=== PATIENT | female | born 1965 | race Caucasian/White ===

== ENCOUNTER 2016-09-28 18:33 | Emergency (ER) | payer BC, OTHER ==
[~2016-09-28] VITALS: Ht 162.6 cm; Wt 99.8 kg
[~2016-09-28 18:33] MED LIST: AMLO5TAB2 PO; ASPI325T11 PO; ASPI81TA2 PO; BUDE10.2 IH; CARV12.52 PO; CEPH500T PO; CIPR10DR AD; CLIN300C86 PO; CLON0.1T PO; EZET10TA3 PO; FAMO20TA5 PO; FERR325T31 PO; FERR325T72 PO; FLUT16SP2 NS; FURO-68 PO; HYDR-2666 PO; HYDR-2869 PO; HYDR100T24 PO; INSU100C4 SQ; INSU100I13 SQ; INSU100I17 SQ; LIPITOR80 MG PO; LORA10TA3 PO; LOSA100T6 PO; LOSA25TA PO; METO25TA9 PO; NITR0.4T6 SL; PRED-220 PO; TRAM50TA PO; VENTOLIN HFA18 GM INH
[2016-09-28] MEDS ORDERED: HYDROCODONE/APAP 7.5/325MG TABLET. PO ONE (20:00)
[2016-09-28] MEDS ORDERED: ONDANSETRON ODT 4 MG TAB.RAPDIS PO ONE (20:00)
[2016-09-28 20:04] LABS: BASO % 1 % (0-3); EOS % 2 % (0-3); HEMATOCRIT 35.2 % (36.0-47.0); HEMOGLOBIN 11.5 g/dL (12.0-15.5); LYMPH # 1.2 x10^3/uL (1.0-4.8); LYMPH % 13 % (24-48); MEAN CORPUSCULAR HEMOGLOBIN 31 pg (25-35); MEAN CORPUSCULAR HGB CONC 33 g/dL (31-37); MEAN CORPUSCULAR VOLUME 95 fL (79-100); MONO % 11 % (0-9); NEUT % 74 % (31-73); PLATELET COUNT 222 x10^3/uL (140-400); RED CELL DISTRIBUTION WIDTH 13.4 % (11.5-14.5); WHITE BLOOD COUNT 9.5 x10^3/uL (4.0-11.0)
[2016-09-28 20:14] LABS: CALCIUM 9.9 mg/dL (8.5-10.1); GFR 11.8; POTASSIUM 3.7 mmol/L (3.5-5.1)
[2016-09-28 20:16] VITALS: BP 168/71
[2016-09-28 20:20] LABS: ALBUMIN 3.8 g/dL (3.4-5.0); TOTAL BILIRUBIN 0.6 mg/dL (0.2-1.0); TOTAL PROTEIN 7.8 g/dL (6.4-8.2)
--- NOTE | 2016-09-28 21:01 | PHYS DOC ---
Past Medical History Past Medical History: CAD, CHF, COPD, Diabetes-Type II, High Cholesterol, Hypertension, Renal Failure, Stroke Past Surgical History: Coronary Bypass Surgery, , Other Additional Past Surgical Histo: SHUNT SX Alcohol Use: None Drug Use: None Adult General Chief Complaint Chief Complaint: ABDOMINAL PAIN HPI HPI Patient is a 51 year old female who presents with complaint of right-sided abdominal pain. Patient states that she has had symptoms for the past 2 days. Patient states that the pain has been mostly in her right lower quadrant states that it radiates towards her right flank. Patient denies any associated nausea, fever, or diarrhea but states that she did get sick to her stomach after dialysis earlier today. Patient states that she was given Tylenol to help with her pain that she feels that this made her stomach upset. Patient denies any nausea or vomiting currently. Patient has history of end-stage renal disease, diabetes mellitus, COPD, and CHF. Patient follows a Dr. Rubin for primary care. Patient rates her pain as 10 out of 10. Patient states the pain worsens when she moves at her waist. Review of Systems Review of Systems Constitutional: Denies fever or chills [] Eyes: Denies change in visual acuity, redness, or eye pain [] HENT: Denies nasal congestion or sore throat [] Respiratory: Denies cough or shortness of breath [] Cardiovascular: No additional information not addressed in HPI [] GI: Abdominal pain, denies nausea, vomiting, bloody stools or diarrhea [] : Denies dysuria or hematuria [] Musculoskeletal: Back pain [] Integument: Denies rash or skin lesions [] Neurologic: Denies headache, focal weakness or sensory changes [] Current Medications Current Medications Current Medications Medications (Trade) Dose Ordered Sig/Jesus Start Time Stop Time Status Last Admin Dose Admin Acetaminophen/ Hydrocodone Bitart (Lortab 7.5/325) 1 tab 1X ONCE 09/28/16 20:00 09/28/16 20:01 DC 09/28/16 19:59 1 TAB Ondansetron HCl (Zofran Odt) 4 mg 1X ONCE 09/28/16 20:00 09/28/16 20:01 DC 09/28/16 20:00 4 MG Allergies Allergies Allergies Coded Allergies Type Severity Reaction Last Updated Verified No Known Drug Allergies 04/12/16 No Physical Exam Physical Exam Constitutional: Alert, afebrile, appears in mild discomfort. [] HENT: Normocephalic, atraumatic, bilateral external ears normal, oropharynx moist, no oral exudates, nose normal. [] Eyes: PERRLA, EOMI, conjunctiva normal, no discharge. [] Neck: Normal range of motion, no tenderness, supple, no stridor. [] Cardiovascular:Heart rate regular rhythm, no murmur [] Lungs & Thorax: Bilateral breath sounds clear to auscultation [] Abdomen: Bowel sounds normal, soft, no tenderness, no masses, no pulsatile masses. [] Skin: Warm, dry, no erythema, no rash. [] Back: Mild right middle lumbar paraspinous muscle tenderness to palpation, no midline tenderness, no CVA tenderness. [] Extremities: No tenderness, no cyanosis, no clubbing, ROM intact, no edema. [] Neurologic: Alert and oriented X 3, normal motor function, normal sensory function, no focal deficits noted. [] Current Patient Data Vital Signs Vital Signs Date Time Temp Pulse Resp B/P Pulse Ox O2 Delivery O2 Flow Rate FiO2 09/28/16 20:16 64 18 168/71 96 Room Air 09/28/16 18:49 98.2 98.2 Lab Values Laboratory Tests Test 09/28/16 19:10 White Blood Count 9.5x10^3/uL (4.0-11.0) Red Blood Count 3.70x10^6/uL (3.50-5.40) Hemoglobin 11.5g/dL (12.0-15.5) L Hematocrit 35.2% (36.0-47.0) L Mean Corpuscular Volume 95fL (79-100) Mean Corpuscular Hemoglobin 31pg (25-35) Mean Corpuscular Hemoglobin Concent 33g/dL (31-37) Red Cell Distribution Width 13.4% (11.5-14.5) Platelet Count 222x10^3/uL (140-400) Neutrophils (%) (Auto) 74% (31-73) H Lymphocytes (%) (Auto) 13% (24-48) L Monocytes (%) (Auto) 11% (0-9) H Eosinophils (%) (Auto) 2% (0-3) Basophils (%) (Auto) 1% (0-3) Neutrophils # (Auto) 7.0x10^3uL (1.8-7.7) Lymphocytes # (Auto) 1.2x10^3/uL (1.0-4.8) Monocytes # (Auto) 1.0x10^3/uL (0.0-1.1) Eosinophils # (Auto) 0.2x10^3/uL (0.0-0.7) Basophils # (Auto) 0.0x10^3/uL (0.0-0.2) Sodium Level 139mmol/L (136-145) Potassium Level 3.7mmol/L (3.5-5.1) Chloride Level 100mmol/L (98-107) Carbon Dioxide Level 27mmol/L (21-32) Anion Gap 12 (6-14) Blood Urea Nitrogen 36mg/dL (7-20) H Creatinine 4.0mg/dL (0.6-1.0) H Estimated GFR (Cockcroft-Gault) 11.8 BUN/Creatinine Ratio 9 (6-20) Glucose Level 224mg/dL (70-99) H Calcium Level 9.9mg/dL (8.5-10.1) Total Bilirubin 0.6mg/dL (0.2-1.0) Aspartate Amino Transferase (AST) 15U/L (15-37) Alanine Aminotransferase (ALT) 18U/L (14-59) Alkaline Phosphatase 89U/L (46-116) Total Protein 7.8g/dL (6.4-8.2) Albumin 3.8g/dL (3.4-5.0) Albumin/Globulin Ratio 1.0 (1.0-1.7) Lipase 316U/L (73-393) Laboratory Tests 09/28/16 19:10 Laboratory Tests 09/28/16 19:10 EKG EKG Not performed [] Radiology/Procedures Radiology/Procedures 3 view acute abdominal series interpreted by me: No pulmonary infiltrates or effusions, normal cardiac silhouette, nonobstructive bowel gas pattern, no free air under the diaphragm [] Course & Med Decision Making Course & Med Decision Making Pertinent Labs and Imaging studies reviewed. (See chart for details) Patient was given [place] in the emergency department for pain. Patient does not appear to have an acute severe intra-abdominal process at this time. The patient will be provided with a prescription for [place] to help with pain and advised follow-up in 2-3 days with patient's primary physician. Advised return to the emergency department for any worsening symptoms. Patient voiced understanding and in agreement with treatment plan. Dragon Disclaimer Dragon Disclaimer This electronic medical record was generated, in whole or in part, using a voice recognition dictation system. Departure Departure Impression: Primary Impression: Abdominal pain Disposition: HOME, SELF-CARE Condition: IMPROVED Referrals: ELMO RUBIN MD (PCP) Patient Instructions: Abdominal Pain (Nonspecific) Additional Instructions: Follow-up in 2-[address] Rubin. Return to the emergency department for any worsening symptoms. Scripts Hydrocodone/Apap 5-325 ([place] 5-325 Tablet)1 Each Tablet1 Tab PO Q4-6HRS PRN PAIN #15 TAB Prov:MICHAEL GARNER MD 09/28/16 Ondansetron (Zofran Odt)4 Mg Tab.rapdis4 Mg PO Q6HRS PRN NAUSEA/VOMITING #15 TAB Prov:MICHAEL GARNER MD 09/28/16 Problem Qualifiers Primary Impression: Abdominal pain Abdominal location: lower abdomen, unspecified Qualified Code: R10.30 - Lower abdominal pain, unspecified MICHAEL GARNER MD Sep 28, 2016 21:01
[2016-09-28] MEDS ORDERED: ONDA4TAB10 PO (21:09)
[2016-09-28] MEDS ORDERED: HYDR-971 PO (21:09)
--- NOTE | 2016-09-29 08:03 | RAD ---
EXAM: Two view abdomen with one view chest HISTORY: Abdominal pain, chronic obstructive pulmonary disease, hypertension, diabetes. COMPARISON: None. FINDINGS: A frontal view of the chest and supine/upright views of the abdomen are obtained. There are no confluent infiltrates. There is no pneumothorax or pleural effusion. The heart is mildly enlarged. There are changes of coronary artery bypass grafting. There are atherosclerotic calcifications of the aorta. There is no pneumoperitoneum. There are no distended small bowel loops or significant air-fluid levels. There is gas distally. Stool throughout the colon is consistent with constipation. IMPRESSION: 1. Mild cardiomegaly. 2. Findings consistent with constipation. No evidence of obstruction.
== END 2016-09-28 21:25 | disposition home or self-care (01) ==
LOC: ER 18:33
DX: R10.31 Right lower quadrant pain (principal); M54.5 Low back pain; E11.22 Type 2 diabetes mellitus with diabetic chronic kidney disease; I13.2 Hypertensive heart and chronic kidney disease with heart failure and with stage 5 chronic kidney disease, or end stage renal disease; I50.9 Heart failure, unspecified; N18.6 End stage renal disease; J44.9 Chronic obstructive pulmonary disease, unspecified; I25.10 Atherosclerotic heart disease of native coronary artery without angina pectoris; E78.00 Pure hypercholesterolemia, unspecified; Z86.73 Personal history of transient ischemic attack (TIA), and cerebral infarction without residual deficits; Z95.1 Presence of aortocoronary bypass graft; Z99.2 Dependence on renal dialysis
CPT/HCPCS: 36415; 74022; 80053; 83690; 85027; 99285; Q0162

== ENCOUNTER 2016-11-15 13:39 | Emergency (ER) | payer OTHER ==
[~2016-11-15] VITALS: Ht 162.6 cm; Wt 96.8 kg
[~2016-11-15 13:39] MED LIST changes: +HYDR-971 PO; +ONDA4TAB10 PO
[2016-11-15] MEDS ORDERED: FLUCONAZOLE 100 MG TABLET. PO STA (15:28)
--- NOTE | 2016-11-15 15:28 | PHYS DOC ---
Past Medical History Past Medical History: CAD, CHF, COPD, Diabetes-Type II, High Cholesterol, Hypertension, Renal Failure, Stroke Past Surgical History: Coronary Bypass Surgery, , Other Additional Past Surgical Histo: SHUNT SX Alcohol Use: None Drug Use: None Adult General Chief Complaint Chief Complaint: BREAST PROBLEM HPI HPI Patient is a 51 year old female who presents with complaint of left breast tenderness and rash for the past week. Patient states she first noticed a lesion on week ago and states that since then it has grown significantly. Patient states that the rash is located along the lateral side of the left breast. Patient states that the area has not drained anything. Patient states that the lesion is very tender to touch. Patient has been applying Vaseline ointment with no improvement in symptoms. Patient denies any associated fever, shortness of breath, or nausea. Patient denies any history of similar symptoms. Review of Systems Review of Systems Constitutional: Denies fever or chills [] Eyes: Denies change in visual acuity, redness, or eye pain [] HENT: Denies nasal congestion or sore throat [] Respiratory: Denies cough or shortness of breath [] Cardiovascular: Denies chest pain or edema [] GI: Denies abdominal pain, nausea, vomiting, bloody stools or diarrhea [] : Left breast tenderness [] Musculoskeletal: Denies back pain or joint pain [] Integument: Rash on left breast [] Neurologic: Denies headache, focal weakness or sensory changes [] Current Medications Current Medications Current Medications Medications (Trade) Dose Ordered Sig/Jesus Start Time Stop Time Status Last Admin Dose Admin Acetaminophen/ Hydrocodone Bitart (Lortab 5/325) 1 tab 1X ONCE 11/15/16 15:30 11/15/16 15:38 DC 11/15/16 15:59 1 TAB Cephalexin HCl (Keflex) 500 mg 1X STAT 11/15/16 15:31 11/15/16 15:38 DC 11/15/16 15:59 500 MG Fluconazole (Diflucan) 150 mg 1X STAT 11/15/16 15:28 11/15/16 15:38 DC 11/15/16 15:58 150 MG Sodium Polystyrene Sulfonate (Kayexalate) 15 gm 1X ONCE 11/15/16 17:45 11/15/16 17:46 Allergies Allergies Allergies Coded Allergies Type Severity Reaction Last Updated Verified No Known Drug Allergies 04/12/16 No Physical Exam Physical Exam Constitutional: Alert, afebrile, appears in mild discomfort. [] HENT: Normocephalic, atraumatic, bilateral external ears normal, oropharynx moist, no oral exudates, nose normal. [] Eyes: PERRLA, EOMI, conjunctiva normal, no discharge. [] Neck: Normal range of motion, no tenderness, supple, no stridor. [] Cardiovascular:Heart rate regular rhythm, no murmur [] Lungs & Thorax: Nonlabored respirations, no wheezes, no rales Breast: 4 cm [place] plaque lesions with surrounding erythema, no fluctuance or drainage present, tender to palpation, half centimeter lesion immediately inferior with same characteristics [] Abdomen: Bowel sounds normal, soft, no tenderness, no masses, no pulsatile masses. [] Skin: Warm, dry, no erythema, no rash. [] Back: No tenderness, no CVA tenderness. [] Extremities: No tenderness, no cyanosis, no clubbing, ROM intact, no edema. [] Neurologic: Alert and oriented X 3, normal motor function, normal sensory function, no focal deficits noted. [] Current Patient Data Vital Signs Vital Signs Date Time Temp Pulse Resp B/P Pulse Ox O2 Delivery O2 Flow Rate FiO2 11/15/16 15:59 20 97 Room Air 11/15/16 13:45 97.7 77 152/107 97.7 Lab Values Laboratory Tests Test 11/15/16 16:15 White Blood Count 9.1x10^3/uL (4.0-11.0) Red Blood Count 3.54x10^6/uL (3.50-5.40) Hemoglobin 11.1g/dL (12.0-15.5) L Hematocrit 34.0% (36.0-47.0) L Mean Corpuscular Volume 96fL (79-100) Mean Corpuscular Hemoglobin 31pg (25-35) Mean Corpuscular Hemoglobin Concent 33g/dL (31-37) Red Cell Distribution Width 13.5% (11.5-14.5) Platelet Count 276x10^3/uL (140-400) Neutrophils (%) (Auto) 66% (31-73) Lymphocytes (%) (Auto) 16% (24-48) L Monocytes (%) (Auto) 12% (0-9) H Eosinophils (%) (Auto) 6% (0-3) H Basophils (%) (Auto) 0% (0-3) Neutrophils # (Auto) 6.0x10^3uL (1.8-7.7) Lymphocytes # (Auto) 1.4x10^3/uL (1.0-4.8) Monocytes # (Auto) 1.1x10^3/uL (0.0-1.1) Eosinophils # (Auto) 0.5x10^3/uL (0.0-0.7) Basophils # (Auto) 0.0x10^3/uL (0.0-0.2) Sodium Level 138mmol/L (136-145) Potassium Level 5.8mmol/L (3.5-5.1) H Chloride Level 99mmol/L (98-107) Carbon Dioxide Level 28mmol/L (21-32) Anion Gap 11 (6-14) Blood Urea Nitrogen 74mg/dL (7-20) H Creatinine 7.6mg/dL (0.6-1.0) H Estimated GFR (Cockcroft-Gault) 5.6 Glucose Level 262mg/dL (70-99) H Calcium Level 9.8mg/dL (8.5-10.1) Laboratory Tests 11/15/16 16:15 Laboratory Tests 11/15/16 16:15 EKG EKG Not performed [] Radiology/Procedures Radiology/Procedures [facility] [address] [place], [place] [id number] IMAGING REPORT Signed PATIENT: SAROJ DAWIKNS ACCOUNT: [id number] : 1965 LOCATION: ER AGE: 51 SEX: F EXAM STATUS: REG ER ORD. PHYSICIAN: MICHAEL GARNER MD REASON: left breast lesion PROCEDURE: BREAST LEFT Left breast ultrasound History: Left breast lesion, possible psoriasis. Comparison: None. Findings: Ultrasound imaging was performed of the left breast by senior nuclear medicine technologist. Radiologist was not present for acquisition of images. Imaging was performed at 1:00, 8 cm from nipple in area of clinical interest. The area of clinical interest demonstrates what appears to be superficial echogenic structure at the skin surface. This measures about 3.2 cm maximum dimension, but it does appear to demonstrate shadowing which limits evaluation of the superficial breast parenchyma. Impression: Lesion of the interest appears to be confined to the dermal surface. Lesion appears echogenic and demonstrates shadowing, which limits evaluation of the breast parenchyma. Generally, dermal lesions are considered BI-RADS 2, although it is noted that the patient is due for annual mammography. BI-RADS CATEGORY: 2 BENIGN FINDING(S) RECOMMENDED FOLLOW-UP: CLIN FOLLOW UP IMAGING CLINICALLY INDICATED DICTATED and SIGNED BY: CAESAR ANGELES MD DATE: 11/15/16 6545 CC: MICHAEL GARNER MD; ELMO ENGLISH MD ~ [] Course & Med Decision Making Course & Med Decision Making Pertinent Labs and Imaging studies reviewed. (See chart for details) The patient's lesion is likely consistent with a skin infection, possibly fungal. Patient's ultrasound showed that the lesion appears confined to the dermal layer without any evidence of deep layer lesions of the breast. I consult to Dr. Benton of general surgery and showed him a DT identified photographic representation of the lesion. After discussion, he agreed with initiation of Diflucan and Keflex which was done in the emergency department. The patient will be referred to Dr. Benton's clinic for reevaluation with recommended follow-up tomorrow in his office. Patient was found to have hyperkalemia with a potassium of 5.8. Patient is scheduled for dialysis tomorrow morning. The patient was given Kayexalate in the emergency department and recommended to follow-up for dialysis as scheduled tomorrow. Advised return to the emergency department for any worsening symptoms. Patient voiced understanding and in agreement with treatment plan. Dragon Disclaimer Dragon Disclaimer This electronic medical record was generated, in whole or in part, using a voice recognition dictation system. Departure Departure Impression: Primary Impression: Skin lesion of breast Additional Impressions: End stage renal disease Hyperkalemia Disposition: 01 HOME, SELF-CARE Condition: IMPROVED Referrals: ELMO ENGLISH MD (PCP) LILLIANA BENTON MD Patient Instructions: Skin Infections Additional Instructions: Follow-up with Dr. Benton in his clinic tomorrow. Call his office in the morning to ask when you are scheduled to see him. Take your antibiotics as prescribed. You will start on your next dose of Diflucan on November 22. Return to the emergency department for any worsening symptoms. Scripts Hydrocodone/Apap 5-325 ([place] 5-325 Tablet)1 Each Tablet1-2 Tab PO Q4-6HRS #20 TAB Prov:MICHAEL GARNER MD 11/15/16 Cephalexin (Keflex)500 Mg Capsule1 Cap PO TID #21 CAP Prov:MICHAEL GARNER MD 11/15/16 Fluconazole (Diflucan)150 Mg Tablet1 Tab PO WEEKLY #3 TAB Start taking this medication on Tuesday, November 22, 2016. Prov:MICHAEL GARNER MD 11/15/16 Problem Qualifiers MICHAEL GARNER MD Nov 15, 2016 15:28
[2016-11-15] MEDS ORDERED: HYDROCODONE/APAP 5/325MG TABLET. PO ONE (15:30)
[2016-11-15] MEDS ORDERED: CEPHALEXIN 250 MG CAPSULE. PO STA (15:31)
--- NOTE | 2016-11-15 16:33 | RAD ---
Left breast ultrasound History: Left breast lesion, possible psoriasis. Comparison: None. Findings: Ultrasound imaging was performed of the left breast by chemical engineering technologist. Radiologist was not present for acquisition of images. Imaging was performed at 1:00, 8 cm from nipple in area of clinical interest. The area of clinical interest demonstrates what appears to be superficial echogenic structure at the skin surface. This measures about 3.2 cm maximum dimension, but it does appear to demonstrate shadowing which limits evaluation of the superficial breast parenchyma. Impression: Lesion of the interest appears to be confined to the dermal surface. Lesion appears echogenic and demonstrates shadowing, which limits evaluation of the breast parenchyma. Generally, dermal lesions are considered BI-RADS 2, although it is noted that the patient is due for annual mammography. BI-RADS CATEGORY: 2 BENIGN FINDING(S) RECOMMENDED FOLLOW-UP: CLIN FOLLOW UP IMAGING CLINICALLY INDICATED
[2016-11-15 16:38] LABS: BASO % 0 % (0-3); EOS % 6 % (0-3); HEMOGLOBIN 11.1 g/dL (12.0-15.5); LYMPH # 1.4 x10^3/uL (1.0-4.8); LYMPH % 16 % (24-48); MEAN CORPUSCULAR HEMOGLOBIN 31 pg (25-35); MEAN CORPUSCULAR HGB CONC 33 g/dL (31-37); MEAN CORPUSCULAR VOLUME 96 fL (79-100); MONO % 12 % (0-9); NEUT % 66 % (31-73); PLATELET COUNT 276 x10^3/uL (140-400); RED BLOOD COUNT 3.54 x10^6/uL (3.50-5.40); RED CELL DISTRIBUTION WIDTH 13.5 % (11.5-14.5); WHITE BLOOD COUNT 9.1 x10^3/uL (4.0-11.0)
[2016-11-15 16:56] LABS: CALCIUM 9.8 mg/dL (8.5-10.1); CREATININE 7.6 mg/dL (0.6-1.0); GFR 5.6; POTASSIUM 5.8 mmol/L (3.5-5.1)
[2016-11-15 17:28] VITALS: BP 154/69
[2016-11-15] MEDS ORDERED: SODIUM POLYSTYRENE SULFONATE 15 GM/60 ML ORAL.SUSP. PO ONE (17:45)
[2016-11-15] MEDS ORDERED: FLUC150T PO (17:46)
[2016-11-15] MEDS ORDERED: HYDR-971 PO (17:46)
[2016-11-15] MEDS ORDERED: CEPH-264 PO (17:46)
== END 2016-11-15 18:00 | disposition home or self-care (01) ==
LOC: ER 13:39
DX: N64.89 Other specified disorders of breast (principal); E87.5 Hyperkalemia; E11.9 Type 2 diabetes mellitus without complications; E78.00 Pure hypercholesterolemia, unspecified; J44.9 Chronic obstructive pulmonary disease, unspecified; I25.10 Atherosclerotic heart disease of native coronary artery without angina pectoris; I12.0 Hypertensive chronic kidney disease with stage 5 chronic kidney disease or end stage renal disease; N18.6 End stage renal disease; I50.9 Heart failure, unspecified; Z86.73 Personal history of transient ischemic attack (TIA), and cerebral infarction without residual deficits; Z95.1 Presence of aortocoronary bypass graft
CPT/HCPCS: 36415; 76641; 80048; 85027; 99285-25

== ENCOUNTER → 2016-12-24 | Outpatient (CLI) | payer OTHER ==
[~2016-12-24] MED LIST changes: +CEPH-264 PO; +FLUC150T PO
--- NOTE | 2016-12-24 12:21 | RAD ---
DATE: 12/24/2016 EXAM: DIGITAL SCREEN BILAT W/CAD HISTORY: Screening COMPARISON: 10/31/2015 This study was interpreted with the benefit of Computerized Aided Detection (CAD). FINDINGS: Breast Density: HETERO The breast parenchyma Is heterogeneiously dense, which could reduce sensitivity of mammography. Breast parenchyma level C. There has not been a significant change in the appearance of the breasts compared to the previous exam IMPRESSION: Benign finding BI-RADS CATEGORY: 2 BENIGN FINDING(S) RECOMMENDED FOLLOW-UP: 12M 12 MONTH FOLLOW-UP PQRS compliance statement: Patient information was entered into a reminder system with a target due date 12/25/2019 for the next mammogram. Mammography is a sensitive method for finding small breast cancers, but it does not detect them all and is not a substitute for careful clinical examination. A negative mammogram does not negate a clinically suspicious finding and should not result in delay in biopsying a clinically suspicious abnormality. "Our facility is accredited by the [employer] Mammography Program."
== END | disposition home or self-care (01) ==
LOC: MAMMO 11:18
PROVIDERS: ATTEND Internal Medicine
DX: Z12.31 Encounter for screening mammogram for malignant neoplasm of breast (principal)
CPT/HCPCS: G0202; 77067

== ENCOUNTER 2017-05-01 18:15 | Emergency (ER) | payer OTHER ==
[~2017-05-01] VITALS: Ht 162.6 cm; Wt 96.6 kg
[~2017-05-01 18:15] MED LIST changes: +ASPI-630 PO; -ASPI81TA2 PO; +CLIN300C8 PO; -CLIN300C86 PO; +EZET10TA18 PO; -EZET10TA3 PO; +FERR-36 PO; -FERR325T31 PO; -HYDR-2666 PO; +HYDR-2758 PO; +METO-239 PO; -METO25TA9 PO; +NITR0.4T22 SL; -NITR0.4T6 SL
[2017-05-01 18:20] VITALS: BP 213/95
--- NOTE | 2017-05-01 18:37 | PHYS DOC ---
Past Medical History Past Medical History: CAD, CHF, COPD, Diabetes-Type II, High Cholesterol, Hypertension, Renal Failure, Stroke Additional Past Medical Histor: ESRD-dialysis T, Th, Sat Past Surgical History: Coronary Bypass Surgery, , Other Additional Past Surgical Histo: SHUNT SX-Left arm Additional Information: non smoker Alcohol Use: None Drug Use: None Adult General Chief Complaint Chief Complaint: DIZZY/LIGHT HEADED HPI HPI Patient is a 52 year old female who presents with fall. Yesterday at 1800 p.m. she was sitting in a chair and fell back. She struck the left posterior part of her head. Since that time she has been intermittently dizzy. She states she's more dizzy when she gets up and walks around. No visual changes. No vomiting today. She does vomit post dialysis consistently and that was yesterday. Denies chest pain, no change in her baseline shortness of breath (she has COPD and CHF) . No abdominal pain. She does not make urine. No back pain or injury. Denies any neck pain. No numbness/tingling of arms or legs. Review of Systems Review of Systems Constitutional: Denies fever or chills Eyes: Denies change in visual acuity, redness, or eye pain HENT: Denies nasal congestion or sore throat Respiratory: Denies cough or shortness of breath Cardiovascular: No chest pain GI: Denies abdominal pain, nausea, vomiting, bloody stools or diarrhea : Denies dysuria or hematuria Musculoskeletal: Denies back pain or joint pain; no neck pain. Integument: Denies rash or skin lesions Neurologic: POS injury to left back of head. No focal weakness or sensory changes; POS dizziness Allergies Allergies Allergies Coded Allergies Type Severity Reaction Last Updated Verified No Known Drug Allergies 04/12/16 No Physical Exam Physical Exam Constitutional: Well developed, well nourished, no acute distress, non-toxic appearance. HENT: Normocephalic, swelling to left lateral parietal area, bilateral external ears normal, TM clear without hemotympanum, oropharynx moist, no oral exudates, nose normal. Eyes: PERRLA, EOMI, conjunctiva normal, no discharge. Neck: Normal range of motion, no tenderness, supple, no stridor. NON tender to palpation of cervical spine; no step off or crepitance. Cardiovascular:Heart rate regular rhythm, no murmur Lungs & Thorax: Bilateral breath sounds clear to auscultation Abdomen: Bowel sounds normal, soft, no tenderness, no masses, no pulsatile masses. Skin: Warm, dry, no erythema, no rash. Back: No tenderness, no CVA tenderness. Extremities: No tenderness, no cyanosis, no clubbing, ROM intact, no edema. Neurologic: Alert and oriented X 3, normal motor function, normal sensory function, no focal deficits noted. Psychologic: Affect normal, judgement normal, mood normal. Current Patient Data Vital Signs Vital Signs Date Time Temp Pulse Resp B/P (MAP) Pulse Ox O2 Delivery O2 Flow Rate FiO2 05/01/17 18:50 74 20 98 05/01/17 18:20 98.3 213/95 (134) Room Air 98.3 EKG EKG EKG interpreted by myself at 1826 PM shows normal sinus rhythm at [address] changes no ST elevation Radiology/Procedures Radiology/Procedures [facility] [address] [place] [address] IMAGING REPORT Signed PATIENT: SAROJ DAWKINS ACCOUNT: [id number] : 1965 LOCATION: ER AGE: 52 SEX: F EXAM STATUS: REG ER ORD. PHYSICIAN: MARISSA NICHOLSON MD REASON: fell; left parietal contusion'; now dizzy PROCEDURE: CT HEAD AND CERVICAL SPINE WO RS Compliance Statement: One or more of the following individualized dose reduction techniques were utilized for this examination: 1. Automated exposure control 2. Adjustment of the mA and/or kV according to patient size 3. Use of iterative reconstruction technique CT head and cervical spine without contrast 05/01/2017 6:31 PM INDICATION: Right parietal injury. COMPARISON: None available TECHNIQUE: Multiple axial CT images of the head were obtained from skull base through the vertex without intravenous contrast. Multiple axial CT images of the cervical spine were obtained without intravenous contrast. Coronal and sagittal reformats are provided. FINDINGS: Head: Ventricles, sulci and basal cisterns are within normal limits. There is no hydrocephalus. Howard-white matter differentiation is normal. There is no acute intracranial hemorrhage. There is no mass, mass effect or midline shift. Posterior fossa is normal in appearance. Visualized portions of the orbits are normal, with exception of bilateral lens replacement. Paranasal sinuses are well aerated. Mastoid air cells are well aerated. Tiny left parietal scalp hematoma. No underlying calvarial defect. Cervical spine: Alignment of the cervical spine is normal. Mild sclerosis of the C2 vertebral body may be seen in setting of renal osteodystrophy. Skull base is intact. Craniocervical junction is normal in appearance. Atlantoaxial articulation is normal. There are likely remote fractures involving the anterior superior corners of the C5 and C6 vertebral bodies. There is no prevertebral edema. No involvement of the posterior elements. Facet joints are within normal limits. No significant osseous neural foraminal stenosis. No significant osseous spinal canal stenosis. Transverse foramen are intact. There is no prevertebral soft tissue swelling. Thyroid gland is normal in appearance. Visualized portions of the lung apices are normal without evidence for suspicious pulmonary nodule or infiltrate. Median sternotomy changes are present. IMPRESSION: 1. No acute intracranial hemorrhage. 2. There are likely remote fractures involving the anterior superior corners of the C5 and C6 vertebral bodies. There is no prevertebral edema. No involvement of the posterior elements. Findings were discussed with Dr. Nicholson at 7:00 PM on 05/01/2017. Electronically signed by: Fausto Scott MD (05/01/2017 7:02 PM) [facility] [id number] DICTATED and SIGNED BY: FAUSTO SCOTT MD DATE: 05/01/17 1853 CC: MARISSA NICHOLSON MD; ELMO ENGLISH MD ~ Course & Med Decision Making Course & Med Decision Making Evaluated patient upon arrival. CT ordered. EKG with no acute changes. Received call from radiologist at 1900 PM: NO acute bleed; chronic cervical changes noted. NO nausea here. Tylenol po. Home (patient has her BP meds to take this evening). Patient feels comfortable going home. She uses a cane normally to ambulate. No difficulty with her gait. I have spoken with the patient and/or caregivers. I have explained the patient' s condition, diagnosis and treatment plan based on the information available to me at this time. I have answered the patient's and/or caregiver's questions and addressed any concerns. The patient and/or caregivers have as good an understanding of the patient's diagnosis, condition and treatment plan as can be expected at this point. The patient's condition is stable and appropriate for discharge from the emergency department. The patient will pursue further outpatient evaluation with the primary care physician or other designated or consulting physician as outlined in the discharge instructions. The patient and/or caregivers are agreeable to this plan of care and follow-up instructions have been explained in detail. The patient and/or caregivers have received these instructions in written format and have expressed an understanding of the discharge instructions. The patient and/or caregivers are aware that any significant change in condition or worsening of symptoms should prompt an immediate return to this or the closest emergency department or a call to 911. Dragon Disclaimer Dragon Disclaimer This electronic medical record was generated, in whole or in part, using a voice recognition dictation system. Departure Departure Impression: Primary Impression: Fall Additional Impression: Scalp contusion Disposition: 01 HOME, SELF-CARE Condition: STABLE Referrals: ELMO ENGLISH MD (PCP) Patient Instructions: Concussion-SportsMed, Fall Prevention and Home Safety Additional Instructions: The CT scan of your head and neck were normal. You were given Tylenol here tonight. Take your blood pressure medicine when you get home as scheduled. If you have any worsening changes tomorrow or you worsen, Call your doctor or seek medical care immediately. Problem Qualifiers MARISSA NIHCOLSON MD May 01, 2017 18:37
--- NOTE | 2017-05-01 19:05 | RAD ---
PQRS Compliance Statement: One or more of the following individualized dose reduction techniques were utilized for this examination: 1. Automated exposure control 2. Adjustment of the mA and/or kV according to patient size 3. Use of iterative reconstruction technique CT head and cervical spine without contrast 05/01/2017 6:31 PM INDICATION: Right parietal injury. COMPARISON: None available TECHNIQUE: Multiple axial CT images of the head were obtained from skull base through the vertex without intravenous contrast. Multiple axial CT images of the cervical spine were obtained without intravenous contrast. Coronal and sagittal reformats are provided. FINDINGS: Head: Ventricles, sulci and basal cisterns are within normal limits. There is no hydrocephalus. Howard-white matter differentiation is normal. There is no acute intracranial hemorrhage. There is no mass, mass effect or midline shift. Posterior fossa is normal in appearance. Visualized portions of the orbits are normal, with exception of bilateral lens replacement. Paranasal sinuses are well aerated. Mastoid air cells are well aerated. Tiny left parietal scalp hematoma. No underlying calvarial defect. Cervical spine: Alignment of the cervical spine is normal. Mild sclerosis of the C2 vertebral body may be seen in setting of renal osteodystrophy. Skull base is intact. Craniocervical junction is normal in appearance. Atlantoaxial articulation is normal. There are likely remote fractures involving the anterior superior corners of the C5 and C6 vertebral bodies. There is no prevertebral edema. No involvement of the posterior elements. Facet joints are within normal limits. No significant osseous neural foraminal stenosis. No significant osseous spinal canal stenosis. Transverse foramen are intact. There is no prevertebral soft tissue swelling. Thyroid gland is normal in appearance. Visualized portions of the lung apices are normal without evidence for suspicious pulmonary nodule or infiltrate. Median sternotomy changes are present. IMPRESSION: 1. No acute intracranial hemorrhage. 2. There are likely remote fractures involving the anterior superior corners of the C5 and C6 vertebral bodies. There is no prevertebral edema. No involvement of the posterior elements. Findings were discussed with Dr. Mane at 7:00 PM on 05/01/2017. Electronically signed by: Zulema Wetzel MD (05/01/2017 7:02 PM) [place] [id number]
[2017-05-01] MEDS ORDERED: ACETAMINOPHEN 500 MG TABLET PO ONE (19:30)
--- NOTE | 2017-05-02 06:28 | EKG ---
[facility] [address] [place] [address] Test Date: 2017-05-01 Test Time: 18:26:26 Pat Name: SAROJ DAWKINS Department: Room: Gender: F [employer]: : 1965 Requested By: MARISSA NICHOLSON Order Number: [id number] Reading MD: Jessie Florentino Measurements Intervals [place] Rate: 78 P: 0 OR: 168 QRS: -24 QRSD: 90 T: 67 QT: 352 QTc: 405 Interpretive Statements SINUS RHYTHM LEFTWARD AXIS QRS(T) CONTOUR ABNORMALITY CONSIDER ANTEROLATERAL MYOCARDIAL DAMAGE Electronically Signed On 05-02-2017 18:54:03 CDT by Jessie Florentino
== END 2017-05-01 19:19 | disposition home or self-care (01) ==
LOC: ER 18:15
DX: S00.03XA Contusion of scalp, initial encounter (principal); I13.2 Hypertensive heart and chronic kidney disease with heart failure and with stage 5 chronic kidney disease, or end stage renal disease; E11.22 Type 2 diabetes mellitus with diabetic chronic kidney disease; N18.6 End stage renal disease; I50.9 Heart failure, unspecified; I25.10 Atherosclerotic heart disease of native coronary artery without angina pectoris; J44.9 Chronic obstructive pulmonary disease, unspecified; E78.00 Pure hypercholesterolemia, unspecified; Z86.73 Personal history of transient ischemic attack (TIA), and cerebral infarction without residual deficits; Z99.2 Dependence on renal dialysis; W07.XXXA Fall from chair, initial encounter; Y93.89 Activity, other specified; Y92.89 Other specified places as the place of occurrence of the external cause; Y99.8 Other external cause status
CPT/HCPCS: 70450; 72125; 93005; 99284-25

== ENCOUNTER → 2017-06-14 | Outpatient (CLI) | payer OTHER ==
[2017-05-01 18:50] VITALS: BP 192/89
--- NOTE | 2017-06-14 16:29 | CARD ---
APPROVED REPORT EXAM: Two-dimensional and M-mode echocardiogram with Doppler and color Doppler. Other Information Quality : Good INDICATION CABG 2D DIMENSIONS RVDd2.5 (2.9-3.5cm)Left Atrium(2D)3.4 (1.6-4.0cm) IVSd1.2 (0.7-1.1cm)Aortic Root(2D)2.6 (2.0-3.7cm) LVDd4.9 (3.9-5.9cm)LVOT Diameter2.0 (1.8-2.4cm) PWd1.3 (0.7-1.1cm)LVDs3.2 (2.5-4.0cm) FS (%) 30.0 %SV72.3 ml Aortic Valve AoV Peak Denilson.218.8cm/sAoV VTI45.9cm AO Peak GR.19.1mmHgLVOT Peak Denilson.124.7cm/s LVOT VTI 31.83cmAO Mean GR.9mmHg ANDREINA (VMAX)1.63yu9IJE (VTI)2.16cm2 Mitral Valve MV E Zvfpkepo763.5cm/sMV DECEL HFTR009qj MV A Eevbvidm22.2cm/sMV SNJ62qk E/A Ratio1.5MVA (PHT)4.48cm2 TDI E/Lateral E'8.5E/Medial E'19.2 Tricuspid Valve TR P. Nhnxdnez000cv/sRAP ADNHWEGI0kxOt TR Peak Gr.68txHgALYZ81jwMs Pulmonary Vein S1 Pmdyzfba28.1cm/sD2 Ppyztylg74.7cm/s LEFT VENTRICLE The left ventricle is normal size. There is mild concentric left ventricular hypertrophy. Left ventri cameron systolic function is low normal. The Ejection Fraction is 50-55%. RIGHT VENTRICLE The right ventricle is normal size. The right ventricular systolic function is normal. ATRIA The left atrium size is normal. The right atrium size is normal. The interatrial septum is intact wit h no evidence for an atrial septal defect or patent foramen ovale as noted on 2-D or Doppler imaging. AORTIC VALVE The aortic valve is normal in structure and function. Doppler and Color Flow revealed no significant aortic regurgitation. There is no significant aortic valvular stenosis. MITRAL VALVE The mitral valve is normal in structure and function. There is no evidence of mitral valve prolapse. There is no mitral valve stenosis. Doppler and Color Flow revealed trace mitral valve regurgitation. TRICUSPID VALVE The tricuspid valve is normal in structure and function. Doppler and Color Flow revealed mild tricusp id regurgitation. The PA pressure was estimated at 29 mmHg. There is no tricuspid valve stenosis. PULMONIC VALVE The pulmonary valve is normal in structure and function. Doppler and Color Flow revealed mild pulmoni c valvular regurgitation. There is no pulmonic valvular stenosis. GREAT VESSELS The aortic root is normal in size. The ascending aorta is normal in size. The IVC is normal in size a nd collapses >50% with inspiration. PERICARDIAL EFFUSION There is no evidence of significant pericardial effusion. Critical Notification Critical Value: No <Conclusion> The left ventricle is normal size. Left ventricle systolic function is low normal. The Ejection Fraction is 50-55%. There is mild concentric left ventricular hypertrophy. There is no significant aortic valvular stenosis. Doppler and Color Flow revealed no significant aortic regurgitation. Doppler and Color Flow revealed trace mitral valve regurgitation. Doppler and Color Flow revealed mild tricuspid regurgitation. The PA pressure was estimated at 29 mmHg. Doppler and Color Flow revealed mild pulmonic valvular regurgitation.
== END | disposition home or self-care (01) ==
LOC: ECHO 13:16
PROVIDERS: ATTEND Internal Medicine Cardiovascular Disease
DX: I07.1 Rheumatic tricuspid insufficiency (principal); I37.1 Nonrheumatic pulmonary valve insufficiency; Z95.1 Presence of aortocoronary bypass graft
CPT/HCPCS: 93306

== ENCOUNTER 2017-09-04 13:51 | Emergency (ER) | payer OTHER ==
[2017-09-04 15:33] LABS: ADD MAN DIFF? NO
[2017-09-04 15:35] LABS: BASO # 0.1 x10^3/uL (0.0-0.2); BASO % 1 % (0-3); EOS # 0.2 x10^3/uL (0.0-0.7); EOS % 2 % (0-3); HEMATOCRIT 38.9 % (36.0-47.0); HEMOGLOBIN 12.6 g/dL (12.0-15.5); LYMPH # 1.5 x10^3/uL (1.0-4.8); LYMPH % 16 % (24-48); MEAN CORPUSCULAR HEMOGLOBIN 31 pg (25-35); MEAN CORPUSCULAR HGB CONC 32 g/dL (31-37); MEAN CORPUSCULAR VOLUME 96 fL (79-100); MONO # 1.1 x10^3/uL (0.0-1.1); MONO % 12 % (0-9); NEUT # 6.4 x10^3uL (1.8-7.7); NEUT % 69 % (31-73); PLATELET COUNT 248 x10^3/uL (140-400); RED BLOOD COUNT 4.07 x10^6/uL (3.50-5.40); RED CELL DISTRIBUTION WIDTH 14.3 % (11.5-14.5); WHITE BLOOD COUNT 9.2 x10^3/uL (4.0-11.0)
[2017-09-04] MEDS: fentaNYL PF VIAL 100 MCG/2 ML VIAL IV ×2 (15:40)
[2017-09-04 15:51] LABS: ANION GAP 13 (6-14); BLOOD UREA NITROGEN 48 mg/dL (7-20); BUN/CREATININE RATIO 8 (6-20); CARBON DIOXIDE 25 mmol/L (21-32); CHLORIDE 98 mmol/L (98-107); GFR 7.3; GLUCOSE 185 mg/dL (70-99); POTASSIUM 4.2 mmol/L (3.5-5.1); SODIUM 136 mmol/L (136-145)
[2017-09-04 15:57] LABS: ALBUMIN/GLOBULIN RATIO 0.9 (1.0-1.7); ALK PHOS 114 U/L (46-116); ALT (SGPT) 16 U/L (14-59); AST (SGOT) 14 U/L (15-37); LIPASE 371 U/L (73-393); TOTAL BILIRUBIN 0.3 mg/dL (0.2-1.0); TOTAL PROTEIN 8.6 g/dL (6.4-8.2)
== END 2017-09-04 16:59 | disposition home or self-care (01) ==
LOC: ER 13:51
DX: M54.6 Pain in thoracic spine (principal); R10.9 Unspecified abdominal pain; I13.2 Hypertensive heart and chronic kidney disease with heart failure and with stage 5 chronic kidney disease, or end stage renal disease; E11.22 Type 2 diabetes mellitus with diabetic chronic kidney disease; N18.6 End stage renal disease; I50.9 Heart failure, unspecified; J44.9 Chronic obstructive pulmonary disease, unspecified; E78.00 Pure hypercholesterolemia, unspecified; Z95.1 Presence of aortocoronary bypass graft; Z99.2 Dependence on renal dialysis; I25.10 Atherosclerotic heart disease of native coronary artery without angina pectoris; Z86.73 Personal history of transient ischemic attack (TIA), and cerebral infarction without residual deficits
CPT/HCPCS: 36415; 74176; 80053; 83690; 85025; 96374; 99285-25; J3010

== ENCOUNTER → 2017-09-26 | Day surgery (SDC) | payer OTHER ==
[~2017-09-26] MED LIST changes: -AMLO5TAB2 PO; -ASPI-630 PO; -ASPI325T11 PO; -BUDE10.2 IH; -CARV12.52 PO; -CEPH-264 PO; -CEPH500T PO; -CIPR10DR AD; -CLIN300C8 PO; -CLON0.1T PO; -EZET10TA18 PO; -FAMO20TA5 PO; -FERR-36 PO; -FERR325T72 PO; -FLUC150T PO; -FLUT16SP2 NS; -FURO-68 PO; -HYDR-2758 PO; -HYDR-2869 PO; -HYDR-971 PO; -HYDR100T24 PO; -INSU100C4 SQ; -INSU100I13 SQ; -INSU100I17 SQ; +IV RINGERS,LACTATED 1000ML 1,000 ML IV; +LIDOCAINE 1% PF 2 ML VIAL. ID; -LIPITOR80 MG PO; -LORA10TA3 PO; -LOSA100T6 PO; -LOSA25TA PO; -METO-239 PO; +MORPHINE SULFATE 2 MG/ML DISP.SYRIN. IV; +MORPHINE SULFATE 4 MG/ML DISP.SYRIN. IV; -NITR0.4T22 SL; -ONDA4TAB10 PO; -PRED-220 PO; +PROCHLORPERAZINE 10 MG/2 ML VIAL. IV; +PROPOFOL 0 ML IV; +PROPOFOL 40 ML IV; -TRAM50TA PO; -VENTOLIN HFA18 GM INH
[2017-09-26] MEDS: IV NORMAL SALINE 1000ML BAG 1,000 ML IV (09:44)
[2017-09-26 13:20] LABS: POC GLUCOSE 106 mg/dL (70-99)
== END ==
LOC: ENDOS 09:57
DX: Z09 Encounter for follow-up examination after completed treatment for conditions other than malignant neoplasm (principal); Z86.010 Personal history of colon polyps; I13.2 Hypertensive heart and chronic kidney disease with heart failure and with stage 5 chronic kidney disease, or end stage renal disease; E11.22 Type 2 diabetes mellitus with diabetic chronic kidney disease; N18.6 End stage renal disease; I50.33 Acute on chronic diastolic (congestive) heart failure; M19.90 Unspecified osteoarthritis, unspecified site; I25.10 Atherosclerotic heart disease of native coronary artery without angina pectoris; E78.00 Pure hypercholesterolemia, unspecified; J45.909 Unspecified asthma, uncomplicated; E66.9 Obesity, unspecified; Z86.73 Personal history of transient ischemic attack (TIA), and cerebral infarction without residual deficits; Z95.5 Presence of coronary angioplasty implant and graft; Z99.2 Dependence on renal dialysis; Z94.0 Kidney transplant status; Z79.4 Long term (current) use of insulin; Z87.440 Personal history of urinary (tract) infections; Z98.51 Tubal ligation status
CPT/HCPCS: 45378; 82962; J2704

== ENCOUNTER → 2017-11-02 | Outpatient (CLI) | payer OTHER ==
[2017-11-03] MEDS: REGADENOSON 0.4 MG/5 ML DISP.SYRIN. IV (11:05)
== END | disposition home or self-care (01) ==
LOC: NM 08:46
DX: Z01.818 Encounter for other preprocedural examination (principal); I13.2 Hypertensive heart and chronic kidney disease with heart failure and with stage 5 chronic kidney disease, or end stage renal disease; E11.22 Type 2 diabetes mellitus with diabetic chronic kidney disease; I50.9 Heart failure, unspecified; N18.6 End stage renal disease; J44.9 Chronic obstructive pulmonary disease, unspecified; I25.10 Atherosclerotic heart disease of native coronary artery without angina pectoris; Z95.1 Presence of aortocoronary bypass graft
CPT/HCPCS: 78452; 93017; 96374; 96375; A9500; J2785

== ENCOUNTER 2017-12-18 15:46 | Emergency (ER) | payer OTHER | END 2017-12-18 17:28 | disposition home or self-care (01) | LOC: ER 17:28 | DX: R22.42 Localized swelling, mass and lump, left lower limb (principal); M79.662 Pain in left lower leg; I13.2 Hypertensive heart and chronic kidney disease with heart failure and with stage 5 chronic kidney disease, or end stage renal disease; I50.9 Heart failure, unspecified; E11.22 Type 2 diabetes mellitus with diabetic chronic kidney disease; N18.6 End stage renal disease; E78.00 Pure hypercholesterolemia, unspecified; I25.10 Atherosclerotic heart disease of native coronary artery without angina pectoris; Z99.2 Dependence on renal dialysis; J44.9 Chronic obstructive pulmonary disease, unspecified; Z86.73 Personal history of transient ischemic attack (TIA), and cerebral infarction without residual deficits; Z95.5 Presence of coronary angioplasty implant and graft | CPT/HCPCS: 93971; 99284-25 ==

== ENCOUNTER 2018-02-23 07:08 | Emergency (ER) | payer OTHER ==
[2018-02-23] MEDS: MORPHINE SULFATE 4 MG/ML DISP.SYRIN. IV ×2 (07:37→08:29)
[2018-02-23] MEDS: IPRATRPIUM/ALBUTEROL 0.5/2.5MG 3 ML NEBU. NEB (08:05)
[2018-02-23] MEDS: cloNIDine HCL 0.1 MG TABLET PO (08:49)
== END 2018-02-23 09:10 | disposition home or self-care (01) ==
LOC: ER 07:08
DX: S52.531A Colles' fracture of right radius, initial encounter for closed fracture (principal); E11.22 Type 2 diabetes mellitus with diabetic chronic kidney disease; I13.2 Hypertensive heart and chronic kidney disease with heart failure and with stage 5 chronic kidney disease, or end stage renal disease; I50.84 End stage heart failure; N18.6 End stage renal disease; Z99.2 Dependence on renal dialysis; Z95.5 Presence of coronary angioplasty implant and graft; W01.0XXA Fall on same level from slipping, tripping and stumbling without subsequent striking against object, initial encounter; Y93.89 Activity, other specified; Y99.8 Other external cause status; Y92.89 Other specified places as the place of occurrence of the external cause
CPT/HCPCS: 29125; 73110; 94640; 96374; 96376; 99284-25; J2270; J7620

== ENCOUNTER 2018-03-06 09:41 | Day surgery (SDC) | payer OTHER ==
[~2018-03-06 09:41] MED LIST changes: +AMLO5TAB2 PO; +ASPI-630 PO; +ASPI325T11 PO; +BUDE10.2 IH; +CARV12.52 PO; +CEPH-264 PO; +CEPH500T PO; +CIPR10DR AD; +CLIN300C8 PO; +CLON0.1T PO; +EZET10TA18 PO; +FAMO20TA5 PO; +FERR-36 PO; +FERR325T72 PO; +FLUC150T PO; +FLUT16SP2 NS; +FURO-68 PO; +HYDR-2758 PO; +HYDR-2869 PO; +HYDR-971 PO; +HYDR100T24 PO; +INSU100C4 SQ; +INSU100I13 SQ; +INSU100I17 SQ; -IV RINGERS,LACTATED 1000ML 1,000 ML IV; +IV RINGERS,LACTATED 1000ML 1,000 ML IV SCH; -LIDOCAINE 1% PF 2 ML VIAL. ID; +LIDOCAINE 1% PF 2 ML VIAL. ID PRN; +LIPITOR80 MG PO; +LORA10TA3 PO; +LOSA100T6 PO; +LOSA25TA PO; +METO-239 PO; -MORPHINE SULFATE 2 MG/ML DISP.SYRIN. IV; +MORPHINE SULFATE 2 MG/ML VIAL. IV PRN; -MORPHINE SULFATE 4 MG/ML DISP.SYRIN. IV; +NITR0.4T22 SL; +ONDA4TAB10 PO; +ONDANSETRON PF 4 MG/2 ML VIAL. IV PRN; +PRED-220 PO; -PROCHLORPERAZINE 10 MG/2 ML VIAL. IV; +PROCHLORPERAZINE 10 MG/2 ML VIAL. IV PRN; -PROPOFOL 0 ML IV; -PROPOFOL 40 ML IV; +TRAM50TA PO; +VENTOLIN HFA18 GM INH; +ceFAZolin 2GM PREMIX 2 GM/50 ML BAG IV ONE; +fentaNYL PF VIAL 100 MCG/2 ML VIAL IV PRN
[2018-03-06] MEDS ORDERED: PROPOFOL 20 ML IV ONE ×2 (10:46→10:58)
[2018-03-06] MEDS ORDERED: fentaNYL PF VIAL 100 MCG/2 ML VIAL ONE ×2 (10:46→10:59)
[2018-03-06] MEDS ORDERED: LIDOCAINE 2% PF Vial for OR 5 ML VIAL. ONE ×2 (10:46→10:58)
[2018-03-06] MEDS ORDERED: MIDAZOLAM HCL/PF 2 MG/2 ML VIAL. ONE (10:47)
[2018-03-06] MEDS ORDERED: IV NORMAL SALINE 1000ML BAG 1,000 ML IV SCH (11:30)
--- NOTE | 2018-03-06 11:58 | DISCH ---
DISCHARGE INSTRUCTIONS Condition on Discharge Condition on Discharge: Stable Activity After Discharge Activity Instructions for Disc: Activity as tolerated, Other, see below Other activity instructions: NWB RUE Bathing Instructions: Shower-keep dressing dry Weight Bearing Status after Di: Full weight bearing, Non weight bearing Diet after Discharge Diet after Discharge: Renal Dialysis, Regular, Diabetic No Calorie Level Diet Texture: Regular Liquid Texture: Thin Liquid Swallowing Supervision: None needed Wound Incision Care Wound/Incision Care: Ice to area for comfort, Keep wound/cast CDI, Keep wound elevated, Do not change dressing Checks after Discharge Checks after discharge: Check blood press - daily, Check blood sugar, ac/hs Contacting the DR. after DC Call your doctor for: Concerns you may have Follow-Up Follow up with: Rolando in 2 wks Treatment/Equipment after DC Adaptive Equipment Issued: CHRISTI Alvarenga II, MD Mar 06, 2018 11:58
[2018-03-06 12:31] LABS: POTASSIUM 5.2 mmol/L (3.5-5.1)
[2018-03-06] MEDS ORDERED: BUPIVACAINE 0.25% 50 ML VIAL. ONE (12:42)
[2018-03-06] MEDS ORDERED: LIDOCAINE 1% PF 30 ML VIAL. ONE (12:43)
[2018-03-06] MEDS ORDERED: ePHEDrine PF IN SALINE 50 MG/5 ML DISP.SYRIN IV ONE (13:17)
--- NOTE | 2018-03-06 14:28 | PDOC4 ---
Operative Note Operative Note Date of procedure: 03/06/2018 Surgeon: Brien Branch Sales Training Manager: Mary Ann Leary, certified technician specialist Preoperative diagnosis: Closed, comminuted, intra-articular, right distal radius fracture Postoperative diagnosis: Same Procedure performed: Open reduction, internal fixation right distal radius fracture, intra-articular Findings, comminuted intra-articular fracture with void from impaction Tourniquet time: 40 minutes Anesthesia: Gen. Blood loss: 50 mL Components inserted: Meehan and nephew 4-hole right standard distal radius locking plate Complications: None Reason for procedure: Patient is a very pleasant 52-year-old female who had a ground-level fall. She suffered immediate pain and deformity at her wrist and was referred to the orthopedic clinic from the emergency department. She was splinted the emergency department. I'd seen and evaluated her my outpatient clinic and after reviewing the clinical and radiographic evidence, I recommended operative fixation and she wished to proceed. Description of procedure: Patient was greeted in the preoperative area by myself for the correct extremity was verified and marked. Once in the operating room, she was transferred gently supine to the operating room table. Her and her buttocks were started as she was brought back. Once on the OR table, she has successful induction of a general anesthetic. We then applied the hand board attachment to the OR table. She was secured to bed with all pressure points padded. Nonsterile tourniquet was secured in place to her right upper arm. We took down her splint and performed a chlorhexidine pre-scrub. The right upper trimming was then prepped and draped in our usual sterile fashion. We then conducted our standard preoperative timeout. I then palpated and marked surface anatomy and kwan a line from my plan skin incision for my volar Jefferson approach. The extremity was exsanguinated with an Esmarch and tourniquet insufflated to 250 mmHg. After this, I incised skin with a scalpel and dissected subcutaneous tissue with bipolar cautery as well as tenotomies. Identified the FCR tendon and incised fashion line with the skin incision on the radial side of the FCR tendon. I then bluntly dissected down to the pronator quadratus and took this down with electrocautery. I then used a periosteal elevator to expose the volar distal radial shaft as well as a fracture site. I then hinged open fracture site and used metal tipped suction as well as dental pick and a small rongeur to debride the fracture site. I then performed my closed reduction maneuver consisting of re-creating the fracture deformity, pulling traction through the radial column of her hand and using direct pressure and manipulation from the dental pick. I was able to reduce it better. This left a large void impacted bone. I then provisionally sized and pinned my plate position and secured to the shaft with a nonlocking screw. I then tried please see her 2 screws, but neither of these afforded any purchase and therefore I placed 2 nonlocking screws at the far radial and far ulnar holes of the distal row. I then placed locking screws in the middle 2 holes. I used one hole just proximal to this rather than the distal most hole sent felt this gave better fixation at the ulnar column. I then secured her plate and bone together with 2 more screws through the radial shaft and plate. I took my final images and confirmed extra articular screw placement as well as improve fracture alignment and good hardware position. Tourniquet was let down after I irrigated out the operative field thoroughly with sterile saline. Bleeders were cauterized with bipolar cautery. After this, pronator quadratus was reapproximated with 2-0 Vicryl in a wfaojo-hw-qyszv fashion. Subcutaneous tissue was closed with inverted interrupted 20 followed by number nylon, 30 simple fashion for skin. I injected approximate 10 mL of local anesthetic mixture, ensuring extravascular placement into the price-incisional area. The arm and hand were cleansed and dried and a sterile dressing was applied followed by a well-padded sugar tong splint. Postoperative plan is nonweightbearing. She will be discharged home. Active range of motion was encouraged at her fingers. Written instructions were given to her. She'll follow up in 2 weeks, sooner should a problem arise. BRIEN BRANCH II, MD Mar 06, 2018 14:28
[2018-03-06] MEDS ORDERED: HYDROcodone/APAP 5/325MG 1 TAB TABLET PO ONE (14:45)
[2018-03-06 15:24] VITALS: BP 184/76
--- NOTE | 2018-03-08 08:17 | RAD ---
EXAM: 4 intraoperative fluoroscopic images of the right wrist DATE: 03/06/2018 1:23 PM INDICATION: Right wrist fracture COMPARISON: No Prior FINDINGS/ IMPRESSION: 4 very limited intraoperative fluoroscopic views of the right wrist submitted from the OR. Exam shows steps toward reduction and fixation of the distal radial fracture. Note, this does not constitute a diagnostic quality exam. Please see operative report for full details. Electronically signed by: Jonathan Chowdary MD (03/08/2018 8:13 AM) [facility]
== END 2018-03-06 15:40 | disposition home or self-care (01) ==
LOC: SURG 09:41
PROVIDERS: ATTEND Orthopaedic Surgery Sports Medicine
DX: S52.571A Other intraarticular fracture of lower end of right radius, initial encounter for closed fracture (principal); I13.2 Hypertensive heart and chronic kidney disease with heart failure and with stage 5 chronic kidney disease, or end stage renal disease; E11.22 Type 2 diabetes mellitus with diabetic chronic kidney disease; N18.6 End stage renal disease; I50.9 Heart failure, unspecified; Z99.2 Dependence on renal dialysis; E78.00 Pure hypercholesterolemia, unspecified; I25.10 Atherosclerotic heart disease of native coronary artery without angina pectoris; J44.9 Chronic obstructive pulmonary disease, unspecified; F32.9 Major depressive disorder, single episode, unspecified; Z98.51 Tubal ligation status; Z95.1 Presence of aortocoronary bypass graft; Z98.890 Other specified postprocedural states; Z86.73 Personal history of transient ischemic attack (TIA), and cerebral infarction without residual deficits; D64.9 Anemia, unspecified; M19.90 Unspecified osteoarthritis, unspecified site; Z86.14 Personal history of Methicillin resistant Staphylococcus aureus infection; Z83.3 Family history of diabetes mellitus; Z82.49 Family history of ischemic heart disease and other diseases of the circulatory system; Z79.899 Other long term (current) drug therapy; Z79.4 Long term (current) use of insulin; Z79.84 Long term (current) use of oral hypoglycemic drugs; Z98.49 Cataract extraction status, unspecified eye; Z96.1 Presence of intraocular lens; Z86.010 Personal history of colon polyps; E66.9 Obesity, unspecified; D63.1 Anemia in chronic kidney disease; Z79.82 Long term (current) use of aspirin; W18.39XA Other fall on same level, initial encounter; Y93.89 Activity, other specified; Y92.89 Other specified places as the place of occurrence of the external cause; Y99.8 Other external cause status
CPT/HCPCS: 25609; 36415; 76000; 80051; 82962; C1713; J0690; J2001; J2704; J3010; J3490; A7015; J2250

== ENCOUNTER → 2018-04-06 | Outpatient (CLI) | payer OTHER ==
[~2018-04-06] MED LIST changes: -AMLO5TAB2 PO; +AMLO5TAB7 PO; -IV RINGERS,LACTATED 1000ML 1,000 ML IV SCH; -LIDOCAINE 1% PF 2 ML VIAL. ID PRN; -LOSA100T6 PO; +LOSA100T7 PO; -MORPHINE SULFATE 2 MG/ML VIAL. IV PRN; -ONDANSETRON PF 4 MG/2 ML VIAL. IV PRN; -PROCHLORPERAZINE 10 MG/2 ML VIAL. IV PRN; -ceFAZolin 2GM PREMIX 2 GM/50 ML BAG IV ONE; -fentaNYL PF VIAL 100 MCG/2 ML VIAL IV PRN
--- NOTE | 2018-04-06 12:25 | RAD ---
DATE: 04/06/2018 EXAM: DIGITAL SCREEN BILAT W/CAD HISTORY: Routine screening COMPARISON: 12/24/2016 This study was interpreted with the benefit of Computerized Aided Detection (CAD). Breast Density: HETERO The breast parenchyma is heterogenously dense, which could reduce sensitivity of mammography. Breast parenchyma level C. FINDINGS: No new or enlarging breast densities are seen. Stable benign type calcifications are present. No suspicious microcalcifications have developed. IMPRESSION: Stable mammograms without evidence of malignancy. BI-RADS CATEGORY: 2 BENIGN FINDING(S) RECOMMENDED FOLLOW-UP: 12M 12 MONTH FOLLOW-UP PQRS compliance statement: Patient information was entered into a reminder system with a target due date for the next mammogram. Mammography is a sensitive method for finding small breast cancers, but it does not detect them all and is not a substitute for careful clinical examination. A negative mammogram does not negate a clinically suspicious finding and should not result in delay in biopsying a clinically suspicious abnormality. "Our facility is accredited by the [employer] Mammography Program."
== END | disposition home or self-care (01) ==
LOC: MAMMO 11:02
PROVIDERS: ATTEND Internal Medicine
DX: Z12.31 Encounter for screening mammogram for malignant neoplasm of breast (principal); I13.2 Hypertensive heart and chronic kidney disease with heart failure and with stage 5 chronic kidney disease, or end stage renal disease; E11.22 Type 2 diabetes mellitus with diabetic chronic kidney disease; I50.23 Acute on chronic systolic (congestive) heart failure; N18.5 Chronic kidney disease, stage 5; D63.1 Anemia in chronic kidney disease; E78.00 Pure hypercholesterolemia, unspecified; I25.10 Atherosclerotic heart disease of native coronary artery without angina pectoris; Z79.4 Long term (current) use of insulin; Z95.1 Presence of aortocoronary bypass graft; Z87.440 Personal history of urinary (tract) infections; Z86.010 Personal history of colon polyps; Z86.73 Personal history of transient ischemic attack (TIA), and cerebral infarction without residual deficits; Z80.1 Family history of malignant neoplasm of trachea, bronchus and lung; Z83.3 Family history of diabetes mellitus
CPT/HCPCS: 77067

== ENCOUNTER 2018-05-29 08:05 | Day surgery (SDC) | payer OTHER ==
[~2018-05-29] VITALS: Ht 162.6 cm; Wt 93.4 kg
[~2018-05-29 08:05] MED LIST changes: +FOLI1TAB16 PO; +HEPARIN SODIUM 5,000 UNIT in IV NORMAL SALINE 500ML BAG 500 ML IRR ONE; +HYDROmorphone 2 MG/ML VIAL IV PRN; +IV RINGERS,LACTATED 1000ML 1,000 ML IV SCH; +LIDOCAINE 1% PF 2 ML VIAL. ID PRN; +LORA10TA55 PO; +MIDO5TAB PO; +MORPHINE SULFATE 2 MG/ML VIAL. IV PRN; +ONDANSETRON PF 4 MG/2 ML VIAL. IV PRN; +PROCHLORPERAZINE 10 MG/2 ML VIAL. IV PRN; +SEVE800T9 PO; +fentaNYL PF VIAL 100 MCG/2 ML VIAL IV PRN
[2018-05-29] MEDS ORDERED: ROCURONIUM 50 MG/5 ML VIAL. ONE (08:48)
[2018-05-29] MEDS ORDERED: DEXAMETHASONE SOD PHOS 20 MG/5 ML VIAL. ONE (08:48)
[2018-05-29] MEDS ORDERED: ONDANSETRON PF 4 MG/2 ML VIAL. ONE (08:48)
[2018-05-29] MEDS ORDERED: PROPOFOL 20 ML IV ONE ×2 (08:48→10:56)
[2018-05-29] MEDS ORDERED: fentaNYL PF VIAL 100 MCG/2 ML VIAL ONE (08:49)
[2018-05-29 09:23] LABS: BASO # 0.1 x10^3/uL (0.0-0.2); BASO % 1 % (0-3); EOS # 0.3 x10^3/uL (0.0-0.7); EOS % 4 % (0-3); HEMATOCRIT 34.6 % (36.0-47.0); HEMOGLOBIN 11.1 g/dL (12.0-15.5); LYMPH # 1.6 x10^3/uL (1.0-4.8); LYMPH % 20 % (24-48); MEAN CORPUSCULAR HEMOGLOBIN 31 pg (25-35); MEAN CORPUSCULAR HGB CONC 32 g/dL (31-37); MEAN CORPUSCULAR VOLUME 95 fL (79-100); MONO # 1.1 x10^3/uL (0.0-1.1); MONO % 13 % (0-9); NEUT # 5.3 x10^3uL (1.8-7.7); NEUT % 63 % (31-73); PLATELET COUNT 205 x10^3/uL (140-400); RED BLOOD COUNT 3.63 x10^6/uL (3.50-5.40); RED CELL DISTRIBUTION WIDTH 14.4 % (11.5-14.5); WHITE BLOOD COUNT 8.4 x10^3/uL (4.0-11.0)
[2018-05-29] MEDS ORDERED: IV NORMAL SALINE 1000ML BAG 1,000 ML IV ONE (09:30)
[2018-05-29 09:37] LABS: ALBUMIN 3.4 g/dL (3.4-5.0); CALCIUM 9.5 mg/dL (8.5-10.1); CREATININE 5.7 mg/dL (0.6-1.0); GFR 7.8
[2018-05-29 10:01] LABS: PROTHROMBIN TIME PATIENT 14.2 SEC (11.7-14.0)
[2018-05-29] MEDS ORDERED: BUPIVAC MPF-EPI 0.5%-1:200000 30 ML VIAL. ONE (10:09)
[2018-05-29] MEDS ORDERED: ePHEDrine PF IN SALINE 50 MG/5 ML DISP.SYRIN IV ONE (10:40)
[2018-05-29] MEDS ORDERED: GLYCOPYRROLATE 1 MG/5 ML VIAL. ONE (11:07)
[2018-05-29] MEDS ORDERED: NEOSTIGMINE METHYLSULFATE 5 MG/5 ML SYRINGE. ONE (11:07)
--- NOTE | 2018-05-29 11:42 | PDOC ---
BRIEF OPERATIVE NOTE Date: May 29, 2018 Pre-Op Diagnosis ESRD Post-Op Diagnosis same Procedure Performed l/s placement of PD catheter Surgeon Martir Anesthesia Type: General Blood Loss 5cc IV Fluid 400cc Specimens Obtained none Findings no adhesions Complications none BLANCA IRENE MD May 29, 2018 11:42
--- NOTE | 2018-05-29 11:43 | DISCH ---
DISCHARGE INSTRUCTIONS Condition on Discharge Condition on Discharge: Stable Activity After Discharge Activity Instructions for Disc: Activity as tolerated, Avoid exertion, Other, see below Lifting Instructions after Dis: No heavy lifting Driving Instructions after Dis: Do not drive today Diet after Discharge Diet after Discharge: Renal Dialysis, Regular, Diabetic No Calorie Level Diet Texture: Regular Wound Incision Care Wound/Incision Care: Ice to area for comfort Contacting the DRBruce after DC Call your doctor for: Concerns you may have Treatment/Equipment after DC Adaptive Equipment Issued: BLANCA Hayward MD May 29, 2018 11:43
[2018-05-29 13:00] VITALS: BP 163/79
[2018-05-29] MEDS ORDERED: HYDROcodone/APAP 5/325MG 1 TAB TABLET PO ONE (13:30)
--- NOTE | 2018-06-01 13:01 | OP ---
DATE OF SURGERY: 05/29/2018 PREOPERATIVE DIAGNOSIS: End-stage renal disease. POSTOPERATIVE DIAGNOSIS: End-stage renal disease. PROCEDURE: Laparoscopic placement of peritoneal dialysis catheter. SURGEON: Blanca Irene MD ANESTHESIA: General endotracheal. BLOOD LOSS: 5 INTRAVENOUS 400 INDICATIONS: The patient is a 53-year-old on hemodialysis, requesting PD catheter. DESCRIPTION OF PROCEDURE: The patient brought to the operating suite, given a general endotracheal anesthetic and the abdomen prepped and draped in usual sterile fashion. An epigastric incision was infiltrated with local anesthetic, incised and a 5 mm Visiport used to safely gain access into the abdominal cavity. Pneumoperitoneum was established. Inspection of the abdomen showed no evidence of adhesions. An insertion site was chosen, infiltrated with local anesthetic, incised. Under direct vision, the needle was passed into the abdomen and removed. The sheath was dilated and then the catheter was threaded through the sheath and the sheath was then removed. The Dacron cuff was seated just above the peritoneum. The remaining catheter was then tunneled subcutaneously to the access site. Abdomen decompressed, ports removed. Catheter flushed with 500 mL of normal saline, which readily accepted and a similar amount drained. Incisions closed with subcutaneous 3-0 Vicryl and a subcuticular 4-0 Monocryl with Steri-Strips. The catheter was "packed" with heparinized saline at the completion. Sterile dressing applied. The patient awakened from anesthetic and taken to the recovery room in satisfactory condition. BLANCA IRENE MD DR: VIET/rayray JOB#: [id number] / [id number]
== END 2018-05-29 14:55 | disposition home or self-care (01) ==
LOC: SURG 08:05
PROVIDERS: ATTEND Surgery
DX: I13.2 Hypertensive heart and chronic kidney disease with heart failure and with stage 5 chronic kidney disease, or end stage renal disease (principal); E11.22 Type 2 diabetes mellitus with diabetic chronic kidney disease; N18.6 End stage renal disease; I50.9 Heart failure, unspecified; Z99.2 Dependence on renal dialysis; E11.65 Type 2 diabetes mellitus with hyperglycemia; E78.5 Hyperlipidemia, unspecified; I25.10 Atherosclerotic heart disease of native coronary artery without angina pectoris; J44.9 Chronic obstructive pulmonary disease, unspecified; F32.9 Major depressive disorder, single episode, unspecified; Z86.73 Personal history of transient ischemic attack (TIA), and cerebral infarction without residual deficits; D64.9 Anemia, unspecified; M19.90 Unspecified osteoarthritis, unspecified site; Z86.14 Personal history of Methicillin resistant Staphylococcus aureus infection; Z95.1 Presence of aortocoronary bypass graft; Z98.51 Tubal ligation status; Z98.890 Other specified postprocedural states; Z83.3 Family history of diabetes mellitus; Z82.49 Family history of ischemic heart disease and other diseases of the circulatory system; Z79.899 Other long term (current) drug therapy; Z79.82 Long term (current) use of aspirin; Z79.84 Long term (current) use of oral hypoglycemic drugs
CPT/HCPCS: 36415; 49324; 80048; 82040; 82962; 85025; 85610; 85730; A7015; J0690; J1100; J1644; J2405; J2704; J2710; J3010; J3490; J7030; J7040

== ENCOUNTER 2018-06-14 12:28 | Outpatient (CLI) | payer OTHER ==
[~2018-06-14] VITALS: Ht 162.6 cm; Wt 90.7 kg
[~2018-06-14 12:28] MED LIST changes: +AMMO226L TP; +CLOT15CR3 TP; +CLOT15CR5 TP; +FURO40TA4 PO; -HEPARIN SODIUM 5,000 UNIT in IV NORMAL SALINE 500ML BAG 500 ML IRR ONE; +HYDR-3164 PO; -HYDR-971 PO; -HYDROmorphone 2 MG/ML VIAL IV PRN; +IPRA3AMP29 NEB; -IV RINGERS,LACTATED 1000ML 1,000 ML IV SCH; -LIDOCAINE 1% PF 2 ML VIAL. ID PRN; +LOPE2CAP88 PO; +MECL12.52 PO; +MONT10TA6 PO; -MORPHINE SULFATE 2 MG/ML VIAL. IV PRN; +ONDA8TAB12 PO; -ONDANSETRON PF 4 MG/2 ML VIAL. IV PRN; +POLY17PO29 PO; -PROCHLORPERAZINE 10 MG/2 ML VIAL. IV PRN; +SOD250TA2 PO; -fentaNYL PF VIAL 100 MCG/2 ML VIAL IV PRN
[2018-06-14] MEDS ORDERED: IOHEXOL 300 MG/ML 100ML VIAL. ONE (12:56)
[2018-06-14 12:59] VITALS: BP 174/75
[2018-06-14] MEDS ORDERED: INSU100C4 SQ (13:08)
[2018-06-14] MEDS ORDERED: INSU100V8 SQ (13:08)
[2018-06-14] MEDS ORDERED: FURO80TA3 PO (13:14)
[2018-06-14] MEDS ORDERED: IOHEXOL 300 MG/ML 100ML VIAL. INT CAT ONE (13:30)
[2018-06-14 14:00] VITALS: BP 174/105
--- NOTE | 2018-06-19 08:44 | RAD ---
Fluoroscopic evaluation of peritoneal dialysis catheter 06/19/2018 Indication: Nonfunctioning catheter Discussion: Fluoroscopic evaluation of the patient's left abdominal perineal dialysis catheter was performed. Under fluoroscopic evaluation the catheter is coiled in the left pelvis. The catheter flushes normally. The catheter however will not aspirate. Small amount of contrast was given through the catheter which is not freely flow from the distal aspect of the catheter, and travels along the catheter before spilling into the peritoneum. The appearance is suggestive of a a fibrin sheath around the distal aspect of the catheter. A guidewire was advanced through the catheter with minimal improvement in patency however aspiration still remained unsuccessful. Notably the catheter would not uncoil with placement of a guidewire suggesting possible adhesions. Fluoroscopy time: 2.3 minutes Dose area product 51 Gycm2 Impression: Contrast does not freely flow from the end of the catheter. The catheter would not aspirate. This appears to be the result of other fibrin sheath or adhesions surrounding the distal catheter. Surgical consultation recommended.
== END 2018-06-14 14:00 | disposition home or self-care (01) ==
LOC: INTRAD 12:28
PROVIDERS: ATTEND Internal Medicine Nephrology
DX: T85.691A Other mechanical complication of intraperitoneal dialysis catheter, initial encounter (principal); Y83.8 Other surgical procedures as the cause of abnormal reaction of the patient, or of later complication, without mention of misadventure at the time of the procedure; Y92.89 Other specified places as the place of occurrence of the external cause
CPT/HCPCS: 49400; 74190; C1769; Q9967

== ENCOUNTER 2018-12-10 15:03 | Emergency (ER) | payer OTHER ==
[~2018-12-10] VITALS: Ht 162.6 cm; Wt 93.9 kg
[~2018-12-10 15:03] MED LIST changes: +AMLO5TAB10 PO; -AMLO5TAB7 PO; +CARV12.511 PO; -CARV12.52 PO; +FURO80TA3 PO; -HYDR-2758 PO; +HYDR-2761 PO; +INSU100V8 SQ; +LOSA100T14 PO; -LOSA100T7 PO
[2018-12-10] MEDS ORDERED: CEPHALEXIN 250 MG CAPSULE. PO SCH (15:28)
[2018-12-10] MEDS ORDERED: HYDROcodone/APAP 5/325MG 1 TAB TABLET PO ONE (15:30)
[2018-12-10] MEDS ORDERED: CEPH-264 PO (15:32)
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
[2018-12-10 15:36] VITALS: BP 112/59
[2019-01-02] MEDS ORDERED: BUDE10.2 INH (04:07)
[2019-01-02] MEDS ORDERED: IRBE150T3 PO (04:07)
[2019-01-02] MEDS ORDERED: LISI-334 PO (04:07)
[2019-01-02] MEDS ORDERED: CALC0.5C8 PO (04:07)
[2019-01-02] MEDS ORDERED: CINA30TA2 PO (04:07)
[2019-01-02] MEDS ORDERED: CALC667T4 PO (10:53)
[2019-01-02] MEDS ORDERED: FURO40TA4 PO (11:11)
[2019-01-02] MEDS ORDERED: TRIA15CR TP (11:32)
[2019-01-02] MEDS ORDERED: ALBU2.5V8 INH (11:32)
[2019-01-02] MEDS ORDERED: LOPE2CAP88 PO (11:32)
[2019-01-02] MEDS ORDERED: METO2.5T PO (11:32)
[2019-01-02] MEDS ORDERED: MUPI22OI2 TP (11:32)
[2019-01-02] MEDS ORDERED: MONT10TA9 PO (11:32)
[2019-01-02] MEDS ORDERED: AMMO226L TP (11:32)
[2019-01-02] MEDS ORDERED: DICL100G18 TP (11:32)
[2019-01-02] MEDS ORDERED: AMMO225L5 TP (11:32)
[2019-01-02] MEDS ORDERED: [UNRECOGNIZED DRUG - CODE] OP (11:32)
[2019-01-02] MEDS ORDERED: TRAM50TA PO (11:32)
[2019-01-02] MEDS ORDERED: MELA3TAB2 PO (11:32)
[2019-01-02] MEDS ORDERED: CLOT15CR4 TP (11:32)
== END 2018-12-10 16:14 | disposition home or self-care (01) ==
LOC: ER 15:03
DX: L03.116 Cellulitis of left lower limb (principal); E78.00 Pure hypercholesterolemia, unspecified; I25.10 Atherosclerotic heart disease of native coronary artery without angina pectoris; I13.2 Hypertensive heart and chronic kidney disease with heart failure and with stage 5 chronic kidney disease, or end stage renal disease; E11.22 Type 2 diabetes mellitus with diabetic chronic kidney disease; N18.6 End stage renal disease; I50.9 Heart failure, unspecified; Z99.2 Dependence on renal dialysis; Z95.1 Presence of aortocoronary bypass graft; Z86.73 Personal history of transient ischemic attack (TIA), and cerebral infarction without residual deficits
CPT/HCPCS: 99284

== ENCOUNTER 2019-04-07 16:41 | Emergency (ER) | payer OTHER ==
[~2019-04-07] VITALS: Ht 162.6 cm; Wt 102.5 kg
[~2019-04-07 16:41] MED LIST changes: +ALBU2.5V8 INH; +AMMO225L5 TP; +BUDE10.2 INH; +CALC0.5C8 PO; +CALC667T4 PO; +CINA30TA2 PO; +CLOT15CR4 TP; +DICL100G18 TP; -EZET10TA18 PO; +EZET10TA20 PO; +IRBE150T3 PO; +LISI-130 PO; +LISI-334 PO; +LOPE-101 PO; -LOPE2CAP88 PO; +MELA3TAB56 PO; +METO2.5T PO; +MONT10TA49 PO; -MONT10TA6 PO; +MUPI22OI2 TP; +TICA90TA PO; +TRIA15CR TP; +[UNRECOGNIZED DRUG - CODE] OP
[2019-04-07 16:50] VITALS: BP 125/84
[2019-04-07] MEDS ORDERED: CEPH500T PO (17:17)
[2019-04-07] MEDS ORDERED: SULF1TAB24 PO (17:17)
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
[2019-04-07] MEDS ORDERED: LIDOCAINE 1% PF 2 ML VIAL. INJ ONE (17:30)
[2019-04-07] MEDS ORDERED: cefTRIAXone IM 1 GM VIAL IM ONE (17:30)
[2019-04-07] MEDS ORDERED: HYDROcodone/APAP 5/325MG 1 TAB TABLET PO ONE (17:30)
[2019-04-07] MEDS ORDERED: SMZ/TMP 800/160MG TABLET. PO ONE (17:30)
[2019-04-07] MEDS ORDERED: DIPHTH,PERTUSS(ACELL),TET TOX 0.5 ML DISP.SYRIN. VAX IM ONE (17:30)
== END 2019-04-07 17:40 | disposition home or self-care (01) ==
LOC: ER 16:41
DX: L02.811 Cutaneous abscess of head [any part, except face] (principal); L03.811 Cellulitis of head [any part, except face]; I12.0 Hypertensive chronic kidney disease with stage 5 chronic kidney disease or end stage renal disease; E11.22 Type 2 diabetes mellitus with diabetic chronic kidney disease; N18.6 End stage renal disease; Z95.5 Presence of coronary angioplasty implant and graft; Z98.890 Other specified postprocedural states
CPT/HCPCS: 10060; 90471; 90715; 96372; 99284; J0696

== ENCOUNTER 2019-06-08 17:09 | Emergency (ER) | payer OTHER ==
[~2019-06-08] VITALS: Ht 162.6 cm; Wt 102.5 kg
[~2019-06-08 17:09] MED LIST changes: -MIDO5TAB PO; +MIDO5TAB4 PO; +SULF1TAB24 PO
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
[2019-06-08 18:33] VITALS: BP 125/84
[2019-06-08] MEDS ORDERED: HYDR-3164 PO (19:50)
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
== END 2019-06-08 19:59 | disposition home or self-care (01) ==
LOC: ER 17:09
DX: S62.617A Displaced fracture of proximal phalanx of left little finger, initial encounter for closed fracture (principal); I10 Essential (primary) hypertension; E11.9 Type 2 diabetes mellitus without complications; Z95.1 Presence of aortocoronary bypass graft; W23.0XXA Caught, crushed, jammed, or pinched between moving objects, initial encounter; Y93.89 Activity, other specified; Y92.89 Other specified places as the place of occurrence of the external cause; Y99.8 Other external cause status
CPT/HCPCS: 29125; 73130; 99284-25

== ENCOUNTER 2019-06-29 15:11 | Emergency (ER) | payer OTHER ==
[~2019-06-29] VITALS: Ht 162.6 cm; Wt 95.3 kg
[2019-06-29 16:49] LABS: BASO # 0.1 x10^3/uL (0.0-0.2); BASO % 1 % (0-3); EOS # 0.2 x10^3/uL (0.0-0.7); EOS % 2 % (0-3); HEMATOCRIT 32.1 % (36.0-47.0); HEMOGLOBIN 10.7 g/dL (12.0-15.5); LYMPH % 19 % (24-48); MEAN CORPUSCULAR HEMOGLOBIN 33 pg (25-35); MEAN CORPUSCULAR HGB CONC 33 g/dL (31-37); MEAN CORPUSCULAR VOLUME 99 fL (79-100); MONO # 1.1 x10^3/uL (0.0-1.1); MONO % 10 % (0-9); NEUT # 7.3 x10^3/uL (1.8-7.7); NEUT % 68 % (31-73); PLATELET COUNT 260 x10^3/uL (140-400); RED BLOOD COUNT 3.24 x10^6/uL (3.50-5.40); RED CELL DISTRIBUTION WIDTH 19.9 % (11.5-14.5); WHITE BLOOD COUNT 10.8 x10^3/uL (4.0-11.0)
[2019-06-29 16:51] LABS: CALCIUM 9.5 mg/dL (8.5-10.1); CREATININE 9.7 mg/dL (0.6-1.0); GFR 4.2; POTASSIUM 5.5 mmol/L (3.5-5.1)
[2019-06-29 16:52] LABS: PROTHROMBIN TIME PATIENT 13.7 SEC (11.7-14.0)
[2019-06-29 16:57] LABS: ALBUMIN 3.3 g/dL (3.4-5.0); ALBUMIN/GLOBULIN RATIO 0.7 (1.0-1.7); TOTAL BILIRUBIN 0.4 mg/dL (0.2-1.0); TOTAL PROTEIN 7.8 g/dL (6.4-8.2)
--- NOTE | 2019-06-29 17:55 | PHYS DOC ---
Past Medical History Past Medical History: Diabetes-Type II, Hypertension Additional Past Medical Histor: peritoneal dialysis daily Past Surgical History: Coronary Bypass Surgery, , Other Additional Past Surgical Histo: TRIPLE BYPASS SURGERY Alcohol Use: None Drug Use: None Adult General Chief Complaint Chief Complaint: HAD DARK STOOL TODAY [facility] HPI Patient is a 54 year old female who presented to ER today for evaluation of episode of dark stool today. Patient said she had a bowel movement earlier today, noticed her stool been dark than normal. Patient denies any rectal pain, no bright red blood, no abdominal pain, no nausea vomiting. Patient denies any fever. Patient denies any chest pain, no trouble breathing. She had end-stage renal failure, she is scheduled for hemodialysis every Tuesday, Tuesday, Tuesday. Patient is scheduled for dialysis this evening at 9 p.m. She is not on any blood thinner. All other ROS is negative unless otherwise noted in HPI Review of Systems Review of Systems See above Allergies Allergies Allergies Coded Allergies Type Severity Reaction Last Updated Verified No Known Drug Allergies 06/20/18 No Physical Exam Physical Exam See above Constitutional: Well developed, well nourished, no acute distress, non-toxic appearance. [] HENT: Normocephalic, atraumatic, bilateral external ears normal, oropharynx moist, no oral exudates, nose normal. [] Eyes: PERRLA, EOMI, conjunctiva normal, no discharge. [] Neck: Normal range of motion, no tenderness, supple, no stridor. [] Cardiovascular:Heart rate regular rhythm, no murmur [] Lungs & Thorax: Bilateral breath sounds clear to auscultation [] Abdomen: Bowel sounds normal, soft, no tenderness, no masses, no pulsatile masses. RECTAL EXAM: DARK BROWN STOOL COLOR, NO GROSS BLOOD PRESENT, NO HEMORRHOID. Skin: Warm, dry, no erythema, no rash. [] Back: No tenderness, no CVA tenderness. [] Extremities: No tenderness, no cyanosis, no clubbing, ROM intact, no edema. [] Neurologic: Alert and oriented X 3, normal motor function, normal sensory function, no focal deficits noted. [] Psychologic: Affect normal, judgement normal, mood normal. [] Current Patient Data Vital Signs Vital Signs Date Time Temp Pulse Resp B/P (MAP) Pulse Ox O2 Delivery O2 Flow Rate FiO2 06/29/19 16:31 76 22 130/54 (79) 97 Room Air 06/29/19 15:28 97.6 97.6 Lab Values Laboratory Tests Test 06/29/19 16:25 White Blood Count 10.8 x10^3/uL (4.0-11.0) Red Blood Count 3.24 x10^6/uL (3.50-5.40) L Hemoglobin 10.7 g/dL (12.0-15.5) L Hematocrit 32.1 % (36.0-47.0) L Mean Corpuscular Volume 99 fL (79-100) Mean Corpuscular Hemoglobin 33 pg (25-35) Mean Corpuscular Hemoglobin Concent 33 g/dL (31-37) Red Cell Distribution Width 19.9 % (11.5-14.5) H Platelet Count 260 x10^3/uL (140-400) Neutrophils (%) (Auto) 68 % (31-73) Lymphocytes (%) (Auto) 19 % (24-48) L Monocytes (%) (Auto) 10 % (0-9) H Eosinophils (%) (Auto) 2 % (0-3) Basophils (%) (Auto) 1 % (0-3) Neutrophils # (Auto) 7.3 x10^3/uL (1.8-7.7) Lymphocytes # (Auto) 2.0 x10^3/uL (1.0-4.8) Monocytes # (Auto) 1.1 x10^3/uL (0.0-1.1) Eosinophils # (Auto) 0.2 x10^3/uL (0.0-0.7) Basophils # (Auto) 0.1 x10^3/uL (0.0-0.2) Prothrombin Time 13.7 SEC (11.7-14.0) Prothrombin Time INR 1.1 (0.8-1.1) Activated Partial Thromboplast Time 41 SEC (24-38) H Sodium Level 128 mmol/L (136-145) L Potassium Level 5.5 mmol/L (3.5-5.1) H Chloride Level 91 mmol/L (98-107) L Carbon Dioxide Level 26 mmol/L (21-32) Anion Gap 11 (6-14) Blood Urea Nitrogen 64 mg/dL (7-20) H Creatinine 9.7 mg/dL (0.6-1.0) H Estimated GFR (Cockcroft-Gault) 4.2 BUN/Creatinine Ratio 7 (6-20) Glucose Level 132 mg/dL (70-99) H Calcium Level 9.5 mg/dL (8.5-10.1) Total Bilirubin 0.4 mg/dL (0.2-1.0) Aspartate Amino Transferase (AST) 28 U/L (15-37) Alanine Aminotransferase (ALT) 33 U/L (14-59) Alkaline Phosphatase 128 U/L (46-116) H Total Protein 7.8 g/dL (6.4-8.2) Albumin 3.3 g/dL (3.4-5.0) L Albumin/Globulin Ratio 0.7 (1.0-1.7) L Laboratory Tests 06/29/19 16:25 Laboratory Tests 06/29/19 16:25 EKG EKG [] Radiology/Procedures Radiology/Procedures [] Course & Med Decision Making Course & Med Decision Making Pertinent Labs and Imaging studies reviewed. (See chart for details) Patient's hemoglobin and hematocrit are at baseline, no hypotension, no acute symptoms due to blood loss. will discharge her home. She will have her dialysis tonight as scheduled. Dragon Disclaimer Dragon Disclaimer This electronic medical record was generated, in whole or in part, using a voice recognition dictation system. Departure Departure Impression: Primary Impression: End stage renal disease Additional Impression: Dark stools Disposition: HOME, SELF-CARE Condition: STABLE Referrals: ELMO ENGLISH MD (PCP) PLEASE FOLLOW UP WITH YOUR PCP NEXT WEEK Patient Instructions: End Stage Kidney Disease, Stool Examination Problem Qualifiers PORTER CARTER DO Jun 29, 2019 17:55
[2019-06-29 18:15] VITALS: BP 132/74
== END 2019-06-29 18:35 | disposition home or self-care (01) ==
LOC: ER 15:11
DX: I12.0 Hypertensive chronic kidney disease with stage 5 chronic kidney disease or end stage renal disease (principal); E11.22 Type 2 diabetes mellitus with diabetic chronic kidney disease; N18.6 End stage renal disease; K92.1 Melena; Z99.2 Dependence on renal dialysis; Z95.1 Presence of aortocoronary bypass graft
CPT/HCPCS: 36415; 80053; 85025; 85610; 85730; 99284

== ENCOUNTER 2019-07-08 13:09 | Emergency (ER) | payer OTHER ==
[~2019-07-08] VITALS: Ht 162.6 cm; Wt 95.3 kg
[2019-07-08 13:36] VITALS: BP 125/60
[2019-07-08] MEDS ORDERED: HYDROcodone/APAP 5/325MG 1 TAB TABLET PO ONE (14:00)
--- NOTE | 2019-07-08 14:03 | PHYS DOC ---
Past Medical History Past Medical History: Diabetes-Type II, Hypertension Additional Past Medical Histor: peritoneal dialysis daily Past Surgical History: Coronary Bypass Surgery, , Other Additional Past Surgical Histo: TRIPLE BYPASS SURGERY Alcohol Use: None Drug Use: None Adult General Chief Complaint Chief Complaint: HAND PROBLEM HPI HPI Patient is a 54 year old female who presents with a June 08, 2019 patient cut her left hand caught in a door causing a proximal Phalanx fracture of the fifth finger. Patient states that on July 03 she followed up with or though and they took the splint off and replace it with a aluminum foam splint on that fifth finger. She states since then she's been having throbbing burning pain to the dorsal hand distal to the fifth finger. She states that they stated that it was not healing well. Patient states she took a tramadol this morning at 0900 but is not helping the pain. Review of Systems Review of Systems Musculoskeletal: Denies back pain. Left dorsal hand joint pain [] All other systems were reviewed and found to be within normal limits, except as documented in this note. Current Medications Current Medications Current Medications Medications (Trade) Dose Ordered Sig/Jesus Start Time Stop Time Status Last Admin Dose Admin Acetaminophen/ Hydrocodone Bitart (Lortab 5/325) 1 tab 1X ONCE 07/08/19 14:00 07/08/19 14:06 DC 07/08/19 14:04 1 TAB Allergies Allergies Allergies Coded Allergies Type Severity Reaction Last Updated Verified No Known Drug Allergies 06/20/18 No Physical Exam Physical Exam Constitutional: Well developed, well nourished, no acute distress, non-toxic appearance. [] HENT: Normocephalic, atraumatic, bilateral external ears normal, oropharynx moist, no oral exudates, nose normal. [] Eyes: PERRLA, EOMI, conjunctiva normal, no discharge. [] Neck: Normal range of motion, no tenderness, supple, no stridor. [] Cardiovascular:Heart rate regular rhythm, no murmur [] Lungs & Thorax: Bilateral breath sounds clear to auscultation [] Abdomen: Bowel sounds normal, soft, no tenderness, no masses, no pulsatile masses. [] Skin: Warm, dry, no erythema, no rash. [] Back: No tenderness, no CVA tenderness. [] Extremities: No tenderness, no cyanosis, no clubbing, ROM intact, no edema. Left dorsal hand indentation from splint. [] Neurologic: Alert and oriented X 3, normal motor function, normal sensory function, no focal deficits noted. [] Psychologic: Affect normal, judgement normal, mood normal. [] Current Patient Data Vital Signs Vital Signs Date Time Temp Pulse Resp B/P (MAP) Pulse Ox O2 Delivery O2 Flow Rate FiO2 07/08/19 13:36 98.5 87 20 125/60 (81) 97 Room Air 98.5 EKG EKG [] Radiology/Procedures Radiology/Procedures [] Course & Med Decision Making Course & Med Decision Making Patient does have some ROM in the 5th finger. There is no deformity, swelling, bruising, redness, or signs of infection to the left hand or arm. Patient states it has hurt ever since the new splint was placed. Cap refill < 3 seconds. Radial pulse present. Skin pink warm and dry. I have looked up her Orthopedic encounter but there is no documentation for the visit from the doctor. When I took the alumna foam splint off, it was very snug on the dosal hand causing redness and indentation in the skin. I loosened this part of the splint so it was not digging into the hand. This location is where the patient is feeling the pain. Patient is given 1 [place] in the ED. Patient states that her pain is better after the splint was loosened up. Patient to keep her future appointment with Orthopedics. Dragon Disclaimer Dragon Disclaimer This electronic medical record was generated, in whole or in part, using a voice recognition dictation system. Departure Departure Impression: Primary Impression: Hand pain, left Disposition: 01 HOME, SELF-CARE Condition: STABLE Referrals: ELMO ENGLISH MD (PCP) Patient Instructions: Medical Screening Exam Additional Instructions: Follow-up with your orthopedic doctor as scheduled. Take medication as prescribed. Scripts Hydrocodone/Apap 5-325 (NORCO 5-325 TABLET) 1 Each Tablet 1 TAB PO PRN Q6HRS PRN for PAIN, #10 TAB 0 Refills Prov: KELLE LEVY APRN 07/08/19 KELLE LEVY APRN Jul 08, 2019 14:03
[2019-07-08] MEDS ORDERED: HYDR-3164 PO (14:41)
== END 2019-07-08 14:47 | disposition home or self-care (01) ==
LOC: ER 13:09
DX: M25.542 Pain in joints of left hand (principal); I10 Essential (primary) hypertension; E11.9 Type 2 diabetes mellitus without complications; Z95.1 Presence of aortocoronary bypass graft; Z99.2 Dependence on renal dialysis
CPT/HCPCS: 99283

== ENCOUNTER 2019-08-29 16:28 | Emergency (ER) | payer OTHER ==
[~2019-08-29] VITALS: Ht 162.6 cm; Wt 93.0 kg
[~2019-08-29 16:28] MED LIST changes: +IRBE150T21 PO; -IRBE150T3 PO; -MECL12.52 PO; +MECL12.573 PO
--- NOTE | 2019-08-29 18:18 | PHYS DOC ---
Past Medical History Past Medical History: Diabetes-Type II, Hypertension, Renal Failure Additional Past Medical Histor: peritoneal dialysis daily Past Surgical History: Coronary Bypass Surgery, , Other Additional Past Surgical Histo: TRIPLE BYPASS SURGERY Smoking Status: Never Smoker Alcohol Use: None Drug Use: None Adult General Chief Complaint Chief Complaint: ABSCESS HPI HPI 54-year-old female presents to the emergency department with complaints of wound to her left buttock. Patient's underlying history of hypertension, diabetes, she states she has some drainage to the area approximately 7 days ago just has progressively gotten worse. Patient denies any fevers, chills, nausea, vomiting, chest pain, shortness of breath. Nothing makes her symptoms worse, nothing makes her symptoms better. Patient is concerned she has an abscess. Review of Systems Review of Systems Constitutional: Denies fever or chills [] Respiratory: Denies cough or shortness of breath [] Cardiovascular: No additional information not addressed in HPI [] GI: Denies abdominal pain, nausea, vomiting, bloody stools or diarrhea [] Musculoskeletal: Denies back pain or joint pain [] Integument: ?abscess to left buttock Neurologic: Denies headache, focal weakness or sensory changes [] All other systems were reviewed and found to be within normal limits, except as documented in this note. Current Medications Current Medications Current Medications Medications (Trade) Dose Ordered Sig/Jesus Start Time Stop Time Status Last Admin Dose Admin Info (CONTRAST GIVEN -- Rx MONITORING) 1 each PRN DAILY PRN 08/29/19 19:00 08/31/19 18:59 Iohexol (Omnipaque 300 Mg/ml) 75 ml 1X ONCE 08/29/19 19:00 08/29/19 19:01 DC 08/29/19 19:29 75 ML Allergies Allergies Allergies Coded Allergies Type Severity Reaction Last Updated Verified No Known Drug Allergies 06/20/18 No Physical Exam Physical Exam Constitutional: Well developed, well nourished, no acute distress, non-toxic appearance. [] HENT: Normocephalic, atraumatic, bilateral external ears normal, oropharynx moist, no oral exudates, nose normal. [] Eyes: PERRLA, EOMI, conjunctiva normal, no discharge. [] Cardiovascular:Heart rate regular rhythm, no murmur [] Lungs & Thorax: Bilateral breath sounds clear to auscultation [] Abdomen: Bowel sounds normal, soft, no tenderness, no masses, no pulsatile masses. [] Skin: Warm, dry, no erythema, area of ulceration appreciated to left buttock 3.5 x 3.5 cm, minimal drainage Back: No tenderness, no CVA tenderness. [] Extremities: No tenderness, no edema. [] Neurologic: Alert and oriented X 3, no focal deficits noted. [] Psychologic: Affect normal, judgement normal, mood normal. [] Current Patient Data Vital Signs Vital Signs Date Time Temp Pulse Resp B/P (MAP) Pulse Ox O2 Delivery O2 Flow Rate FiO2 08/29/19 19:35 90 24 91/50 (64) 98 Room Air 08/29/19 17:06 97.9 97.9 Lab Values Laboratory Tests Test 08/29/19 18:30 White Blood Count 11.9 x10^3/uL (4.0-11.0) H Red Blood Count 2.95 x10^6/uL (3.50-5.40) L Hemoglobin 10.2 g/dL (12.0-15.5) L Hematocrit 31.1 % (36.0-47.0) L Mean Corpuscular Volume 106 fL (79-100) H Mean Corpuscular Hemoglobin 35 pg (25-35) Mean Corpuscular Hemoglobin Concent 33 g/dL (31-37) Red Cell Distribution Width 22.5 % (11.5-14.5) H Platelet Count 263 x10^3/uL (140-400) Neutrophils (%) (Auto) 73 % (31-73) Lymphocytes (%) (Auto) 14 % (24-48) L Monocytes (%) (Auto) 10 % (0-9) H Eosinophils (%) (Auto) 2 % (0-3) Basophils (%) (Auto) 0 % (0-3) Neutrophils # (Auto) 8.7 x10^3/uL (1.8-7.7) H Lymphocytes # (Auto) 1.7 x10^3/uL (1.0-4.8) Monocytes # (Auto) 1.2 x10^3/uL (0.0-1.1) H Eosinophils # (Auto) 0.3 x10^3/uL (0.0-0.7) Basophils # (Auto) 0.0 x10^3/uL (0.0-0.2) Segmented Neutrophils % 67 % (35-66) H Lymphocytes % 13 % (24-48) L Atypical Lymphocytes % (Manual) 2 % (0-0) H Monocytes % 12 % (0-10) H Eosinophils % 6 % (0-5) H Platelet Estimate Adequate (ADEQUATE) Polychromasia Slight Anisocytosis Slight Sodium Level 131 mmol/L (136-145) L Potassium Level 4.4 mmol/L (3.5-5.1) Chloride Level 91 mmol/L (98-107) L Carbon Dioxide Level 29 mmol/L (21-32) Anion Gap 11 (6-14) Blood Urea Nitrogen 49 mg/dL (7-20) H Creatinine 8.6 mg/dL (0.6-1.0) H Estimated GFR (Cockcroft-Gault) 4.8 BUN/Creatinine Ratio 6 (6-20) Glucose Level 147 mg/dL (70-99) H Lactic Acid Level 1.5 mmol/L (0.4-2.0) Calcium Level 8.6 mg/dL (8.5-10.1) Total Bilirubin 0.3 mg/dL (0.2-1.0) Aspartate Amino Transferase (AST) 22 U/L (15-37) Alanine Aminotransferase (ALT) 28 U/L (14-59) Alkaline Phosphatase 177 U/L (46-116) H Total Protein 7.3 g/dL (6.4-8.2) Albumin 2.5 g/dL (3.4-5.0) L Albumin/Globulin Ratio 0.5 (1.0-1.7) L Laboratory Tests 08/29/19 18:30 Laboratory Tests 08/29/19 18:30 EKG EKG [] Radiology/Procedures Radiology/Procedures [facility] [address] [place] [address] IMAGING REPORT Signed PATIENT: SAROJ DAWKINS ACCOUNT: [id number] : 1965 LOCATION: ER AGE: 54 SEX: F EXAM STATUS: REG ER ORD. PHYSICIAN: VLADIMIR MOLINA MD REASON: ulceration to left buttock, rule out tunneling/fistula PROCEDURE: CT PELVIS W/CONTRAST Exam: CT pelvis with contrast INDICATION: Ulceration the left buttock TECHNIQUE: Sequential axial images through the pelvis obtained following the administration of 75 mL of Omni 300 IV contrast. Sagittal and coronal reformatted images were reconstructed from the axial data and reviewed. Comparisons: None FINDINGS: Bladder is partially distended and not well evaluated. Uterus is not enlarged. No abnormal adnexal mass. Visual is portions of the large and small bowel are unremarkable. There is a peritoneal dialysis catheter seen in the pelvis. Moderate amount of free fluid is noted in the pelvis. Pelvic vasculature is patent. No pelvic adenopathy identified. Within the soft tissues of the medial left gluteal cleft marker is noted. No underlying fluid collection or fistulous tract identified. There is ulceration along the upper medial left thigh with some mild underlying fat stranding. No focal fluid collection or fistulous tract identified. Soft tissues are otherwise unremarkable. No suspicious osseous lesions or acute fractures. IMPRESSION: 1. No evidence for fistulous tract, fluid collection or abscess. 2. Peroneal dialysis catheter with at least moderate amount of intra-abdominal free fluid. Exposure: One or more of the following in the visualized dose reduction techniques were utilized for this examination: 1. Automated exposure control 2. Adjustment of the MA and/or KV according to patient size 3. Use of iterative of reconstructive technique Electronically signed by: Bree Ham MD (08/29/2019 7:44 PM) [facility] DICTATED and SIGNED BY: BREE HAM MD DATE: 08/29/191943 [] Course & Med Decision Making Course & Med Decision Making Pertinent Labs and Imaging studies reviewed. (See chart for details) []54-year-old female presents to the emergency department with complaints of wound to her left buttock. Patient's underlying history of hypertension, diabetes, she states she has some drainage to the area approximately 7 days ago just has progressively gotten worse. Patient denies any fevers, chills, nausea, vomiting, chest pain, shortness of breath. Nothing makes her symptoms worse, nothing makes her symptoms better. Patient is concerned she has an abscess. Labs/Imaging reviewed Stage 2 ulceration appreciated Discussed with PCP - appointment on Tuesday Recommend abx therapy and wound care center information Discussed findings with patient and family at bedside [place] Disclaimer Dragon Disclaimer This electronic medical record was generated, in whole or in part, using a voice recognition dictation system. Departure Departure Impression: Primary Impression: Decubitus ulcer Disposition: HOME, SELF-CARE Admitting Physician: Sybil English Condition: STABLE Referrals: SYBIL ENGLISH MD (PCP) Patient Instructions: Pressure Ulcer Additional Instructions: Recommend follow up with PCP 3 - 5 days Return to the ER with worsening symptoms, intractable pain, fever, altered mental status Tylenol/Motrin as needed for pain Take antibiotics as directed - Doxycycline Discussed with Dr. English - recommend keeping appointment for Tuesday Scripts Doxycycline Hyclate (DOXYCYCLINE HYCLATE) 100 Mg Capsule 1 CAP PO BID, #14 CAP Prov: VLADIMIR MOLINA MD 08/29/19 Problem Qualifiers Primary Impression: Decubitus ulcer Pressure injury location: other site Pressure injury stage: stage 2 Qualified Codes: L89.892 - Pressure ulcer of other site, stage 2 VLADIMIR MOLINA MD Aug 29, 2019 18:18
[2019-08-29 18:54] LABS: BASO % 0 % (0-3); EOS # 0.3 x10^3/uL (0.0-0.7); EOS % 2 % (0-3); HEMATOCRIT 31.1 % (36.0-47.0); HEMOGLOBIN 10.2 g/dL (12.0-15.5); LYMPH # 1.7 x10^3/uL (1.0-4.8); LYMPH % 14 % (24-48); MEAN CORPUSCULAR HEMOGLOBIN 35 pg (25-35); MEAN CORPUSCULAR HGB CONC 33 g/dL (31-37); MEAN CORPUSCULAR VOLUME 106 fL (79-100); MONO # 1.2 x10^3/uL (0.0-1.1); MONO % 10 % (0-9); NEUT # 8.7 x10^3/uL (1.8-7.7); NEUT % 73 % (31-73); PLATELET COUNT 263 x10^3/uL (140-400); RED BLOOD COUNT 2.95 x10^6/uL (3.50-5.40); RED CELL DISTRIBUTION WIDTH 22.5 % (11.5-14.5); WHITE BLOOD COUNT 11.9 x10^3/uL (4.0-11.0)
[2019-08-29 19:00] LABS: CALCIUM 8.6 mg/dL (8.5-10.1); CREATININE 8.6 mg/dL (0.6-1.0); GFR 4.8; POTASSIUM 4.4 mmol/L (3.5-5.1)
[2019-08-29] MEDS ORDERED: IOHEXOL 300 MG/ML 100ML VIAL. IV ONE (19:00)
[2019-08-29] MEDS ORDERED: CONTRAST GIVEN. MC PRN (19:00)
[2019-08-29 19:14] LABS: ALBUMIN 2.5 g/dL (3.4-5.0); ALBUMIN/GLOBULIN RATIO 0.5 (1.0-1.7); TOTAL BILIRUBIN 0.3 mg/dL (0.2-1.0); TOTAL PROTEIN 7.3 g/dL (6.4-8.2)
[2019-08-29 19:35] LABS: % ATYL 2 % (0-0); % EOS 6 % (0-5); % LYMPHS 13 % (24-48); % MONOS 12 % (0-10); % SEGS 67 % (35-66)
[2019-08-29 19:36] LABS: ANISOCYTOSIS SLIGHT; PLT ESTIMATE ADEQUATE (ADEQUATE); POLYCHROMASIA SLIGHT
--- NOTE | 2019-08-29 19:47 | RAD ---
Exam: CT pelvis with contrast INDICATION: Ulceration the left buttock TECHNIQUE: Sequential axial images through the pelvis obtained following the administration of 75 mL of Omni 300 IV contrast. Sagittal and coronal reformatted images were reconstructed from the axial data and reviewed. Comparisons: None FINDINGS: Bladder is partially distended and not well evaluated. Uterus is not enlarged. No abnormal adnexal mass. Visual is portions of the large and small bowel are unremarkable. There is a peritoneal dialysis catheter seen in the pelvis. Moderate amount of free fluid is noted in the pelvis. Pelvic vasculature is patent. No pelvic adenopathy identified. Within the soft tissues of the medial left gluteal cleft marker is noted. No underlying fluid collection or fistulous tract identified. There is ulceration along the upper medial left thigh with some mild underlying fat stranding. No focal fluid collection or fistulous tract identified. Soft tissues are otherwise unremarkable. No suspicious osseous lesions or acute fractures. IMPRESSION: 1. No evidence for fistulous tract, fluid collection or abscess. 2. Peroneal dialysis catheter with at least moderate amount of intra-abdominal free fluid. Exposure: One or more of the following in the visualized dose reduction techniques were utilized for this examination: 1. Automated exposure control 2. Adjustment of the MA and/or KV according to patient size 3. Use of iterative of reconstructive technique Electronically signed by: Bree Cobos MD (08/29/2019 7:44 PM) [facility]
[2019-08-29 20:35] VITALS: BP 97/48
[2019-08-29] MEDS ORDERED: DOXY100C2 PO (20:44)
== END 2019-08-29 20:57 | disposition home or self-care (01) ==
LOC: ER 16:28
DX: L89.322 Pressure ulcer of left buttock, stage 2 (principal); I12.9 Hypertensive chronic kidney disease with stage 1 through stage 4 chronic kidney disease, or unspecified chronic kidney disease; E11.22 Type 2 diabetes mellitus with diabetic chronic kidney disease; N18.9 Chronic kidney disease, unspecified; Z95.1 Presence of aortocoronary bypass graft; Z99.2 Dependence on renal dialysis
CPT/HCPCS: 36415; 72193; 80053; 83605; 85007; 85025; 99285; Q9967

== ENCOUNTER 2019-09-07 14:33 | Inpatient (IN) | payer OTHER ==
[~2019-09-07] VITALS: Ht 162.6 cm; Wt 98.0 kg
[~2019-09-07 14:33] MED LIST changes: +DOXY100C2 PO
--- NOTE | 2019-09-07 15:19 | PDOC ---
Progress Note-Wound Care SUBJECTIVE Sophie Lim is a 54 yo insulin-requiring diabetic with ESRD on peritoneal dialysis who was referred by Dr. Rubin to Wound Care to evaluate dark left ischial ulcer. Ms Lim saw Dr. Rubin due to painful ulcer which hurt anytime she layed on it and woke her at night. She is mostly sedentary. She reports calf pain when walking from her sofa to the bathroom. She has had diabetes for many years, uncertain of year of dx. She is on insulin. She is uncertain of her last A1c. She has significant vascular hx including ESRD on peritoneal dialysis and CAD s/p CABG. OBJECTIVE Vital Signs BP 95/48, HR 79, random glucose 108 Physical Exam: 54 yo female appears greater than her stated age lying in right decubitus position on our gurney. Awake and alert. Somewhat hard of hearing. She has an 8x8 cm left ischial ulcer with black eschar. After debridement of the soft, detached portion of the eschar I found deep soft necrotic muscle about 1 cm deep. No drainage. Periwound skin is pink without erythema, induration. There is a 1x1 cm area of eschar on her right labia. There is a 3x3 VLU on the left calf covered with dark loose eschar with thick fibrin deep to the eschar. Her feet are cold, her toes are mottled, DP pulses are absent. ASSESSMENT 1. Necrotic Left ischial pressure ulcer likely due to her sedentary status. This will need operative debridement, likely followed by NPWT (wound vac). 2. Ischemic bilateral feet in diabetic pt with known vascular disease and bilateral claudication c/w severe PAD. Although she has no pain, this represents critical ischemia and needs to be addressed as well. 3. VLU of left calf in pt with edema and lymphedema of BLE. 4. Type II Dm 5. ESRD on home peritoneal dialysis. Problems: (1) ESRD needing dialysis (2) PRESSURE ULCER OF RIGHT BUTTOCK, UNSTAGEABLE (3) PERIPHERAL VASCULAR DISEASE, UNSPECIFIED ROS ROS: No fever. No CP. + Claudication PLAN I discussed with Dr Mcmahan who is agreement that operative debridement will be required. With her ESRD and severe vascular disease she will need pre-op workup and metabolic stabilization prior to surgery. Her ischemic toes are of concern. Any destabilizing event could cause acute hypoxia with tissue loss. Arterial US. Consult Nephrology for ESRD and dialysis. FOLLOW-UP [facility] after discharge TREVIN KAUR MD Sep 07, 2019 15:19
--- NOTE | 2019-09-07 15:37 | NUR ---
Arrived to unit by w/c from wound clinic. Alert and oriented x's 4. c/o of pain in left lower leg state they scrapped my leg at wound clinic. Noted pink foam dressing. Ulcer on buttocks eschar. Assisted pt from w/c to bed with 2 person assist. Oriented to room and controls. Side rails up x's 2 with call light in reach. Cont. monitor.
[2019-09-07 16:00] VITALS: BP 91/42
--- NOTE | 2019-09-07 16:06 | NUR ---
Wound Care WOund care patient admitted today for unstageable buttock wound in need of surgical debridement and BLE ischemia. Pt has large unstageable PU to left inner buttock, cleansed area and applied A&D ointment. Pt was seen in [facility] by Dr Mcmahan and Dr Triplett and determined to need surgical debridement. Pt Also has VLU to left posterior calf, cleaned wound and applied Medihoney, vaseline gauze and foam dressing. Pt quantiflo to L is 0.34 and R 0.19. Bilat feet are cold and mottled with dopplerable pulses. pt present for assessment and patient and family agree to admission. will follow up on Tuesday. Pt admitted under Dr Rubin
[2019-09-07 16:19] LABS: BASO % 0 % (0-3); EOS # 0.1 x10^3/uL (0.0-0.7); EOS % 1 % (0-3); HEMATOCRIT 32.9 % (36.0-47.0); HEMOGLOBIN 10.7 g/dL (12.0-15.5); LYMPH # 1.2 x10^3/uL (1.0-4.8); LYMPH % 7 % (24-48); MEAN CORPUSCULAR HEMOGLOBIN 35 pg (25-35); MEAN CORPUSCULAR HGB CONC 32 g/dL (31-37); MEAN CORPUSCULAR VOLUME 107 fL (79-100); MONO # 1.1 x10^3/uL (0.0-1.1); MONO % 6 % (0-9); NEUT # 15.2 x10^3/uL (1.8-7.7); NEUT % 86 % (31-73); PLATELET COUNT 336 x10^3/uL (140-400); RED BLOOD COUNT 3.08 x10^6/uL (3.50-5.40); RED CELL DISTRIBUTION WIDTH 21.7 % (11.5-14.5); WHITE BLOOD COUNT 17.6 x10^3/uL (4.0-11.0)
[2019-09-07 16:35] LABS: % BANDS 2 % (0-9); % LYMPHS 10 % (24-48); % MONOS 6 % (0-10); % SEGS 82 % (35-66); ANISOCYTOSIS MOD; PLT ESTIMATE ADEQUATE (ADEQUATE); POIKILOCYTOSIS SLIGHT
[2019-09-07 16:35] LABS: ALBUMIN 2.6 g/dL (3.4-5.0); ALBUMIN/GLOBULIN RATIO 0.5 (1.0-1.7); CALCIUM 9.1 mg/dL (8.5-10.1); CREATININE 9.1 mg/dL (0.6-1.0); GFR 4.5; POTASSIUM 5.2 mmol/L (3.5-5.1); TOTAL BILIRUBIN 0.4 mg/dL (0.2-1.0); TOTAL PROTEIN 7.9 g/dL (6.4-8.2)
[2019-09-07 16:36] LABS: POLYCHROMASIA PRESENT
[2019-09-07] MEDS ORDERED: ALBUTEROL SULFATE 2.5 MG/3 ML NEBU. INH PRN (17:45)
[2019-09-07] MEDS ORDERED: NITROGLYCERIN SUBLINGUAL 0.4 MG BOTTLE OF 25. SL PRN (17:45)
[2019-09-07] MEDS ORDERED: NON FORMULARY ITEM (Albuterol Sulfate (Ventolin Hfa Inhaler) 2 PUFF) INH PRN (17:45)
[2019-09-07] MEDS ORDERED: traMADol 50 MG TABLET PO PRN (17:45)
[2019-09-07] MEDS ORDERED: HYDROcodone/APAP 5/325MG 1 TAB TABLET PO PRN (17:45)
[2019-09-07] MEDS ORDERED: IV DEXTROSE 5% 250 ML BAG. IV PRN (17:45)
[2019-09-07] MEDS ORDERED: DICLOFENAC SODIUM 1% TOPICAL GEL 100GM TUBE. TP PRN (17:45)
[2019-09-07] MEDS ORDERED: DEXTROSE 50% 25 GM / 50ML DISP.SYRIN. IV PRN (17:45)
[2019-09-07] MEDS: CARVEDILOL 12.5 MG TABLET. PO SCH (18:00)
--- NOTE | 2019-09-07 18:02 | PDOC ---
Provider Note Provider Note Pt seen.H&P dictated.#[id number]. ELMO ENGLISH MD Sep 07, 2019 18:02
[2019-09-07] MEDS: MIDODRINE 5 MG TABLET PO SCH (18:30)
[2019-09-07] MEDS: FUROSEMIDE 40 MG TABLET. PO SCH (18:30)
[2019-09-07] MEDS ORDERED: ONDANSETRON ODT 4 MG TAB.RAPDIS. PO PRN (18:30)
[2019-09-07 19:00] VITALS: BP 93/39
--- NOTE | 2019-09-07 19:13 | CONS ---
DATE OF CONSULTATION: 09/07/2019 REASON FOR CONSULTATION: Antiplatelet therapy management in the setting of ulcer and need for surgery. HISTORY OF PRESENT ILLNESS: The patient is a pleasant 54-year-old woman who we previously saw in 12/2018 in the setting of shortness of air and ultimately underwent PCI to the RCA during her heart catheterization. She returns with a buttock ulcer that needs debridement. She currently denies any chest pain or dyspnea. She has not had any recurrent symptoms like she did when she was admitted for the PCI. PAST MEDICAL HISTORY: 1. Coronary artery disease status post 3-vessel bypass with only 1 out of 3 grafts patent at catheterization in 2019. 2. End-stage renal disease, on peritoneal dialysis. 3. COPD. 4. Morbid obesity. 5. Chronic diastolic heart failure with an ejection fraction of 60% in 12/2018. 6. Labile blood pressure. SOCIAL HISTORY: The patient lives with her family. No alcohol, tobacco, or illicit drug use. FAMILY HISTORY: Notable for heart disease. MEDICATIONS: Current cardiovascular medications are as follows: 1. Aspirin 81 mg daily. 2. Atorvastatin 80 mg daily. 3. Lisinopril 20 mg p.o. b.i.d. 4. Hydralazine 100 mg p.o. t.i.d. 5. Midodrine 5 mg p.o. t.i.d. 6. Furosemide 40 mg p.o. b.i.d. 7. Carvedilol 12.5 mg p.o. b.i.d. 8. Brilinta 90 mg p.o. b.i.d., which is currently on hold. REVIEW OF SYSTEMS: Negative for 10 out of 14 systems reviewed, unless otherwise mentioned above in HPI. ALLERGIES: No known drug allergies. CURRENT PHYSICAL EXAMINATION: VITAL SIGNS: Afebrile, pulse 94, respirations 18, blood pressure 91/48, and 96% on room air. GENERAL: She is alert and oriented, in no acute distress. HEAD AND NECK: Unremarkable. CARDIAC: Regular rate and rhythm without any murmurs, rubs, or gallops. LUNGS: Clear to auscultation anteriorly. ABDOMEN: Obese, protuberant, nontender, nondistended. EXTREMITIES: She has no significant edema. She has diminished pulses in the pedal vessels. 2+ radial pulses. NEUROLOGIC: No focal deficits. MUSCULOSKELETAL: No trauma. DIAGNOSTIC STUDIES: Hemoglobin 10.7, white blood cell count 17.6 and platelets 336. Creatinine 9.1 with sodium of 127. INR of 1.1. IMAGING: Pelvis CT from 08/29 reveals no fistulous tract in her buttock ulcer or fluid collection or abscess. She had peritoneal dialysis catheter with a moderate amount of intra-abdominal fluid. Cardiac catheterization as noted above and echocardiogram from 12/2018 revealed normal LV function. IMPRESSION: 1. Buttock ulcer, currently awaiting debridement. 2. Multiple cardiovascular comorbidities as noted above. RECOMMENDATIONS: Okay to hold the Brilinta for now for surgical intervention. Restart Brilinta upon discharge when cleared by surgical team. No further cardiovascular input. It appears that she is on both midodrine and multiple antihypertensives. We would consider stopping her midodrine or lowering her antihypertensives in order to avoid hypotension. Otherwise, supportive care. Discussed with Dr. Rubin. Thank you for this consultation. YURY KAUR MD DR: JESSICA/rayray JOB#: [id number] / [id number]
--- NOTE | 2019-09-07 19:22 | NUR ---
Pt. states she doesn't take lasix anymore.
[2019-09-07] MEDS ORDERED: ALBUTEROL SULFATE 2.5 MG/3 ML NEBU. NEB SCH (20:00)
--- NOTE | 2019-09-07 20:30 | RAD ---
AP chest. HISTORY: Preop chest AP view was taken of the chest. Patient's had a previous sternotomy and bypass. Heart is within normal limits in size. There is linear scarring at the left costophrenic angle. There are no other infiltrates. There is no effusion. IMPRESSION: 1. Linear scarring or atelectasis on the left. 2. No acute infiltrates. Electronically signed by: Nate Carranza MD (09/07/2019 8:27 PM) [id number]
[2019-09-07] MEDS ORDERED: TICAGRELOR 90 MG TABLET. PO SCH (21:00)
[2019-09-07] MEDS: LISINOPRIL 20 MG TABLET PO SCH (21:00)
--- NOTE | 2019-09-07 21:04 | PDOC2 ---
CONSULT Date of Consult Date of Consult DATE: 09/07/19 TIME: 21:01 Reason for Consult Reason for Consult: Left buttock decubitus ulcer Referring Physician Referring Physician: Dr. Rubin Identification/Chief Complaint Chief Complaint left buttock ulcer Source Source: Chart review, Patient History of Present Illness Reason for Visit: 54 yo F followed in wound care. Noted to have large left buttock ulcer with necrotic tissue. She is admitted for evaluation for debridement. Past Medical History Cardiovascular: CAD, CHF, HTN, Hyperlipidemia Pulmonary: Asthma, COPD CENTRAL NERVOUS SYSTEM: CVA Heme/Onc: Anemia NOS Psych: Depression Musculoskeletal: Osteoarthritis Infectious disease: Other Renal/: Chronic renal failure Endocrine: Diabetes, Hyperparathyroidism Past Surgical History Past Surgical History: CABG Family History Family History: Heart Disease Social History ALCOHOL: none Drugs: None Lives: with Family Domestic Violence: Neg Current Medications Current Medications Current Medications Albuterol Sulfate (Ventolin Neb Soln) 2.5 mg PRN QID PRN INH SHORTNESS OF BREATH; Start 09/07/19 at 17:45 Lactic Acid (Lac-Hydrin) 1 katarzyna PRN DAILY PRN TP DRY SKIN; Start 09/08/19 at 09:00 Aspirin (Children'S Aspirin) 81 mg DAILY PO ; Start 09/08/19 at 09:00 Carvedilol (Coreg) 12.5 mg BIDWMEALS PO ; Start 09/07/19 at 18:00 Clotrimazole (Lotrimin) 1 katarzyna BID TP ; Start 09/07/19 at 21:00 Diclofenac Sodium (Voltaren) 2 katarzyna PRN QID PRN TP PAIN; Start 09/07/19 at 17:45 Famotidine (Pepcid) 20 mg QHS PO ; Start 09/07/19 at 21:00 Fluticasone Propionate (Flonase) 1 spray BID NS ; Start 09/07/19 at 21:00 Folic Acid (Folic Acid) 1 mg DAILY PO ; Start 09/08/19 at 09:00 Furosemide (Lasix) 40 mg [id number] PO ; Start 09/07/19 at 18:30 Hydralazine HCl (Apresoline) 100 mg TID PO ; Start 09/07/19 at 21:00 Acetaminophen/ Hydrocodone Bitart (Lortab 5/325) 1 tab PRN Q6HRS PRN PO PAIN; Start 2/14/20 at 17:45 Acetaminophen/ Hydrocodone Bitart (Lortab 5/325) 1 tab Q6HRS PO ; Start 09/07/19 at 18:00 Insulin Glargine (Lantus Syringe) 20 unit HS SQ ; Start 09/07/19 at 21:00 Albuterol/ Ipratropium (Duoneb) 3 ml QID NEB ; Start 09/07/19 at 21:00 Lisinopril (Prinivil) 20 mg BID PO ; Start 09/07/19 at 21:00 Meclizine HCl (Antivert) 12.5 mg TID PO ; Start 09/07/19 at 21:00 Metolazone (Zaroxolyn) 2.5 mg DAILY PO ; Start 09/08/19 at 09:00 Midodrine (Proamatine) 5 mg [id number] PO ; Start 09/07/19 at 18:30 Montelukast Sodium (Singulair) 10 mg DAILY PO ; Start 09/08/19 at 09:00 Nitroglycerin (Nitrostat) 0.4 mg PRN Q5MIN PRN SL CHEST PAIN; Start 09/07/19 at 17:45 Ticagrelor (Brilinta) 90 mg BID PO ; Start 09/07/19 at 21:00; Stop 09/07/19 at 18:14; Status DC Tramadol HCl (Ultram) 50 mg PRN Q6HRS PRN PO PAIN; Start 09/07/19 at 17:45 Non-Formulary Medication (Albuterol Sulfate (Ventolin Hfa Inhaler)) 2 puff Q6HRS PRN INH SHORTNESS OF BREATH; Start 09/07/19 at 17:45; Status UNV Atorvastatin Calcium (Lipitor) 80 mg QHS PO ; Start 09/07/19 at 21:00 Budesonide (Pulmicort) 0.5 mg RTBID NEB ; Start 09/07/19 at 20:00 Calcium Acetate (Phoslo) 1,334 mg TIDWMEALS PO ; Start 09/08/19 at 08:00 Ondansetron HCl (Zofran Odt) 4 mg PRN BID PRN PO NAUSEA/VOMITING; Start 09/07/19 at 18:30 Insulin Human Lispro (HumaLOG) 0-5 UNITS TIDWMEALS SQ ; Start 09/08/19 at 08:00 Dextrose (Dextrose 50%-Water Syringe) 12.5 gm PRN Q15MIN PRN IV SEE COMMENTS; Start 09/07/19 at 17:45 Dextrose (Iv Dextrose 5%) 250 ml PRN Q15MIN PRN IV SEE COMMENTS; Start 09/07/19 at 17:45 Linezolid/Dextrose 300 ml @ 300 mls/hr Q12HR IV ; Start 09/07/19 at 21:00 Piperacillin Sod/ Tazobactam Sod 2.25 gm/Sodium Chloride 50 ml @ 100 mls/hr Q8HRS IV ; Start 09/07/19 at 19:00 Albuterol Sulfate (Ventolin Neb Soln) 2.5 mg RTQID NEB ; Start 09/07/19 at 20:00 Active Scripts Active Doxycycline Hyclate 100 Mg Capsule 1 Cap PO BID [place] 5-325 Tablet (Acetaminophen/Hydrocodone Bitart) 1 Each Tablet 1 Tab PO PRN Q6HRS PRN [place] 5-325 Tablet (Acetaminophen/Hydrocodone Bitart) 1 Each Tablet 1 Tab PO Q6HRS Bactrim Ds Tablet (Sulfamethoxazole/Trimethoprim) 1 Each Tablet 1 Tab PO BID Cephalexin 500 Mg Tablet 1 Tab PO TID Lisinopril 40 Mg Tablet 20 Mg PO BID 30 Days Brilinta (Ticagrelor) 90 Mg Tablet 90 Mg PO BID 60 Days Reported Tramadol Hcl 50 Mg Tablet 50 Mg PO PRN Q6HRS PRN Melatonin 3 Mg Tablet 1 Tab PO QHS Imodium A-D (Loperamide HCl) 2 Mg Capsule 2 Mg PO PRN PRN Proair Hfa (Albuterol Sulfate) 8.5 Gm Hfa.aer.ad 2 Puff INH QID PRN Ammonium Lactate 226 Gm Lotion 1 Gm TP DAILY Montelukast Sodium Tablet (Montelukast Sodium) 10 Mg Tablet 1 Tab PO DAILY Metolazone 2.5 Mg Tablet 2.5 Mg PO DAILY Voltaren (Diclofenac Sodium) 100 Gm Gel..gram. 2 Gm TP QID PRN Sulfacetamide Sodium 3.5 Gm Oint...g. 0.5 Inch OP Q2DAYS AT HS Clotrimazole 15 Gm Cream..g. 1 Katarzyna TP BID Furosemide 40 Mg Tablet 1 Tab PO BID Calcium Acetate 667 Mg Tablet 2 Cap PO TIDWMEALS Symbicort 160-4.5 Mcg Inhaler (Budesonide/Formoterol Fumarate) 10.2 Gm Hfa.aer.ad 2 Puff INH BID Lantus (Insulin Glargine,Hum.rec.anlog) 100 Unit/1 Ml Vial 20 Unit SQ HS Aspirin 81 Mg Tab.chew 81 Mg PO DAILY Duoneb 0.5-3(2.5) Mg/3 Ml (Albuterol/Ipratropium) 3 Ml Ampul.neb 3 Ml NEB QID Zofran Odt (Ondansetron) 8 Mg Tab.rapdis 8 Mg PO BID PRN Meclizine Hcl 12.5 Mg Tablet 1 Tab PO TID Famotidine 20 Mg Tablet 20 Mg PO BID Midodrine Hcl 5 Mg Tablet 5 Mg PO TID Folic Acid 1 Mg Tablet 1 Mg PO DAILY Hydralazine Hcl 50 Mg Tablet 100 Mg PO TID Loratadine 10 Mg Tab.rapdis 10 Mg PO DAILY NITROGLYCERIN SubLingual (Nitroglycerin) 0.4 Mg Tab.subl 0.4 Mg SL PRN Q5MIN PRN Flonase (Fluticasone Propionate) 16 Gm [place].susp 1 [place] NS BID Ventolin Hfa Inhaler (Albuterol Sulfate) 18 Gm Hfa.aer.ad 2 Puff INH Q6HRS PRN Carvedilol (Carvedilol) 12.5 Mg Tablet 12.5 Mg PO BID Lipitor (Atorvastatin Calcium) 80 Mg Tablet 1 Tab PO QEVNG Allergies Allergies: Coded Allergies: No Known Drug Allergies (Unverified , 06/20/18) ROS Skin: Yes Other Physical Exam General: Alert, Oriented X3, Cooperative, No acute distress HEENT: Atraumatic Skin: Other (left buttock/ischial area with large necrotic dry ulcer) Vitals VITALS Vital Signs Date Time Temp Pulse Resp B/P (MAP) Pulse Ox O2 Delivery O2 Flow Rate FiO2 09/07/19 19:00 100.7 100 16 93/39 (57) 98 Room Air 100.7 Labs Labs Laboratory Tests Test 09/07/19 15:45 09/07/19 16:10 Sodium Level 127 mmol/L (136-145) Potassium Level 5.2 mmol/L (3.5-5.1) Chloride Level 88 mmol/L (98-107) Carbon Dioxide Level 25 mmol/L (21-32) Anion Gap 14 (6-14) Blood Urea Nitrogen 62 mg/dL (7-20) Creatinine 9.1 mg/dL (0.6-1.0) Estimated GFR (Cockcroft-Gault) 4.5 BUN/Creatinine Ratio 7 (6-20) Glucose Level 148 mg/dL (70-99) Calcium Level 9.1 mg/dL (8.5-10.1) Total Bilirubin 0.4 mg/dL (0.2-1.0) Aspartate Amino Transf (AST/SGOT) 19 U/L (15-37) Alanine Aminotransferase (ALT/SGPT) 19 U/L (14-59) Alkaline Phosphatase 200 U/L (46-116) Total Protein 7.9 g/dL (6.4-8.2) Albumin 2.6 g/dL (3.4-5.0) Albumin/Globulin Ratio 0.5 (1.0-1.7) White Blood Count 17.6 x10^3/uL (4.0-11.0) Red Blood Count 3.08 x10^6/uL (3.50-5.40) Hemoglobin 10.7 g/dL (12.0-15.5) Hematocrit 32.9 % (36.0-47.0) Mean Corpuscular Volume 107 fL (79-100) Mean Corpuscular Hemoglobin 35 pg (25-35) Mean Corpuscular Hemoglobin Concent 32 g/dL (31-37) Red Cell Distribution Width 21.7 % (11.5-14.5) Platelet Count 336 x10^3/uL (140-400) Neutrophils (%) (Auto) 86 % (31-73) Lymphocytes (%) (Auto) 7 % (24-48) Monocytes (%) (Auto) 6 % (0-9) Eosinophils (%) (Auto) 1 % (0-3) Basophils (%) (Auto) 0 % (0-3) Neutrophils # (Auto) 15.2 x10^3/uL (1.8-7.7) Lymphocytes # (Auto) 1.2 x10^3/uL (1.0-4.8) Monocytes # (Auto) 1.1 x10^3/uL (0.0-1.1) Eosinophils # (Auto) 0.1 x10^3/uL (0.0-0.7) Basophils # (Auto) 0.0 x10^3/uL (0.0-0.2) Segmented Neutrophils % 82 % (35-66) Band Neutrophils % 2 % (0-9) Lymphocytes % 10 % (24-48) Monocytes % 6 % (0-10) Platelet Estimate Adequate (ADEQUATE) Polychromasia Present Poikilocytosis Slight Anisocytosis Mod Macrocytosis Slight Laboratory Tests Test 09/07/19 15:45 09/07/19 16:10 Sodium Level 127 mmol/L (136-145) Potassium Level 5.2 mmol/L (3.5-5.1) Chloride Level 88 mmol/L (98-107) Carbon Dioxide Level 25 mmol/L (21-32) Anion Gap 14 (6-14) Blood Urea Nitrogen 62 mg/dL (7-20) Creatinine 9.1 mg/dL (0.6-1.0) Estimated GFR (Cockcroft-Gault) 4.5 BUN/Creatinine Ratio 7 (6-20) Glucose Level 148 mg/dL (70-99) Calcium Level 9.1 mg/dL (8.5-10.1) Total Bilirubin 0.4 mg/dL (0.2-1.0) Aspartate Amino Transf (AST/SGOT) 19 U/L (15-37) Alanine Aminotransferase (ALT/SGPT) 19 U/L (14-59) Alkaline Phosphatase 200 U/L (46-116) Total Protein 7.9 g/dL (6.4-8.2) Albumin 2.6 g/dL (3.4-5.0) Albumin/Globulin Ratio 0.5 (1.0-1.7) White Blood Count 17.6 x10^3/uL (4.0-11.0) Red Blood Count 3.08 x10^6/uL (3.50-5.40) Hemoglobin 10.7 g/dL (12.0-15.5) Hematocrit 32.9 % (36.0-47.0) Mean Corpuscular Volume 107 fL (79-100) Mean Corpuscular Hemoglobin 35 pg (25-35) Mean Corpuscular Hemoglobin Concent 32 g/dL (31-37) Red Cell Distribution Width 21.7 % (11.5-14.5) Platelet Count 336 x10^3/uL (140-400) Neutrophils (%) (Auto) 86 % (31-73) Lymphocytes (%) (Auto) 7 % (24-48) Monocytes (%) (Auto) 6 % (0-9) Eosinophils (%) (Auto) 1 % (0-3) Basophils (%) (Auto) 0 % (0-3) Neutrophils # (Auto) 15.2 x10^3/uL (1.8-7.7) Lymphocytes # (Auto) 1.2 x10^3/uL (1.0-4.8) Monocytes # (Auto) 1.1 x10^3/uL (0.0-1.1) Eosinophils # (Auto) 0.1 x10^3/uL (0.0-0.7) Basophils # (Auto) 0.0 x10^3/uL (0.0-0.2) Segmented Neutrophils % 82 % (35-66) Band Neutrophils % 2 % (0-9) Lymphocytes % 10 % (24-48) Monocytes % 6 % (0-10) Platelet Estimate Adequate (ADEQUATE) Polychromasia Present Poikilocytosis Slight Anisocytosis Mod Macrocytosis Slight Assessment/Plan Assessment/Plan Left buttock decub ulcer will plan debridement pending clearance by other services. Thanks for consult! LOLI AMEZCUA MD Sep 07, 2019 21:04
[2019-09-07] MEDS: MECLIZINE HCL 12.5 MG TABLET. PO SCH (21:17)
[2019-09-07] MEDS: FAMOTIDINE 20 MG TABLET. PO SCH (21:18)
[2019-09-07] MEDS: ATORVASTATIN CALCIUM 40 MG TABLET. PO SCH (21:18)
[2019-09-07] MEDS: HYDROcodone/APAP 5/325MG 1 TAB TABLET PO SCH (21:19)
[2019-09-07] MEDS: FLUTICASONE 50MCG/NASAL SPRAY 16GM BOTTLE. NS SCH (21:19)
[2019-09-07] MEDS: INSULIN GLARGINE SYRINGE. SQ SCH (21:25)
[2019-09-07] MEDS: CLOTRIMAZOLE 1% TOPICAL CREAM 15GM TUBE. TP SCH (21:26)
--- NOTE | 2019-09-07 21:36 | HP ---
ADMIT DATE: 09/07/2019 MEDICAL HISTORY AND PHYSICAL REASON FOR ADMISSION TO THE HOSPITAL: Infected left ischial wound, unstageable with necrosis; end-stage renal disease, on peritoneal dialysis; coronary artery disease, previous bypass as well as cardiac stent. HISTORY OF PRESENT ILLNESS: The patient is a 54-year-old female. The patient had a boil in the left gluteal area approximately week to 10 days ago, seen in the Emergency Room, was given antibiotic, and was recommended to follow with the [facility]. She did not follow up, came to the office and she has a 5 cm necrotic left ischial unstageable ulcer. The patient was referred to [facility], was admitted to the hospital for surgical debridement. Her white count was elevated to 17,000. She also has a history of end-stage renal disease, was on hemodialysis, for last 6 months she is on peritoneal dialysis. She also has a history of coronary artery disease, previous bypass surgery, cardiac stent 6 months ago. She is on Brilinta. She also has a history of diabetes, insulin dependent. PAST MEDICAL HISTORY: As mentioned, CAD, diabetes, hypertension, coronary artery disease, end-stage renal disease. PAST SURGICAL HISTORY: Had a heart bypass surgery, cardiac stent 6 months ago, bypass more than 5 years ago, , AV shunt in the left arm, peritoneal dialysis catheter lately. ALLERGIES: No known allergies. FAMILY HISTORY: Positive for diabetes, kidney problems. ALLERGIES: No known allergies. MEDICATIONS AT HOME: She is on Imodium p.r.n., albuterol 2 puffs 4 times daily, ammonium lactate for the legs, aspirin 81 mg daily, atorvastatin 80 mg daily, Symbicort twice a day, calcium acetate 667 mg 3 times a day, Coreg 12.5 twice a day, Voltaren gel daily, Pepcid 20 mg twice a day, Flonase daily, folic acid 1 mg daily, Lasix 40 mg twice a day, hydralazine 100 mg three times daily, hydrocodone q. 6, insulin Lantus 20 units at bedtime and sliding scale insulin, DuoNeb 4 times daily, lisinopril 40 mg twice a day, meclizine for dizziness, midodrine for hypotension, Singulair 10 mg daily, sublingual nitro, Zofran for nausea, Brilinta 90 mg twice a day for cardiac stent, tramadol 50 mg q. 6. REVIEW OF SYMPTOMS: Denies any chest pain, shortness of breath. Complains of a sore on the bottom. PHYSICAL EXAMINATION: GENERAL: Chronically sick. VITAL SIGNS: Temperature 98, pulse 94, respirations 18, blood pressure 90/40, 96% saturation. HEENT: Head is atraumatic. Pupils equal. Oral cavity: No congestion. NECK: Supple. Thyroid not enlarged. JVD not elevated. CHEST: Symmetrical, scar of heart surgery, bypass surgery. CARDIOVASCULAR: S1, S2. LUNGS: Clear to auscultation. ABDOMEN: Soft, has a peritoneal dialysis catheter. Soft, nontender. No drainage. EXTERNAL GENITALIA: No Ellison. RECTAL: Deferred. EXTREMITIES: A 3+ edema, chronic lymphedema. The patient has thready dorsalis and posterior tibial. Left foot is slightly cool when compared to the right side. The patient has large left ischial ulceration 5 cm with necrotic base. Bone is not exposed. No foul smelling. No drainage. FINAL IMPRESSION: 1. Large left ischial ulcer. 2. Coronary artery disease, previous stent, on Brilinta. 3. Coronary artery bypass surgery 5 years ago, 5-vessel. 4. Diabetes, insulin dependent. 5. End-stage renal disease, on dialysis. 6. Peripheral vascular disease. PLAN: At this time, she was admitted to the hospital. Wound culture, blood cultures. The patient is seen in the [facility], recommended surgical debridement. Surgery is consulted. White count 17, started on broad-spectrum antibiotics with Zyvox and Zosyn after blood cultures. Air-loss mattress and the patient also would need peritoneal dialysis. We will continue while she is in the hospital. Vascular consult for vascular disease. ELMO ENGLISH MD DR: ALEJANDRINA/rayray JOB#: [id number] / [id number]
[2019-09-07] MEDS: IPRATRPIUM/ALBUTEROL 0.5/2.5MG 3 ML NEBU. NEB SCH (22:12)
[2019-09-07] MEDS: BUDESONIDE 0.5 MG/2 ML NEBU. NEB SCH (22:12)
--- NOTE | 2019-09-07 22:40 | EKG ---
[facility] [address] [place] [address] Test Date: 2019-09-07 Test Time: 22:03:40 Pat Name: SAROJ DAWKINS Department: Room: 412 1 Gender: F Physiatrist: FLORENTINO : 1965 Requested By: ELMO ENGLISH Order Number: [id number] Reading MD: Measurements Intervals [place] Rate: 94 P: 46 UT: 186 QRS: 31 QRSD: 96 T: 116 QT: 322 QTc: 408 Interpretive Statements SINUS RHYTHM LOW LIMB LEAD VOLTAGE QRS(T) CONTOUR ABNORMALITY CONSIDER ANTEROSEPTAL MYOCARDIAL DAMAGE ST & T ABNORMALITY, CONSIDER HIGH LATERAL ISCHEMIA OR LEFT VENTRICULAR STRAIN ABNORMAL ECG RI6.01 Compared to ECG 01/01/2019 14:02:02 T-wave abnormality now present Possible ischemia now present
[2019-09-07 23:00] VITALS: BP 74/36
[2019-09-07] MEDS ORDERED: IV NORMAL SALINE 500ML BAG 500 ML IV ONE (23:00)
[2019-09-07] MEDS: PIPERACILLIN/TAZOBACTAM 2.25 GM in IV NORMAL SALINE 50ML 50 ML IV SCH (23:27)
[2019-09-08] VITALS (22 sets, daily range): BP systolic 71–127; BP diastolic 29–80
--- NOTE | 2019-09-08 00:43 | NUR ---
Reached pt.'s significant other, Mr. Cortés and let him know about pt.'s room change to ICU. RN tried to contact Tena Dylan (pt.'s aunt) but person who answered stated it was the wrong number.
--- NOTE | 2019-09-08 01:00 | NUR ---
pt transferred to room 112 from 4th floor at this time. pt's BP continues to be low, 70s/20s so Levophed was initiated. pt oriented to room, unit routines, plan of care, new medications and call light; verbalizes understanding. will pass on in report, will continue to closely monitor.
[2019-09-08] MEDS: IV NORMAL SALINE 1000ML BAG 1,000 ML IV SCH ×3 (01:14→08:26)
[2019-09-08] MEDS: NOREPINEPHRINE VIAL 8 MG in IV DEXTROSE 5% 250 ML IV PRN ×3 (01:14→22:19)
--- NOTE | 2019-09-08 01:32 | NUR ---
Pt. first complained about not being able to breathe after she was given a breathing treatment so she was placed on 2L NC for comfort despite her oxygen level being about 95% on room air. KELSIE Lazcano checked blood pressure and it was low. Dr. Peter initiated orders to elevate blood pressure. She was given a 500ml NS bolus. Blood pressure was rechecked frequently and results still showed low blood pressure in the 70's/40/s. After failed attempt to increase blood pressure, she was sent to ICU room 112. Pt. left room at 0050.
[2019-09-08 03:37] LABS: BASO # 0.1 x10^3/uL (0.0-0.2); BASO % 0 % (0-3); EOS % 0 % (0-3); HEMATOCRIT 28.4 % (36.0-47.0); LYMPH % 6 % (24-48); MEAN CORPUSCULAR HEMOGLOBIN 34 pg (25-35); MEAN CORPUSCULAR HGB CONC 32 g/dL (31-37); MEAN CORPUSCULAR VOLUME 106 fL (79-100); MONO # 2.7 x10^3/uL (0.0-1.1); MONO % 8 % (0-9); NEUT # 30.4 x10^3/uL (1.8-7.7); NEUT % 86 % (31-73); PLATELET COUNT 356 x10^3/uL (140-400); RED BLOOD COUNT 2.67 x10^6/uL (3.50-5.40); RED CELL DISTRIBUTION WIDTH 21.1 % (11.5-14.5); WHITE BLOOD COUNT 35.2 x10^3/uL (4.0-11.0)
[2019-09-08 03:46] LABS: CALCIUM 8.5 mg/dL (8.5-10.1); CREATININE 8.6 mg/dL (0.6-1.0); GFR 4.8; POTASSIUM 4.6 mmol/L (3.5-5.1)
--- NOTE | 2019-09-08 04:20 | NUR ---
pt's lactic elevated at 4.[address] Peter paged and notified; due to pt's renal status and currently on PD overnight, orders received to only given another 500mL of NS rather than the entirety of the sepsis rescue fluids needed per protocol. lactic to be drawn again at 0700 per protocol. will pass on in report, will continue to closely monitor.
[2019-09-08 05:13] LABS: % BANDS 5 % (0-9); % LYMPHS 6 % (24-48); % MONOS 4 % (0-10); % SEGS 85 % (35-66); ANISOCYTOSIS MOD; HYPOCHROMIA SLIGHT; NUCLEATED RBC 1; PLT ESTIMATE ADEQUATE (ADEQUATE); POLYCHROMASIA SLIGHT; TOXIC GRANULATION MOD
[2019-09-08] MEDS: HYDROcodone/APAP 5/325MG 1 TAB TABLET PO SCH ×4 (06:00→16:09)
[2019-09-08] MEDS: PIPERACILLIN/TAZOBACTAM 2.25 GM in IV NORMAL SALINE 50ML 50 ML IV SCH ×3 (06:05→22:16)
[2019-09-08] MEDS: IPRATRPIUM/ALBUTEROL 0.5/2.5MG 3 ML NEBU. NEB SCH ×4 (07:53→20:07)
[2019-09-08] MEDS: BUDESONIDE 0.5 MG/2 ML NEBU. NEB SCH ×2 (07:53→20:07)
[2019-09-08] MEDS: CARVEDILOL 12.5 MG TABLET. PO SCH ×2 (08:00→16:14)
[2019-09-08] MEDS: MONTELUKAST SODIUM 10 MG TABLET. PO SCH (08:21)
[2019-09-08] MEDS: ASPIRIN CHEWABLE 81 MG TABLET. PO SCH (08:21)
[2019-09-08] MEDS: MECLIZINE HCL 12.5 MG TABLET. PO SCH ×3 (08:21→22:16)
[2019-09-08] MEDS: FOLIC ACID 1 MG TABLET. PO SCH (08:22)
[2019-09-08] MEDS: CALCIUM ACETATE 667 MG CAPSULE PO SCH ×3 (08:22→17:22)
[2019-09-08] MEDS: FUROSEMIDE 40 MG TABLET. PO SCH ×2 (08:23→16:00)
[2019-09-08] MEDS: LISINOPRIL 20 MG TABLET PO SCH ×2 (08:23→21:00)
[2019-09-08] MEDS: metOLazone 2.5 MG TABLET PO SCH (08:23)
[2019-09-08] MEDS: MIDODRINE 5 MG TABLET PO SCH ×3 (08:26→18:00)
[2019-09-08] MEDS: CLOTRIMAZOLE 1% TOPICAL CREAM 15GM TUBE. TP SCH ×2 (09:00→21:00)
[2019-09-08] MEDS ORDERED: AMMONIUM LACTATE 12% TOPICAL LOTION 226GM BOTTLE. TP PRN (09:00)
--- NOTE | 2019-09-08 09:27 | PDOC ---
IM PROGRESS NOTES- Subjective Subjective Patient became hypotensive with a systolic blood pressure in 70s. She was noted to be in septic shock. Patient was transferred to ICU and was given IV fluids. We will fed order was also given if blood pressures remain persistently low. She denies any diarrhea. She is feeling somewhat better this morning. Objective Vitals/I&O Vital Signs Date Time Temp Pulse Resp B/P (MAP) Pulse Ox O2 Delivery O2 Flow Rate FiO2 09/08/19 08:26 94 118/43 09/08/19 08:21 99 Room Air 09/08/19 06:00 27 09/08/19 04:00 99.1 99.1 I & O 09/07/19 09/07/19 09/08/19 15:00 23:00 07:00 Intake Total 1480 ml 2175.5 ml Balance 1480 ml 2175.5 ml Physical Exam Physical Exam General appearance - alert,ill appearing, and in no distress and oriented to person, place, and time Mental Status - alert, oriented to person, place, and time, affect appropriate to mood Head - normal Chest -decreased breath sounds at bases Heart - S1 and S2 normal Abdomen - soft, nontender, nondistended, no masses or organomegaly Neurological - alert and oriented Musculoskeletal -very weak Extremities - no pedal edema Skin -wound with dressing in place Labs Laboratory Tests Test 09/07/19 15:45 09/07/19 16:10 09/07/19 21:03 09/08/19 03:00 Sodium Level 127 mmol/L (136-145) L 125 mmol/L (136-145) L Potassium Level 5.2 mmol/L (3.5-5.1) H 4.6 mmol/L (3.5-5.1) Chloride Level 88 mmol/L (98-107) L 88 mmol/L (98-107) L Carbon Dioxide Level 25 mmol/L (21-32) 21 mmol/L (21-32) Anion Gap 14 (6-14) 16 (6-14) H Blood Urea Nitrogen 62 mg/dL (7-20) H 54 mg/dL (7-20) H Creatinine 9.1 mg/dL (0.6-1.0) H 8.6 mg/dL (0.6-1.0) H Estimated GFR (Cockcroft-Gault) 4.5 4.8 BUN/Creatinine Ratio 7 (6-20) Glucose Level 148 mg/dL (70-99) H 384 mg/dL (70-99) H Calcium Level 9.1 mg/dL (8.5-10.1) 8.5 mg/dL (8.5-10.1) Total Bilirubin 0.4 mg/dL (0.2-1.0) Aspartate Amino Transferase (AST) 19 U/L (15-37) Alanine Aminotransferase (ALT) 19 U/L (14-59) Alkaline Phosphatase 200 U/L (46-116) H Total Protein 7.9 g/dL (6.4-8.2) Albumin 2.6 g/dL (3.4-5.0) L Albumin/Globulin Ratio 0.5 (1.0-1.7) L White Blood Count 17.6 x10^3/uL (4.0-11.0) H 35.2 x10^3/uL (4.0-11.0) H Red Blood Count 3.08 x10^6/uL (3.50-5.40) L 2.67 x10^6/uL (3.50-5.40) L Hemoglobin 10.7 g/dL (12.0-15.5) L 9.0 g/dL (12.0-15.5) L Hematocrit 32.9 % (36.0-47.0) L 28.4 % (36.0-47.0) L Mean Corpuscular Volume 107 fL (79-100) H 106 fL (79-100) H Mean Corpuscular Hemoglobin 35 pg (25-35) 34 pg (25-35) Mean Corpuscular Hemoglobin Concent 32 g/dL (31-37) 32 g/dL (31-37) Red Cell Distribution Width 21.7 % (11.5-14.5) H 21.1 % (11.5-14.5) H Platelet Count 336 x10^3/uL (140-400) 356 x10^3/uL (140-400) Neutrophils (%) (Auto) 86 % (31-73) H 86 % (31-73) H Lymphocytes (%) (Auto) 7 % (24-48) L 6 % (24-48) L Monocytes (%) (Auto) 6 % (0-9) 8 % (0-9) Eosinophils (%) (Auto) 1 % (0-3) 0 % (0-3) Basophils (%) (Auto) 0 % (0-3) 0 % (0-3) Neutrophils # (Auto) 15.2 x10^3/uL (1.8-7.7) H 30.4 x10^3/uL (1.8-7.7) H Lymphocytes # (Auto) 1.2 x10^3/uL (1.0-4.8) 2.0 x10^3/uL (1.0-4.8) Monocytes # (Auto) 1.1 x10^3/uL (0.0-1.1) 2.7 x10^3/uL (0.0-1.1) H Eosinophils # (Auto) 0.1 x10^3/uL (0.0-0.7) 0.0 x10^3/uL (0.0-0.7) Basophils # (Auto) 0.0 x10^3/uL (0.0-0.2) 0.1 x10^3/uL (0.0-0.2) Segmented Neutrophils % 82 % (35-66) H 85 % (35-66) H Band Neutrophils % 2 % (0-9) 5 % (0-9) Lymphocytes % 10 % (24-48) L 6 % (24-48) L Monocytes % 6 % (0-10) 4 % (0-10) Platelet Estimate Adequate (ADEQUATE) Adequate (ADEQUATE) Polychromasia Present Slight Poikilocytosis Slight Anisocytosis Mod Mod Macrocytosis Slight Slight Glucose (Fingerstick) 264 mg/dL (70-99) H Nucleated Red Blood Cells 1 Toxic Granulation Mod Hypochromasia Slight Basophilic Stippling Present Lactic Acid Level 4.2 mmol/L (0.4-2.0) *H Test 09/08/19 08:00 Lactic Acid Level 2.9 mmol/L (0.4-2.0) H Laboratory Tests 09/07/19 16:10 09/08/19 03:00 Laboratory Tests 09/07/19 15:45 09/08/19 03:00 Meds Current Medications Medications (Trade) Dose Ordered Sig/Jesus Route PRN Reason Start Time Stop Time Status Last Admin Dose Admin Aspirin (Children'S Aspirin) 81 mg DAILY PO 09/08/19 09:00 09/08/19 08:21 Clotrimazole (Lotrimin) 1 vern BID TP 09/07/19 21:00 09/07/19 21:26 Famotidine (Pepcid) 20 mg QHS PO 09/07/19 21:00 09/07/19 21:18 Fluticasone Propionate (Flonase) 1 spray BID NS 09/07/19 21:00 09/07/19 21:19 Folic Acid (Folic Acid) 1 mg DAILY PO 09/08/19 09:00 09/08/19 08:22 Acetaminophen/ Hydrocodone Bitart (Lortab 5/325) 1 tab Q6HRS PO 09/07/19 18:00 09/08/19 08:21 Insulin Glargine (Lantus Syringe) 20 unit HS SQ 09/07/19 21:00 09/07/19 21:25 Albuterol/ Ipratropium (Duoneb) 3 ml QID NEB 09/07/19 21:00 09/08/19 07:53 Meclizine HCl (Antivert) 12.5 mg TID PO 09/07/19 21:00 09/08/19 08:21 Midodrine (Proamatine) 5 mg [id number] PO 09/07/19 18:30 09/08/19 08:26 Montelukast Sodium (Singulair) 10 mg DAILY PO 09/08/19 09:00 09/08/19 08:21 Atorvastatin Calcium (Lipitor) 80 mg QHS PO 09/07/19 21:00 09/07/19 21:18 Budesonide (Pulmicort) 0.5 mg RTBID NEB 09/07/19 20:00 09/08/19 07:53 Calcium Acetate (Phoslo) 1,334 mg TIDWMEALS PO 09/08/19 08:00 09/08/19 08:22 Linezolid/Dextrose 300 ml @ 300 mls/hr Q12HR IV 09/07/19 21:00 09/08/19 01:28 Piperacillin Sod/ Tazobactam Sod 2.25 gm/Sodium Chloride 50 ml @ 100 mls/hr Q8HRS IV 09/07/19 19:00 09/08/19 06:05 Sodium Chloride 500 ml @ 500 mls/hr 1X ONCE IV 09/07/19 23:00 09/07/19 23:59 DC 09/07/19 23:00 Sodium Chloride 1,000 ml @ 100 mls/hr Q10H IV 09/07/19 23:00 09/08/19 08:26 Norepinephrine Bitartrate 8 mg/ Dextrose 258 ml @ 18.189 mls/ hr CONT PRN IV PER PROTOCOL 09/08/19 00:45 09/08/19 01:14 Assessment Assessment 1. Large left ischial ulcer. 2. Coronary artery disease, previous stent, on Brilinta. 3. Coronary artery bypass surgery 5 years ago, 5-vessel. 4. Diabetes, insulin dependent. 5. End-stage renal disease, on dialysis. 6. Peripheral vascular disease. PLAN: At this time, she was admitted to the hospital. Wound culture, blood cultures. The patient is seen in the [facility], recommended surgical debridement. Surgery is consulted. White count 17, started on broad-spectrum antibiotics with Zyvox and Zosyn after blood cultures. Air-loss mattress and the patient also would need peritoneal dialysis. We will continue while she is in the hospital. Vascular consult for vascular disease. Septic shock- patient was transferred to ICU. On IV fluids as well as IV boluses and Levophed as needed. Hypotension is improving. The WBC count has increased to 35.2. Infectious disease started her on Vancomycin as she has h/o C.diff colitis. Sepsis- lactic acid level was elevated. Patient is on IV Zyvox and Zosyn. Left ischial wound- may need debridement when stable. End-stage renal disease on hemodialysis. Hyponatremia- sodium is 125 Plan Plan For more details regarding further plans, please refer to the orders. ZURI MERCADO MD Sep 08, 2019 09:27
[2019-09-08] MEDS ORDERED: ACETAMINOPHEN 325 MG TABLET. PO PRN (09:30)
[2019-09-08] MEDS: INSULIN LISPRO 300 UNITS/3 ML VIAL. SQ SCH ×3 (09:48→17:24)
[2019-09-08] MEDS: FLUTICASONE 50MCG/NASAL SPRAY 16GM BOTTLE. NS SCH ×2 (09:50→22:17)
--- NOTE | 2019-09-08 10:43 | RAD ---
Examination: ARTERIAL STUDY LOWER EXT BI History: Bilateral ischemic toes Comparison/Correlation: None Findings: Multiple grayscale, color, and duplex spectral analysis sonographic images were acquired of the lower extremity arteries bilaterally. There are no previous similar exams. Significant plaque bilaterally is seen. Monophasic flow is present throughout the bilateral lower extremity arterial vasculature. Velocities in cm/sec: RIGHT Common femoral artery 141 Profunda femoris artery 90 Proximal SFA 67 Mid SFA 53 Distal SFA 47 Popliteal artery 82 Posterior tibial artery not visualized Peroneal artery not visualized Anterior tibial artery 27 at the proximal aspect Dorsalis pedis artery not visualized LEFT: Common femoral artery 109 Profunda femoris artery 80 Proximal SFA 59 Mid SFA 47 Distal SFA 34 Popliteal artery 48 Posterior tibial artery not visualized Peroneal artery not visualized Anterior tibial artery not visualized Dorsalis pedis artery not visualized Lack of visualization of nearly the entirety of the vasculature of the calf bilaterally which appears represent significant proximal plaque noted. Limited visualization also may be in part related limited due to patient body habitus. Impression: Marked quantity of plaque bilaterally involving the lower extremity arterial vasculature is. Diffuse monophasic waveforms mostly seen with moderately diminished flow velocities. Lack of visualization of flow within of calf arterial vasculature. Possibility of more proximal stenosis is of concern considering the extent of arterial plaque and diminished or lack of arterial flow noted. Electronically signed by: Ji Koroma MD (09/08/2019 10:41 AM) [id number]
--- NOTE | 2019-09-08 10:57 | PDOC2 ---
CONSULT Date of Consult Date of Consult DATE: 09/08/19 TIME: 10:53 Reason for Consult Reason for Consult: ESRD Referring Physician Referring Physician: AMADOR Identification/Chief Complaint Chief Complaint WOUND Source Source: Chart review, Patient History of Present Illness Reason for Visit: THIS IS A 54 YR OLD PT WITH ESRD. LABS ARE C/W ESRD. ESRD DUE TO DM II AND HTN. WAS DX WITH A NECROTIC LEFT ISCHIAL ULCER. CURRENTLY UNDERGOING EVAL BY SURGERY. BECAME HYPOTENSIVE AND NOW IN THE ICU. NA OF 125. FEELING WELL BUT HAS SIGNIFICANT LEUCOCYTOSIS. BELOW NOTE REVIEWED The patient is a 54-year-old female. The patient had a boil in the left gluteal area approximately week to 10 days ago, seen in the Emergency Room, was given antibiotic, and was recommended to follow with the [facility]. She did not follow up, came to the office and she has a 5 cm necrotic left ischial unstageable ulcer. The patient was [facility], was admitted to the hospital for surgical debridement. Her white count was elevated to 17,000. She also has a history of end-stage renal disease, was on hemodialysis, for last 6 months she is on peritoneal dialysis. She also has a history of coronary artery disease, previous bypass surgery, cardiac stent 6 months ago. She is on Brilinta. She also has a history of diabetes, insulin dependent. Past Medical History Cardiovascular: CAD, CHF, HTN, Hyperlipidemia Pulmonary: Asthma, COPD CENTRAL NERVOUS SYSTEM: CVA Heme/Onc: Anemia NOS Psych: Depression Musculoskeletal: Osteoarthritis Infectious disease: Other Renal/: Chronic renal failure Endocrine: Diabetes, Hyperparathyroidism Past Surgical History Past Surgical History: CABG Family History Family History: Heart Disease Social History ALCOHOL: none Drugs: None Lives: with Family Domestic Violence: Neg Current Medications Current Medications Current Medications Albuterol Sulfate (Ventolin Neb Soln) 2.5 mg PRN QID PRN INH SHORTNESS OF BREATH; Start 09/07/19 at 17:45 Lactic Acid (Lac-Hydrin) 1 katarzyna PRN DAILY PRN TP DRY SKIN; Start 09/08/19 at 09:00 Aspirin (Children'S Aspirin) 81 mg DAILY PO Last administered on 09/08/19at 08:21; Start 09/08/19 at 09:00 Carvedilol (Coreg) 12.5 mg BIDWMEALS PO ; Start 2/14/20 at 18:00 Clotrimazole (Lotrimin) 1 katarzyna BID TP Last administered on 09/07/19 21:26; Start 09/07/19 at 21:00 Diclofenac Sodium (Voltaren) 2 katarzyna PRN QID PRN TP PAIN; Start 09/07/19 at 17:45 Famotidine (Pepcid) 20 mg QHS PO Last administered on 09/07/19at 21:18; Start 09/07/19 at 21:00 Fluticasone Propionate (Flonase) 1 spray BID NS Last administered on 09/08/19at 09:50; Start 09/07/19 at 21:00 Folic Acid (Folic Acid) 1 mg DAILY PO Last administered on 09/08/19 08:22; Start 09/08/19 at 09:00 Furosemide (Lasix) 40 mg [id number] PO ; Start 09/07/19 at 18:30 Hydralazine HCl (Apresoline) 100 mg TID PO ; Start 09/07/19 at 21:00 Acetaminophen/ Hydrocodone Bitart (Lortab 5/325) 1 tab PRN Q6HRS PRN PO PAIN; Start 09/07/19 at 17:45 Acetaminophen/ Hydrocodone Bitart (Lortab 5/325) 1 tab Q6HRS PO Last administered on 09/08/19at 08:21; Start 09/07/19 at 18:00 Insulin Glargine (Lantus Syringe) 20 unit HS SQ Last administered on 09/07/19at 21:25; Start 09/07/19 at 21:00 Albuterol/ Ipratropium (Duoneb) 3 ml QID NEB Last administered on 09/08/19at 07:53; Start 09/07/19 at 21:00 Lisinopril (Prinivil) 20 mg BID PO ; Start 09/07/19 at 21:00 Meclizine HCl (Antivert) 12.5 mg TID PO Last administered on 09/08/19at 08:21; Start 09/07/19 at 21:00 Metolazone (Zaroxolyn) 2.5 mg DAILY PO ; Start 09/08/19 at 09:00 Midodrine (Proamatine) 5 mg [id number] PO Last administered on 09/08/19at 08:26; Start 09/07/19 at 18:30 Montelukast Sodium (Singulair) 10 mg DAILY PO Last administered on 09/08/19at 08:21; Start 09/08/19 at 09:00 Nitroglycerin (Nitrostat) 0.4 mg PRN Q5MIN PRN SL CHEST PAIN; Start 09/07/19 at 17:45 Ticagrelor (Brilinta) 90 mg BID PO ; Start 09/07/19 at 21:00; Stop 09/07/19 at 18:14; Status DC Tramadol HCl (Ultram) 50 mg PRN Q6HRS PRN PO PAIN; Start 09/07/19 at 17:45 Non-Formulary Medication (Albuterol Sulfate (Ventolin Hfa Inhaler)) 2 puff Q6HRS PRN INH SHORTNESS OF BREATH; Start 09/07/19 at 17:45; Status UNV Atorvastatin Calcium (Lipitor) 80 mg QHS PO Last administered on 09/07/19at 21:18; Start 09/07/19 at 21:00 Budesonide (Pulmicort) 0.5 mg RTBID NEB Last administered on 09/08/19at 07:53; Start 09/07/19 at 20:00 Calcium Acetate (Phoslo) 1,334 mg TIDWMEALS PO Last administered on 09/08/19at 08:22; Start 09/08/19 at 08:00 Ondansetron HCl (Zofran Odt) 4 mg PRN BID PRN PO NAUSEA/VOMITING; Start 09/07/19 at 18:30 Insulin Human Lispro (HumaLOG) 0-5 UNITS TIDWMEALS SQ Last administered on 09/08/19at 09:48; Start 09/08/19 at 08:00 Dextrose (Dextrose 50%-Water Syringe) 12.5 gm PRN Q15MIN PRN IV SEE COMMENTS; Start 09/07/19 at 17:45 Dextrose (Iv Dextrose 5%) 250 ml PRN Q15MIN PRN IV SEE COMMENTS; Start 09/07/19 at 17:45 Linezolid/Dextrose 300 ml @ 300 mls/hr Q12HR IV Last administered on 09/08/19at 09:49; Start 09/07/19 at 21:00 Piperacillin Sod/ Tazobactam Sod 2.25 gm/Sodium Chloride 50 ml @ 100 mls/hr Q8HRS IV Last administered on 09/08/19at 06:05; Start 09/07/19 at 19:00 Albuterol Sulfate (Ventolin Neb Soln) 2.5 mg RTQID NEB ; Start 09/07/19 at 20:00 Sodium Chloride 500 ml @ 500 mls/hr 1X ONCE IV Last administered on 09/07/19at 23:00; Start 09/07/19 at 23:00; Stop 09/07/19 at 23:59; Status DC Sodium Chloride 1,000 ml @ 100 mls/hr Q10H IV Last administered on 09/08/19at 08:26; Start 09/07/19 at 23:00 Norepinephrine Bitartrate 8 mg/ Dextrose 258 ml @ 18.189 mls/ hr CONT PRN IV PER PROTOCOL Last administered on 09/08/19at 01:14; Start 09/08/19 at 00:45 Acetaminophen (Tylenol) 650 mg PRN Q6HRS PRN PO MILD PAIN / TEMP; Start 09/08/19 at 09:30 Vancomycin HCl (Vancomycin Oral Solution) 125 mg [id number] PO ; Start 09/08/19 at 11:00 Active Scripts Active Doxycycline Hyclate 100 Mg Capsule 1 Cap PO BID Drake 5-325 Tablet (Acetaminophen/Hydrocodone Bitart) 1 Each Tablet 1 Tab PO PRN Q6HRS PRN Drake 5-325 Tablet (Acetaminophen/Hydrocodone Bitart) 1 Each Tablet 1 Tab PO Q6HRS Bactrim Ds Tablet (Sulfamethoxazole/Trimethoprim) 1 Each Tablet 1 Tab PO BID Cephalexin 500 Mg Tablet 1 Tab PO TID Lisinopril 40 Mg Tablet 20 Mg PO BID 30 Days Brilinta (Ticagrelor) 90 Mg Tablet 90 Mg PO BID 60 Days Reported Tramadol Hcl 50 Mg Tablet 50 Mg PO PRN Q6HRS PRN Melatonin 3 Mg Tablet 1 Tab PO QHS Imodium A-D (Loperamide HCl) 2 Mg Capsule 2 Mg PO PRN PRN Proair Hfa (Albuterol Sulfate) 8.5 Gm Hfa.aer.ad 2 Puff INH QID PRN Ammonium Lactate 226 Gm Lotion 1 Gm TP DAILY Montelukast Sodium Tablet (Montelukast Sodium) 10 Mg Tablet 1 Tab PO DAILY Metolazone 2.5 Mg Tablet 2.5 Mg PO DAILY Voltaren (Diclofenac Sodium) 100 Gm Gel..gram. 2 Gm TP QID PRN Sulfacetamide Sodium 3.5 Gm Oint...g. 0.5 Inch OP Q2DAYS AT HS Clotrimazole 15 Gm Cream..g. 1 Katarzyna TP BID Furosemide 40 Mg Tablet 1 Tab PO BID Calcium Acetate 667 Mg Tablet 2 Cap PO TIDWMEALS Symbicort 160-4.5 Mcg Inhaler (Budesonide/Formoterol Fumarate) 10.2 Gm Hfa.aer.ad 2 Puff INH BID Lantus (Insulin Glargine,Hum.rec.anlog) 100 Unit/1 Ml Vial 20 Unit SQ HS Aspirin 81 Mg Tab.chew 81 Mg PO DAILY Duoneb 0.5-3(2.5) Mg/3 Ml (Albuterol/Ipratropium) 3 Ml Ampul.neb 3 Ml NEB QID Zofran Odt (Ondansetron) 8 Mg Tab.rapdis 8 Mg PO BID PRN Meclizine Hcl 12.5 Mg Tablet 1 Tab PO TID Famotidine 20 Mg Tablet 20 Mg PO BID Midodrine Hcl 5 Mg Tablet 5 Mg PO TID Folic Acid 1 Mg Tablet 1 Mg PO DAILY Hydralazine Hcl 50 Mg Tablet 100 Mg PO TID Loratadine 10 Mg Tab.rapdis 10 Mg PO DAILY NITROGLYCERIN SubLingual (Nitroglycerin) 0.4 Mg Tab.subl 0.4 Mg SL PRN Q5MIN PRN Flonase (Fluticasone Propionate) 16 Gm [place].susp 1 [place]field NS BID Ventolin Hfa Inhaler (Albuterol Sulfate) 18 Gm Hfa.aer.ad 2 Puff INH Q6HRS PRN Carvedilol (Carvedilol) 12.5 Mg Tablet 12.5 Mg PO BID Lipitor (Atorvastatin Calcium) 80 Mg Tablet 1 Tab PO QEVNG Allergies Allergies: Coded Allergies: No Known Drug Allergies (Unverified , 06/20/18) ROS General: YES: Fatigue PSYCHOLOGICAL ROS: YES: Depression Eyes: Yes Decreased vision ALLERGY AND IMMUNOLOGY: YES: Seasonal Allergies Respiratory: YES: Cough Cardiovascular: yes Edema Gastrointestinal: Yes Constipation Genitourinary: YES Other (OLIGURIA) Musculoskeletal: Yes Muscular Weakness Neurological: Yes Weakness Skin: Yes Dry Skin Physical Exam General: Alert, Oriented X3, Cooperative, No acute distress HEENT: Atraumatic, PERRLA, Mucous membr. moist/pink Lungs: Normal air movement Heart: Regular rate Abdomen: Normal bowel sounds Extremities: No clubbing Neuro: Normal speech, Sensation intact Psych/Mental Status: Mental status NL, Mood NL MUSCULOSKELETAL: No joint tenderness, Other (CHRONIC LE EDEMA) Vitals VITALS Vital Signs Date Time Temp Pulse Resp B/P (MAP) Pulse Ox O2 Delivery O2 Flow Rate FiO2 09/08/19 10:00 86 25 109/54 (72) 98 Room Air 09/08/19 08:00 99.7 99.7 Labs Labs Laboratory Tests Test 09/07/19 15:45 09/07/19 16:10 09/07/19 21:03 09/08/19 03:00 Sodium Level 127 mmol/L (136-145) 125 mmol/L (136-145) Potassium Level 5.2 mmol/L (3.5-5.1) 4.6 mmol/L (3.5-5.1) Chloride Level 88 mmol/L (98-107) 88 mmol/L (98-107) Carbon Dioxide Level 25 mmol/L (21-32) 21 mmol/L (21-32) Anion Gap 14 (6-14) 16 (6-14) Blood Urea Nitrogen 62 mg/dL (7-20) 54 mg/dL (7-20) Creatinine 9.1 mg/dL (0.6-1.0) 8.6 mg/dL (0.6-1.0) Estimated GFR (Cockcroft-Gault) 4.5 4.8 BUN/Creatinine Ratio 7 (6-20) Glucose Level 148 mg/dL (70-99) 384 mg/dL (70-99) Calcium Level 9.1 mg/dL (8.5-10.1) 8.5 mg/dL (8.5-10.1) Total Bilirubin 0.4 mg/dL (0.2-1.0) Aspartate Amino Transf (AST/SGOT) 19 U/L (15-37) Alanine Aminotransferase (ALT/SGPT) 19 U/L (14-59) Alkaline Phosphatase 200 U/L (46-116) Total Protein 7.9 g/dL (6.4-8.2) Albumin 2.6 g/dL (3.4-5.0) Albumin/Globulin Ratio 0.5 (1.0-1.7) White Blood Count 17.6 x10^3/uL (4.0-11.0) 35.2 x10^3/uL (4.0-11.0) Red Blood Count 3.08 x10^6/uL (3.50-5.40) 2.67 x10^6/uL (3.50-5.40) Hemoglobin 10.7 g/dL (12.0-15.5) 9.0 g/dL (12.0-15.5) Hematocrit 32.9 % (36.0-47.0) 28.4 % (36.0-47.0) Mean Corpuscular Volume 107 fL (79-100) 106 fL (79-100) Mean Corpuscular Hemoglobin 35 pg (25-35) 34 pg (25-35) Mean Corpuscular Hemoglobin Concent 32 g/dL (31-37) 32 g/dL (31-37) Red Cell Distribution Width 21.7 % (11.5-14.5) 21.1 % (11.5-14.5) Platelet Count 336 x10^3/uL (140-400) 356 x10^3/uL (140-400) Neutrophils (%) (Auto) 86 % (31-73) 86 % (31-73) Lymphocytes (%) (Auto) 7 % (24-48) 6 % (24-48) Monocytes (%) (Auto) 6 % (0-9) 8 % (0-9) Eosinophils (%) (Auto) 1 % (0-3) 0 % (0-3) Basophils (%) (Auto) 0 % (0-3) 0 % (0-3) Neutrophils # (Auto) 15.2 x10^3/uL (1.8-7.7) 30.4 x10^3/uL (1.8-7.7) Lymphocytes # (Auto) 1.2 x10^3/uL (1.0-4.8) 2.0 x10^3/uL (1.0-4.8) Monocytes # (Auto) 1.1 x10^3/uL (0.0-1.1) 2.7 x10^3/uL (0.0-1.1) Eosinophils # (Auto) 0.1 x10^3/uL (0.0-0.7) 0.0 x10^3/uL (0.0-0.7) Basophils # (Auto) 0.0 x10^3/uL (0.0-0.2) 0.1 x10^3/uL (0.0-0.2) Segmented Neutrophils % 82 % (35-66) 85 % (35-66) Band Neutrophils % 2 % (0-9) 5 % (0-9) Lymphocytes % 10 % (24-48) 6 % (24-48) Monocytes % 6 % (0-10) 4 % (0-10) Platelet Estimate Adequate (ADEQUATE) Adequate (ADEQUATE) Polychromasia Present Slight Poikilocytosis Slight Anisocytosis Mod Mod Macrocytosis Slight Slight Glucose (Fingerstick) 264 mg/dL (70-99) Nucleated Red Blood Cells 1 Toxic Granulation Mod Hypochromasia Slight Basophilic Stippling Present Lactic Acid Level 4.2 mmol/L (0.4-2.0) Test 09/08/19 08:00 09/08/19 09:47 Lactic Acid Level 2.9 mmol/L (0.4-2.0) Glucose (Fingerstick) 292 mg/dL (70-99) Laboratory Tests Test 09/07/19 15:45 09/07/19 16:10 09/07/19 21:03 09/08/19 03:00 Sodium Level 127 mmol/L (136-145) 125 mmol/L (136-145) Potassium Level 5.2 mmol/L (3.5-5.1) 4.6 mmol/L (3.5-5.1) Chloride Level 88 mmol/L (98-107) 88 mmol/L (98-107) Carbon Dioxide Level 25 mmol/L (21-32) 21 mmol/L (21-32) Anion Gap 14 (6-14) 16 (6-14) Blood Urea Nitrogen 62 mg/dL (7-20) 54 mg/dL (7-20) Creatinine 9.1 mg/dL (0.6-1.0) 8.6 mg/dL (0.6-1.0) Estimated GFR (Cockcroft-Gault) 4.5 4.8 BUN/Creatinine Ratio 7 (6-20) Glucose Level 148 mg/dL (70-99) 384 mg/dL (70-99) Calcium Level 9.1 mg/dL (8.5-10.1) 8.5 mg/dL (8.5-10.1) Total Bilirubin 0.4 mg/dL (0.2-1.0) Aspartate Amino Transf (AST/SGOT) 19 U/L (15-37) Alanine Aminotransferase (ALT/SGPT) 19 U/L (14-59) Alkaline Phosphatase 200 U/L (46-116) Total Protein 7.9 g/dL (6.4-8.2) Albumin 2.6 g/dL (3.4-5.0) Albumin/Globulin Ratio 0.5 (1.0-1.7) White Blood Count 17.6 x10^3/uL (4.0-11.0) 35.2 x10^3/uL (4.0-11.0) Red Blood Count 3.08 x10^6/uL (3.50-5.40) 2.67 x10^6/uL (3.50-5.40) Hemoglobin 10.7 g/dL (12.0-15.5) 9.0 g/dL (12.0-15.5) Hematocrit 32.9 % (36.0-47.0) 28.4 % (36.0-47.0) Mean Corpuscular Volume 107 fL (79-100) 106 fL (79-100) Mean Corpuscular Hemoglobin 35 pg (25-35) 34 pg (25-35) Mean Corpuscular Hemoglobin Concent 32 g/dL (31-37) 32 g/dL (31-37) Red Cell Distribution Width 21.7 % (11.5-14.5) 21.1 % (11.5-14.5) Platelet Count 336 x10^3/uL (140-400) 356 x10^3/uL (140-400) Neutrophils (%) (Auto) 86 % (31-73) 86 % (31-73) Lymphocytes (%) (Auto) 7 % (24-48) 6 % (24-48) Monocytes (%) (Auto) 6 % (0-9) 8 % (0-9) Eosinophils (%) (Auto) 1 % (0-3) 0 % (0-3) Basophils (%) (Auto) 0 % (0-3) 0 % (0-3) Neutrophils # (Auto) 15.2 x10^3/uL (1.8-7.7) 30.4 x10^3/uL (1.8-7.7) Lymphocytes # (Auto) 1.2 x10^3/uL (1.0-4.8) 2.0 x10^3/uL (1.0-4.8) Monocytes # (Auto) 1.1 x10^3/uL (0.0-1.1) 2.7 x10^3/uL (0.0-1.1) Eosinophils # (Auto) 0.1 x10^3/uL (0.0-0.7) 0.0 x10^3/uL (0.0-0.7) Basophils # (Auto) 0.0 x10^3/uL (0.0-0.2) 0.1 x10^3/uL (0.0-0.2) Segmented Neutrophils % 82 % (35-66) 85 % (35-66) Band Neutrophils % 2 % (0-9) 5 % (0-9) Lymphocytes % 10 % (24-48) 6 % (24-48) Monocytes % 6 % (0-10) 4 % (0-10) Platelet Estimate Adequate (ADEQUATE) Adequate (ADEQUATE) Polychromasia Present Slight Poikilocytosis Slight Anisocytosis Mod Mod Macrocytosis Slight Slight Glucose (Fingerstick) 264 mg/dL (70-99) Nucleated Red Blood Cells 1 Toxic Granulation Mod Hypochromasia Slight Basophilic Stippling Present Lactic Acid Level 4.2 mmol/L (0.4-2.0) Test 09/08/19 08:00 09/08/19 09:47 Lactic Acid Level 2.9 mmol/L (0.4-2.0) Glucose (Fingerstick) 292 mg/dL (70-99) Assessment/Plan Assessment/Plan IMP ISCHIAL WOUND ANEMIA SEPSIS HYPOTENSION LEUCOCYTOSIS DM II ESRD PLAN ARANESP ANTIBIOTICS APD WITH 1.5% DIANEAL CONTROL BG WILL FOLLOW OMEGA JAMES MD Sep 08, 2019 10:57
--- NOTE | 2019-09-08 11:01 | PDOC ---
SURGICAL PROGRESS NOTE Subjective Pt feels better, BP improved Vital Signs Vital Signs Date Time Temp Pulse Resp B/P (MAP) Pulse Ox O2 Delivery O2 Flow Rate FiO2 09/08/19 10:00 86 25 109/54 (72) 98 Room Air 09/08/19 08:00 99.7 99.7 I&O Intake and Output 09/08/19 07:00 Intake Total 3655.5 ml Balance 3655.5 ml Intake Oral 1580 ml IV Total 1575.5 ml Blood Product IV Normal Saline Flush 500 ml General: Alert, Oriented X3, Cooperative, No acute distress, Other (foul odor of wound) Skin: Other (dressing intact) Labs Laboratory Tests Test 09/07/19 15:45 09/07/19 16:10 09/07/19 21:03 09/08/19 03:00 Sodium Level 127 mmol/L (136-145) 125 mmol/L (136-145) Potassium Level 5.2 mmol/L (3.5-5.1) 4.6 mmol/L (3.5-5.1) Chloride Level 88 mmol/L (98-107) 88 mmol/L (98-107) Carbon Dioxide Level 25 mmol/L (21-32) 21 mmol/L (21-32) Anion Gap 14 (6-14) 16 (6-14) Blood Urea Nitrogen 62 mg/dL (7-20) 54 mg/dL (7-20) Creatinine 9.1 mg/dL (0.6-1.0) 8.6 mg/dL (0.6-1.0) Estimated GFR (Cockcroft-Gault) 4.5 4.8 BUN/Creatinine Ratio 7 (6-20) Glucose Level 148 mg/dL (70-99) 384 mg/dL (70-99) Calcium Level 9.1 mg/dL (8.5-10.1) 8.5 mg/dL (8.5-10.1) Total Bilirubin 0.4 mg/dL (0.2-1.0) Aspartate Amino Transf (AST/SGOT) 19 U/L (15-37) Alanine Aminotransferase (ALT/SGPT) 19 U/L (14-59) Alkaline Phosphatase 200 U/L (46-116) Total Protein 7.9 g/dL (6.4-8.2) Albumin 2.6 g/dL (3.4-5.0) Albumin/Globulin Ratio 0.5 (1.0-1.7) White Blood Count 17.6 x10^3/uL (4.0-11.0) 35.2 x10^3/uL (4.0-11.0) Red Blood Count 3.08 x10^6/uL (3.50-5.40) 2.67 x10^6/uL (3.50-5.40) Hemoglobin 10.7 g/dL (12.0-15.5) 9.0 g/dL (12.0-15.5) Hematocrit 32.9 % (36.0-47.0) 28.4 % (36.0-47.0) Mean Corpuscular Volume 107 fL (79-100) 106 fL (79-100) Mean Corpuscular Hemoglobin 35 pg (25-35) 34 pg (25-35) Mean Corpuscular Hemoglobin Concent 32 g/dL (31-37) 32 g/dL (31-37) Red Cell Distribution Width 21.7 % (11.5-14.5) 21.1 % (11.5-14.5) Platelet Count 336 x10^3/uL (140-400) 356 x10^3/uL (140-400) Neutrophils (%) (Auto) 86 % (31-73) 86 % (31-73) Lymphocytes (%) (Auto) 7 % (24-48) 6 % (24-48) Monocytes (%) (Auto) 6 % (0-9) 8 % (0-9) Eosinophils (%) (Auto) 1 % (0-3) 0 % (0-3) Basophils (%) (Auto) 0 % (0-3) 0 % (0-3) Neutrophils # (Auto) 15.2 x10^3/uL (1.8-7.7) 30.4 x10^3/uL (1.8-7.7) Lymphocytes # (Auto) 1.2 x10^3/uL (1.0-4.8) 2.0 x10^3/uL (1.0-4.8) Monocytes # (Auto) 1.1 x10^3/uL (0.0-1.1) 2.7 x10^3/uL (0.0-1.1) Eosinophils # (Auto) 0.1 x10^3/uL (0.0-0.7) 0.0 x10^3/uL (0.0-0.7) Basophils # (Auto) 0.0 x10^3/uL (0.0-0.2) 0.1 x10^3/uL (0.0-0.2) Segmented Neutrophils % 82 % (35-66) 85 % (35-66) Band Neutrophils % 2 % (0-9) 5 % (0-9) Lymphocytes % 10 % (24-48) 6 % (24-48) Monocytes % 6 % (0-10) 4 % (0-10) Platelet Estimate Adequate (ADEQUATE) Adequate (ADEQUATE) Polychromasia Present Slight Poikilocytosis Slight Anisocytosis Mod Mod Macrocytosis Slight Slight Glucose (Fingerstick) 264 mg/dL (70-99) Nucleated Red Blood Cells 1 Toxic Granulation Mod Hypochromasia Slight Basophilic Stippling Present Lactic Acid Level 4.2 mmol/L (0.4-2.0) Test 09/08/19 08:00 09/08/19 09:47 Lactic Acid Level 2.9 mmol/L (0.4-2.0) Glucose (Fingerstick) 292 mg/dL (70-99) Laboratory Tests Test 09/07/19 15:45 09/07/19 16:10 09/07/19 21:03 09/08/19 03:00 Sodium Level 127 mmol/L (136-145) 125 mmol/L (136-145) Potassium Level 5.2 mmol/L (3.5-5.1) 4.6 mmol/L (3.5-5.1) Chloride Level 88 mmol/L (98-107) 88 mmol/L (98-107) Carbon Dioxide Level 25 mmol/L (21-32) 21 mmol/L (21-32) Anion Gap 14 (6-14) 16 (6-14) Blood Urea Nitrogen 62 mg/dL (7-20) 54 mg/dL (7-20) Creatinine 9.1 mg/dL (0.6-1.0) 8.6 mg/dL (0.6-1.0) Estimated GFR (Cockcroft-Gault) 4.5 4.8 BUN/Creatinine Ratio 7 (6-20) Glucose Level 148 mg/dL (70-99) 384 mg/dL (70-99) Calcium Level 9.1 mg/dL (8.5-10.1) 8.5 mg/dL (8.5-10.1) Total Bilirubin 0.4 mg/dL (0.2-1.0) Aspartate Amino Transf (AST/SGOT) 19 U/L (15-37) Alanine Aminotransferase (ALT/SGPT) 19 U/L (14-59) Alkaline Phosphatase 200 U/L (46-116) Total Protein 7.9 g/dL (6.4-8.2) Albumin 2.6 g/dL (3.4-5.0) Albumin/Globulin Ratio 0.5 (1.0-1.7) White Blood Count 17.6 x10^3/uL (4.0-11.0) 35.2 x10^3/uL (4.0-11.0) Red Blood Count 3.08 x10^6/uL (3.50-5.40) 2.67 x10^6/uL (3.50-5.40) Hemoglobin 10.7 g/dL (12.0-15.5) 9.0 g/dL (12.0-15.5) Hematocrit 32.9 % (36.0-47.0) 28.4 % (36.0-47.0) Mean Corpuscular Volume 107 fL (79-100) 106 fL (79-100) Mean Corpuscular Hemoglobin 35 pg (25-35) 34 pg (25-35) Mean Corpuscular Hemoglobin Concent 32 g/dL (31-37) 32 g/dL (31-37) Red Cell Distribution Width 21.7 % (11.5-14.5) 21.1 % (11.5-14.5) Platelet Count 336 x10^3/uL (140-400) 356 x10^3/uL (140-400) Neutrophils (%) (Auto) 86 % (31-73) 86 % (31-73) Lymphocytes (%) (Auto) 7 % (24-48) 6 % (24-48) Monocytes (%) (Auto) 6 % (0-9) 8 % (0-9) Eosinophils (%) (Auto) 1 % (0-3) 0 % (0-3) Basophils (%) (Auto) 0 % (0-3) 0 % (0-3) Neutrophils # (Auto) 15.2 x10^3/uL (1.8-7.7) 30.4 x10^3/uL (1.8-7.7) Lymphocytes # (Auto) 1.2 x10^3/uL (1.0-4.8) 2.0 x10^3/uL (1.0-4.8) Monocytes # (Auto) 1.1 x10^3/uL (0.0-1.1) 2.7 x10^3/uL (0.0-1.1) Eosinophils # (Auto) 0.1 x10^3/uL (0.0-0.7) 0.0 x10^3/uL (0.0-0.7) Basophils # (Auto) 0.0 x10^3/uL (0.0-0.2) 0.1 x10^3/uL (0.0-0.2) Segmented Neutrophils % 82 % (35-66) 85 % (35-66) Band Neutrophils % 2 % (0-9) 5 % (0-9) Lymphocytes % 10 % (24-48) 6 % (24-48) Monocytes % 6 % (0-10) 4 % (0-10) Platelet Estimate Adequate (ADEQUATE) Adequate (ADEQUATE) Polychromasia Present Slight Poikilocytosis Slight Anisocytosis Mod Mod Macrocytosis Slight Slight Glucose (Fingerstick) 264 mg/dL (70-99) Nucleated Red Blood Cells 1 Toxic Granulation Mod Hypochromasia Slight Basophilic Stippling Present Lactic Acid Level 4.2 mmol/L (0.4-2.0) Test 09/08/19 08:00 09/08/19 09:47 Lactic Acid Level 2.9 mmol/L (0.4-2.0) Glucose (Fingerstick) 292 mg/dL (70-99) Problem List decub ulcer d/w renal appreciate critical care will tentatively plan debridement in a few days, pending improved medical status [email or web address] [email or web address] MD Sep 08, 2019 11:01
--- NOTE | 2019-09-08 11:06 | PDOC ---
Infectious Disease Note Vital Sign Vital Signs Vital Signs Date Time Temp Pulse Resp B/P (MAP) Pulse Ox O2 Delivery O2 Flow Rate FiO2 09/08/19 09:21 98 Room Air 09/08/19 09:00 90 27 09/08/19 08:00 99.7 99.7 Labs Lab Laboratory Tests Test 09/07/19 15:45 09/07/19 16:10 09/07/19 21:03 09/08/19 03:00 Sodium Level 127 mmol/L (136-145) 125 mmol/L (136-145) Potassium Level 5.2 mmol/L (3.5-5.1) 4.6 mmol/L (3.5-5.1) Chloride Level 88 mmol/L (98-107) 88 mmol/L (98-107) Carbon Dioxide Level 25 mmol/L (21-32) 21 mmol/L (21-32) Anion Gap 14 (6-14) 16 (6-14) Blood Urea Nitrogen 62 mg/dL (7-20) 54 mg/dL (7-20) Creatinine 9.1 mg/dL (0.6-1.0) 8.6 mg/dL (0.6-1.0) Estimated GFR (Cockcroft-Gault) 4.5 4.8 BUN/Creatinine Ratio 7 (6-20) Glucose Level 148 mg/dL (70-99) 384 mg/dL (70-99) Calcium Level 9.1 mg/dL (8.5-10.1) 8.5 mg/dL (8.5-10.1) Total Bilirubin 0.4 mg/dL (0.2-1.0) Aspartate Amino Transf (AST/SGOT) 19 U/L (15-37) Alanine Aminotransferase (ALT/SGPT) 19 U/L (14-59) Alkaline Phosphatase 200 U/L (46-116) Total Protein 7.9 g/dL (6.4-8.2) Albumin 2.6 g/dL (3.4-5.0) Albumin/Globulin Ratio 0.5 (1.0-1.7) White Blood Count 17.6 x10^3/uL (4.0-11.0) 35.2 x10^3/uL (4.0-11.0) Red Blood Count 3.08 x10^6/uL (3.50-5.40) 2.67 x10^6/uL (3.50-5.40) Hemoglobin 10.7 g/dL (12.0-15.5) 9.0 g/dL (12.0-15.5) Hematocrit 32.9 % (36.0-47.0) 28.4 % (36.0-47.0) Mean Corpuscular Volume 107 fL (79-100) 106 fL (79-100) Mean Corpuscular Hemoglobin 35 pg (25-35) 34 pg (25-35) Mean Corpuscular Hemoglobin Concent 32 g/dL (31-37) 32 g/dL (31-37) Red Cell Distribution Width 21.7 % (11.5-14.5) 21.1 % (11.5-14.5) Platelet Count 336 x10^3/uL (140-400) 356 x10^3/uL (140-400) Neutrophils (%) (Auto) 86 % (31-73) 86 % (31-73) Lymphocytes (%) (Auto) 7 % (24-48) 6 % (24-48) Monocytes (%) (Auto) 6 % (0-9) 8 % (0-9) Eosinophils (%) (Auto) 1 % (0-3) 0 % (0-3) Basophils (%) (Auto) 0 % (0-3) 0 % (0-3) Neutrophils # (Auto) 15.2 x10^3/uL (1.8-7.7) 30.4 x10^3/uL (1.8-7.7) Lymphocytes # (Auto) 1.2 x10^3/uL (1.0-4.8) 2.0 x10^3/uL (1.0-4.8) Monocytes # (Auto) 1.1 x10^3/uL (0.0-1.1) 2.7 x10^3/uL (0.0-1.1) Eosinophils # (Auto) 0.1 x10^3/uL (0.0-0.7) 0.0 x10^3/uL (0.0-0.7) Basophils # (Auto) 0.0 x10^3/uL (0.0-0.2) 0.1 x10^3/uL (0.0-0.2) Segmented Neutrophils % 82 % (35-66) 85 % (35-66) Band Neutrophils % 2 % (0-9) 5 % (0-9) Lymphocytes % 10 % (24-48) 6 % (24-48) Monocytes % 6 % (0-10) 4 % (0-10) Platelet Estimate Adequate (ADEQUATE) Adequate (ADEQUATE) Polychromasia Present Slight Poikilocytosis Slight Anisocytosis Mod Mod Macrocytosis Slight Slight Glucose (Fingerstick) 264 mg/dL (70-99) Nucleated Red Blood Cells 1 Toxic Granulation Mod Hypochromasia Slight Basophilic Stippling Present Lactic Acid Level 4.2 mmol/L (0.4-2.0) Test 09/08/19 08:00 09/08/19 09:47 Lactic Acid Level 2.9 mmol/L (0.4-2.0) Glucose (Fingerstick) 292 mg/dL (70-99) Objective Assessment Sepsis with hypotension and lactic acidosis on Levaphed Infected necrotic ulcer of the left ishium Leukocytosis Loose stools Left leg ulcer PVD CKD on PD DM II CAD h/o c. diff 2012 h/o MRSA Plan Plan of Care Zyvox and Zosyn, renal dosing check c. diff PCR and add empiric po vanc Repeat labs in am BC pending Surgical debridement planned for Tuesday Local wound care and offloading Vascular consulted. D/w Sig other at bedside D/w nursing Thank you [id number] Patient seen and examined. Chart reviewed in detail. Case discussed with PRODUCTION MACHINE OPERATOR, I agree with above plan. JULIOCESAR CASE APRN Sep 08, 2019 11:06 JERRELL OWENS MD Sep 08, 2019 22:32
[2019-09-08] MEDS: VANCOMYCIN 125 MG/2.5 ML ORAL SOLUTION. PO SCH ×3 (11:42→21:00)
--- NOTE | 2019-09-08 13:27 | PDOC2 ---
CONSULT Date of Consult Date of Consult DATE: 09/08/19 TIME: 13:20 Reason for Consult Reason for Consult: PAD, left leg wound Identification/Chief Complaint Chief Complaint left calf wound, left foot numbness Source Source: Chart review, Patient History of Present Illness Reason for Visit: HISTORY OF PRESENT ILLNESS: The patient is a 54-year-old female. The patient had a boil in the left gluteal area approximately week to 10 days ago, seen in the Emergency Room, was given antibiotic, and was recommended to follow with the [facility]. The patient was referred to [facility], was admitted to the hospital for surgical debridement. Her white count was elevated to 17,000. She also has a history of end-stage renal disease, was on hemodialysis, for last 6 months she is on peritoneal dialysis. She also has a history of coronary artery disease, previous bypass surgery, cardiac stent 6 months ago. She is on Brilinta. She also has a history of diabetes, insulin dependent. She was also noted to have a left calf wound and diminished doppler signals at both ankles. We were asked to see her for this. She states she has not been walking much. She has some chronic numbness to the left foot worse than the right Past Medical History Cardiovascular: CAD, CHF, HTN, Hyperlipidemia Pulmonary: Asthma, COPD CENTRAL NERVOUS SYSTEM: CVA Heme/Onc: Anemia NOS Psych: Depression Musculoskeletal: Osteoarthritis Infectious disease: Other Renal/: Chronic renal failure Endocrine: Diabetes, Hyperparathyroidism Past Surgical History Past Surgical History: CABG, Family History Family History: Heart Disease Social History ALCOHOL: none Drugs: None Lives: with Family Domestic Violence: Neg Current Medications Current Medications Current Medications Albuterol Sulfate (Ventolin Neb Soln) 2.5 mg PRN QID PRN INH SHORTNESS OF BREATH; Start 09/07/19 at 17:45 Lactic Acid (Lac-Hydrin) 1 katarzyna PRN DAILY PRN TP DRY SKIN; Start 09/08/19 at 09:00 Aspirin (Children'S Aspirin) 81 mg DAILY PO Last administered on 09/08/19at 08:21; Start 09/08/19 at 09:00 Carvedilol (Coreg) 12.5 mg BIDWMEALS PO ; Start 09/07/19 at 18:00 Clotrimazole (Lotrimin) 1 katarzyna BID TP Last administered on 09/07/19at 21:26; Start 09/07/19 at 21:00 Diclofenac Sodium (Voltaren) 2 katarzyna PRN QID PRN TP PAIN; Start 09/07/19 at 17:45 Famotidine (Pepcid) 20 mg QHS PO Last administered on 09/07/19at 21:18; Start 09/07/19 at 21:00 Fluticasone Propionate (Flonase) 1 spray BID NS Last administered on 09/08/19at 09:50; Start 09/07/19 at 21:00 Folic Acid (Folic Acid) 1 mg DAILY PO Last administered on 09/08/19at 08:22; Start 09/08/19 at 09:00 Furosemide (Lasix) 40 mg [id number] PO ; Start 09/07/19 at 18:30 Hydralazine HCl (Apresoline) 100 mg TID PO ; Start 09/07/19 at 21:00 Acetaminophen/ Hydrocodone Bitart (Lortab 5/325) 1 tab PRN Q6HRS PRN PO PAIN; Start 09/07/19 at 17:45 Acetaminophen/ Hydrocodone Bitart (Lortab 5/325) 1 tab Q6HRS PO Last administered on 09/08/19at 08:21; Start 09/07/19 at 18:00 Insulin Glargine (Lantus Syringe) 20 unit HS SQ Last administered on 09/07/19at 21:25; Start 09/07/19 at 21:00 Albuterol/ Ipratropium (Duoneb) 3 ml QID NEB Last administered on 09/08/19at 11:25; Start 09/07/19 at 21:00 Lisinopril (Prinivil) 20 mg BID PO ; Start 09/07/19 at 21:00 Meclizine HCl (Antivert) 12.5 mg TID PO Last administered on 09/08/19at 08:21; Start 09/07/19 at 21:00 Metolazone (Zaroxolyn) 2.5 mg DAILY PO ; Start 09/08/19 at 09:00 Midodrine (Proamatine) 5 mg [id number] PO Last administered on 09/08/19 08:26; Start 09/07/19 at 18:30 Montelukast Sodium (Singulair) 10 mg DAILY PO Last administered on 09/08/19at 08:21; Start 09/08/19 at 09:00 Nitroglycerin (Nitrostat) 0.4 mg PRN Q5MIN PRN SL CHEST PAIN; Start 09/07/19 at 17:45 Ticagrelor (Brilinta) 90 mg BID PO ; Start 09/07/19 at 21:00; Stop 09/07/19 at 18:14; Status DC Tramadol HCl (Ultram) 50 mg PRN Q6HRS PRN PO PAIN; Start 09/07/19 at 17:45 Non-Formulary Medication (Albuterol Sulfate (Ventolin Hfa Inhaler)) 2 puff Q6HRS PRN INH SHORTNESS OF BREATH; Start 09/07/19 at 17:45; Status UNV Atorvastatin Calcium (Lipitor) 80 mg QHS PO Last administered on 09/07/19at 21:18; Start 09/07/19 at 21:00 Budesonide (Pulmicort) 0.5 mg RTBID NEB Last administered on 09/08/19at 07:53; Start 09/07/19 at 20:00 Calcium Acetate (Phoslo) 1,334 mg TIDWMEALS PO Last administered on 09/08/19at 11:42; Start 09/08/19 at 08:00 Ondansetron HCl (Zofran Odt) 4 mg PRN BID PRN PO NAUSEA/VOMITING; Start 09/07/19 at 18:30 Insulin Human Lispro (HumaLOG) 0-5 UNITS TIDWMEALS SQ Last administered on 09/08/19at 11:55; Start 09/08/19 at 08:00 Dextrose (Dextrose 50%-Water Syringe) 12.5 gm PRN Q15MIN PRN IV SEE COMMENTS; Start 09/07/19 at 17:45 Dextrose (Iv Dextrose 5%) 250 ml PRN Q15MIN PRN IV SEE COMMENTS; Start 09/07/19 at 17:45 Linezolid/Dextrose 300 ml @ 300 mls/hr Q12HR IV Last administered on 09/08/19at 09:49; Start 09/07/19 at 21:00 Piperacillin Sod/ Tazobactam Sod 2.25 gm/Sodium Chloride 50 ml @ 100 mls/hr Q8HRS IV Last administered on 09/08/19at 06:05; Start 09/07/19 at 19:00 Albuterol Sulfate (Ventolin Neb Soln) 2.5 mg RTQID NEB ; Start 09/07/19 at 20:00; Stop 09/08/19 at 10:54; Status DC Sodium Chloride 500 ml @ 500 mls/hr 1X ONCE IV Last administered on 09/07/19at 23:00; Start 09/07/19 at 23:00; Stop 09/07/19 at 23:59; Status DC Sodium Chloride 1,000 ml @ 100 mls/hr Q10H IV Last administered on 09/08/19at 08:26; Start 09/07/19 at 23:00 Norepinephrine Bitartrate 8 mg/ Dextrose 258 ml @ 18.189 mls/ hr CONT PRN IV PER PROTOCOL Last administered on 09/08/19at 01:14; Start 09/08/19 at 00:45 Acetaminophen (Tylenol) 650 mg PRN Q6HRS PRN PO MILD PAIN / TEMP; Start 09/08/19 at 09:30 Vancomycin HCl (Vancomycin Oral Solution) 125 mg [id number] PO Last administered on 09/08/19at 11:42; Start 09/08/19 at 11:00 Darbepoetin Abelino (ARANESP for DIALYSIS PTS) 60 mcg [id number] SQ ; Start 09/08/19 at 21:00 Active Scripts Active Doxycycline Hyclate 100 Mg Capsule 1 Cap PO BID Adrian 5-325 Tablet (Acetaminophen/Hydrocodone Bitart) 1 Each Tablet 1 Tab PO PRN Q6HRS PRN Adrian 5-325 Tablet (Acetaminophen/Hydrocodone Bitart) 1 Each Tablet 1 Tab PO Q6HRS Bactrim Ds Tablet (Sulfamethoxazole/Trimethoprim) 1 Each Tablet 1 Tab PO BID Cephalexin 500 Mg Tablet 1 Tab PO TID Lisinopril 40 Mg Tablet 20 Mg PO BID 30 Days Brilinta (Ticagrelor) 90 Mg Tablet 90 Mg PO BID 60 Days Reported Tramadol Hcl 50 Mg Tablet 50 Mg PO PRN Q6HRS PRN Melatonin 3 Mg Tablet 1 Tab PO QHS Imodium A-D (Loperamide HCl) 2 Mg Capsule 2 Mg PO PRN PRN Proair Hfa (Albuterol Sulfate) 8.5 Gm Hfa.aer.ad 2 Puff INH QID PRN Ammonium Lactate 226 Gm Lotion 1 Gm TP DAILY Montelukast Sodium Tablet (Montelukast Sodium) 10 Mg Tablet 1 Tab PO DAILY Metolazone 2.5 Mg Tablet 2.5 Mg PO DAILY Voltaren (Diclofenac Sodium) 100 Gm Gel..gram. 2 Gm TP QID PRN Sulfacetamide Sodium 3.5 Gm Oint...g. 0.5 Inch OP Q2DAYS AT HS Clotrimazole 15 Gm Cream..g. 1 Katarzyna TP BID Furosemide 40 Mg Tablet 1 Tab PO BID Calcium Acetate 667 Mg Tablet 2 Cap PO TIDWMEALS Symbicort 160-4.5 Mcg Inhaler (Budesonide/Formoterol Fumarate) 10.2 Gm Hfa.aer.ad 2 Puff INH BID Lantus (Insulin Glargine,Hum.rec.anlog) 100 Unit/1 Ml Vial 20 Unit SQ HS Aspirin 81 Mg Tab.chew 81 Mg PO DAILY Duoneb 0.5-3(2.5) Mg/3 Ml (Albuterol/Ipratropium) 3 Ml Ampul.neb 3 Ml NEB QID Zofran Odt (Ondansetron) 8 Mg Tab.rapdis 8 Mg PO BID PRN Meclizine Hcl 12.5 Mg Tablet 1 Tab PO TID Famotidine 20 Mg Tablet 20 Mg PO BID Midodrine Hcl 5 Mg Tablet 5 Mg PO TID Folic Acid 1 Mg Tablet 1 Mg PO DAILY Hydralazine Hcl 50 Mg Tablet 100 Mg PO TID Loratadine 10 Mg Tab.rapdis 10 Mg PO DAILY NITROGLYCERIN SubLingual (Nitroglycerin) 0.4 Mg Tab.subl 0.4 Mg SL PRN Q5MIN PRN Flonase (Fluticasone Propionate) 16 Gm [place].susp 1 [place] NS BID Ventolin Hfa Inhaler (Albuterol Sulfate) 18 Gm Hfa.aer.ad 2 Puff INH Q6HRS PRN Carvedilol (Carvedilol) 12.5 Mg Tablet 12.5 Mg PO BID Lipitor (Atorvastatin Calcium) 80 Mg Tablet 1 Tab PO QEVNG Allergies Allergies: Coded Allergies: No Known Drug Allergies (Unverified , 06/20/18) Physical Exam Physical Exam obese, difficult exam but diminished femoral pulses bilaterally able to move the toes of both feet some chronic numbness to the left foot > right she can feel light touch in both feet General: Alert, Oriented X3 HEENT: Atraumatic, Mucous membr. moist/pink Lungs: Clear to auscultation Heart: Regular rate, Normal S1, Normal S2, No murmurs Abdomen: Normal bowel sounds, Soft Skin: No rashes, No breakdown Neuro: Normal tone Psych/Mental Status: Mental status NL MUSCULOSKELETAL: No joint tenderness, No deformity Vitals VITALS Vital Signs Date Time Temp Pulse Resp B/P (MAP) Pulse Ox O2 Delivery O2 Flow Rate FiO2 09/08/19 12:00 94 21 92/50 (64) 98 Room Air 09/08/19 08:00 99.7 99.7 Labs Labs Laboratory Tests Test 09/07/19 15:45 09/07/19 16:10 09/07/19 21:03 09/08/19 03:00 Sodium Level 127 mmol/L (136-145) 125 mmol/L (136-145) Potassium Level 5.2 mmol/L (3.5-5.1) 4.6 mmol/L (3.5-5.1) Chloride Level 88 mmol/L (98-107) 88 mmol/L (98-107) Carbon Dioxide Level 25 mmol/L (21-32) 21 mmol/L (21-32) Anion Gap 14 (6-14) 16 (6-14) Blood Urea Nitrogen 62 mg/dL (7-20) 54 mg/dL (7-20) Creatinine 9.1 mg/dL (0.6-1.0) 8.6 mg/dL (0.6-1.0) Estimated GFR (Cockcroft-Gault) 4.5 4.8 BUN/Creatinine Ratio 7 (6-20) Glucose Level 148 mg/dL (70-99) 384 mg/dL (70-99) Calcium Level 9.1 mg/dL (8.5-10.1) 8.5 mg/dL (8.5-10.1) Total Bilirubin 0.4 mg/dL (0.2-1.0) Aspartate Amino Transf (AST/SGOT) 19 U/L (15-37) Alanine Aminotransferase (ALT/SGPT) 19 U/L (14-59) Alkaline Phosphatase 200 U/L (46-116) Total Protein 7.9 g/dL (6.4-8.2) Albumin 2.6 g/dL (3.4-5.0) Albumin/Globulin Ratio 0.5 (1.0-1.7) White Blood Count 17.6 x10^3/uL (4.0-11.0) 35.2 x10^3/uL (4.0-11.0) Red Blood Count 3.08 x10^6/uL (3.50-5.40) 2.67 x10^6/uL (3.50-5.40) Hemoglobin 10.7 g/dL (12.0-15.5) 9.0 g/dL (12.0-15.5) Hematocrit 32.9 % (36.0-47.0) 28.4 % (36.0-47.0) Mean Corpuscular Volume 107 fL (79-100) 106 fL (79-100) Mean Corpuscular Hemoglobin 35 pg (25-35) 34 pg (25-35) Mean Corpuscular Hemoglobin Concent 32 g/dL (31-37) 32 g/dL (31-37) Red Cell Distribution Width 21.7 % (11.5-14.5) 21.1 % (11.5-14.5) Platelet Count 336 x10^3/uL (140-400) 356 x10^3/uL (140-400) Neutrophils (%) (Auto) 86 % (31-73) 86 % (31-73) Lymphocytes (%) (Auto) 7 % (24-48) 6 % (24-48) Monocytes (%) (Auto) 6 % (0-9) 8 % (0-9) Eosinophils (%) (Auto) 1 % (0-3) 0 % (0-3) Basophils (%) (Auto) 0 % (0-3) 0 % (0-3) Neutrophils # (Auto) 15.2 x10^3/uL (1.8-7.7) 30.4 x10^3/uL (1.8-7.7) Lymphocytes # (Auto) 1.2 x10^3/uL (1.0-4.8) 2.0 x10^3/uL (1.0-4.8) Monocytes # (Auto) 1.1 x10^3/uL (0.0-1.1) 2.7 x10^3/uL (0.0-1.1) Eosinophils # (Auto) 0.1 x10^3/uL (0.0-0.7) 0.0 x10^3/uL (0.0-0.7) Basophils # (Auto) 0.0 x10^3/uL (0.0-0.2) 0.1 x10^3/uL (0.0-0.2) Segmented Neutrophils % 82 % (35-66) 85 % (35-66) Band Neutrophils % 2 % (0-9) 5 % (0-9) Lymphocytes % 10 % (24-48) 6 % (24-48) Monocytes % 6 % (0-10) 4 % (0-10) Platelet Estimate Adequate (ADEQUATE) Adequate (ADEQUATE) Polychromasia Present Slight Poikilocytosis Slight Anisocytosis Mod Mod Macrocytosis Slight Slight Glucose (Fingerstick) 264 mg/dL (70-99) Nucleated Red Blood Cells 1 Toxic Granulation Mod Hypochromasia Slight Basophilic Stippling Present Lactic Acid Level 4.2 mmol/L (0.4-2.0) Test 09/08/19 08:00 09/08/19 09:47 09/08/19 11:53 Lactic Acid Level 2.9 mmol/L (0.4-2.0) Glucose (Fingerstick) 292 mg/dL (70-99) 311 mg/dL (70-99) Laboratory Tests Test 09/07/19 15:45 09/07/19 16:10 09/07/19 21:03 09/08/19 03:00 Sodium Level 127 mmol/L (136-145) 125 mmol/L (136-145) Potassium Level 5.2 mmol/L (3.5-5.1) 4.6 mmol/L (3.5-5.1) Chloride Level 88 mmol/L (98-107) 88 mmol/L (98-107) Carbon Dioxide Level 25 mmol/L (21-32) 21 mmol/L (21-32) Anion Gap 14 (6-14) 16 (6-14) Blood Urea Nitrogen 62 mg/dL (7-20) 54 mg/dL (7-20) Creatinine 9.1 mg/dL (0.6-1.0) 8.6 mg/dL (0.6-1.0) Estimated GFR (Cockcroft-Gault) 4.5 4.8 BUN/Creatinine Ratio 7 (6-20) Glucose Level 148 mg/dL (70-99) 384 mg/dL (70-99) Calcium Level 9.1 mg/dL (8.5-10.1) 8.5 mg/dL (8.5-10.1) Total Bilirubin 0.4 mg/dL (0.2-1.0) Aspartate Amino Transf (AST/SGOT) 19 U/L (15-37) Alanine Aminotransferase (ALT/SGPT) 19 U/L (14-59) Alkaline Phosphatase 200 U/L (46-116) Total Protein 7.9 g/dL (6.4-8.2) Albumin 2.6 g/dL (3.4-5.0) Albumin/Globulin Ratio 0.5 (1.0-1.7) White Blood Count 17.6 x10^3/uL (4.0-11.0) 35.2 x10^3/uL (4.0-11.0) Red Blood Count 3.08 x10^6/uL (3.50-5.40) 2.67 x10^6/uL (3.50-5.40) Hemoglobin 10.7 g/dL (12.0-15.5) 9.0 g/dL (12.0-15.5) Hematocrit 32.9 % (36.0-47.0) 28.4 % (36.0-47.0) Mean Corpuscular Volume 107 fL (79-100) 106 fL (79-100) Mean Corpuscular Hemoglobin 35 pg (25-35) 34 pg (25-35) Mean Corpuscular Hemoglobin Concent 32 g/dL (31-37) 32 g/dL (31-37) Red Cell Distribution Width 21.7 % (11.5-14.5) 21.1 % (11.5-14.5) Platelet Count 336 x10^3/uL (140-400) 356 x10^3/uL (140-400) Neutrophils (%) (Auto) 86 % (31-73) 86 % (31-73) Lymphocytes (%) (Auto) 7 % (24-48) 6 % (24-48) Monocytes (%) (Auto) 6 % (0-9) 8 % (0-9) Eosinophils (%) (Auto) 1 % (0-3) 0 % (0-3) Basophils (%) (Auto) 0 % (0-3) 0 % (0-3) Neutrophils # (Auto) 15.2 x10^3/uL (1.8-7.7) 30.4 x10^3/uL (1.8-7.7) Lymphocytes # (Auto) 1.2 x10^3/uL (1.0-4.8) 2.0 x10^3/uL (1.0-4.8) Monocytes # (Auto) 1.1 x10^3/uL (0.0-1.1) 2.7 x10^3/uL (0.0-1.1) Eosinophils # (Auto) 0.1 x10^3/uL (0.0-0.7) 0.0 x10^3/uL (0.0-0.7) Basophils # (Auto) 0.0 x10^3/uL (0.0-0.2) 0.1 x10^3/uL (0.0-0.2) Segmented Neutrophils % 82 % (35-66) 85 % (35-66) Band Neutrophils % 2 % (0-9) 5 % (0-9) Lymphocytes % 10 % (24-48) 6 % (24-48) Monocytes % 6 % (0-10) 4 % (0-10) Platelet Estimate Adequate (ADEQUATE) Adequate (ADEQUATE) Polychromasia Present Slight Poikilocytosis Slight Anisocytosis Mod Mod Macrocytosis Slight Slight Glucose (Fingerstick) 264 mg/dL (70-99) Nucleated Red Blood Cells 1 Toxic Granulation Mod Hypochromasia Slight Basophilic Stippling Present Lactic Acid Level 4.2 mmol/L (0.4-2.0) Test 09/08/19 08:00 09/08/19 09:47 09/08/19 11:53 Lactic Acid Level 2.9 mmol/L (0.4-2.0) Glucose (Fingerstick) 292 mg/dL (70-99) 311 mg/dL (70-99) Images Images Duplex of BLE suggests multi-level PAD. I independently reviewed these films I ordered a CTA abdomen / pelvis / runoff to better evaluate inflow and options Assessment/Plan Assessment/Plan PAD with left calf wound she has motor / sensation present in both feet she has a weak PT signal in both ankles She has an infected wound on her sacrum Will get CTA abd/ pelvis / runoff to better evaluate inflow, will likely need an angiogram Given the infected wounds on the sacrum will defer any vascular intervention until after this is debrided. MILTON STUBBS MD Sep 08, 2019 13:27
--- NOTE | 2019-09-08 14:26 | CONS ---
DATE OF CONSULTATION: 09/08/2019 Greg Connolly, nurse practitioner dictating for Dr. Jerrell Owens of Infectious Disease REFERRING PHYSICIAN: Sybil Rubin MD REASON FOR CONSULTATION: Infected wounds. HISTORY OF PRESENT ILLNESS: This patient is a 54-year-old woman with a past medical history of diabetes type 2; chronic kidney disease, on peritoneal dialysis and obesity, who lives at home with her /significant other. She is ambulatory with a walker, but spends most of her time in a chair or bed. About 2 weeks ago, she developed a painful boil on her left buttock. She self-treated with Butt Paste and Neosporin without improvement. She was seen in the Emergency Room on 08/29/2019. A CT pelvis with contrast at that time showed no evidence of fistulous tract, fluid collection or abscess. She was released home with a prescription of doxycycline and a referral to the wound care center. Despite antibiotics, the area became increasingly bigger, more painful, red with some drainage. She has since been admitted to the ICU due to hypotension, requiring vasopressor support. Her WBC count upon admission was 17,600, up now to 35,200. Her lactic acid was also elevated, but is now coming down with IV fluids. She has been running fevers between 100.7 and 101.1. She says she is not feeling quite well. She does not have much of an appetite and has been having some loose stools. She has a history of Clostridium difficile in 2012. She has occasional episodes of nausea and vomiting. She says she does not make any urine and has not had any issues with her PD catheter. She denies cough, shortness of air or chest discomfort. About that time, she developed a boil on her left buttock. She says she also developed one on her scalp, that has since opened up, drained and is now healing. She complains of a painful wound, left leg that has been present for the past couple of weeks. She denies rash or itching. Denies recent traveling. She says she got the flu vaccine this season. She has a dog at home. She denies a history of skin infections. PAST MEDICAL HISTORY: History of MRSA. History of E. coli (resistant to ampicillin, Unasyn, intermediate Augmentin, ticarcillin/clavulanic acid, otherwise susceptible) in urine. Clostridium difficile in 2013. Diabetes type 2; chronic kidney disease, on peritoneal dialysis; coronary artery disease, hyperlipidemia, hypertension, COPD, obesity, arthritis, depression. Left phalanx fracture of fifth finger and also diastolic heart failure. Coronary artery bypass graft and section. Gastroparesis. History of colon polyps. Systolic and diastolic congestive heart failure. PAST SURGICAL HISTORY: Peritoneal dialysis catheter, AV graft, cardiac catheterization with stent placement to RCA. SOCIAL HISTORY: Lives at home with her /significant other. She is a nonsmoker. She has 1 dog at home. FAMILY HISTORY: Obesity, hypertension, diabetes mellitus, cardiovascular disease. ALLERGIES: No known drug allergies. MEDICATIONS: Zyvox, Zosyn, Levophed, Pepcid. Other medications are available and have been reviewed on the MAR. REVIEW OF SYSTEMS: Per HPI, otherwise all other review of systems are negative. PHYSICAL EXAMINATION: VITAL SIGNS: Temperature is 99.7, T-max 101.1, blood pressure not recorded, heart rate 90, respiratory rate 27, pulse oximetry is 98% on room air. BMI 35.6. GENERAL: The patient is propped up in bed, alert, in no apparent distress. HEENT: Pupils equally round, reactive. Normal conjunctivae. Oropharynx pink and moist. NECK: Supple. LUNGS: Clear to auscultation. CARDIAC: S1 and S2. ABDOMEN: Obese, mildly distended, soft, nontender with hyperactive bowel sounds and PD catheter without signs of complications. EXTREMITIES: 1+ edema lower extremities bilaterally. Some ischemic changes to both feet noted. SKIN: Warm to touch without signs of rash. She has a large necrotic ulcer, left ischial area measuring 8.6 x 8.4 x 0.4 cm and a smaller ulcer, left posterior calf measuring 3.5 x 3 x 0.1 cm (refer to wound care nurse for further descriptions and pictures). NEUROLOGIC: Alert and answering questions appropriately. Peripheral IV looks okay. LABORATORY DATA: Today's WBC 35.2 from 17.6 on admission, hemoglobin 9.0, platelets 356,000, segs 85%, bands 5%. Creatinine 8.6, BUN 54, sodium 125, potassium 4.6. Lactic acid 2.9 from 4.2, glucose 384. Total bilirubin 0.4, AST 19, ALT 19, alkaline phosphatase 200. Albumin 2.6. Blood cultures from 09/07/2019 are pending. IMAGING: CT pelvis per HPI. Chest x-ray showed linear scarring or atelectasis on the left. No acute infiltrates. Arterial ultrasound of the lower extremities bilaterally showed marked quantity of plaque bilaterally involving the lower extremity arterial vasculature, diffuse monophasic waveforms mostly seen with moderately diminished flow velocities, lack of visualization of flow within calf arterial vasculature, possibility of more proximal stenosis is of concern considering the extent of arterial plaque and diminished or lack of arterial flow noted. ASSESSMENT: 1. Sepsis with hypotension and lactic acidosis. 2. Infected necrotic ulcer of the left ischium. 3. Leukocytosis. 4. Loose stools. 5. Left leg ulcer. 6. Peripheral vascular disease. 7. Chronic kidney disease, on peritoneal dialysis. 8. Diabetes type 2. 9. Coronary artery disease. PLAN: 1. Continue Zosyn, renal dosing and Zyvox. 2. Check C. difficile PCR and add empiric oral vancomycin. 3. Repeat labs in the morning. 4. We will follow up on blood culture results. 5. Surgical debridement is planned for Tuesday. 6. Continue local wound care and off-loading. 7. Vascular has been consulted. Discussed with significant other at bedside and nursing. Thank you, Dr. Rubin, for asking us to participate in this patient's care. Should you have further questions or concerns, please call. JERRELL OWENS MD DR: KAHLIL/rayray JOB#: [id number] / [id number]
[2019-09-08] MEDS: tiZANidine 4 MG TABLET. PO PRN (17:21)
[2019-09-08] MEDS ORDERED: DARBEPOETIN ALFA 60 MCG/0.3 ML DISP.SYRIN. SQ SCH (21:00)
[2019-09-08] MEDS: FAMOTIDINE 20 MG TABLET. PO SCH (22:16)
[2019-09-08] MEDS: ATORVASTATIN CALCIUM 40 MG TABLET. PO SCH (22:16)
[2019-09-08] MEDS: INSULIN GLARGINE SYRINGE. SQ SCH (22:25)
[2019-09-09] VITALS (22 sets, daily range): BP systolic 75–120; BP diastolic 38–90
[2019-09-09 05:39] LABS: BASO # 0.1 x10^3/uL (0.0-0.2); BASO % 0 % (0-3); EOS # 0.2 x10^3/uL (0.0-0.7); EOS % 1 % (0-3); HEMATOCRIT 27.1 % (36.0-47.0); HEMOGLOBIN 8.8 g/dL (12.0-15.5); LYMPH # 1.8 x10^3/uL (1.0-4.8); LYMPH % 7 % (24-48); MEAN CORPUSCULAR HEMOGLOBIN 34 pg (25-35); MEAN CORPUSCULAR HGB CONC 33 g/dL (31-37); MEAN CORPUSCULAR VOLUME 106 fL (79-100); MONO # 2.1 x10^3/uL (0.0-1.1); MONO % 8 % (0-9); NEUT # 22.5 x10^3/uL (1.8-7.7); NEUT % 85 % (31-73); PLATELET COUNT 287 x10^3/uL (140-400); RED BLOOD COUNT 2.56 x10^6/uL (3.50-5.40); RED CELL DISTRIBUTION WIDTH 21.9 % (11.5-14.5); WHITE BLOOD COUNT 26.6 x10^3/uL (4.0-11.0)
[2019-09-09 06:02] LABS: ALBUMIN 1.6 g/dL (3.4-5.0); ALBUMIN/GLOBULIN RATIO 0.4 (1.0-1.7); CALCIUM 8.7 mg/dL (8.5-10.1); CREATININE 7.9 mg/dL (0.6-1.0); GFR 5.3; POTASSIUM 4.1 mmol/L (3.5-5.1); TOTAL BILIRUBIN 0.4 mg/dL (0.2-1.0); TOTAL PROTEIN 5.6 g/dL (6.4-8.2)
[2019-09-09] MEDS: HYDROcodone/APAP 5/325MG 1 TAB TABLET PO SCH ×4 (06:06→17:36)
[2019-09-09] MEDS: PIPERACILLIN/TAZOBACTAM 2.25 GM in IV NORMAL SALINE 50ML 50 ML IV SCH ×4 (06:07→21:43)
[2019-09-09] MEDS: IV NORMAL SALINE 1000ML BAG 1,000 ML IV SCH ×2 (06:08→15:00)
[2019-09-09] MEDS: metOLazone 2.5 MG TABLET PO SCH (07:53)
[2019-09-09] MEDS: FOLIC ACID 1 MG TABLET. PO SCH (07:53)
[2019-09-09] MEDS: MONTELUKAST SODIUM 10 MG TABLET. PO SCH (07:53)
[2019-09-09] MEDS: CALCIUM ACETATE 667 MG CAPSULE PO SCH ×3 (07:53→16:48)
[2019-09-09] MEDS: CARVEDILOL 12.5 MG TABLET. PO SCH ×2 (07:54→16:55)
[2019-09-09] MEDS: ASPIRIN CHEWABLE 81 MG TABLET. PO SCH (07:54)
[2019-09-09] MEDS: MIDODRINE 5 MG TABLET PO SCH ×3 (07:54→16:48)
[2019-09-09] MEDS: VANCOMYCIN 125 MG/2.5 ML ORAL SOLUTION. PO SCH ×4 (07:54→21:00)
[2019-09-09] MEDS: MECLIZINE HCL 12.5 MG TABLET. PO SCH ×3 (07:54→21:43)
[2019-09-09] MEDS: FLUTICASONE 50MCG/NASAL SPRAY 16GM BOTTLE. NS SCH ×2 (07:57→21:00)
[2019-09-09] MEDS: INSULIN LISPRO 300 UNITS/3 ML VIAL. SQ SCH ×3 (07:57→17:00)
[2019-09-09] MEDS: LISINOPRIL 20 MG TABLET PO SCH ×2 (07:58→21:00)
[2019-09-09] MEDS: FUROSEMIDE 40 MG TABLET. PO SCH ×2 (07:58→15:36)
--- NOTE | 2019-09-09 08:08 | PDOC ---
Infectious Disease Note Subjective Subjective c/o some numbness left hand that is improving with application of warm washcloth. c/o some pain left leg and buttocks No BM so far this morning Hypotensive on Levaphed Fevers Tmax 101.8 Denies SOA/cough/N/V ROS ROS per HPI Vital Sign Vital Signs Vital Signs Date Time Temp Pulse Resp B/P (MAP) Pulse Ox O2 Delivery O2 Flow Rate FiO2 09/09/19 07:58 80 91/47 09/09/19 06:06 19 Room Air 09/09/19 04:00 99.7 97 99.7 Physical Exam PHYSICAL EXAM GENERAL: Propped up in bed, alert in NAD HEENT: Pupils equally round, reactive. Normal conjunctivae. Oropharynx pink and moist. NECK: Supple. LUNGS: Clear to auscultation. CARDIAC: S1 and S2. ABDOMEN: Obese, mildly distended, soft, nontender with hyperactive bowel sounds and PD catheter without signs of complications. EXTREMITIES: 1+ edema lower extremities bilaterally. Some ischemic changes to both feet noted. SKIN: Warm to touch without signs of rash. She has a large necrotic ulcer, left ischial area measuring 8.6 x 8.4 x 0.4 cm and a smaller ulcer, left posterior calf measuring 3.5 x 3 x 0.1 cm (refer to wound care nurse for further descriptions and pictures). NEUROLOGIC: Alert and answering questions appropriately. Peripheral IV looks okay. Labs Lab Laboratory Tests Test 09/08/19 09:47 09/08/19 11:53 09/08/19 17:20 09/08/19 22:21 Glucose (Fingerstick) 292 mg/dL (70-99) 311 mg/dL (70-99) 174 mg/dL (70-99) 164 mg/dL (70-99) Test 09/09/19 04:00 09/09/19 07:56 White Blood Count 26.6 x10^3/uL (4.0-11.0) Red Blood Count 2.56 x10^6/uL (3.50-5.40) Hemoglobin 8.8 g/dL (12.0-15.5) Hematocrit 27.1 % (36.0-47.0) Mean Corpuscular Volume 106 fL (79-100) Mean Corpuscular Hemoglobin 34 pg (25-35) Mean Corpuscular Hemoglobin Concent 33 g/dL (31-37) Red Cell Distribution Width 21.9 % (11.5-14.5) Platelet Count 287 x10^3/uL (140-400) Neutrophils (%) (Auto) 85 % (31-73) Lymphocytes (%) (Auto) 7 % (24-48) Monocytes (%) (Auto) 8 % (0-9) Eosinophils (%) (Auto) 1 % (0-3) Basophils (%) (Auto) 0 % (0-3) Neutrophils # (Auto) 22.5 x10^3/uL (1.8-7.7) Lymphocytes # (Auto) 1.8 x10^3/uL (1.0-4.8) Monocytes # (Auto) 2.1 x10^3/uL (0.0-1.1) Eosinophils # (Auto) 0.2 x10^3/uL (0.0-0.7) Basophils # (Auto) 0.1 x10^3/uL (0.0-0.2) Sodium Level 125 mmol/L (136-145) Potassium Level 4.1 mmol/L (3.5-5.1) Chloride Level 90 mmol/L (98-107) Carbon Dioxide Level 23 mmol/L (21-32) Anion Gap 12 (6-14) Blood Urea Nitrogen 50 mg/dL (7-20) Creatinine 7.9 mg/dL (0.6-1.0) Estimated GFR (Cockcroft-Gault) 5.3 BUN/Creatinine Ratio 6 (6-20) Glucose Level 181 mg/dL (70-99) Calcium Level 8.7 mg/dL (8.5-10.1) Total Bilirubin 0.4 mg/dL (0.2-1.0) Aspartate Amino Transf (AST/SGOT) 12 U/L (15-37) Alanine Aminotransferase (ALT/SGPT) 12 U/L (14-59) Alkaline Phosphatase 173 U/L (46-116) Total Protein 5.6 g/dL (6.4-8.2) Albumin 1.6 g/dL (3.4-5.0) Albumin/Globulin Ratio 0.4 (1.0-1.7) Glucose (Fingerstick) 172 mg/dL (70-99) Micro Microbiology 09/07/19 Blood Culture - Preliminary, Resulted NO GROWTH AFTER 1 DAY Objective Assessment Sepsis with hypotension and lactic acidosis on Levaphed Infected necrotic ulcer of the left ishium Leukocytosis - some better Loose stools Left leg ulcer PVD CKD on PD DM II CAD h/o c. diff 2012 h/o MRSA Plan Plan of Care Zyvox and Zosyn, renal dosing Awaiting c. diff PCR, continue empiric po vanc labs in am BC neg to date Surgical debridement planned for Tuesday Local wound care and offloading Vascular following. CTA abd/ pelvis / runoff ordered D/w nursing Critically ill Patient seen and examined. Chart reviewed in detail. Case discussed with [employer] SALES CONSULTANT. I agree with above plan. JULIOCESAR CASE APRN Sep 09, 2019 08:08 JERRELL OWENS MD Sep 09, 2019 19:13
[2019-09-09] MEDS: IPRATRPIUM/ALBUTEROL 0.5/2.5MG 3 ML NEBU. NEB SCH ×4 (08:22→20:33)
[2019-09-09] MEDS: BUDESONIDE 0.5 MG/2 ML NEBU. NEB SCH ×2 (08:22→20:33)
--- NOTE | 2019-09-09 08:43 | PDOC ---
IM PROGRESS NOTES- Subjective Subjective Patient became hypotensive with a systolic blood pressure in 70s. She was noted to be in septic shock. Patient was transferred to ICU and was given IV fluids. We will fed order was also given if blood pressures remain persistently low. She denies any diarrhea. She is feeling somewhat better this morning. She is able to eat and denies any nausea or vomiting or dizziness. Objective Vitals/I&O Vital Signs Date Time Temp Pulse Resp B/P (MAP) Pulse Ox O2 Delivery O2 Flow Rate FiO2 09/09/19 08:22 98 Room Air 09/09/19 07:58 80 91/47 09/09/19 06:06 19 09/09/19 04:00 99.7 99.7 I & O 09/08/19 09/08/19 09/09/19 15:00 23:00 07:00 Intake Total 790 ml 1118.0 ml 1832.2 ml Output Total 0 ml 0 ml 0 ml Balance 790 ml 1118.0 ml 1832.2 ml Physical Exam Physical Exam General appearance - alert,ill appearing, and in no distress and oriented to person, place, and time Mental Status - alert, oriented to person, place, and time, affect appropriate to mood Head - normal Chest -decreased breath sounds at bases Heart - S1 and S2 normal Abdomen - soft, nontender, nondistended, no masses or organomegaly Neurological - alert and oriented Musculoskeletal -very weak Extremities - no pedal edema Skin -wound with dressing in place Labs Laboratory Tests Test 09/08/19 09:47 09/08/19 11:53 09/08/19 17:20 09/08/19 22:21 Glucose (Fingerstick) 292 mg/dL (70-99) H 311 mg/dL (70-99) H 174 mg/dL (70-99) H 164 mg/dL (70-99) H Test 09/09/19 04:00 09/09/19 07:56 White Blood Count 26.6 x10^3/uL (4.0-11.0) H Red Blood Count 2.56 x10^6/uL (3.50-5.40) L Hemoglobin 8.8 g/dL (12.0-15.5) L Hematocrit 27.1 % (36.0-47.0) L Mean Corpuscular Volume 106 fL (79-100) H Mean Corpuscular Hemoglobin 34 pg (25-35) Mean Corpuscular Hemoglobin Concent 33 g/dL (31-37) Red Cell Distribution Width 21.9 % (11.5-14.5) H Platelet Count 287 x10^3/uL (140-400) Neutrophils (%) (Auto) 85 % (31-73) H Lymphocytes (%) (Auto) 7 % (24-48) L Monocytes (%) (Auto) 8 % (0-9) Eosinophils (%) (Auto) 1 % (0-3) Basophils (%) (Auto) 0 % (0-3) Neutrophils # (Auto) 22.5 x10^3/uL (1.8-7.7) H Lymphocytes # (Auto) 1.8 x10^3/uL (1.0-4.8) Monocytes # (Auto) 2.1 x10^3/uL (0.0-1.1) H Eosinophils # (Auto) 0.2 x10^3/uL (0.0-0.7) Basophils # (Auto) 0.1 x10^3/uL (0.0-0.2) Sodium Level 125 mmol/L (136-145) L Potassium Level 4.1 mmol/L (3.5-5.1) Chloride Level 90 mmol/L (98-107) L Carbon Dioxide Level 23 mmol/L (21-32) Anion Gap 12 (6-14) Blood Urea Nitrogen 50 mg/dL (7-20) H Creatinine 7.9 mg/dL (0.6-1.0) H Estimated GFR (Cockcroft-Gault) 5.3 BUN/Creatinine Ratio 6 (6-20) Glucose Level 181 mg/dL (70-99) H Calcium Level 8.7 mg/dL (8.5-10.1) Total Bilirubin 0.4 mg/dL (0.2-1.0) Aspartate Amino Transferase (AST) 12 U/L (15-37) L Alanine Aminotransferase (ALT) 12 U/L (14-59) L Alkaline Phosphatase 173 U/L (46-116) H Total Protein 5.6 g/dL (6.4-8.2) L Albumin 1.6 g/dL (3.4-5.0) L Albumin/Globulin Ratio 0.4 (1.0-1.7) L Glucose (Fingerstick) 172 mg/dL (70-99) H Laboratory Tests 09/09/19 04:00 Laboratory Tests 09/09/19 04:00 Meds Current Medications Medications (Trade) Dose Ordered Sig/Jesus Route PRN Reason Start Time Stop Time Status Last Admin Dose Admin Aspirin (Children'S Aspirin) 81 mg DAILY PO 09/08/19 09:00 09/09/19 07:54 Folic Acid (Folic Acid) 1 mg DAILY PO 09/08/19 09:00 09/09/19 07:53 Metolazone (Zaroxolyn) 2.5 mg DAILY PO 09/08/19 09:00 09/09/19 07:53 Montelukast Sodium (Singulair) 10 mg DAILY PO 09/08/19 09:00 09/09/19 07:53 Vancomycin HCl (Vancomycin Oral Solution) 125 mg [id number] PO 09/08/19 11:00 09/09/19 07:54 Darbepoetin Abelino (ARANESP for DIALYSIS PTS) 60 mcg WEEKLYHS SQ 09/08/19 21:00 09/08/19 22:18 Tizanidine HCl (Zanaflex) 2 mg PRN Q8HRS PRN PO MUSCLE SPASMS 09/08/19 16:45 09/08/19 17:21 Assessment Assessment 1. Large left ischial ulcer. 2. Coronary artery disease, previous stent, on Brilinta. 3. Coronary artery bypass surgery 5 years ago, 5-vessel. 4. Diabetes, insulin dependent. 5. End-stage renal disease, on dialysis. 6. Peripheral vascular disease. PLAN: At this time, she was admitted to the hospital. Wound culture, blood cultures. The patient is seen in the [facility], recommended surgical debridement. Surgery is consulted. White count 17, started on broad-spectrum antibiotics with Zyvox and Zosyn after blood cultures. Air-loss mattress and the patient also would need peritoneal dialysis. We will continue while she is in the hospital. Vascular consult for vascular disease. Septic shock- patient was transferred to ICU. On IV fluids as well as IV boluses and Levophed as needed. Hypotension is improving. The WBC count has decreased to 26.6. Infectious disease started her on Vancomycin as she has h/o C.diff colitis. Sepsis- lactic acid level was elevated. Patient is on IV Zyvox and Zosyn. Left ischial wound-consider debridement when stable. End-stage renal disease on hemodialysis. Hyponatremia- sodium is 125 Severe malnutrition- albumin is 1.6 Clinically improving slowly. Plan Plan For more details regarding further plans, please refer to the orders. ZURI MERCADO MD Sep 09, 2019 08:43
[2019-09-09] MEDS: CLOTRIMAZOLE 1% TOPICAL CREAM 15GM TUBE. TP SCH ×2 (09:00→21:00)
[2019-09-09] MEDS: HEPARIN for SUB-Q USE 5,000 UNIT/ML VIAL. SQ SCH ×2 (11:55→21:56)
--- NOTE | 2019-09-09 13:16 | PDOC ---
SURGICAL PROGRESS NOTE Subjective Patient was seen and examined at the bedside and is doing well. She was unable to undergo her CT angiogram testing due to poor IV access. We have plans of PICC line placement today. Vital Signs Vital Signs Date Time Temp Pulse Resp B/P (MAP) Pulse Ox O2 Delivery O2 Flow Rate FiO2 09/09/19 12:02 96 120/90 09/09/19 12:00 20 Room Air 09/09/19 08:22 98 09/09/19 08:00 99.9 99.9 I&O Intake and Output 09/09/19 07:00 Intake Total 3740.2 ml Output Total 0 ml Balance 3740.2 ml Intake Oral 440 ml IV Total 3300.2 ml Output Urine Total 0 ml Emesis 0 ml General: Alert, Oriented X3, Cooperative HEENT: PERRLA, Mucous membr. moist/pink Lungs: Clear to auscultation, Normal air movement Heart: Normal S1, Normal S2 Abdomen: Normal bowel sounds, Soft, Other (obese) Extremities: No edema, Other (posterior tibial monophasic Doppler signals) Skin: Other (left medial malleoli wound stable) Neuro: Normal speech, Strength at 5/5 X4 ext, Sensation intact, Cranial nerves 3-12 NL Labs Laboratory Tests Test 09/07/19 15:45 09/07/19 16:10 09/07/19 21:03 09/08/19 03:00 Sodium Level 127 mmol/L (136-145) 125 mmol/L (136-145) Potassium Level 5.2 mmol/L (3.5-5.1) 4.6 mmol/L (3.5-5.1) Chloride Level 88 mmol/L (98-107) 88 mmol/L (98-107) Carbon Dioxide Level 25 mmol/L (21-32) 21 mmol/L (21-32) Anion Gap 14 (6-14) 16 (6-14) Blood Urea Nitrogen 62 mg/dL (7-20) 54 mg/dL (7-20) Creatinine 9.1 mg/dL (0.6-1.0) 8.6 mg/dL (0.6-1.0) Estimated GFR (Cockcroft-Gault) 4.5 4.8 BUN/Creatinine Ratio 7 (6-20) Glucose Level 148 mg/dL (70-99) 384 mg/dL (70-99) Calcium Level 9.1 mg/dL (8.5-10.1) 8.5 mg/dL (8.5-10.1) Total Bilirubin 0.4 mg/dL (0.2-1.0) Aspartate Amino Transf (AST/SGOT) 19 U/L (15-37) Alanine Aminotransferase (ALT/SGPT) 19 U/L (14-59) Alkaline Phosphatase 200 U/L (46-116) Total Protein 7.9 g/dL (6.4-8.2) Albumin 2.6 g/dL (3.4-5.0) Albumin/Globulin Ratio 0.5 (1.0-1.7) White Blood Count 17.6 x10^3/uL (4.0-11.0) 35.2 x10^3/uL (4.0-11.0) Red Blood Count 3.08 x10^6/uL (3.50-5.40) 2.67 x10^6/uL (3.50-5.40) Hemoglobin 10.7 g/dL (12.0-15.5) 9.0 g/dL (12.0-15.5) Hematocrit 32.9 % (36.0-47.0) 28.4 % (36.0-47.0) Mean Corpuscular Volume 107 fL (79-100) 106 fL (79-100) Mean Corpuscular Hemoglobin 35 pg (25-35) 34 pg (25-35) Mean Corpuscular Hemoglobin Concent 32 g/dL (31-37) 32 g/dL (31-37) Red Cell Distribution Width 21.7 % (11.5-14.5) 21.1 % (11.5-14.5) Platelet Count 336 x10^3/uL (140-400) 356 x10^3/uL (140-400) Neutrophils (%) (Auto) 86 % (31-73) 86 % (31-73) Lymphocytes (%) (Auto) 7 % (24-48) 6 % (24-48) Monocytes (%) (Auto) 6 % (0-9) 8 % (0-9) Eosinophils (%) (Auto) 1 % (0-3) 0 % (0-3) Basophils (%) (Auto) 0 % (0-3) 0 % (0-3) Neutrophils # (Auto) 15.2 x10^3/uL (1.8-7.7) 30.4 x10^3/uL (1.8-7.7) Lymphocytes # (Auto) 1.2 x10^3/uL (1.0-4.8) 2.0 x10^3/uL (1.0-4.8) Monocytes # (Auto) 1.1 x10^3/uL (0.0-1.1) 2.7 x10^3/uL (0.0-1.1) Eosinophils # (Auto) 0.1 x10^3/uL (0.0-0.7) 0.0 x10^3/uL (0.0-0.7) Basophils # (Auto) 0.0 x10^3/uL (0.0-0.2) 0.1 x10^3/uL (0.0-0.2) Segmented Neutrophils % 82 % (35-66) 85 % (35-66) Band Neutrophils % 2 % (0-9) 5 % (0-9) Lymphocytes % 10 % (24-48) 6 % (24-48) Monocytes % 6 % (0-10) 4 % (0-10) Platelet Estimate Adequate (ADEQUATE) Adequate (ADEQUATE) Polychromasia Present Slight Poikilocytosis Slight Anisocytosis Mod Mod Macrocytosis Slight Slight Glucose (Fingerstick) 264 mg/dL (70-99) Nucleated Red Blood Cells 1 Toxic Granulation Mod Hypochromasia Slight Basophilic Stippling Present Lactic Acid Level 4.2 mmol/L (0.4-2.0) Test 09/08/19 08:00 09/08/19 09:47 09/08/19 11:53 09/08/19 17:20 Lactic Acid Level 2.9 mmol/L (0.4-2.0) Glucose (Fingerstick) 292 mg/dL (70-99) 311 mg/dL (70-99) 174 mg/dL (70-99) Test 09/08/19 22:21 09/09/19 04:00 09/09/19 07:56 09/09/19 12:05 Glucose (Fingerstick) 164 mg/dL (70-99) 172 mg/dL (70-99) 262 mg/dL (70-99) White Blood Count 26.6 x10^3/uL (4.0-11.0) Red Blood Count 2.56 x10^6/uL (3.50-5.40) Hemoglobin 8.8 g/dL (12.0-15.5) Hematocrit 27.1 % (36.0-47.0) Mean Corpuscular Volume 106 fL (79-100) Mean Corpuscular Hemoglobin 34 pg (25-35) Mean Corpuscular Hemoglobin Concent 33 g/dL (31-37) Red Cell Distribution Width 21.9 % (11.5-14.5) Platelet Count 287 x10^3/uL (140-400) Neutrophils (%) (Auto) 85 % (31-73) Lymphocytes (%) (Auto) 7 % (24-48) Monocytes (%) (Auto) 8 % (0-9) Eosinophils (%) (Auto) 1 % (0-3) Basophils (%) (Auto) 0 % (0-3) Neutrophils # (Auto) 22.5 x10^3/uL (1.8-7.7) Lymphocytes # (Auto) 1.8 x10^3/uL (1.0-4.8) Monocytes # (Auto) 2.1 x10^3/uL (0.0-1.1) Eosinophils # (Auto) 0.2 x10^3/uL (0.0-0.7) Basophils # (Auto) 0.1 x10^3/uL (0.0-0.2) Sodium Level 125 mmol/L (136-145) Potassium Level 4.1 mmol/L (3.5-5.1) Chloride Level 90 mmol/L (98-107) Carbon Dioxide Level 23 mmol/L (21-32) Anion Gap 12 (6-14) Blood Urea Nitrogen 50 mg/dL (7-20) Creatinine 7.9 mg/dL (0.6-1.0) Estimated GFR (Cockcroft-Gault) 5.3 BUN/Creatinine Ratio 6 (6-20) Glucose Level 181 mg/dL (70-99) Calcium Level 8.7 mg/dL (8.5-10.1) Total Bilirubin 0.4 mg/dL (0.2-1.0) Aspartate Amino Transf (AST/SGOT) 12 U/L (15-37) Alanine Aminotransferase (ALT/SGPT) 12 U/L (14-59) Alkaline Phosphatase 173 U/L (46-116) Total Protein 5.6 g/dL (6.4-8.2) Albumin 1.6 g/dL (3.4-5.0) Albumin/Globulin Ratio 0.4 (1.0-1.7) Laboratory Tests Test 09/08/19 17:20 09/08/19 22:21 09/09/19 04:00 09/09/19 07:56 Glucose (Fingerstick) 174 mg/dL (70-99) 164 mg/dL (70-99) 172 mg/dL (70-99) White Blood Count 26.6 x10^3/uL (4.0-11.0) Red Blood Count 2.56 x10^6/uL (3.50-5.40) Hemoglobin 8.8 g/dL (12.0-15.5) Hematocrit 27.1 % (36.0-47.0) Mean Corpuscular Volume 106 fL (79-100) Mean Corpuscular Hemoglobin 34 pg (25-35) Mean Corpuscular Hemoglobin Concent 33 g/dL (31-37) Red Cell Distribution Width 21.9 % (11.5-14.5) Platelet Count 287 x10^3/uL (140-400) Neutrophils (%) (Auto) 85 % (31-73) Lymphocytes (%) (Auto) 7 % (24-48) Monocytes (%) (Auto) 8 % (0-9) Eosinophils (%) (Auto) 1 % (0-3) Basophils (%) (Auto) 0 % (0-3) Neutrophils # (Auto) 22.5 x10^3/uL (1.8-7.7) Lymphocytes # (Auto) 1.8 x10^3/uL (1.0-4.8) Monocytes # (Auto) 2.1 x10^3/uL (0.0-1.1) Eosinophils # (Auto) 0.2 x10^3/uL (0.0-0.7) Basophils # (Auto) 0.1 x10^3/uL (0.0-0.2) Sodium Level 125 mmol/L (136-145) Potassium Level 4.1 mmol/L (3.5-5.1) Chloride Level 90 mmol/L (98-107) Carbon Dioxide Level 23 mmol/L (21-32) Anion Gap 12 (6-14) Blood Urea Nitrogen 50 mg/dL (7-20) Creatinine 7.9 mg/dL (0.6-1.0) Estimated GFR (Cockcroft-Gault) 5.3 BUN/Creatinine Ratio 6 (6-20) Glucose Level 181 mg/dL (70-99) Calcium Level 8.7 mg/dL (8.5-10.1) Total Bilirubin 0.4 mg/dL (0.2-1.0) Aspartate Amino Transf (AST/SGOT) 12 U/L (15-37) Alanine Aminotransferase (ALT/SGPT) 12 U/L (14-59) Alkaline Phosphatase 173 U/L (46-116) Total Protein 5.6 g/dL (6.4-8.2) Albumin 1.6 g/dL (3.4-5.0) Albumin/Globulin Ratio 0.4 (1.0-1.7) Test 09/09/19 12:05 Glucose (Fingerstick) 262 mg/dL (70-99) Assessment/Plan Atherosclerosis with ulceration of the left lower extremity--we will review the patient's CT angiogram once the patient is able to get adequate IV access. We will hold on any percutaneous intervention until her decubitus ulcerations and infections can be adequately surgical debridement. We will defer debridement to general surgery. All questions were answered to patient's satisfaction regarding this plan. JOSEPH RAMIREZ DO Sep 09, 2019 13:16
--- NOTE | 2019-09-09 13:53 | PDOC ---
Renal-Progress Notes Subjective Notes Notes NO NEW COMPLAINTS History of Present Illness Hx of present illness STABLE Vitals Vitals Vital Signs Date Time Temp Pulse Resp B/P (MAP) Pulse Ox O2 Delivery O2 Flow Rate FiO2 09/09/19 12:02 96 120/90 09/09/19 12:00 20 Room Air 09/09/19 08:22 98 09/09/19 08:00 99.9 99.9 Weight Weight [ ] I.O. Intake and Output Intake and Output 09/09/19 07:00 Intake Total 3740.2 ml Output Total 0 ml Balance 3740.2 ml Intake Oral 440 ml IV Total 3300.2 ml Output Urine Total 0 ml Emesis 0 ml Labs Labs Laboratory Tests Test 09/08/19 17:20 09/08/19 22:21 09/09/19 04:00 09/09/19 07:56 Glucose (Fingerstick) 174 mg/dL (70-99) 164 mg/dL (70-99) 172 mg/dL (70-99) White Blood Count 26.6 x10^3/uL (4.0-11.0) Red Blood Count 2.56 x10^6/uL (3.50-5.40) Hemoglobin 8.8 g/dL (12.0-15.5) Hematocrit 27.1 % (36.0-47.0) Mean Corpuscular Volume 106 fL (79-100) Mean Corpuscular Hemoglobin 34 pg (25-35) Mean Corpuscular Hemoglobin Concent 33 g/dL (31-37) Red Cell Distribution Width 21.9 % (11.5-14.5) Platelet Count 287 x10^3/uL (140-400) Neutrophils (%) (Auto) 85 % (31-73) Lymphocytes (%) (Auto) 7 % (24-48) Monocytes (%) (Auto) 8 % (0-9) Eosinophils (%) (Auto) 1 % (0-3) Basophils (%) (Auto) 0 % (0-3) Neutrophils # (Auto) 22.5 x10^3/uL (1.8-7.7) Lymphocytes # (Auto) 1.8 x10^3/uL (1.0-4.8) Monocytes # (Auto) 2.1 x10^3/uL (0.0-1.1) Eosinophils # (Auto) 0.2 x10^3/uL (0.0-0.7) Basophils # (Auto) 0.1 x10^3/uL (0.0-0.2) Sodium Level 125 mmol/L (136-145) Potassium Level 4.1 mmol/L (3.5-5.1) Chloride Level 90 mmol/L (98-107) Carbon Dioxide Level 23 mmol/L (21-32) Anion Gap 12 (6-14) Blood Urea Nitrogen 50 mg/dL (7-20) Creatinine 7.9 mg/dL (0.6-1.0) Estimated GFR (Cockcroft-Gault) 5.3 BUN/Creatinine Ratio 6 (6-20) Glucose Level 181 mg/dL (70-99) Calcium Level 8.7 mg/dL (8.5-10.1) Total Bilirubin 0.4 mg/dL (0.2-1.0) Aspartate Amino Transf (AST/SGOT) 12 U/L (15-37) Alanine Aminotransferase (ALT/SGPT) 12 U/L (14-59) Alkaline Phosphatase 173 U/L (46-116) Total Protein 5.6 g/dL (6.4-8.2) Albumin 1.6 g/dL (3.4-5.0) Albumin/Globulin Ratio 0.4 (1.0-1.7) Test 09/09/19 12:05 Glucose (Fingerstick) 262 mg/dL (70-99) Micro Micro Microbiology 09/07/19 Blood Culture - Preliminary, Resulted NO GROWTH AFTER 1 DAY Review of Systems Constitutional: yes: weakness, alert, oriented Ears/Nose/Throat: Yes: no symptom reported Eyes: Yes: no symptom reported Pulmonary: Yes no symptom reported Cardiovascular: Yes edema Gastrointestional: Yes: constipation Genitourinary: Yes: no symptom reported Musculoskeletal: Yes: muscle stiffness Skin: Yes color change Psychiatric/Neurological: Yes: no symptom reported Endocrine: Yes: no symptom reported Hematologic/Lymphatic: Yes: no symptom reported Physical Exam General Appearance: no apparent distress Skin: warm Respiratory: decreased breath sounds Heart: S1S2 Abdomen: soft Extremities: pulses present, edema Neurology: alert, oriented Musculoskeletal: Osteoarthritis Assessment Assessment IMP ISCHIAL WOUND ANEMIA SEPSIS HYPOTENSION LEUCOCYTOSIS DM II ESRD HYONATREMIA PLAN ARANESP ANTIBIOTICS APD WITH 2.5% DIANEAL CONTROL BG CHECK TSH PAD EVALUATION WILL FOLLOW OMEGA JAMES MD Sep 09, 2019 13:53
--- NOTE | 2019-09-09 14:00 | NUR ---
IV Piggyback Zosyn and MIV fluids non-administered becase patient does not have IV access at this time.
--- NOTE | 2019-09-09 15:01 | PDOC ---
SURGICAL PROGRESS NOTE Subjective Pt without c/o, Vital Signs Vital Signs Date Time Temp Pulse Resp B/P (MAP) Pulse Ox O2 Delivery O2 Flow Rate FiO2 09/09/19 12:02 96 120/90 09/09/19 12:00 20 Room Air 09/09/19 08:22 98 09/09/19 08:00 99.9 99.9 I&O Intake and Output 09/09/19 07:00 Intake Total 3740.2 ml Output Total 0 ml Balance 3740.2 ml Intake Oral 440 ml IV Total 3300.2 ml Output Urine Total 0 ml Emesis 0 ml General: Alert, Oriented X3, Cooperative, No acute distress Abdomen: Soft Labs Laboratory Tests Test 09/07/19 15:45 09/07/19 16:10 09/07/19 21:03 09/08/19 03:00 Sodium Level 127 mmol/L (136-145) 125 mmol/L (136-145) Potassium Level 5.2 mmol/L (3.5-5.1) 4.6 mmol/L (3.5-5.1) Chloride Level 88 mmol/L (98-107) 88 mmol/L (98-107) Carbon Dioxide Level 25 mmol/L (21-32) 21 mmol/L (21-32) Anion Gap 14 (6-14) 16 (6-14) Blood Urea Nitrogen 62 mg/dL (7-20) 54 mg/dL (7-20) Creatinine 9.1 mg/dL (0.6-1.0) 8.6 mg/dL (0.6-1.0) Estimated GFR (Cockcroft-Gault) 4.5 4.8 BUN/Creatinine Ratio 7 (6-20) Glucose Level 148 mg/dL (70-99) 384 mg/dL (70-99) Calcium Level 9.1 mg/dL (8.5-10.1) 8.5 mg/dL (8.5-10.1) Total Bilirubin 0.4 mg/dL (0.2-1.0) Aspartate Amino Transf (AST/SGOT) 19 U/L (15-37) Alanine Aminotransferase (ALT/SGPT) 19 U/L (14-59) Alkaline Phosphatase 200 U/L (46-116) Total Protein 7.9 g/dL (6.4-8.2) Albumin 2.6 g/dL (3.4-5.0) Albumin/Globulin Ratio 0.5 (1.0-1.7) White Blood Count 17.6 x10^3/uL (4.0-11.0) 35.2 x10^3/uL (4.0-11.0) Red Blood Count 3.08 x10^6/uL (3.50-5.40) 2.67 x10^6/uL (3.50-5.40) Hemoglobin 10.7 g/dL (12.0-15.5) 9.0 g/dL (12.0-15.5) Hematocrit 32.9 % (36.0-47.0) 28.4 % (36.0-47.0) Mean Corpuscular Volume 107 fL (79-100) 106 fL (79-100) Mean Corpuscular Hemoglobin 35 pg (25-35) 34 pg (25-35) Mean Corpuscular Hemoglobin Concent 32 g/dL (31-37) 32 g/dL (31-37) Red Cell Distribution Width 21.7 % (11.5-14.5) 21.1 % (11.5-14.5) Platelet Count 336 x10^3/uL (140-400) 356 x10^3/uL (140-400) Neutrophils (%) (Auto) 86 % (31-73) 86 % (31-73) Lymphocytes (%) (Auto) 7 % (24-48) 6 % (24-48) Monocytes (%) (Auto) 6 % (0-9) 8 % (0-9) Eosinophils (%) (Auto) 1 % (0-3) 0 % (0-3) Basophils (%) (Auto) 0 % (0-3) 0 % (0-3) Neutrophils # (Auto) 15.2 x10^3/uL (1.8-7.7) 30.4 x10^3/uL (1.8-7.7) Lymphocytes # (Auto) 1.2 x10^3/uL (1.0-4.8) 2.0 x10^3/uL (1.0-4.8) Monocytes # (Auto) 1.1 x10^3/uL (0.0-1.1) 2.7 x10^3/uL (0.0-1.1) Eosinophils # (Auto) 0.1 x10^3/uL (0.0-0.7) 0.0 x10^3/uL (0.0-0.7) Basophils # (Auto) 0.0 x10^3/uL (0.0-0.2) 0.1 x10^3/uL (0.0-0.2) Segmented Neutrophils % 82 % (35-66) 85 % (35-66) Band Neutrophils % 2 % (0-9) 5 % (0-9) Lymphocytes % 10 % (24-48) 6 % (24-48) Monocytes % 6 % (0-10) 4 % (0-10) Platelet Estimate Adequate (ADEQUATE) Adequate (ADEQUATE) Polychromasia Present Slight Poikilocytosis Slight Anisocytosis Mod Mod Macrocytosis Slight Slight Glucose (Fingerstick) 264 mg/dL (70-99) Nucleated Red Blood Cells 1 Toxic Granulation Mod Hypochromasia Slight Basophilic Stippling Present Lactic Acid Level 4.2 mmol/L (0.4-2.0) Test 09/08/19 08:00 09/08/19 09:47 09/08/19 11:53 09/08/19 17:20 Lactic Acid Level 2.9 mmol/L (0.4-2.0) Glucose (Fingerstick) 292 mg/dL (70-99) 311 mg/dL (70-99) 174 mg/dL (70-99) Test 09/08/19 22:21 09/09/19 04:00 09/09/19 07:56 09/09/19 12:05 Glucose (Fingerstick) 164 mg/dL (70-99) 172 mg/dL (70-99) 262 mg/dL (70-99) White Blood Count 26.6 x10^3/uL (4.0-11.0) Red Blood Count 2.56 x10^6/uL (3.50-5.40) Hemoglobin 8.8 g/dL (12.0-15.5) Hematocrit 27.1 % (36.0-47.0) Mean Corpuscular Volume 106 fL (79-100) Mean Corpuscular Hemoglobin 34 pg (25-35) Mean Corpuscular Hemoglobin Concent 33 g/dL (31-37) Red Cell Distribution Width 21.9 % (11.5-14.5) Platelet Count 287 x10^3/uL (140-400) Neutrophils (%) (Auto) 85 % (31-73) Lymphocytes (%) (Auto) 7 % (24-48) Monocytes (%) (Auto) 8 % (0-9) Eosinophils (%) (Auto) 1 % (0-3) Basophils (%) (Auto) 0 % (0-3) Neutrophils # (Auto) 22.5 x10^3/uL (1.8-7.7) Lymphocytes # (Auto) 1.8 x10^3/uL (1.0-4.8) Monocytes # (Auto) 2.1 x10^3/uL (0.0-1.1) Eosinophils # (Auto) 0.2 x10^3/uL (0.0-0.7) Basophils # (Auto) 0.1 x10^3/uL (0.0-0.2) Sodium Level 125 mmol/L (136-145) Potassium Level 4.1 mmol/L (3.5-5.1) Chloride Level 90 mmol/L (98-107) Carbon Dioxide Level 23 mmol/L (21-32) Anion Gap 12 (6-14) Blood Urea Nitrogen 50 mg/dL (7-20) Creatinine 7.9 mg/dL (0.6-1.0) Estimated GFR (Cockcroft-Gault) 5.3 BUN/Creatinine Ratio 6 (6-20) Glucose Level 181 mg/dL (70-99) Calcium Level 8.7 mg/dL (8.5-10.1) Total Bilirubin 0.4 mg/dL (0.2-1.0) Aspartate Amino Transf (AST/SGOT) 12 U/L (15-37) Alanine Aminotransferase (ALT/SGPT) 12 U/L (14-59) Alkaline Phosphatase 173 U/L (46-116) Total Protein 5.6 g/dL (6.4-8.2) Albumin 1.6 g/dL (3.4-5.0) Albumin/Globulin Ratio 0.4 (1.0-1.7) Laboratory Tests Test 09/08/19 17:20 09/08/19 22:21 09/09/19 04:00 09/09/19 07:56 Glucose (Fingerstick) 174 mg/dL (70-99) 164 mg/dL (70-99) 172 mg/dL (70-99) White Blood Count 26.6 x10^3/uL (4.0-11.0) Red Blood Count 2.56 x10^6/uL (3.50-5.40) Hemoglobin 8.8 g/dL (12.0-15.5) Hematocrit 27.1 % (36.0-47.0) Mean Corpuscular Volume 106 fL (79-100) Mean Corpuscular Hemoglobin 34 pg (25-35) Mean Corpuscular Hemoglobin Concent 33 g/dL (31-37) Red Cell Distribution Width 21.9 % (11.5-14.5) Platelet Count 287 x10^3/uL (140-400) Neutrophils (%) (Auto) 85 % (31-73) Lymphocytes (%) (Auto) 7 % (24-48) Monocytes (%) (Auto) 8 % (0-9) Eosinophils (%) (Auto) 1 % (0-3) Basophils (%) (Auto) 0 % (0-3) Neutrophils # (Auto) 22.5 x10^3/uL (1.8-7.7) Lymphocytes # (Auto) 1.8 x10^3/uL (1.0-4.8) Monocytes # (Auto) 2.1 x10^3/uL (0.0-1.1) Eosinophils # (Auto) 0.2 x10^3/uL (0.0-0.7) Basophils # (Auto) 0.1 x10^3/uL (0.0-0.2) Sodium Level 125 mmol/L (136-145) Potassium Level 4.1 mmol/L (3.5-5.1) Chloride Level 90 mmol/L (98-107) Carbon Dioxide Level 23 mmol/L (21-32) Anion Gap 12 (6-14) Blood Urea Nitrogen 50 mg/dL (7-20) Creatinine 7.9 mg/dL (0.6-1.0) Estimated GFR (Cockcroft-Gault) 5.3 BUN/Creatinine Ratio 6 (6-20) Glucose Level 181 mg/dL (70-99) Calcium Level 8.7 mg/dL (8.5-10.1) Total Bilirubin 0.4 mg/dL (0.2-1.0) Aspartate Amino Transf (AST/SGOT) 12 U/L (15-37) Alanine Aminotransferase (ALT/SGPT) 12 U/L (14-59) Alkaline Phosphatase 173 U/L (46-116) Total Protein 5.6 g/dL (6.4-8.2) Albumin 1.6 g/dL (3.4-5.0) Albumin/Globulin Ratio 0.4 (1.0-1.7) Test 09/09/19 12:05 Glucose (Fingerstick) 262 mg/dL (70-99) Problem List decub ulcer plan debridement in a few days once medically maximized. LOLI AMEZCUA MD Sep 09, 2019 15:01
--- NOTE | 2019-09-09 15:10 | NUR ---
At approximately 1100 Rn and Sn noticed patients IV to be infiltrated. IV removed without complications. Several attempts by ICU staff to place new IV unsuccessful. Sosa CARDONA paged, on unit able to place small IV in right hand. Orders recieved from Dr. Peter / Giselle to obtain PICC line.
--- NOTE | 2019-09-09 15:12 | NUR ---
IV in right hand accidently removed while turning patient in bed. Patient previously on Levophed, blood pressures checked routinely to ensue MAP of 65.
[2019-09-09] MEDS: ATORVASTATIN CALCIUM 40 MG TABLET. PO SCH (21:43)
[2019-09-09] MEDS: FAMOTIDINE 20 MG TABLET. PO SCH (21:43)
[2019-09-09] MEDS: LACTOBACILLUS RHAMNOSUS GG 1 CAPSULE. PO SCH (21:43)
[2019-09-09] MEDS: INSULIN GLARGINE SYRINGE. SQ SCH (21:55)
[2019-09-09] MEDS: tiZANidine 4 MG TABLET. PO PRN (23:13)
--- NOTE | 2019-09-09 23:22 | RAD ---
Exam: Chest one view INDICATION: PICC placement TECHNIQUE: Frontal view of the chest Comparisons: 09/07/2019 FINDINGS: Right-sided PICC with tip at the atrial caval junction. Sternal wires are noted. The cardiomediastinal silhouette and pulmonary vessels are within normal limits. The lung and pleural spaces are clear. IMPRESSION: Right PICC as described above. Electronically signed by: Bree Cobos MD (09/09/2019 11:20 PM) [id number]
[2019-09-10] VITALS (21 sets, daily range): BP systolic 88–182; BP diastolic 44–98
[2019-09-10] MEDS: NOREPINEPHRINE VIAL 8 MG in IV DEXTROSE 5% 250 ML IV PRN ×2 (00:55→17:24)
--- NOTE | 2019-09-10 00:57 | RAD ---
INDICATION: Shortness of breath COMPARISON: Earlier same day FINDINGS: Single view of chest obtained. Enlarged cardiac mediastinal silhouette with poststernotomy changes. Right-sided PICC line with tip near atriocaval junction. Hypoexpanded examination the lungs. Poor evaluation of the left mid to lower lung secondary to overlying cardiac silhouette obscuring. A definite new infiltrate is not seen elsewhere in the lungs. IMPRESSION: * Enlarged cardiac Silhouette which could be from cardiomegaly and/or pericardial effusion. * Hypoexpanded exam the lungs without a definite new region of consolidation. The left mid to lower lung is not well evaluated secondary to enlarged cardiac silhouette over lying. Electronically signed by: Derrick Richardson MD (09/10/2019 12:54 AM) [id number]
[2019-09-10 00:58] LABS: BASO % 0 % (0-3); EOS # 0.1 x10^3/uL (0.0-0.7); EOS % 0 % (0-3); HEMATOCRIT 30.4 % (36.0-47.0); HEMOGLOBIN 9.9 g/dL (12.0-15.5); LYMPH # 1.6 x10^3/uL (1.0-4.8); LYMPH % 5 % (24-48); MEAN CORPUSCULAR HEMOGLOBIN 35 pg (25-35); MEAN CORPUSCULAR HGB CONC 32 g/dL (31-37); MEAN CORPUSCULAR VOLUME 107 fL (79-100); MONO # 2.4 x10^3/uL (0.0-1.1); MONO % 8 % (0-9); NEUT # 27.4 x10^3/uL (1.8-7.7); NEUT % 87 % (31-73); PLATELET COUNT 342 x10^3/uL (140-400); RED BLOOD COUNT 2.85 x10^6/uL (3.50-5.40); RED CELL DISTRIBUTION WIDTH 21.7 % (11.5-14.5); WHITE BLOOD COUNT 31.5 x10^3/uL (4.0-11.0)
--- NOTE | 2019-09-10 01:00 | NUR ---
pt having increasing shortness of breath, audibly wheezing, very pale and very anxious in bed; constantly stating "I need more air." stat CXR, labs and ABG ordered; pt placed on 3L/NC although she is 96% on room air. Dr Peter paged and notified with results from aforementioned orders, new orders received and noted. will pass on in report, will continue to closely monitor.
[2019-09-10 01:08] LABS: CALCIUM 8.9 mg/dL (8.5-10.1); CREATININE 7.9 mg/dL (0.6-1.0); GFR 5.3; POTASSIUM 4.5 mmol/L (3.5-5.1)
[2019-09-10 01:22] LABS: ALBUMIN 1.8 g/dL (3.4-5.0); ALBUMIN/GLOBULIN RATIO 0.4 (1.0-1.7); MAGNESIUM 1.4 mg/dL (1.8-2.4); PHOSPHORUS 2.4 mg/dL (2.6-4.7); TOTAL BILIRUBIN 0.6 mg/dL (0.2-1.0); TOTAL PROTEIN 6.5 g/dL (6.4-8.2)
[2019-09-10] MEDS: IV NORMAL SALINE 1000ML BAG 1,000 ML IV SCH ×2 (01:27→12:11)
[2019-09-10 01:35] LABS: BASE EXCESS ABG -9 mmol/L (-3-3); HCO3 ABG 16 mmol/L (21-28); PCO2 ABG 31 mmHg (35-46); PO2 ABG 172 mmHg (75-108); SAT O2 ABG 99 % (92-99)
--- NOTE | 2019-09-10 01:35 | NUR ---
pt still extremely anxious as she pulls off monitoring equipment and oxygen, won't sit still long enough for a proper BP reading to be obtained and still repeatedly stating that she "needs more air." more orders received and noted. pt was on venti mask at 50%/15L for a short time but that only seemed to make her more anxious as she would thrash more in bed and constantly try to take the mask off; multiple attempts at reassurance and reorientation unsuccessful. Dr Peter paged again regarding critical lactic results and no change in pt condition, new orders received and noted. will pass on in report, will continue to closely monitor.
[2019-09-10 01:38] LABS: FIO2 ABG 50
[2019-09-10] MEDS ORDERED: ATROPINE 0.5 MG/5 ML DISP.SYRINGE. IV PRN (01:45)
[2019-09-10] MEDS: MORPHINE SULFATE 2 MG/ML VIAL. IV PRN (01:46)
[2019-09-10] MEDS: DEXMEDETOMIDINE 400 MCG in IV NORMAL SALINE 100ML 96 ML IV PRN ×4 (01:53→19:38)
--- NOTE | 2019-09-10 03:00 | NUR ---
pt now more calm after receiving pain medication and starting Precedex gtt but still unable to obtain a BP with automatic cuff. also attempted to obtain BP with manual cuff and stethoscope to no success. then we attempted to obtain BP with manual cuff and doppler, able to obtain elevated SBPs in 180s so this nurse titrated the Levophed gtt back down per protocol. will continue to obtain BP in this manner while also still attempting to get automatic cuff pressures for the remainder of the shift. will pass on in report, will continue to closely monitor.
[2019-09-10] MEDS: HYDROcodone/APAP 5/325MG 1 TAB TABLET PO SCH ×4 (06:00→15:13)
[2019-09-10] MEDS: PIPERACILLIN/TAZOBACTAM 2.25 GM in IV NORMAL SALINE 50ML 50 ML IV SCH ×3 (06:23→21:13)
[2019-09-10 06:46] LABS: BASO % 0 % (0-3); EOS % 0 % (0-3); HEMATOCRIT 27.8 % (36.0-47.0); HEMOGLOBIN 8.7 g/dL (12.0-15.5); LYMPH # 0.9 x10^3/uL (1.0-4.8); LYMPH % 4 % (24-48); MEAN CORPUSCULAR HEMOGLOBIN 34 pg (25-35); MEAN CORPUSCULAR HGB CONC 31 g/dL (31-37); MEAN CORPUSCULAR VOLUME 108 fL (79-100); MONO # 1.6 x10^3/uL (0.0-1.1); MONO % 6 % (0-9); NEUT # 23.1 x10^3/uL (1.8-7.7); NEUT % 90 % (31-73); PLATELET COUNT 279 x10^3/uL (140-400); RED BLOOD COUNT 2.56 x10^6/uL (3.50-5.40); RED CELL DISTRIBUTION WIDTH 21.5 % (11.5-14.5); WHITE BLOOD COUNT 25.7 x10^3/uL (4.0-11.0)
[2019-09-10 06:58] LABS: ALBUMIN 1.5 g/dL (3.4-5.0); ALBUMIN/GLOBULIN RATIO 0.4 (1.0-1.7); CALCIUM 8.5 mg/dL (8.5-10.1); CREATININE 7.9 mg/dL (0.6-1.0); GFR 5.3; POTASSIUM 4.6 mmol/L (3.5-5.1); TOTAL BILIRUBIN 0.4 mg/dL (0.2-1.0); TOTAL PROTEIN 5.7 g/dL (6.4-8.2)
[2019-09-10] MEDS: MIDODRINE 5 MG TABLET PO SCH ×3 (07:00→15:13)
[2019-09-10] MEDS: CARVEDILOL 12.5 MG TABLET. PO SCH ×2 (08:00→15:12)
[2019-09-10] MEDS: CALCIUM ACETATE 667 MG CAPSULE PO SCH ×3 (08:00→15:13)
[2019-09-10] MEDS: BUDESONIDE 0.5 MG/2 ML NEBU. NEB SCH ×2 (08:00→19:49)
--- NOTE | 2019-09-10 08:38 | PDOC ---
Infectious Disease Note Subjective Subjective c/o some numbness left hand that is improving with application of warm washcloth. c/o some pain left leg and buttocks No BM so far this morning Hypotensive on Levaphed Fevers Tmax 101.8 Denies SOA/cough/N/V Vital Sign Vital Signs Vital Signs Date Time Temp Pulse Resp B/P (MAP) Pulse Ox O2 Delivery O2 Flow Rate FiO2 09/10/19 06:00 112 20 116/ 100 Nasal Cannula 3.0 09/10/19 04:00 98.9 98.9 Physical Exam PHYSICAL EXAM GENERAL: Propped up in bed, alert in NAD HEENT: Pupils equally round, reactive. Normal conjunctivae. Oropharynx pink and moist. NECK: Supple. LUNGS: Clear to auscultation. CARDIAC: S1 and S2. ABDOMEN: Obese, mildly distended, soft, nontender with hyperactive bowel sounds and PD catheter without signs of complications. EXTREMITIES: 1+ edema lower extremities bilaterally. Some ischemic changes to both feet noted. SKIN: Warm to touch without signs of rash. She has a large necrotic ulcer, left ischial area measuring 8.6 x 8.4 x 0.4 cm and a smaller ulcer, left posterior calf measuring 3.5 x 3 x 0.1 cm (refer to wound care nurse for further descriptions and pictures). NEUROLOGIC: Alert and answering questions appropriately. Peripheral IV looks okay. Labs Lab Laboratory Tests Test 09/09/19 12:05 09/09/19 16:58 09/09/19 21:54 09/10/19 00:44 Glucose (Fingerstick) 262 mg/dL (70-99) 238 mg/dL (70-99) 317 mg/dL (70-99) O2 Saturation 99 % (92-99) Arterial Blood pH 7.34 (7.35-7.45) Arterial Blood pCO2 at Patient Temp 31 mmHg (35-46) Arterial Blood pO2 at Patient Temp 172 mmHg (75-108) Arterial Blood HCO3 16 mmol/L (21-28) Arterial Blood Base Excess -9 mmol/L (-3-3) FiO2 50 Test 09/10/19 00:45 09/10/19 06:30 White Blood Count 31.5 x10^3/uL (4.0-11.0) 25.7 x10^3/uL (4.0-11.0) Red Blood Count 2.85 x10^6/uL (3.50-5.40) 2.56 x10^6/uL (3.50-5.40) Hemoglobin 9.9 g/dL (12.0-15.5) 8.7 g/dL (12.0-15.5) Hematocrit 30.4 % (36.0-47.0) 27.8 % (36.0-47.0) Mean Corpuscular Volume 107 fL (79-100) 108 fL (79-100) Mean Corpuscular Hemoglobin 35 pg (25-35) 34 pg (25-35) Mean Corpuscular Hemoglobin Concent 32 g/dL (31-37) 31 g/dL (31-37) Red Cell Distribution Width 21.7 % (11.5-14.5) 21.5 % (11.5-14.5) Platelet Count 342 x10^3/uL (140-400) 279 x10^3/uL (140-400) Neutrophils (%) (Auto) 87 % (31-73) 90 % (31-73) Lymphocytes (%) (Auto) 5 % (24-48) 4 % (24-48) Monocytes (%) (Auto) 8 % (0-9) 6 % (0-9) Eosinophils (%) (Auto) 0 % (0-3) 0 % (0-3) Basophils (%) (Auto) 0 % (0-3) 0 % (0-3) Neutrophils # (Auto) 27.4 x10^3/uL (1.8-7.7) 23.1 x10^3/uL (1.8-7.7) Lymphocytes # (Auto) 1.6 x10^3/uL (1.0-4.8) 0.9 x10^3/uL (1.0-4.8) Monocytes # (Auto) 2.4 x10^3/uL (0.0-1.1) 1.6 x10^3/uL (0.0-1.1) Eosinophils # (Auto) 0.1 x10^3/uL (0.0-0.7) 0.0 x10^3/uL (0.0-0.7) Basophils # (Auto) 0.0 x10^3/uL (0.0-0.2) 0.0 x10^3/uL (0.0-0.2) Sodium Level 124 mmol/L (136-145) 122 mmol/L (136-145) Potassium Level 4.5 mmol/L (3.5-5.1) 4.6 mmol/L (3.5-5.1) Chloride Level 88 mmol/L (98-107) 89 mmol/L (98-107) Carbon Dioxide Level 20 mmol/L (21-32) 17 mmol/L (21-32) Anion Gap 16 (6-14) 16 (6-14) Blood Urea Nitrogen 52 mg/dL (7-20) 51 mg/dL (7-20) Creatinine 7.9 mg/dL (0.6-1.0) 7.9 mg/dL (0.6-1.0) Estimated GFR (Cockcroft-Gault) 5.3 5.3 BUN/Creatinine Ratio 7 (6-20) 6 (6-20) Glucose Level 427 mg/dL (70-99) 481 mg/dL (70-99) Lactic Acid Level 5.3 mmol/L (0.4-2.0) 4.6 mmol/L (0.4-2.0) Calcium Level 8.9 mg/dL (8.5-10.1) 8.5 mg/dL (8.5-10.1) Phosphorus Level 2.4 mg/dL (2.6-4.7) Magnesium Level 1.4 mg/dL (1.8-2.4) Total Bilirubin 0.6 mg/dL (0.2-1.0) 0.4 mg/dL (0.2-1.0) Aspartate Amino Transf (AST/SGOT) 16 U/L (15-37) 36 U/L (15-37) Alanine Aminotransferase (ALT/SGPT) 18 U/L (14-59) 21 U/L (14-59) Alkaline Phosphatase 243 U/L (46-116) 207 U/L (46-116) Total Protein 6.5 g/dL (6.4-8.2) 5.7 g/dL (6.4-8.2) Albumin 1.8 g/dL (3.4-5.0) 1.5 g/dL (3.4-5.0) Albumin/Globulin Ratio 0.4 (1.0-1.7) 0.4 (1.0-1.7) Thyroid Stimulating Hormone (TSH) 4.338 uIU/mL (0.358-3.74) Micro Microbiology 09/07/19 Blood Culture - Preliminary, Resulted NO GROWTH AFTER 2 DAYS Objective Assessment Sepsis with hypotension and lactic acidosis on Levaphed Infected necrotic ulcer of the left ishium Leukocytosis - some better Loose stools Left leg ulcer PVD CKD on PD DM II CAD h/o c. diff 2012 h/o MRSA Plan Plan of Care Zyvox and Zosyn, renal dosing Awaiting c. diff PCR, continue empiric po vanc labs in am BC neg to date Surgical debridement planned for Tuesday Local wound care and offloading Vascular following. CTA abd/ pelvis / runoff ordered D/w nursing need ct chest, influenza screen, repeat bc, pd fluid analysis and culture add diflucan Critically ill ARELY BAIRES MD Sep 10, 2019 08:38
[2019-09-10] MEDS: CLOTRIMAZOLE 1% TOPICAL CREAM 15GM TUBE. TP SCH ×2 (09:00→21:12)
[2019-09-10] MEDS: ASPIRIN CHEWABLE 81 MG TABLET. PO SCH (09:00)
[2019-09-10] MEDS: IPRATRPIUM/ALBUTEROL 0.5/2.5MG 3 ML NEBU. NEB SCH ×4 (09:00→19:49)
[2019-09-10] MEDS: FUROSEMIDE 40 MG TABLET. PO SCH ×2 (09:00→15:12)
[2019-09-10] MEDS: VANCOMYCIN 125 MG/2.5 ML ORAL SOLUTION. PO SCH ×4 (09:00→21:08)
[2019-09-10] MEDS: FLUTICASONE 50MCG/NASAL SPRAY 16GM BOTTLE. NS SCH ×2 (09:00→21:13)
[2019-09-10] MEDS: metOLazone 2.5 MG TABLET PO SCH (09:00)
[2019-09-10] MEDS: LACTOBACILLUS RHAMNOSUS GG 1 CAPSULE. PO SCH ×2 (09:00→21:07)
[2019-09-10] MEDS: MECLIZINE HCL 12.5 MG TABLET. PO SCH ×3 (09:00→21:08)
[2019-09-10] MEDS: MONTELUKAST SODIUM 10 MG TABLET. PO SCH (09:00)
[2019-09-10] MEDS: FOLIC ACID 1 MG TABLET. PO SCH (09:00)
[2019-09-10] MEDS: LISINOPRIL 20 MG TABLET PO SCH ×2 (09:00→20:51)
--- NOTE | 2019-09-10 09:44 | PDOC ---
Provider Note Provider Note Vascular S: Patient confused and agitated last pm. She is answering some questions this am, but still agitated. Possible CTA today. O: Awake and alert to person and place VSS, afebrile LLE: Lateral acchilles ulcer with moist eschar and moderate slough. Foot warm. LUE: Avf with palpable thrill, hands are in mitten restraints A/P: Atherosclerosis with ulceration of the left lower extremity--we will review the patient's CT angiogram when available, possible today We will hold on any percutaneous intervention until her decubitus ulcerations and infections can be adequately surgical debridement. We will defer debridement to general surgery. Abx per ID. Continue current local wound care and treatment plan. THUAN FAJARDO APRN Sep 10, 2019 09:44
[2019-09-10] MEDS ORDERED: INSULIN REGULAR VIAL 100 UNIT in IV NORMAL SALINE 100ML 100 ML IV PRN (10:00)
--- NOTE | 2019-09-10 10:07 | PDOC ---
PROGRESS NOTES Subjective Subjective noted events above, lethargic Objective Objective Vital Signs Date Time Temp Pulse Resp B/P (MAP) Pulse Ox O2 Delivery O2 Flow Rate FiO2 09/10/19 09:07 Nasal Cannula 2.0 09/10/19 06:00 112 20 116/ 100 09/10/19 04:00 98.9 98.9 Intake and Output 09/10/19 07:00 Intake Total 4110.3 ml Output Total 0 ml Balance 4110.3 ml Intake Oral 940 ml IV Total 3170.3 ml Output Urine Total 0 ml Physical Exam Abdomen: Soft Heart: Normal S1, Normal S2 Extremities: No edema, Other (posterior tibial monophasic Doppler signals) HEENT: PERRLA, Mucous membr. moist/pink Lungs: Clear to auscultation, Normal air movement MUSCULOSKELETAL: No joint tenderness, No deformity Skin: Other (left medial malleoli wound stable) Assessment Assessment acute sepsis. hyotension fever 101.8. lactic acidosis. hyperglycemia. encephalopathy. necrotic wounds ishium leg pvd eerd on PD 1. Large left ischial ulcer. 2. Coronary artery disease, previous stent, on Brilinta. 3. Coronary artery bypass surgery 5 years ago, 5-vessel. 4. Diabetes, insulin dependent. 5. End-stage renal disease, on dialysis. 6. Peripheral vascular disease. PLAN: on pressors tripple antibiotics iv fluids iv insulin drip ct head /chest/abd +pelvis today C diff ? on oral vancomycin lactic acid 5 wbc 27 spoke with RN critical prognosis gaurded. watch for respiratory status. At this time, she was admitted to the hospital. Wound culture, blood cultures. The [facility], recommended surgical debridement. Surgery is consulted. White count 17, started on broad-spectrum antibiotics with Zyvox and Zosyn after blood cultures. Air-loss mattress and the patient also would need peritoneal dialysis. We will continue while she is in the hospital. Vascular consult for vascular disease. Septic shock- patient was transferred to ICU. On IV fluids as well as IV boluses and Levophed as needed. Hypotension is improving. The WBC count has decreased to 26.6. Infectious disease started her on Vancomycin as she has h/o C.diff coli tis. Sepsis- lactic acid level was elevated. Patient is on IV Zyvox and Zosyn. Left ischial wound-consider debridement when stable. End-stage renal disease on hemodialysis. Hyponatremia- sodium is 125 Severe malnutrition- albumin is 1.6 Clinically improving slowly. Comment Review of Relevant I have reviewed the following items kinsey (where applicable) has been applied. Labs Laboratory Tests Test 09/09/19 12:05 09/09/19 16:58 09/09/19 21:54 09/10/19 00:44 Glucose (Fingerstick) 262 mg/dL (70-99) 238 mg/dL (70-99) 317 mg/dL (70-99) O2 Saturation 99 % (92-99) Arterial Blood pH 7.34 (7.35-7.45) Arterial Blood pCO2 at Patient Temp 31 mmHg (35-46) Arterial Blood pO2 at Patient Temp 172 mmHg (75-108) Arterial Blood HCO3 16 mmol/L (21-28) Arterial Blood Base Excess -9 mmol/L (-3-3) FiO2 50 Test 09/10/19 00:45 09/10/19 06:30 White Blood Count 31.5 x10^3/uL (4.0-11.0) 25.7 x10^3/uL (4.0-11.0) Red Blood Count 2.85 x10^6/uL (3.50-5.40) 2.56 x10^6/uL (3.50-5.40) Hemoglobin 9.9 g/dL (12.0-15.5) 8.7 g/dL (12.0-15.5) Hematocrit 30.4 % (36.0-47.0) 27.8 % (36.0-47.0) Mean Corpuscular Volume 107 fL (79-100) 108 fL (79-100) Mean Corpuscular Hemoglobin 35 pg (25-35) 34 pg (25-35) Mean Corpuscular Hemoglobin Concent 32 g/dL (31-37) 31 g/dL (31-37) Red Cell Distribution Width 21.7 % (11.5-14.5) 21.5 % (11.5-14.5) Platelet Count 342 x10^3/uL (140-400) 279 x10^3/uL (140-400) Neutrophils (%) (Auto) 87 % (31-73) 90 % (31-73) Lymphocytes (%) (Auto) 5 % (24-48) 4 % (24-48) Monocytes (%) (Auto) 8 % (0-9) 6 % (0-9) Eosinophils (%) (Auto) 0 % (0-3) 0 % (0-3) Basophils (%) (Auto) 0 % (0-3) 0 % (0-3) Neutrophils # (Auto) 27.4 x10^3/uL (1.8-7.7) 23.1 x10^3/uL (1.8-7.7) Lymphocytes # (Auto) 1.6 x10^3/uL (1.0-4.8) 0.9 x10^3/uL (1.0-4.8) Monocytes # (Auto) 2.4 x10^3/uL (0.0-1.1) 1.6 x10^3/uL (0.0-1.1) Eosinophils # (Auto) 0.1 x10^3/uL (0.0-0.7) 0.0 x10^3/uL (0.0-0.7) Basophils # (Auto) 0.0 x10^3/uL (0.0-0.2) 0.0 x10^3/uL (0.0-0.2) Sodium Level 124 mmol/L (136-145) 122 mmol/L (136-145) Potassium Level 4.5 mmol/L (3.5-5.1) 4.6 mmol/L (3.5-5.1) Chloride Level 88 mmol/L (98-107) 89 mmol/L (98-107) Carbon Dioxide Level 20 mmol/L (21-32) 17 mmol/L (21-32) Anion Gap 16 (6-14) 16 (6-14) Blood Urea Nitrogen 52 mg/dL (7-20) 51 mg/dL (7-20) Creatinine 7.9 mg/dL (0.6-1.0) 7.9 mg/dL (0.6-1.0) Estimated GFR (Cockcroft-Gault) 5.3 5.3 BUN/Creatinine Ratio 7 (6-20) 6 (6-20) Glucose Level 427 mg/dL (70-99) 481 mg/dL (70-99) Lactic Acid Level 5.3 mmol/L (0.4-2.0) 4.6 mmol/L (0.4-2.0) Calcium Level 8.9 mg/dL (8.5-10.1) 8.5 mg/dL (8.5-10.1) Phosphorus Level 2.4 mg/dL (2.6-4.7) Magnesium Level 1.4 mg/dL (1.8-2.4) Total Bilirubin 0.6 mg/dL (0.2-1.0) 0.4 mg/dL (0.2-1.0) Aspartate Amino Transf (AST/SGOT) 16 U/L (15-37) 36 U/L (15-37) Alanine Aminotransferase (ALT/SGPT) 18 U/L (14-59) 21 U/L (14-59) Alkaline Phosphatase 243 U/L (46-116) 207 U/L (46-116) Total Protein 6.5 g/dL (6.4-8.2) 5.7 g/dL (6.4-8.2) Albumin 1.8 g/dL (3.4-5.0) 1.5 g/dL (3.4-5.0) Albumin/Globulin Ratio 0.4 (1.0-1.7) 0.4 (1.0-1.7) Thyroid Stimulating Hormone (TSH) 4.338 uIU/mL (0.358-3.74) Microbiology 09/07/19 Blood Culture - Preliminary, Resulted NO GROWTH AFTER 2 DAYS Medications Current Medications Atropine Sulfate (ATROPINE 0.5mg SYRINGE) 0.5 mg PRN Q5MIN PRN IV SEE COMMENTS; Start 09/10/19 at 01:45 Dexmedetomidine HCl 400 mcg/ Sodium Chloride 100 ml @ 0 mls/hr CONT PRN IV AGITATION Last administered on 09/10/19at 06:26; Start 09/10/19 at 01:45 Fluconazole/ Sodium Chloride 100 ml @ 100 mls/hr Q24H IV ; Start 09/10/19 at 09:00 Heparin Sodium (Porcine) (Heparin Sodium) 5,000 unit Q12HR SQ Last administered on 09/09/19at 21:56; Start 09/09/19 at 10:30 Lactobacillus Rhamnosus (Culturelle) 1 cap BID PO Last administered on 2/16/20at 21:43; Start 09/09/19 at 21:00 Lorazepam (Ativan Inj) 0.25 mg PRN Q6HRS PRN IVP ANXIETY / AGITATION Last administered on 09/10/19at 01:25; Start 09/10/19 at 01:30 Lorazepam (Ativan Inj) 2 mg 1X ONCE IVP Last administered on 09/09/19at 18:26; Start 09/09/19 at 18:30; Stop 09/09/19 at 18:31; Status DC Lorazepam (Ativan Inj) 2 mg STK-MED ONCE .ROUTE ; Start 09/09/19 at 18:21; Stop 09/09/19 at 18:21; Status DC Morphine Sulfate (Morphine Sulfate) 2 mg PRN Q4HRS PRN IV SEVERE PAIN 7-10 Last administered on 09/10/19at 01:46; Start 09/10/19 at 01:45 Vitals/I & O Vital Sign - Last 24 Hours 09/09/19 09/09/19 09/09/19 09/09/19 11:00 11:30 12:00 12:00 Pulse 85 85 Resp 20 20 B/P (MAP) 95/65 (75) 120/90 (100) O2 Delivery Room Air Room Air Room Air Room Air 09/09/19 09/09/19 09/09/19 09/09/19 12:02 13:00 14:00 14:00 Pulse 96 77 82 Resp 20 20 B/P (MAP) 120/90 95/58 (70) 75/47 (56) O2 Delivery Room Air Room Air 09/09/19 09/09/19 09/09/19 09/09/19 14:30 15:00 16:00 16:00 Pulse 78 80 78 Resp 20 20 20 B/P (MAP) 87/59 (68) 89/50 (63) 85/43 (57) O2 Delivery Room Air Room Air Room Air Room Air 09/09/19 09/09/19 09/09/19 09/09/19 16:05 16:30 16:48 16:55 Pulse 82 101 92 Resp 20 B/P (MAP) 98/52 (67) 98/52 137/63 O2 Delivery Room Air Room Air 09/09/19 09/09/19 09/09/19 09/09/19 17:00 17:30 18:01 19:00 Pulse 90 84 90 104 Resp 20 20 20 20 B/P (MAP) 119/59 (79) 111/63 (79) 113/45 (67) O2 Delivery Room Air Room Air Room Air Room Air 09/09/19 09/09/19 09/09/19 09/09/19 20:00 20:33 20:35 21:00 Temp 100.4 100.4 Pulse 105 114 Resp 16 20 B/P (MAP) O2 Delivery Room Air Room Air Room Air Room Air 09/09/19 09/09/19 09/10/19 09/10/19 22:00 23:00 00:00 01:00 Temp 98.6 98.6 Pulse 113 144 149 150 Resp 19 35 48 51 B/P (MAP) 118/45 (69) Pulse Ox 100 100 100 O2 Delivery Room Air Nasal Cannula Venturi Mask Venturi Mask O2 Flow Rate 3.0 15.0 15.0 09/10/19 09/10/19 09/10/19 09/10/19 01:46 02:00 02:22 03:00 Pulse 134 141 Resp 39 43 37 48 B/P (MAP) 182/ () Pulse Ox 97 99 100 100 O2 Delivery Nasal Cannula Nasal Cannula Nasal Cannula Nasal Cannula O2 Flow Rate 3.0 3.0 3.0 3.0 09/10/19 09/10/19 09/10/19 09/10/19 04:00 04:00 05:00 06:00 Temp 98.9 98.9 Pulse 128 111 112 Resp 15 12 20 B/P (MAP) 160/ 148/ 116/ Pulse Ox 100 100 100 O2 Delivery Nasal Cannula Nasal Cannula Nasal Cannula Nasal Cannula O2 Flow Rate 3.0 3.0 3.0 3.0 09/10/19 09:07 O2 Delivery Nasal Cannula O2 Flow Rate 2.0 Intake and Output 09/09/19 09/09/19 09/10/19 15:00 23:00 07:00 Intake Total 1287 ml 250 ml 2573.3 ml Output Total 0 ml 0 ml 0 ml Balance 1287 ml 250 ml 2573.3 ml ELMO ENGLISH MD Sep 10, 2019 10:07
--- NOTE | 2019-09-10 10:07 | NUR ---
Order received from Dr. Mason Barbosa to obtain flu swab, peritoneal fluid-- both sent to lab. Notified MD of temp, LOC changes. Order received from Dr. Rubin to get CT head, CT chest, place arterial line. RN only able to obtain manual BP's, systolic only. MD aware. Patient on Precedex gtt-- family updated on patient's increased anxiety, episodes of confusion. MD's aware.
[2019-09-10] MEDS: HEPARIN for SUB-Q USE 5,000 UNIT/ML VIAL. SQ SCH ×2 (10:14→21:12)
[2019-09-10] MEDS: INSULIN LISPRO 300 UNITS/3 ML VIAL. SQ SCH ×3 (10:15→16:24)
[2019-09-10] MEDS ORDERED: LIDOCAINE 1% PF 2 ML VIAL. ONE (10:37)
--- NOTE | 2019-09-10 10:58 | PDOC ---
SUBJECTIVE ROS Confused overnight, Lactic elevated, per RN Hypotensive on Levaphed OBJECTIVE Vital Signs Vital Signs Date Time Temp Pulse Resp B/P (MAP) Pulse Ox O2 Delivery O2 Flow Rate FiO2 09/10/19 09:07 Nasal Cannula 2.0 09/10/19 06:00 112 20 116/ 100 09/10/19 04:00 98.9 98.9 I & 0 Intake and Output 09/10/19 07:00 Intake Total 4110.3 ml Output Total 0 ml Balance 4110.3 ml Intake Oral 940 ml IV Total 3170.3 ml Output Urine Total 0 ml PHYSICAL EXAM Physical Exam GENERAL:NAD HEENT: Oropharynx pink and moist. NECK: Supple. LUNGS: Clear to auscultation. CARDIAC: S1 and S2. ABDOMEN: Obese, mildly distended, soft, nontender, PD catheter without signs of complications. EXTREMITIES: 1+ edema lower extremities bilaterally. SKIN: No rash. large necrotic ulcer,left ischial area and a smaller ulcer, left posterior calf (per ID) NEUROLOGIC: Confused DIAGNOSIS/ASSESSMENT Assessment & Plan ESRD- On PD Continue APD as ordered, Dustin Guevara Sepsis with hypotension and lactic acidosis on Levaphed Wiseman Cx per ID , per Hx no RRF would recommend straight cath to r/o UTI , Dustin RN Infected necrotic ulcer of the left ishium Surgical debridement planned Vascular following. CTA abd/ pelvis / runoff pending Left leg ulcer PVD HypoPhos- replace Hypo mg- replace Elevated Alk Phos Confusion- Overnight- CT scan pending HypoNatremia - Corrected for Glucose still low Stable, chronic , dc Metolazone and Lasix DM II CAD Dustin RN COMMENT/RELEVANT DATA Meds Current Medications Medications (Trade) Dose Ordered Sig/Jesus Start Time Stop Time Status Last Admin Dose Admin Acetaminophen (Tylenol) 650 mg PRN Q6HRS PRN 09/08/19 09:30 09/09/19 21:43 650 MG Acetaminophen/ Hydrocodone Bitart (Lortab 5/325) 1 tab Q6HRS 09/07/19 18:00 09/09/19 06:06 1 TAB Albuterol Sulfate (Ventolin Neb Soln) 2.5 mg RTQID 09/07/19 20:00 09/08/19 10:54 DC Albuterol/ Ipratropium (Duoneb) 3 ml QID 09/07/19 21:00 09/09/19 20:33 3 ML Aspirin (Children'S Aspirin) 81 mg DAILY 09/08/19 09:00 09/09/19 07:54 81 MG Atorvastatin Calcium (Lipitor) 80 mg QHS 09/07/19 21:00 09/09/19 21:43 80 MG Atropine Sulfate (ATROPINE 0.5mg SYRINGE) 0.5 mg PRN Q5MIN PRN 09/10/19 01:45 Budesonide (Pulmicort) 0.5 mg RTBID 09/07/19 20:00 09/09/19 20:33 0.5 MG Calcium Acetate (Phoslo) 1,334 mg TIDWMEALS 09/08/19 08:00 09/09/19 16:48 1,334 MG Carvedilol (Coreg) 12.5 mg BIDWMEALS 09/07/19 18:00 Clotrimazole (Lotrimin) 1 vern BID 09/07/19 21:00 09/09/19 21:00 1 VERN Darbepoetin Abelino (ARANESP for DIALYSIS PTS) 60 mcg WEEKLYHS 09/08/19 21:00 09/08/19 22:18 60 MCG Dexmedetomidine HCl 400 mcg/ Sodium Chloride 100 ml @ 0 mls/hr CONT PRN 09/10/19 01:45 09/10/19 06:26 11.8 MLS/HR Dextrose (Dextrose 50%-Water Syringe) 12.5 gm PRN Q15MIN PRN 09/07/19 17:45 Dextrose (Iv Dextrose 5%) 250 ml PRN Q15MIN PRN 09/07/19 17:45 Diclofenac Sodium (Voltaren) 2 vern PRN QID PRN 09/07/19 17:45 Famotidine (Pepcid) 20 mg QHS 09/07/19 21:00 09/09/19 21:43 20 MG Fluconazole/ Sodium Chloride 100 ml @ 100 mls/hr Q24H 09/10/19 09:00 Fluticasone Propionate (Flonase) 1 spray BID 09/07/19 21:00 09/09/19 21:00 1 SPRAY Folic Acid (Folic Acid) 1 mg DAILY 09/08/19 09:00 09/09/19 07:53 1 MG Furosemide (Lasix) 40 mg [id number] 09/07/19 18:30 Heparin Sodium (Porcine) (Heparin Sodium) 5,000 unit Q12HR 09/09/19 10:30 09/10/19 10:14 5,000 UNIT Hydralazine HCl (Apresoline) 100 mg TID 09/07/19 21:00 Insulin Glargine (Lantus Syringe) 20 unit HS 09/07/19 21:00 09/09/19 21:55 20 UNIT Insulin Human Lispro (HumaLOG) 0-5 UNITS TIDWMEALS 09/08/19 08:00 09/10/19 10:15 5 UNITS Insulin Human Regular 100 unit/ Sodium Chloride 101 ml @ 0 mls/hr CONT PRN 09/10/19 10:00 Lactic Acid (Lac-Hydrin) 1 vern PRN DAILY PRN 09/08/19 09:00 Lactobacillus Rhamnosus (Culturelle) 1 cap BID 09/09/19 21:00 09/09/19 21:43 1 CAP Lidocaine HCl (Xylocaine-Mpf 1% 2ml Vial) 2 ml STK-MED ONCE 09/10/19 10:37 09/10/19 10:38 DC Linezolid/Dextrose 300 ml @ 300 mls/hr Q12HR 09/07/19 21:00 09/10/19 10:13 300 MLS/HR Lisinopril (Prinivil) 20 mg BID 09/07/19 21:00 Lorazepam (Ativan Inj) 0.25 mg PRN Q6HRS PRN 09/10/19 01:30 09/10/19 01:25 0.25 MG Meclizine HCl (Antivert) 12.5 mg TID 09/07/19 21:00 09/09/19 21:43 12.5 MG Metolazone (Zaroxolyn) 2.5 mg DAILY 09/08/19 09:00 09/09/19 07:53 2.5 MG Midodrine (Proamatine) 5 mg [id number] 09/07/19 18:30 09/09/19 16:48 5 MG Montelukast Sodium (Singulair) 10 mg DAILY 09/08/19 09:00 09/09/19 07:53 10 MG Morphine Sulfate (Morphine Sulfate) 2 mg PRN Q4HRS PRN 09/10/19 01:45 09/10/19 01:46 2 MG Nitroglycerin (Nitrostat) 0.4 mg PRN Q5MIN PRN 09/07/19 17:45 Non-Formulary Medication (Albuterol Sulfate (Ventolin Hfa Inhaler)) 2 puff Q6HRS PRN 09/07/19 17:45 UNV Norepinephrine Bitartrate 8 mg/ Dextrose 258 ml @ 18.189 mls/ hr CONT PRN 09/08/19 00:45 09/10/19 00:55 90.945 MLS/HR Ondansetron HCl (Zofran Odt) 4 mg PRN BID PRN 09/07/19 18:30 Piperacillin Sod/ Tazobactam Sod 2.25 gm/Sodium Chloride 50 ml @ 100 mls/hr Q8HRS 09/07/19 19:00 09/10/19 06:23 100 MLS/HR Sodium Chloride 1,000 ml @ 100 mls/hr Q10H 09/07/19 23:00 09/10/19 01:27 100 MLS/HR Ticagrelor (Brilinta) 90 mg BID 09/07/19 21:00 09/07/19 18:14 DC Tizanidine HCl (Zanaflex) 2 mg PRN Q8HRS PRN 09/08/19 16:45 09/09/19 23:13 2 MG Tramadol HCl (Ultram) 50 mg PRN Q6HRS PRN 09/07/19 17:45 09/08/19 17:22 50 MG Vancomycin HCl (Vancomycin Oral Solution) 125 mg [id number] 09/08/19 11:00 09/09/19 17:00 125 MG Lab Laboratory Tests Test 09/09/19 12:05 09/09/19 16:58 09/09/19 21:54 09/10/19 00:44 Glucose (Fingerstick) 262 mg/dL (70-99) 238 mg/dL (70-99) 317 mg/dL (70-99) O2 Saturation 99 % (92-99) Arterial Blood pH 7.34 (7.35-7.45) Arterial Blood pCO2 at Patient Temp 31 mmHg (35-46) Arterial Blood pO2 at Patient Temp 172 mmHg (75-108) Arterial Blood HCO3 16 mmol/L (21-28) Arterial Blood Base Excess -9 mmol/L (-3-3) FiO2 50 Test 09/10/19 00:45 09/10/19 06:30 White Blood Count 31.5 x10^3/uL (4.0-11.0) 25.7 x10^3/uL (4.0-11.0) Red Blood Count 2.85 x10^6/uL (3.50-5.40) 2.56 x10^6/uL (3.50-5.40) Hemoglobin 9.9 g/dL (12.0-15.5) 8.7 g/dL (12.0-15.5) Hematocrit 30.4 % (36.0-47.0) 27.8 % (36.0-47.0) Mean Corpuscular Volume 107 fL (79-100) 108 fL (79-100) Mean Corpuscular Hemoglobin 35 pg (25-35) 34 pg (25-35) Mean Corpuscular Hemoglobin Concent 32 g/dL (31-37) 31 g/dL (31-37) Red Cell Distribution Width 21.7 % (11.5-14.5) 21.5 % (11.5-14.5) Platelet Count 342 x10^3/uL (140-400) 279 x10^3/uL (140-400) Neutrophils (%) (Auto) 87 % (31-73) 90 % (31-73) Lymphocytes (%) (Auto) 5 % (24-48) 4 % (24-48) Monocytes (%) (Auto) 8 % (0-9) 6 % (0-9) Eosinophils (%) (Auto) 0 % (0-3) 0 % (0-3) Basophils (%) (Auto) 0 % (0-3) 0 % (0-3) Neutrophils # (Auto) 27.4 x10^3/uL (1.8-7.7) 23.1 x10^3/uL (1.8-7.7) Lymphocytes # (Auto) 1.6 x10^3/uL (1.0-4.8) 0.9 x10^3/uL (1.0-4.8) Monocytes # (Auto) 2.4 x10^3/uL (0.0-1.1) 1.6 x10^3/uL (0.0-1.1) Eosinophils # (Auto) 0.1 x10^3/uL (0.0-0.7) 0.0 x10^3/uL (0.0-0.7) Basophils # (Auto) 0.0 x10^3/uL (0.0-0.2) 0.0 x10^3/uL (0.0-0.2) Sodium Level 124 mmol/L (136-145) 122 mmol/L (136-145) Potassium Level 4.5 mmol/L (3.5-5.1) 4.6 mmol/L (3.5-5.1) Chloride Level 88 mmol/L (98-107) 89 mmol/L (98-107) Carbon Dioxide Level 20 mmol/L (21-32) 17 mmol/L (21-32) Anion Gap 16 (6-14) 16 (6-14) Blood Urea Nitrogen 52 mg/dL (7-20) 51 mg/dL (7-20) Creatinine 7.9 mg/dL (0.6-1.0) 7.9 mg/dL (0.6-1.0) Estimated GFR (Cockcroft-Gault) 5.3 5.3 BUN/Creatinine Ratio 7 (6-20) 6 (6-20) Glucose Level 427 mg/dL (70-99) 481 mg/dL (70-99) Lactic Acid Level 5.3 mmol/L (0.4-2.0) 4.6 mmol/L (0.4-2.0) Calcium Level 8.9 mg/dL (8.5-10.1) 8.5 mg/dL (8.5-10.1) Phosphorus Level 2.4 mg/dL (2.6-4.7) Magnesium Level 1.4 mg/dL (1.8-2.4) Total Bilirubin 0.6 mg/dL (0.2-1.0) 0.4 mg/dL (0.2-1.0) Aspartate Amino Transf (AST/SGOT) 16 U/L (15-37) 36 U/L (15-37) Alanine Aminotransferase (ALT/SGPT) 18 U/L (14-59) 21 U/L (14-59) Alkaline Phosphatase 243 U/L (46-116) 207 U/L (46-116) Total Protein 6.5 g/dL (6.4-8.2) 5.7 g/dL (6.4-8.2) Albumin 1.8 g/dL (3.4-5.0) 1.5 g/dL (3.4-5.0) Albumin/Globulin Ratio 0.4 (1.0-1.7) 0.4 (1.0-1.7) Thyroid Stimulating Hormone (TSH) 4.338 uIU/mL (0.358-3.74) Results All relevant outside records, renal labs, imaging studies, telemetry/EKG's were reviewed. HI PALMER MD Sep 10, 2019 10:58
--- NOTE | 2019-09-10 11:20 | PDOC ---
BRITTNEY CAMACHO SAMPLE COLLECTOR 09/10/19 1120: SURGICAL PROGRESS NOTE Subjective pressor support--although BP improved confusion overnight lactic elevated Vital Signs Vital Signs Date Time Temp Pulse Resp B/P (MAP) Pulse Ox O2 Delivery O2 Flow Rate FiO2 09/10/19 09:07 Nasal Cannula 2.0 09/10/19 06:00 112 20 116/ 100 09/10/19 04:00 98.9 98.9 I&O Intake and Output 09/10/19 07:00 Intake Total 4110.3 ml Output Total 0 ml Balance 4110.3 ml Intake Oral 940 ml IV Total 3170.3 ml Output Urine Total 0 ml General: Other (sedated ) Abdomen: Soft Labs Laboratory Tests Test 09/08/19 11:53 09/08/19 17:20 09/08/19 22:21 09/09/19 04:00 Glucose (Fingerstick) 311 mg/dL (70-99) 174 mg/dL (70-99) 164 mg/dL (70-99) White Blood Count 26.6 x10^3/uL (4.0-11.0) Red Blood Count 2.56 x10^6/uL (3.50-5.40) Hemoglobin 8.8 g/dL (12.0-15.5) Hematocrit 27.1 % (36.0-47.0) Mean Corpuscular Volume 106 fL (79-100) Mean Corpuscular Hemoglobin 34 pg (25-35) Mean Corpuscular Hemoglobin Concent 33 g/dL (31-37) Red Cell Distribution Width 21.9 % (11.5-14.5) Platelet Count 287 x10^3/uL (140-400) Neutrophils (%) (Auto) 85 % (31-73) Lymphocytes (%) (Auto) 7 % (24-48) Monocytes (%) (Auto) 8 % (0-9) Eosinophils (%) (Auto) 1 % (0-3) Basophils (%) (Auto) 0 % (0-3) Neutrophils # (Auto) 22.5 x10^3/uL (1.8-7.7) Lymphocytes # (Auto) 1.8 x10^3/uL (1.0-4.8) Monocytes # (Auto) 2.1 x10^3/uL (0.0-1.1) Eosinophils # (Auto) 0.2 x10^3/uL (0.0-0.7) Basophils # (Auto) 0.1 x10^3/uL (0.0-0.2) Sodium Level 125 mmol/L (136-145) Potassium Level 4.1 mmol/L (3.5-5.1) Chloride Level 90 mmol/L (98-107) Carbon Dioxide Level 23 mmol/L (21-32) Anion Gap 12 (6-14) Blood Urea Nitrogen 50 mg/dL (7-20) Creatinine 7.9 mg/dL (0.6-1.0) Estimated GFR (Cockcroft-Gault) 5.3 BUN/Creatinine Ratio 6 (6-20) Glucose Level 181 mg/dL (70-99) Calcium Level 8.7 mg/dL (8.5-10.1) Total Bilirubin 0.4 mg/dL (0.2-1.0) Aspartate Amino Transf (AST/SGOT) 12 U/L (15-37) Alanine Aminotransferase (ALT/SGPT) 12 U/L (14-59) Alkaline Phosphatase 173 U/L (46-116) Total Protein 5.6 g/dL (6.4-8.2) Albumin 1.6 g/dL (3.4-5.0) Albumin/Globulin Ratio 0.4 (1.0-1.7) Test 09/09/19 07:56 09/09/19 12:05 09/09/19 16:58 09/09/19 21:54 Glucose (Fingerstick) 172 mg/dL (70-99) 262 mg/dL (70-99) 238 mg/dL (70-99) 317 mg/dL (70-99) Test 09/10/19 00:44 09/10/19 00:45 09/10/19 06:30 O2 Saturation 99 % (92-99) Arterial Blood pH 7.34 (7.35-7.45) Arterial Blood pCO2 at Patient Temp 31 mmHg (35-46) Arterial Blood pO2 at Patient Temp 172 mmHg (75-108) Arterial Blood HCO3 16 mmol/L (21-28) Arterial Blood Base Excess -9 mmol/L (-3-3) FiO2 50 White Blood Count 31.5 x10^3/uL (4.0-11.0) 25.7 x10^3/uL (4.0-11.0) Red Blood Count 2.85 x10^6/uL (3.50-5.40) 2.56 x10^6/uL (3.50-5.40) Hemoglobin 9.9 g/dL (12.0-15.5) 8.7 g/dL (12.0-15.5) Hematocrit 30.4 % (36.0-47.0) 27.8 % (36.0-47.0) Mean Corpuscular Volume 107 fL (79-100) 108 fL (79-100) Mean Corpuscular Hemoglobin 35 pg (25-35) 34 pg (25-35) Mean Corpuscular Hemoglobin Concent 32 g/dL (31-37) 31 g/dL (31-37) Red Cell Distribution Width 21.7 % (11.5-14.5) 21.5 % (11.5-14.5) Platelet Count 342 x10^3/uL (140-400) 279 x10^3/uL (140-400) Neutrophils (%) (Auto) 87 % (31-73) 90 % (31-73) Lymphocytes (%) (Auto) 5 % (24-48) 4 % (24-48) Monocytes (%) (Auto) 8 % (0-9) 6 % (0-9) Eosinophils (%) (Auto) 0 % (0-3) 0 % (0-3) Basophils (%) (Auto) 0 % (0-3) 0 % (0-3) Neutrophils # (Auto) 27.4 x10^3/uL (1.8-7.7) 23.1 x10^3/uL (1.8-7.7) Lymphocytes # (Auto) 1.6 x10^3/uL (1.0-4.8) 0.9 x10^3/uL (1.0-4.8) Monocytes # (Auto) 2.4 x10^3/uL (0.0-1.1) 1.6 x10^3/uL (0.0-1.1) Eosinophils # (Auto) 0.1 x10^3/uL (0.0-0.7) 0.0 x10^3/uL (0.0-0.7) Basophils # (Auto) 0.0 x10^3/uL (0.0-0.2) 0.0 x10^3/uL (0.0-0.2) Sodium Level 124 mmol/L (136-145) 122 mmol/L (136-145) Potassium Level 4.5 mmol/L (3.5-5.1) 4.6 mmol/L (3.5-5.1) Chloride Level 88 mmol/L (98-107) 89 mmol/L (98-107) Carbon Dioxide Level 20 mmol/L (21-32) 17 mmol/L (21-32) Anion Gap 16 (6-14) 16 (6-14) Blood Urea Nitrogen 52 mg/dL (7-20) 51 mg/dL (7-20) Creatinine 7.9 mg/dL (0.6-1.0) 7.9 mg/dL (0.6-1.0) Estimated GFR (Cockcroft-Gault) 5.3 5.3 BUN/Creatinine Ratio 7 (6-20) 6 (6-20) Glucose Level 427 mg/dL (70-99) 481 mg/dL (70-99) Lactic Acid Level 5.3 mmol/L (0.4-2.0) 4.6 mmol/L (0.4-2.0) Calcium Level 8.9 mg/dL (8.5-10.1) 8.5 mg/dL (8.5-10.1) Phosphorus Level 2.4 mg/dL (2.6-4.7) Magnesium Level 1.4 mg/dL (1.8-2.4) Total Bilirubin 0.6 mg/dL (0.2-1.0) 0.4 mg/dL (0.2-1.0) Aspartate Amino Transf (AST/SGOT) 16 U/L (15-37) 36 U/L (15-37) Alanine Aminotransferase (ALT/SGPT) 18 U/L (14-59) 21 U/L (14-59) Alkaline Phosphatase 243 U/L (46-116) 207 U/L (46-116) Total Protein 6.5 g/dL (6.4-8.2) 5.7 g/dL (6.4-8.2) Albumin 1.8 g/dL (3.4-5.0) 1.5 g/dL (3.4-5.0) Albumin/Globulin Ratio 0.4 (1.0-1.7) 0.4 (1.0-1.7) Thyroid Stimulating Hormone (TSH) 4.338 uIU/mL (0.358-3.74) Laboratory Tests Test 09/09/19 12:05 09/09/19 16:58 09/09/19 21:54 09/10/19 00:44 Glucose (Fingerstick) 262 mg/dL (70-99) 238 mg/dL (70-99) 317 mg/dL (70-99) O2 Saturation 99 % (92-99) Arterial Blood pH 7.34 (7.35-7.45) Arterial Blood pCO2 at Patient Temp 31 mmHg (35-46) Arterial Blood pO2 at Patient Temp 172 mmHg (75-108) Arterial Blood HCO3 16 mmol/L (21-28) Arterial Blood Base Excess -9 mmol/L (-3-3) FiO2 50 Test 09/10/19 00:45 09/10/19 06:30 White Blood Count 31.5 x10^3/uL (4.0-11.0) 25.7 x10^3/uL (4.0-11.0) Red Blood Count 2.85 x10^6/uL (3.50-5.40) 2.56 x10^6/uL (3.50-5.40) Hemoglobin 9.9 g/dL (12.0-15.5) 8.7 g/dL (12.0-15.5) Hematocrit 30.4 % (36.0-47.0) 27.8 % (36.0-47.0) Mean Corpuscular Volume 107 fL (79-100) 108 fL (79-100) Mean Corpuscular Hemoglobin 35 pg (25-35) 34 pg (25-35) Mean Corpuscular Hemoglobin Concent 32 g/dL (31-37) 31 g/dL (31-37) Red Cell Distribution Width 21.7 % (11.5-14.5) 21.5 % (11.5-14.5) Platelet Count 342 x10^3/uL (140-400) 279 x10^3/uL (140-400) Neutrophils (%) (Auto) 87 % (31-73) 90 % (31-73) Lymphocytes (%) (Auto) 5 % (24-48) 4 % (24-48) Monocytes (%) (Auto) 8 % (0-9) 6 % (0-9) Eosinophils (%) (Auto) 0 % (0-3) 0 % (0-3) Basophils (%) (Auto) 0 % (0-3) 0 % (0-3) Neutrophils # (Auto) 27.4 x10^3/uL (1.8-7.7) 23.1 x10^3/uL (1.8-7.7) Lymphocytes # (Auto) 1.6 x10^3/uL (1.0-4.8) 0.9 x10^3/uL (1.0-4.8) Monocytes # (Auto) 2.4 x10^3/uL (0.0-1.1) 1.6 x10^3/uL (0.0-1.1) Eosinophils # (Auto) 0.1 x10^3/uL (0.0-0.7) 0.0 x10^3/uL (0.0-0.7) Basophils # (Auto) 0.0 x10^3/uL (0.0-0.2) 0.0 x10^3/uL (0.0-0.2) Sodium Level 124 mmol/L (136-145) 122 mmol/L (136-145) Potassium Level 4.5 mmol/L (3.5-5.1) 4.6 mmol/L (3.5-5.1) Chloride Level 88 mmol/L (98-107) 89 mmol/L (98-107) Carbon Dioxide Level 20 mmol/L (21-32) 17 mmol/L (21-32) Anion Gap 16 (6-14) 16 (6-14) Blood Urea Nitrogen 52 mg/dL (7-20) 51 mg/dL (7-20) Creatinine 7.9 mg/dL (0.6-1.0) 7.9 mg/dL (0.6-1.0) Estimated GFR (Cockcroft-Gault) 5.3 5.3 BUN/Creatinine Ratio 7 (6-20) 6 (6-20) Glucose Level 427 mg/dL (70-99) 481 mg/dL (70-99) Lactic Acid Level 5.3 mmol/L (0.4-2.0) 4.6 mmol/L (0.4-2.0) Calcium Level 8.9 mg/dL (8.5-10.1) 8.5 mg/dL (8.5-10.1) Phosphorus Level 2.4 mg/dL (2.6-4.7) Magnesium Level 1.4 mg/dL (1.8-2.4) Total Bilirubin 0.6 mg/dL (0.2-1.0) 0.4 mg/dL (0.2-1.0) Aspartate Amino Transf (AST/SGOT) 16 U/L (15-37) 36 U/L (15-37) Alanine Aminotransferase (ALT/SGPT) 18 U/L (14-59) 21 U/L (14-59) Alkaline Phosphatase 243 U/L (46-116) 207 U/L (46-116) Total Protein 6.5 g/dL (6.4-8.2) 5.7 g/dL (6.4-8.2) Albumin 1.8 g/dL (3.4-5.0) 1.5 g/dL (3.4-5.0) Albumin/Globulin Ratio 0.4 (1.0-1.7) 0.4 (1.0-1.7) Thyroid Stimulating Hormone (TSH) 4.338 uIU/mL (0.358-3.74) Problem List decub will have Dr Washington fu on timing of debridement LOLI WASHINGTON MD 09/10/19 1358: SURGICAL PROGRESS NOTE Assessment/Plan Pt seen and examined. Agree with Ms. Camacho's note Pt sleeping d/w wound care, will start wound vac prior to surgery until pt can stabilize BRITTNEY CAMACHO APRN Sep 10, 2019 11:20 LOLI WASHINGTON MD Sep 10, 2019 13:58
--- NOTE | 2019-09-10 11:40 | PDOC ---
CARDIOLOGY PROGRESS NOTE SUBJECTIVE: No new events overnight. Continues to be somnolent. On pressors. OBJECTIVE: Vital Signs/I&O: +2.5 L 0.1 of Levophed BP121/62, HR 103 Sinus rhythm on tele Objective: She is somnolent and non-responsive. She has anasarca Normal heart tones lungs clr Soft abd 1+ LE edema. Feet cool to touch CURRENT MEDICATIONS: CV meds reviewed. DIAGNOSTIC TESTING: Labs reviewed. Lactate noted. ASSESSMENT: 1. CAD s/p PCI to the RCA 2. PAD with multiple LE wounds. 3. Hypotension with likely septic shock 4. ESRD on PD. PLAN: 1. Stable from CV standpoint. 2. Will change to rectal asa daily if ok with surgical team as she is currently unable to take meds by mouth. 3. Wean pressors as tolerated 4. Agree with CTA and will be available for any angiography if needed. Thanks Will follow along. YURY KAUR MD Sep 10, 2019 11:40
[2019-09-10] MEDS: FLUCONAZOLE 200MG/100ML PREMIX 100 ML IV SCH (12:11)
[2019-09-10 12:59] LABS: INFLUENZA A PATIENT NEGATIVE (NEGATIVE); INFLUENZA B PATIENT NEGATIVE (NEGATIVE)
--- NOTE | 2019-09-10 13:06 | PDOC ---
PULMONARY PROGRESS NOTES Subjective PT SEDATED EARLIER ON NC NAD Vitals Vital Signs Date Time Temp Pulse Resp B/P (MAP) Pulse Ox O2 Delivery O2 Flow Rate FiO2 09/10/19 12:37 Nasal Cannula 2.0 09/10/19 06:00 112 20 116/ 100 09/10/19 04:00 98.9 98.9 General: Alert, No acute distress Lungs: Clear Cardiovascular: S1 Abdomen: Soft Neuro Exam: Alert Extremities: No Edema Labs Laboratory Tests Test 09/08/19 17:20 09/08/19 22:21 09/09/19 04:00 09/09/19 07:56 Glucose (Fingerstick) 174 mg/dL (70-99) 164 mg/dL (70-99) 172 mg/dL (70-99) White Blood Count 26.6 x10^3/uL (4.0-11.0) Red Blood Count 2.56 x10^6/uL (3.50-5.40) Hemoglobin 8.8 g/dL (12.0-15.5) Hematocrit 27.1 % (36.0-47.0) Mean Corpuscular Volume 106 fL (79-100) Mean Corpuscular Hemoglobin 34 pg (25-35) Mean Corpuscular Hemoglobin Concent 33 g/dL (31-37) Red Cell Distribution Width 21.9 % (11.5-14.5) Platelet Count 287 x10^3/uL (140-400) Neutrophils (%) (Auto) 85 % (31-73) Lymphocytes (%) (Auto) 7 % (24-48) Monocytes (%) (Auto) 8 % (0-9) Eosinophils (%) (Auto) 1 % (0-3) Basophils (%) (Auto) 0 % (0-3) Neutrophils # (Auto) 22.5 x10^3/uL (1.8-7.7) Lymphocytes # (Auto) 1.8 x10^3/uL (1.0-4.8) Monocytes # (Auto) 2.1 x10^3/uL (0.0-1.1) Eosinophils # (Auto) 0.2 x10^3/uL (0.0-0.7) Basophils # (Auto) 0.1 x10^3/uL (0.0-0.2) Sodium Level 125 mmol/L (136-145) Potassium Level 4.1 mmol/L (3.5-5.1) Chloride Level 90 mmol/L (98-107) Carbon Dioxide Level 23 mmol/L (21-32) Anion Gap 12 (6-14) Blood Urea Nitrogen 50 mg/dL (7-20) Creatinine 7.9 mg/dL (0.6-1.0) Estimated GFR (Cockcroft-Gault) 5.3 BUN/Creatinine Ratio 6 (6-20) Glucose Level 181 mg/dL (70-99) Calcium Level 8.7 mg/dL (8.5-10.1) Total Bilirubin 0.4 mg/dL (0.2-1.0) Aspartate Amino Transf (AST/SGOT) 12 U/L (15-37) Alanine Aminotransferase (ALT/SGPT) 12 U/L (14-59) Alkaline Phosphatase 173 U/L (46-116) Total Protein 5.6 g/dL (6.4-8.2) Albumin 1.6 g/dL (3.4-5.0) Albumin/Globulin Ratio 0.4 (1.0-1.7) Test 09/09/19 12:05 09/09/19 16:58 09/09/19 21:54 09/10/19 00:44 Glucose (Fingerstick) 262 mg/dL (70-99) 238 mg/dL (70-99) 317 mg/dL (70-99) O2 Saturation 99 % (92-99) Arterial Blood pH 7.34 (7.35-7.45) Arterial Blood pCO2 at Patient Temp 31 mmHg (35-46) Arterial Blood pO2 at Patient Temp 172 mmHg (75-108) Arterial Blood HCO3 16 mmol/L (21-28) Arterial Blood Base Excess -9 mmol/L (-3-3) FiO2 50 Test 09/10/19 00:45 09/10/19 06:30 White Blood Count 31.5 x10^3/uL (4.0-11.0) 25.7 x10^3/uL (4.0-11.0) Red Blood Count 2.85 x10^6/uL (3.50-5.40) 2.56 x10^6/uL (3.50-5.40) Hemoglobin 9.9 g/dL (12.0-15.5) 8.7 g/dL (12.0-15.5) Hematocrit 30.4 % (36.0-47.0) 27.8 % (36.0-47.0) Mean Corpuscular Volume 107 fL (79-100) 108 fL (79-100) Mean Corpuscular Hemoglobin 35 pg (25-35) 34 pg (25-35) Mean Corpuscular Hemoglobin Concent 32 g/dL (31-37) 31 g/dL (31-37) Red Cell Distribution Width 21.7 % (11.5-14.5) 21.5 % (11.5-14.5) Platelet Count 342 x10^3/uL (140-400) 279 x10^3/uL (140-400) Neutrophils (%) (Auto) 87 % (31-73) 90 % (31-73) Lymphocytes (%) (Auto) 5 % (24-48) 4 % (24-48) Monocytes (%) (Auto) 8 % (0-9) 6 % (0-9) Eosinophils (%) (Auto) 0 % (0-3) 0 % (0-3) Basophils (%) (Auto) 0 % (0-3) 0 % (0-3) Neutrophils # (Auto) 27.4 x10^3/uL (1.8-7.7) 23.1 x10^3/uL (1.8-7.7) Lymphocytes # (Auto) 1.6 x10^3/uL (1.0-4.8) 0.9 x10^3/uL (1.0-4.8) Monocytes # (Auto) 2.4 x10^3/uL (0.0-1.1) 1.6 x10^3/uL (0.0-1.1) Eosinophils # (Auto) 0.1 x10^3/uL (0.0-0.7) 0.0 x10^3/uL (0.0-0.7) Basophils # (Auto) 0.0 x10^3/uL (0.0-0.2) 0.0 x10^3/uL (0.0-0.2) Sodium Level 124 mmol/L (136-145) 122 mmol/L (136-145) Potassium Level 4.5 mmol/L (3.5-5.1) 4.6 mmol/L (3.5-5.1) Chloride Level 88 mmol/L (98-107) 89 mmol/L (98-107) Carbon Dioxide Level 20 mmol/L (21-32) 17 mmol/L (21-32) Anion Gap 16 (6-14) 16 (6-14) Blood Urea Nitrogen 52 mg/dL (7-20) 51 mg/dL (7-20) Creatinine 7.9 mg/dL (0.6-1.0) 7.9 mg/dL (0.6-1.0) Estimated GFR (Cockcroft-Gault) 5.3 5.3 BUN/Creatinine Ratio 7 (6-20) 6 (6-20) Glucose Level 427 mg/dL (70-99) 481 mg/dL (70-99) Lactic Acid Level 5.3 mmol/L (0.4-2.0) 4.6 mmol/L (0.4-2.0) Calcium Level 8.9 mg/dL (8.5-10.1) 8.5 mg/dL (8.5-10.1) Phosphorus Level 2.4 mg/dL (2.6-4.7) Magnesium Level 1.4 mg/dL (1.8-2.4) Total Bilirubin 0.6 mg/dL (0.2-1.0) 0.4 mg/dL (0.2-1.0) Aspartate Amino Transf (AST/SGOT) 16 U/L (15-37) 36 U/L (15-37) Alanine Aminotransferase (ALT/SGPT) 18 U/L (14-59) 21 U/L (14-59) Alkaline Phosphatase 243 U/L (46-116) 207 U/L (46-116) Total Protein 6.5 g/dL (6.4-8.2) 5.7 g/dL (6.4-8.2) Albumin 1.8 g/dL (3.4-5.0) 1.5 g/dL (3.4-5.0) Albumin/Globulin Ratio 0.4 (1.0-1.7) 0.4 (1.0-1.7) Thyroid Stimulating Hormone (TSH) 4.338 uIU/mL (0.358-3.74) Laboratory Tests Test 09/09/19 16:58 09/09/19 21:54 09/10/19 00:44 09/10/19 00:45 Glucose (Fingerstick) 238 mg/dL (70-99) 317 mg/dL (70-99) O2 Saturation 99 % (92-99) Arterial Blood pH 7.34 (7.35-7.45) Arterial Blood pCO2 at Patient Temp 31 mmHg (35-46) Arterial Blood pO2 at Patient Temp 172 mmHg (75-108) Arterial Blood HCO3 16 mmol/L (21-28) Arterial Blood Base Excess -9 mmol/L (-3-3) FiO2 50 White Blood Count 31.5 x10^3/uL (4.0-11.0) Red Blood Count 2.85 x10^6/uL (3.50-5.40) Hemoglobin 9.9 g/dL (12.0-15.5) Hematocrit 30.4 % (36.0-47.0) Mean Corpuscular Volume 107 fL (79-100) Mean Corpuscular Hemoglobin 35 pg (25-35) Mean Corpuscular Hemoglobin Concent 32 g/dL (31-37) Red Cell Distribution Width 21.7 % (11.5-14.5) Platelet Count 342 x10^3/uL (140-400) Neutrophils (%) (Auto) 87 % (31-73) Lymphocytes (%) (Auto) 5 % (24-48) Monocytes (%) (Auto) 8 % (0-9) Eosinophils (%) (Auto) 0 % (0-3) Basophils (%) (Auto) 0 % (0-3) Neutrophils # (Auto) 27.4 x10^3/uL (1.8-7.7) Lymphocytes # (Auto) 1.6 x10^3/uL (1.0-4.8) Monocytes # (Auto) 2.4 x10^3/uL (0.0-1.1) Eosinophils # (Auto) 0.1 x10^3/uL (0.0-0.7) Basophils # (Auto) 0.0 x10^3/uL (0.0-0.2) Sodium Level 124 mmol/L (136-145) Potassium Level 4.5 mmol/L (3.5-5.1) Chloride Level 88 mmol/L (98-107) Carbon Dioxide Level 20 mmol/L (21-32) Anion Gap 16 (6-14) Blood Urea Nitrogen 52 mg/dL (7-20) Creatinine 7.9 mg/dL (0.6-1.0) Estimated GFR (Cockcroft-Gault) 5.3 BUN/Creatinine Ratio 7 (6-20) Glucose Level 427 mg/dL (70-99) Lactic Acid Level 5.3 mmol/L (0.4-2.0) Calcium Level 8.9 mg/dL (8.5-10.1) Phosphorus Level 2.4 mg/dL (2.6-4.7) Magnesium Level 1.4 mg/dL (1.8-2.4) Total Bilirubin 0.6 mg/dL (0.2-1.0) Aspartate Amino Transf (AST/SGOT) 16 U/L (15-37) Alanine Aminotransferase (ALT/SGPT) 18 U/L (14-59) Alkaline Phosphatase 243 U/L (46-116) Total Protein 6.5 g/dL (6.4-8.2) Albumin 1.8 g/dL (3.4-5.0) Albumin/Globulin Ratio 0.4 (1.0-1.7) Test 09/10/19 06:30 White Blood Count 25.7 x10^3/uL (4.0-11.0) Red Blood Count 2.56 x10^6/uL (3.50-5.40) Hemoglobin 8.7 g/dL (12.0-15.5) Hematocrit 27.8 % (36.0-47.0) Mean Corpuscular Volume 108 fL (79-100) Mean Corpuscular Hemoglobin 34 pg (25-35) Mean Corpuscular Hemoglobin Concent 31 g/dL (31-37) Red Cell Distribution Width 21.5 % (11.5-14.5) Platelet Count 279 x10^3/uL (140-400) Neutrophils (%) (Auto) 90 % (31-73) Lymphocytes (%) (Auto) 4 % (24-48) Monocytes (%) (Auto) 6 % (0-9) Eosinophils (%) (Auto) 0 % (0-3) Basophils (%) (Auto) 0 % (0-3) Neutrophils # (Auto) 23.1 x10^3/uL (1.8-7.7) Lymphocytes # (Auto) 0.9 x10^3/uL (1.0-4.8) Monocytes # (Auto) 1.6 x10^3/uL (0.0-1.1) Eosinophils # (Auto) 0.0 x10^3/uL (0.0-0.7) Basophils # (Auto) 0.0 x10^3/uL (0.0-0.2) Sodium Level 122 mmol/L (136-145) Potassium Level 4.6 mmol/L (3.5-5.1) Chloride Level 89 mmol/L (98-107) Carbon Dioxide Level 17 mmol/L (21-32) Anion Gap 16 (6-14) Blood Urea Nitrogen 51 mg/dL (7-20) Creatinine 7.9 mg/dL (0.6-1.0) Estimated GFR (Cockcroft-Gault) 5.3 BUN/Creatinine Ratio 6 (6-20) Glucose Level 481 mg/dL (70-99) Lactic Acid Level 4.6 mmol/L (0.4-2.0) Calcium Level 8.5 mg/dL (8.5-10.1) Total Bilirubin 0.4 mg/dL (0.2-1.0) Aspartate Amino Transf (AST/SGOT) 36 U/L (15-37) Alanine Aminotransferase (ALT/SGPT) 21 U/L (14-59) Alkaline Phosphatase 207 U/L (46-116) Total Protein 5.7 g/dL (6.4-8.2) Albumin 1.5 g/dL (3.4-5.0) Albumin/Globulin Ratio 0.4 (1.0-1.7) Thyroid Stimulating Hormone (TSH) 4.338 uIU/mL (0.358-3.74) Medications Active Scripts Medications Dose Route/Sig Max Daily Dose Days Date Category Doxycycline Hyclate 100 Mg Capsule 1 Cap PO BID 08/29/19 Rx Tenino 5-325 Tablet (Acetaminophen/Hydrocodone Bitart) 1 Each Tablet 1 Tab PO PRN Q6HRS PRN 07/08/19 Rx Tenino 5-325 Tablet (Acetaminophen/Hydrocodone Bitart) 1 Each Tablet 1 Tab PO Q6HRS 06/08/19 Rx Bactrim Ds Tablet (Sulfamethoxazole/Trimethoprim) 1 Each Tablet 1 Tab PO BID 04/07/19 Rx Cephalexin 500 Mg Tablet 1 Tab PO TID 04/07/19 Rx Lisinopril 40 Mg Tablet 20 Mg PO BID 30 01/03/19 Rx Brilinta (Ticagrelor) 90 Mg Tablet 90 Mg PO BID 60 01/03/19 Rx Tramadol Hcl 50 Mg Tablet 50 Mg PO PRN Q6HRS PRN 01/02/19 Reported Melatonin 3 Mg Tablet 1 Tab PO QHS 01/02/19 Reported Imodium A-D (Loperamide HCl) 2 Mg Capsule 2 Mg PO PRN PRN 01/02/19 Reported Proair Hfa (Albuterol Sulfate) 8.5 Gm Hfa.aer.ad 2 Puff INH QID PRN 01/02/19 Reported Ammonium Lactate 226 Gm Lotion 1 Gm TP DAILY 01/02/19 Reported Montelukast Sodium Tablet (Montelukast Sodium) 10 Mg Tablet 1 Tab PO DAILY 01/02/19 Reported Metolazone 2.5 Mg Tablet 2.5 Mg PO DAILY 01/02/19 Reported Voltaren (Diclofenac Sodium) 100 Gm Gel..gram. 2 Gm TP QID PRN 01/02/19 Reported Sulfacetamide Sodium 3.5 Gm Oint...g. 0.5 Inch OP Q2DAYS AT HS 01/02/19 Reported Clotrimazole 15 Gm Cream..g. 1 [place]yna TP BID 01/02/19 Reported Furosemide 40 Mg Tablet 1 Tab PO BID 01/02/19 Reported Calcium Acetate 667 Mg Tablet 2 Cap PO TIDWMEALS 01/02/19 Reported Symbicort 160-4.5 Mcg Inhaler (Budesonide/Formoterol Fumarate) 10.2 Gm Hfa.aer.ad 2 Puff INH BID 01/02/19 Reported Lantus (Insulin Glargine,Hum.rec.anlog) 100 Unit/1 Ml Vial 20 Unit SQ HS 06/14/18 Reported Aspirin 81 Mg Tab.chew 81 Mg PO DAILY 06/08/18 Reported Duoneb 0.5-3(2.5) Mg/3 Ml (Albuterol/Ipratropium) 3 Ml Ampul.neb 3 Ml NEB QID 06/08/18 Reported Zofran Odt (Ondansetron) 8 Mg Tab.rapdis 8 Mg PO BID PRN 06/08/18 Reported Meclizine Hcl 12.5 Mg Tablet 1 Tab PO TID 06/08/18 Reported Famotidine 20 Mg Tablet 20 Mg PO BID 06/08/18 Reported Midodrine Hcl 5 Mg Tablet 5 Mg PO TID 05/26/18 Reported Folic Acid 1 Mg Tablet 1 Mg PO DAILY 05/26/18 Reported Hydralazine Hcl 50 Mg Tablet 100 Mg PO TID 05/26/18 Reported Loratadine 10 Mg Tab.rapdis 10 Mg PO DAILY 05/26/18 Reported NITROGLYCERIN SubLingual (Nitroglycerin) 0.4 Mg Tab.subl 0.4 Mg SL PRN Q5MIN PRN 09/16/14 Reported Flonase (Fluticasone Propionate) 16 Gm [place].susp 1 [place] NS BID 09/16/14 Reported Ventolin Hfa Inhaler (Albuterol Sulfate) 18 Gm Hfa.aer.ad 2 Puff INH Q6HRS PRN 09/16/14 Reported Carvedilol (Carvedilol) 12.5 Mg Tablet 12.5 Mg PO BID 09/16/14 Reported Lipitor (Atorvastatin Calcium) 80 Mg Tablet 1 Tab PO QEVNG 08/30/14 Reported Impression . FULL NOTE DICTATED SPOKE WITH FAMILY AT BEDSIDE EDDIE BARCLAY MD Sep 10, 2019 13:05
--- NOTE | 2019-09-10 16:24 | NUR ---
SS following for discharge planning. SS reviewed pt chart. Pt is from home and is currently requiring oxygen. Pt has peritoneal dialysis at home. SS will continue to follow for discharge planning.
[2019-09-10] MEDS ORDERED: CONTRAST GIVEN. MC PRN (17:45)
[2019-09-10] MEDS ORDERED: IOHEXOL 350 MG/ML 100 ML VIAL. IV ONE (17:45)
--- NOTE | 2019-09-10 18:14 | NUR ---
Wound Care: Attempted to see patient regarding wound care. patient leaving unit for CT. Spoke with MICHAEL Landry whom stated patient may have a surgical debridement of wound possibly tomorrow depending on CT results, will await for vac placement at this time. Will follow up tomorrow.
--- NOTE | 2019-09-10 19:01 | RAD ---
CT HEAD WO CONTRAST History: Encephalopathy Comparison: May 01, 2017 Technique: Noncontrast CT imaging was performed of the head. Exposure: One or more of the following individualized dose reduction techniques were utilized for this examination: 1. Automated exposure control 2. Adjustment of the mA and/or kV according to patient size 3. Use of iterative reconstruction technique. Findings: No acute extra-axial or parenchymal hemorrhage is identified. There is no significant intra-axial mass effect, midline shift, or extra-axial fluid collection. The [place] differentiation of the major vascular territories is preserved. There is again some ill-defined low-density such most notable left parietal and frontal white matter. Ventricular size is stable, within normal limits. There is mild prominence of the supratentorial subarachnoid spaces greater near the vertex as seen previously. There is minimal ethmoid air cell mucosal thickening also very minimally of the sphenoid sinus. There is mild left greater than right maxillary sinus mucosal thickening, not fully included. No acute calvarial abnormality is identified. There is focus of nonspecific left occipital region scalp soft tissue density extending to the skin surface somewhat more prominent although in part present previously. There is atherosclerotic calcification of the carotid siphons and intradural vertebral arteries. Impression: 1. No acute intracranial abnormality is identified. There is again some ill-defined low-density greatest of the left frontal and parietal white matter, nonspecific findings which could be due to to chronic microvascular ischemic disease in a lesser suspicion for other white matter disease. Electronically signed by: Dereck Andujar MD (09/10/2019 6:58 PM) [id number]
--- NOTE | 2019-09-10 19:10 | RAD ---
CT CHEST WO CONTRAST Indication: Shortness of air Technique: Noncontrast CT imaging was performed of the chest, multiplanar reconstruction images submitted. One or more of the following individualized dose reduction techniques were utilized for this examination: 1. Automated exposure control 2. Adjustment of the mA and/or kV according to patient size 3. Use of iterative reconstruction technique. Comparison: September 24, 2012 Findings: There is motion degradation. There are small bilateral pleural effusions, density characteristics measuring greater than simple fluid although limited accurate characterization due to motion. There is lower lobe bronchial wall thickening bilaterally and also likely degree of variable endobronchial density poorly characterized due to motion, also some areas of more central perihilar mild infiltrate bilaterally. There is also likely degree of There is some heterogeneity of the bilateral breasts mass deep in the right breast such as seen image 39 not excludable. Heart is enlarged. There again has been median sternotomy. There is coronary calcification. There are some calcified right hilar and mediastinal nodes. Thoracic aortic caliber is similar. There is some linear atelectasis of the right lower lobe near the major fissure. There are a couple of small calcifications of the visualized left kidney. There is atherosclerotic calcification of the visualized abdominal aorta and splenic artery. There is right upper extremity PICC. IMPRESSION: 1. There are small dependent pleural effusions bilaterally, density characteristics measuring greater than simple fluid although findings may be accentuated by motion degradation. There is lower lobe bronchial wall thickening bilaterally also degree of endobronchial density which could be due to mucus plugging although cannot accurately exclude underlying endobronchial lesion. There is some perihilar density which may be due to degree of edema especially given pleural effusions. Component of left ventricular failure is possible. 2. Not fully included, there is heterogeneity of the visualized bilateral breasts, mass in the deep right breast not excludable by this exam, better evaluated by mammography and ultrasound if needed. 3. There is coronary calcification. Electronically signed by: Dereck Andujar MD (09/10/2019 7:07 PM) [id number]
[2019-09-10] MEDS: INSULIN GLARGINE SYRINGE. SQ SCH (21:00)
[2019-09-10] MEDS: ATORVASTATIN CALCIUM 40 MG TABLET. PO SCH (21:08)
[2019-09-10] MEDS: FAMOTIDINE 20 MG TABLET. PO SCH (21:08)
--- NOTE | 2019-09-10 22:24 | NUR ---
Patient drowsy and not eating meals today per dayshift RN. Contreras held for Memonic.
[2019-09-11] VITALS (22 sets, daily range): BP systolic 0–114; BP diastolic 0–60
[2019-09-11] MEDS: DEXMEDETOMIDINE 400 MCG in IV NORMAL SALINE 100ML 96 ML IV PRN (01:09)
--- NOTE | 2019-09-11 01:48 | CONS ---
DATE OF CONSULTATION: 09/10/2019 ATTENDING PHYSICIAN: Sybil Rubin MD REASON FOR CONSULTATION: The patient is seen in pulmonary consultation at the request of Dr. Rubin for hypoxemia. HISTORY OF PRESENT ILLNESS: The patient is a 54-year-old female, with end-stage renal disease secondary to diabetes, hypertension, presented with a necrotic left ischial ulcer, currently undergoing evaluation for possible surgery. She has also been hypotensive. She was in the ICU. She was started on antibiotics and IV fluids. She basically presented to the Emergency Room with 7-10 day difficulty with wound. She had been given antibiotics as an outpatient and [facility]. She has a 5 cm necrotic left ischial ulcer. She became hypoxic, I was asked to see her in consultation. She has been seen by the Infectious Disease Service and is currently on Zyvox and Zosyn. A CT angiogram of the chest and abdomen and pelvis is pending. The patient normally wears no oxygen at home. She has a remote history of tobacco. PAST MEDICAL HISTORY: Coronary artery disease, chronic heart failure, hypertension, hyperlipidemia, COPD, CVA, osteoarthritis, chronic renal insufficiency and diabetes, hyperparathyroidism. PAST SURGICAL HISTORY: Coronary artery bypass grafting. FAMILY HISTORY: Hypertension. SOCIAL HISTORY: She is currently not smoking. REVIEW OF SYSTEMS: Unobtainable secondary to the patient's condition. CURRENT MEDICATIONS: List was reviewed. LABORATORY DATA: Labs were reviewed. Chest x-ray is pending. CT abdomen and pelvis is pending. White count was 25,000. Arterial blood gas revealed a pH of 7.34, PaCO2 of 31, PaO2 of 172. Lactic acid level was initially 5.3, down to 4.6. IMPRESSION: 1. Acute hypoxemic respiratory failure secondary to sepsis. 2. Sepsis with hypotension. 3. Infected necrotic ulcer of the left ischium. 4. Leukocytosis. 5. Left leg ulcer. 6. Peripheral vascular disease. 7. Chronic kidney disease, on peritoneal dialysis. 8. Type 2 diabetes. 9. History of Clostridium difficile. 10. History of methicillin-resistant Staphylococcus aureus pneumonia. PLAN: 1. We will continue to support with oxygen supplementation, p.r.n. BiPAP. 2. Follow up on the CT chest, abdomen and pelvis. 3. Empiric antibiotics. 4. Continue peritoneal dialysis. 5. DVT and GI prophylaxis. I do appreciate the privilege in sharing in the patient's care. The above was discussed with family members at the bedside. EDDIE BARCLAY MD DR: LENNY/rayray JOB#: [id number] / [id number]
[2019-09-11 05:26] LABS: BASO % 0 % (0-3); EOS # 0.1 x10^3/uL (0.0-0.7); EOS % 0 % (0-3); HEMATOCRIT 25.2 % (36.0-47.0); HEMOGLOBIN 8.2 g/dL (12.0-15.5); LYMPH # 1.1 x10^3/uL (1.0-4.8); LYMPH % 4 % (24-48); MEAN CORPUSCULAR HEMOGLOBIN 34 pg (25-35); MEAN CORPUSCULAR HGB CONC 33 g/dL (31-37); MEAN CORPUSCULAR VOLUME 106 fL (79-100); MONO # 1.5 x10^3/uL (0.0-1.1); MONO % 6 % (0-9); NEUT # 22.7 x10^3/uL (1.8-7.7); NEUT % 89 % (31-73); PLATELET COUNT 229 x10^3/uL (140-400); RED BLOOD COUNT 2.38 x10^6/uL (3.50-5.40); RED CELL DISTRIBUTION WIDTH 22.3 % (11.5-14.5); WHITE BLOOD COUNT 25.4 x10^3/uL (4.0-11.0)
[2019-09-11] MEDS: HYDROcodone/APAP 5/325MG 1 TAB TABLET PO SCH ×4 (05:39→18:31)
[2019-09-11] MEDS: IV NORMAL SALINE 1000ML BAG 1,000 ML IV SCH ×2 (05:39→07:00)
[2019-09-11] MEDS: PIPERACILLIN/TAZOBACTAM 2.25 GM in IV NORMAL SALINE 50ML 50 ML IV SCH ×2 (05:39→13:52)
[2019-09-11 05:45] LABS: ALBUMIN 1.3 g/dL (3.4-5.0); ALBUMIN/GLOBULIN RATIO 0.3 (1.0-1.7); CALCIUM 8.2 mg/dL (8.5-10.1); CREATININE 7.2 mg/dL (0.6-1.0); GFR 5.9; POTASSIUM 3.9 mmol/L (3.5-5.1); TOTAL BILIRUBIN 0.3 mg/dL (0.2-1.0); TOTAL PROTEIN 5.2 g/dL (6.4-8.2)
--- NOTE | 2019-09-11 07:48 | PDOC ---
Infectious Disease Note Subjective Subjective pt is feeling better, ROS ROS no n/v/d/sob/fever Vital Sign Vital Signs Vital Signs Date Time Temp Pulse Resp B/P (MAP) Pulse Ox O2 Delivery O2 Flow Rate FiO2 09/11/19 06:00 69 22 92/44 (60) 100 Nasal Cannula 3.0 09/11/19 04:00 97.6 97.6 Physical Exam PHYSICAL EXAM GENERAL: Propped up in bed, alert in NAD HEENT: Pupils equally round, reactive. Normal conjunctivae. Oropharynx pink and moist. NECK: Supple. LUNGS: Clear to auscultation. CARDIAC: S1 and S2. ABDOMEN: Obese, mildly distended, soft, nontender with hyperactive bowel sounds and PD catheter without signs of complications. EXTREMITIES: 1+ edema lower extremities bilaterally. Some ischemic changes to both feet noted. SKIN: Warm to touch without signs of rash. She has a large necrotic ulcer, left ischial area measuring 8.6 x 8.4 x 0.4 cm and a smaller ulcer, left posterior calf measuring 3.5 x 3 x 0.1 cm (refer to wound care nurse for further descriptions and pictures). NEUROLOGIC: Alert and answering questions appropriately. Peripheral IV looks okay. Labs Lab Laboratory Tests Test 09/10/19 12:25 09/10/19 16:22 09/10/19 21:21 09/11/19 05:16 Influenza Type A Antigen Negative (NEGATIVE) Influenza Type B Antigen Negative (NEGATIVE) Glucose (Fingerstick) 272 mg/dL (70-99) 236 mg/dL (70-99) White Blood Count 25.4 x10^3/uL (4.0-11.0) Red Blood Count 2.38 x10^6/uL (3.50-5.40) Hemoglobin 8.2 g/dL (12.0-15.5) Hematocrit 25.2 % (36.0-47.0) Mean Corpuscular Volume 106 fL (79-100) Mean Corpuscular Hemoglobin 34 pg (25-35) Mean Corpuscular Hemoglobin Concent 33 g/dL (31-37) Red Cell Distribution Width 22.3 % (11.5-14.5) Platelet Count 229 x10^3/uL (140-400) Neutrophils (%) (Auto) 89 % (31-73) Lymphocytes (%) (Auto) 4 % (24-48) Monocytes (%) (Auto) 6 % (0-9) Eosinophils (%) (Auto) 0 % (0-3) Basophils (%) (Auto) 0 % (0-3) Neutrophils # (Auto) 22.7 x10^3/uL (1.8-7.7) Lymphocytes # (Auto) 1.1 x10^3/uL (1.0-4.8) Monocytes # (Auto) 1.5 x10^3/uL (0.0-1.1) Eosinophils # (Auto) 0.1 x10^3/uL (0.0-0.7) Basophils # (Auto) 0.0 x10^3/uL (0.0-0.2) Sodium Level 130 mmol/L (136-145) Potassium Level 3.9 mmol/L (3.5-5.1) Chloride Level 94 mmol/L (98-107) Carbon Dioxide Level 21 mmol/L (21-32) Anion Gap 15 (6-14) Blood Urea Nitrogen 46 mg/dL (7-20) Creatinine 7.2 mg/dL (0.6-1.0) Estimated GFR (Cockcroft-Gault) 5.9 BUN/Creatinine Ratio 6 (6-20) Glucose Level 358 mg/dL (70-99) Calcium Level 8.2 mg/dL (8.5-10.1) Total Bilirubin 0.3 mg/dL (0.2-1.0) Aspartate Amino Transf (AST/SGOT) 195 U/L (15-37) Alanine Aminotransferase (ALT/SGPT) 177 U/L (14-59) Alkaline Phosphatase 175 U/L (46-116) Total Protein 5.2 g/dL (6.4-8.2) Albumin 1.3 g/dL (3.4-5.0) Albumin/Globulin Ratio 0.3 (1.0-1.7) Micro Microbiology 09/07/19 Blood Culture - Preliminary, Resulted NO GROWTH AFTER 2 DAYS Objective Assessment Sepsis with hypotension and lactic acidosis Infected necrotic ulcer of the left ishium Leukocytosis - some better Loose stools Left leg ulcer PVD CKD on PD DM II CAD h/o c. diff 2012 h/o MRSA Plan Plan of Care Zyvox and Zosyn, diflucan Awaiting c. diff PCR, continue empiric po vanc labs in am neg to date Surgical debridement planned for Tuesday Local wound care and offloading Vascular following. CTA abd/ pelvis / runoff ordered D/w nursing Critically ill ARELY BAIRES MD Sep 11, 2019 07:48
[2019-09-11] MEDS: CARVEDILOL 12.5 MG TABLET. PO SCH ×2 (08:00→17:00)
[2019-09-11] MEDS: FLUCONAZOLE 200MG/100ML PREMIX 100 ML IV SCH (08:16)
[2019-09-11] MEDS: BUDESONIDE 0.5 MG/2 ML NEBU. NEB SCH ×2 (08:56→20:21)
[2019-09-11] MEDS: IPRATRPIUM/ALBUTEROL 0.5/2.5MG 3 ML NEBU. NEB SCH ×4 (08:56→20:21)
--- NOTE | 2019-09-11 08:58 | PDOC ---
SUBJECTIVE ROS stable OBJECTIVE Vital Signs Vital Signs Date Time Temp Pulse Resp B/P (MAP) Pulse Ox O2 Delivery O2 Flow Rate FiO2 09/11/19 06:00 69 22 92/44 (60) 100 Nasal Cannula 3.0 09/11/19 04:00 97.6 97.6 I & 0 Intake and Output 09/11/19 07:00 Intake Total 4901 ml Output Total 22 ml Balance 4879 ml Intake Oral 120 ml IV Total 4781 ml Output Urine Total 22 ml PHYSICAL EXAM Physical Exam GENERAL:NAD HEENT: Oropharynx pink and moist. NECK: Supple. LUNGS: Clear to auscultation. CARDIAC: S1 and S2. ABDOMEN: Obese, mildly distended, soft, nontender, PD catheter without signs of complications. EXTREMITIES: 1+ edema lower extremities bilaterally. SKIN: No rash. large necrotic ulcer,left ischial area and a smaller ulcer, left posterior calf (per ID) NEUROLOGIC: Confused DIAGNOSIS/ASSESSMENT Assessment & Plan ESRD- On PD seen on PD , Continue APD as ordered, Dustin Guevara , PD fluid sent for Cx Sepsis with hypotension and lactic acidosis on Levaphed Wiseman Cx per ID , No RRF on straight cath Infected necrotic ulcer of the left ishium Vascular following. Left leg ulcer PVD Confusion- improved HypoNatremia - Glucose for Stable, chronic , dc Metolazone and Lasix DM II CAD COMMENT/RELEVANT DATA Meds Current Medications Medications (Trade) Dose Ordered Sig/Jesus Start Time Stop Time Status Last Admin Dose Admin Acetaminophen (Tylenol) 650 mg PRN Q6HRS PRN 09/08/19 09:30 09/09/19 21:43 650 MG Acetaminophen/ Hydrocodone Bitart (Lortab 5/325) 1 tab Q6HRS 09/07/19 18:00 09/09/19 06:06 1 TAB Albuterol Sulfate (Ventolin Neb Soln) 2.5 mg RTQID 09/07/19 20:00 09/08/19 10:54 DC Albuterol/ Ipratropium (Duoneb) 3 ml QID 09/07/19 21:00 09/10/19 19:49 3 ML Aspirin (Children'S Aspirin) 81 mg DAILY 09/08/19 09:00 09/09/19 07:54 81 MG Atorvastatin Calcium (Lipitor) 80 mg QHS 09/07/19 21:00 09/10/19 21:08 80 MG Atropine Sulfate (ATROPINE 0.5mg SYRINGE) 0.5 mg PRN Q5MIN PRN 09/10/19 01:45 Budesonide (Pulmicort) 0.5 mg RTBID 09/07/19 20:00 09/10/19 19:49 0.5 MG Calcium Acetate (Phoslo) 1,334 mg TIDWMEALS 09/08/19 08:00 09/09/19 16:48 1,334 MG Carvedilol (Coreg) 12.5 mg BIDWMEALS 09/07/19 18:00 Clotrimazole (Lotrimin) 1 vern BID 09/07/19 21:00 09/10/19 21:12 1 VERN Darbepoetin Abelino (ARANESP for DIALYSIS PTS) 60 mcg WEEKLYHS 09/08/19 21:00 09/08/19 22:18 60 MCG Dexmedetomidine HCl 400 mcg/ Sodium Chloride 100 ml @ 0 mls/hr CONT PRN 09/10/19 01:45 09/11/19 01:09 11.875 MLS/HR Dextrose (Dextrose 50%-Water Syringe) 12.5 gm PRN Q15MIN PRN 09/07/19 17:45 Dextrose (Iv Dextrose 5%) 250 ml PRN Q15MIN PRN 09/07/19 17:45 Diclofenac Sodium (Voltaren) 2 vern PRN QID PRN 09/07/19 17:45 Famotidine (Pepcid) 20 mg QHS 09/07/19 21:00 09/10/19 21:08 20 MG Fluconazole/ Sodium Chloride 100 ml @ 100 mls/hr Q24H 09/10/19 09:00 09/11/19 08:16 100 MLS/HR Fluticasone Propionate (Flonase) 1 spray BID 09/07/19 21:00 09/10/19 21:13 1 SPRAY Folic Acid (Folic Acid) 1 mg DAILY 09/08/19 09:00 09/09/19 07:53 1 MG Furosemide (Lasix) 40 mg [id number] 09/07/19 18:30 Heparin Sodium (Porcine) (Heparin Sodium) 5,000 unit Q12HR 09/09/19 10:30 09/10/19 21:12 5,000 UNIT Hydralazine HCl (Apresoline) 100 mg TID 09/07/19 21:00 Info (CONTRAST GIVEN -- Rx MONITORING) 1 each PRN DAILY PRN 09/10/19 17:45 09/12/19 17:44 Insulin Glargine (Lantus Syringe) 20 unit HS 09/07/19 21:00 09/09/19 21:55 20 UNIT Insulin Human Lispro (HumaLOG) 0-5 UNITS TIDWMEALS 09/08/19 08:00 09/10/19 16:24 2 UNITS Insulin Human Regular 100 unit/ Sodium Chloride 101 ml @ 0 mls/hr CONT PRN 09/10/19 10:00 Iohexol (Omnipaque 350 Mg/ml) 80 ml 1X ONCE 09/10/19 17:45 09/10/19 17:46 DC 09/10/19 17:45 80 ML Lactic Acid (Lac-Hydrin) 1 vern PRN DAILY PRN 09/08/19 09:00 Lactobacillus Rhamnosus (Culturelle) 1 cap BID 09/09/19 21:00 09/10/19 21:07 1 CAP Lidocaine HCl (Xylocaine-Mpf 1% 2ml Vial) 2 ml STK-MED ONCE 09/10/19 10:37 09/10/19 10:38 DC Linezolid/Dextrose 300 ml @ 300 mls/hr Q12HR 09/07/19 21:00 09/10/19 21:07 300 MLS/HR Lisinopril (Prinivil) 20 mg BID 09/07/19 21:00 Lorazepam (Ativan Inj) 0.25 mg PRN Q6HRS PRN 09/10/19 01:30 09/10/19 01:25 0.25 MG Meclizine HCl (Antivert) 12.5 mg TID 09/07/19 21:00 09/10/19 21:08 12.5 MG Metolazone (Zaroxolyn) 2.5 mg DAILY 09/08/19 09:00 09/09/19 07:53 2.5 MG Midodrine (Proamatine) 5 mg [id number] 09/07/19 18:30 09/09/19 16:48 5 MG Montelukast Sodium (Singulair) 10 mg DAILY 09/08/19 09:00 09/09/19 07:53 10 MG Morphine Sulfate (Morphine Sulfate) 2 mg PRN Q4HRS PRN 09/10/19 01:45 09/10/19 01:46 2 MG Nitroglycerin (Nitrostat) 0.4 mg PRN Q5MIN PRN 09/07/19 17:45 Non-Formulary Medication (Albuterol Sulfate (Ventolin Hfa Inhaler)) 2 puff Q6HRS PRN 09/07/19 17:45 UNV Norepinephrine Bitartrate 8 mg/ Dextrose 258 ml @ 18.189 mls/ hr CONT PRN 09/08/19 00:45 09/10/19 17:24 9.095 MLS/HR Ondansetron HCl (Zofran Odt) 4 mg PRN BID PRN 09/07/19 18:30 Piperacillin Sod/ Tazobactam Sod 2.25 gm/Sodium Chloride 50 ml @ 100 mls/hr Q8HRS 09/07/19 19:00 09/11/19 05:39 100 MLS/HR Sodium Chloride 1,000 ml @ 100 mls/hr Q10H 09/07/19 23:00 09/11/19 07:00 100 MLS/HR Ticagrelor (Brilinta) 90 mg BID 09/07/19 21:00 09/07/19 18:14 DC Tizanidine HCl (Zanaflex) 2 mg PRN Q8HRS PRN 09/08/19 16:45 09/09/19 23:13 2 MG Tramadol HCl (Ultram) 50 mg PRN Q6HRS PRN 09/07/19 17:45 09/08/19 17:22 50 MG Vancomycin HCl (Vancomycin Oral Solution) 125 mg [id number] 09/08/19 11:00 09/10/19 21:08 125 MG Lab Laboratory Tests Test 09/10/19 12:25 09/10/19 16:22 09/10/19 21:21 09/11/19 05:16 Influenza Type A Antigen Negative (NEGATIVE) Influenza Type B Antigen Negative (NEGATIVE) Glucose (Fingerstick) 272 mg/dL (70-99) 236 mg/dL (70-99) White Blood Count 25.4 x10^3/uL (4.0-11.0) Red Blood Count 2.38 x10^6/uL (3.50-5.40) Hemoglobin 8.2 g/dL (12.0-15.5) Hematocrit 25.2 % (36.0-47.0) Mean Corpuscular Volume 106 fL (79-100) Mean Corpuscular Hemoglobin 34 pg (25-35) Mean Corpuscular Hemoglobin Concent 33 g/dL (31-37) Red Cell Distribution Width 22.3 % (11.5-14.5) Platelet Count 229 x10^3/uL (140-400) Neutrophils (%) (Auto) 89 % (31-73) Lymphocytes (%) (Auto) 4 % (24-48) Monocytes (%) (Auto) 6 % (0-9) Eosinophils (%) (Auto) 0 % (0-3) Basophils (%) (Auto) 0 % (0-3) Neutrophils # (Auto) 22.7 x10^3/uL (1.8-7.7) Lymphocytes # (Auto) 1.1 x10^3/uL (1.0-4.8) Monocytes # (Auto) 1.5 x10^3/uL (0.0-1.1) Eosinophils # (Auto) 0.1 x10^3/uL (0.0-0.7) Basophils # (Auto) 0.0 x10^3/uL (0.0-0.2) Sodium Level 130 mmol/L (136-145) Potassium Level 3.9 mmol/L (3.5-5.1) Chloride Level 94 mmol/L (98-107) Carbon Dioxide Level 21 mmol/L (21-32) Anion Gap 15 (6-14) Blood Urea Nitrogen 46 mg/dL (7-20) Creatinine 7.2 mg/dL (0.6-1.0) Estimated GFR (Cockcroft-Gault) 5.9 BUN/Creatinine Ratio 6 (6-20) Glucose Level 358 mg/dL (70-99) Calcium Level 8.2 mg/dL (8.5-10.1) Total Bilirubin 0.3 mg/dL (0.2-1.0) Aspartate Amino Transf (AST/SGOT) 195 U/L (15-37) Alanine Aminotransferase (ALT/SGPT) 177 U/L (14-59) Alkaline Phosphatase 175 U/L (46-116) Total Protein 5.2 g/dL (6.4-8.2) Albumin 1.3 g/dL (3.4-5.0) Albumin/Globulin Ratio 0.3 (1.0-1.7) Test 09/11/19 08:43 Glucose (Fingerstick) 269 mg/dL (70-99) Results All relevant outside records, renal labs, imaging studies, telemetry/EKG's were reviewed. HI PALMER MD Sep 11, 2019 08:58
[2019-09-11] MEDS: metOLazone 2.5 MG TABLET PO SCH (09:00)
[2019-09-11] MEDS: LISINOPRIL 20 MG TABLET PO SCH (09:00)
--- NOTE | 2019-09-11 09:45 | PDOC ---
PROGRESS NOTES Subjective Subjective Pt more awake today ,eating breakfast Objective Objective Vital Signs Date Time Temp Pulse Resp B/P (MAP) Pulse Ox O2 Delivery O2 Flow Rate FiO2 09/11/19 08:56 100 Nasal Cannula 3.0 09/11/19 06:00 69 22 92/44 (60) 09/11/19 04:00 97.6 97.6 Intake and Output 09/11/19 07:00 Intake Total 4901 ml Output Total 22 ml Balance 4879 ml Intake Oral 120 ml IV Total 4781 ml Output Urine Total 22 ml Physical Exam Abdomen: Soft Heart: Normal S1, Normal S2 Extremities: No edema, Other (posterior tibial monophasic Doppler signals) General: Other (sedated ) HEENT: PERRLA, Mucous membr. moist/pink Lungs: Clear to auscultation, Normal air movement MUSCULOSKELETAL: No joint tenderness, No deformity Neuro: Normal speech Psych/Mental Status: Mental status NL Skin: Other (left medial malleoli wound stable) Assessment Assessment IMP: acute sepsis. hyotension fever 101.8. lactic acidosis. hyperglycemia. encephalopathy. necrotic wounds ishium leg pvd eerd on PD 1. Large left ischial ulcer. 2. Coronary artery disease, previous stent, on Brilinta. 3. Coronary artery bypass surgery 5 years ago, 5-vessel. 4. Diabetes, insulin dependent. 5. End-stage renal disease, on dialysis. 6. Peripheral vascular disease. PLAN:mental status improved weaning off pressors tripple antibiotics iv fluids iv insulin drip ct head-neg ,ct chest -ve C diff ? on oral vancomycin lactic acid 4.5 wbc 25 spoke with RN , spoke with ID critical prognosis gaurded. surgical debridement soon . Comment Review of Relevant I have reviewed the following items kinsey (where applicable) has been applied. Labs Laboratory Tests Test 09/10/19 12:25 09/10/19 16:22 09/10/19 21:21 09/11/19 05:16 Influenza Type A Antigen Negative (NEGATIVE) Influenza Type B Antigen Negative (NEGATIVE) Glucose (Fingerstick) 272 mg/dL (70-99) 236 mg/dL (70-99) White Blood Count 25.4 x10^3/uL (4.0-11.0) Red Blood Count 2.38 x10^6/uL (3.50-5.40) Hemoglobin 8.2 g/dL (12.0-15.5) Hematocrit 25.2 % (36.0-47.0) Mean Corpuscular Volume 106 fL (79-100) Mean Corpuscular Hemoglobin 34 pg (25-35) Mean Corpuscular Hemoglobin Concent 33 g/dL (31-37) Red Cell Distribution Width 22.3 % (11.5-14.5) Platelet Count 229 x10^3/uL (140-400) Neutrophils (%) (Auto) 89 % (31-73) Lymphocytes (%) (Auto) 4 % (24-48) Monocytes (%) (Auto) 6 % (0-9) Eosinophils (%) (Auto) 0 % (0-3) Basophils (%) (Auto) 0 % (0-3) Neutrophils # (Auto) 22.7 x10^3/uL (1.8-7.7) Lymphocytes # (Auto) 1.1 x10^3/uL (1.0-4.8) Monocytes # (Auto) 1.5 x10^3/uL (0.0-1.1) Eosinophils # (Auto) 0.1 x10^3/uL (0.0-0.7) Basophils # (Auto) 0.0 x10^3/uL (0.0-0.2) Sodium Level 130 mmol/L (136-145) Potassium Level 3.9 mmol/L (3.5-5.1) Chloride Level 94 mmol/L (98-107) Carbon Dioxide Level 21 mmol/L (21-32) Anion Gap 15 (6-14) Blood Urea Nitrogen 46 mg/dL (7-20) Creatinine 7.2 mg/dL (0.6-1.0) Estimated GFR (Cockcroft-Gault) 5.9 BUN/Creatinine Ratio 6 (6-20) Glucose Level 358 mg/dL (70-99) Calcium Level 8.2 mg/dL (8.5-10.1) Total Bilirubin 0.3 mg/dL (0.2-1.0) Aspartate Amino Transf (AST/SGOT) 195 U/L (15-37) Alanine Aminotransferase (ALT/SGPT) 177 U/L (14-59) Alkaline Phosphatase 175 U/L (46-116) Total Protein 5.2 g/dL (6.4-8.2) Albumin 1.3 g/dL (3.4-5.0) Albumin/Globulin Ratio 0.3 (1.0-1.7) Test 09/11/19 08:43 Glucose (Fingerstick) 269 mg/dL (70-99) Microbiology 09/07/19 Blood Culture - Preliminary, Resulted NO GROWTH AFTER 3 DAYS Medications Current Medications Info (CONTRAST GIVEN -- Rx MONITORING) 1 each PRN DAILY PRN MC SEE COMMENTS; Start 09/10/19 at 17:45; Stop 09/12/19 at 17:44 Insulin Human Regular 100 unit/ Sodium Chloride 101 ml @ 0 mls/hr CONT PRN IV SEE I/O RECORD; Start 09/10/19 at 10:00 Iohexol (Omnipaque 350 Mg/ml) 80 ml 1X ONCE IV Last administered on 09/10/19at 17:45; Start 09/10/19 at 17:45; Stop 09/10/19 at 17:46; Status DC Lidocaine HCl (Xylocaine-Mpf 1% 2ml Vial) 2 ml STK-MED ONCE .ROUTE ; Start 09/10/19 at 10:37; Stop 09/10/19 at 10:38; Status DC Vitals/I & O Vital Sign - Last 24 Hours 09/10/19 09/10/19 09/10/19 09/10/19 10:00 11:00 12:00 12:00 Temp 100.9 100.9 Pulse 100 106 100 Resp 24 20 21 B/P (MAP) 170/ 160/ 122/60 (80) Pulse Ox 100 100 100 O2 Delivery Nasal Cannula Nasal Cannula Nasal Cannula O2 Flow Rate 3.0 3.0 3.0 09/10/19 09/10/19 09/10/19 09/10/19 12:34 12:37 13:00 13:00 Pulse 96 Resp 20 B/P (MAP) 88/44 (59) Pulse Ox 100 O2 Delivery Nasal Cannula Nasal Cannula Nasal Cannula O2 Flow Rate 3.0 2.0 3.0 09/10/19 09/10/19 09/10/19 09/10/19 14:00 14:00 15:00 15:00 Pulse 96 92 Resp 19 18 B/P (MAP) 102/50 (67) 100/52 (68) Pulse Ox 100 100 O2 Delivery Nasal Cannula Nasal Cannula O2 Flow Rate 3.0 3.0 09/10/19 09/10/19 09/10/19 09/10/19 16:00 16:00 16:00 16:00 Pulse 92 Resp 21 B/P (MAP) 102/54 (70) Pulse Ox 100 100 O2 Delivery Nasal Cannula Nasal Cannula Nasal Cannula O2 Flow Rate 6.0 3.0 3.0 09/10/19 09/10/19 09/10/19 09/10/19 17:00 17:00 18:00 18:00 Temp 100.4 100.4 Pulse 92 80 Resp 21 17 B/P (MAP) 98/50 (66) 102/52 (69) Pulse Ox 100 100 O2 Delivery Nasal Cannula Nasal Cannula O2 Flow Rate 3.0 3.0 09/10/19 09/10/19 09/10/19 09/10/19 19:00 19:50 20:00 20:00 Pulse 86 Resp 18 B/P (MAP) 110/54 (72) Pulse Ox 100 98 O2 Delivery Nasal Cannula Nasal Cannula Nasal Cannula O2 Flow Rate 3.0 3.0 3.0 09/10/19 09/10/19 09/10/19 09/10/19 20:00 21:00 21:58 22:00 Temp 98.5 98.5 Pulse 85 84 100 Resp 18 22 32 B/P (MAP) 105/52 (69) 104/52 (69) 96/56 (69) Pulse Ox 100 100 100 97 O2 Delivery Nasal Cannula Nasal Cannula Nasal Cannula Nasal Cannula O2 Flow Rate 3.0 3.0 3.0 3.0 09/10/19 09/11/19 09/11/19 09/11/19 23:00 00:00 00:00 00:00 Temp 97.8 97.8 Pulse 83 82 Resp 26 28 B/P (MAP) 90/53 (65) 89/53 (65) Pulse Ox 100 99 O2 Delivery Nasal Cannula Nasal Cannula Nasal Cannula O2 Flow Rate 3.0 3.0 3.0 09/11/19 09/11/19 09/11/19 09/11/19 01:00 01:15 01:45 02:00 Pulse 84 78 Resp 24 18 B/P (MAP) 109/52 (71) 107/49 (68) 99/57 (71) 93/49 (64) Pulse Ox 100 100 O2 Delivery Nasal Cannula Nasal Cannula O2 Flow Rate 3.0 3.0 09/11/19 09/11/19 09/11/19 09/11/19 03:00 04:00 04:00 04:00 Temp 97.6 97.6 Pulse 75 72 Resp 20 24 B/P (MAP) 91/44 (60) 99/49 (66) Pulse Ox 100 99 O2 Delivery Nasal Cannula Nasal Cannula Nasal Cannula O2 Flow Rate 3.0 3.0 3.0 09/11/19 09/11/19 09/11/19 05:00 06:00 08:56 Pulse 68 69 Resp 18 22 B/P (MAP) 96/47 (63) 92/44 (60) Pulse Ox 100 100 100 O2 Delivery Nasal Cannula Nasal Cannula Nasal Cannula O2 Flow Rate 3.0 3.0 3.0 Intake and Output 09/10/19 09/10/19 09/11/19 15:00 23:00 07:00 Intake Total 400 ml 1364 ml 3137 ml Output Total 12 ml 10 ml 0 ml Balance 388 ml 1354 ml 3137 ml ELMO ENGLISH MD Sep 11, 2019 09:45
--- NOTE | 2019-09-11 09:57 | RAD ---
Examination: CT ANGIO ABD ILEO/FEMOR RUNOFF History: Left leg wound. Peripheral artery disease. Comparison/Correlation: 06/08/2018 CT abdomen and pelvis with contrast exam Findings: Axial images were obtained from the level of the aortic root to include the feet. Sagittal and coronal reformatted images were provided. Volume rendered images. Maximum intensity projection images were provided. Nonvascular findings: Sternal wires are present. Small pleural effusions are present. The pulmonary vascular structures are congested. Minimal atelectasis adjacent to the pleural effusions noted. Liver is unremarkable. Spleen is normal other than calcified granulomas. Pancreas is unremarkable. Adrenal glands are normal. Symmetric perfusion of the kidneys is suggested. Left renal low-attenuation lesion measuring 0.6 centimeter likely representing a cyst is present and with no suspicious features requiring follow-up. Moderate quantity of stool is present in the colon. No inflammatory change about the cecum. Appendix appears to be present. No inflammatory findings. Trace pelvic fluid is present. Gallbladder fossa is unremarkable. Peritoneal dialysis catheter noted. Ellison catheter is present within urinary bladder. Circumferential wall thickening of the urinary bladder is present. Note is made of a large region of soft tissue gas at the inferior, medial left buttock and thigh. Soft tissue wound is noted at the site. Soft tissue gas is noted extend anteriorly into the low pelvic wall fat at the level of the left pubic symphysis. No fluid collection. Small hip joint effusions are present. Vascular findings: Minimal calcific involvement of the superior mesenteric artery origin is present. Superior mesenteric artery is widely patent. Significant atheromatous and calcific component of the superior mesenteric artery is evident proximally. Approximately 70 percent stenosis is present near the origin of the superior mesenteric artery is present. At least 50 percent stenosis of the inferior mesenteric artery at its origin noted. There is no abdominal aortic aneurysm. Scattered atheromatous calcific involvement of the abdominal aorta is present. Calcific involvement of the internal iliac arteries is notable. External iliac arteries and common iliac arteries are patent. Extensive calcific involvement of the bilateral lower extremity arterial vasculature all pickens is diffusely present. Scattered noncalcific atheromatous involvement also seen. Right common femoral artery and proximal to mid superficial femoral artery are patent. There are foci of relative narrowing about the 50 percent stenosis identified involving the distal superficial femoral artery. At the very distal superficial femoral artery and proximal popliteal artery, there is an approximately 4.5 cm length of narrowing of 50 percent to greater than 75 percent. Tibialis posterior, tibialis anterior, and peroneal arteries are patent. Right dorsalis pedis artery is identified partially opacify with contrast. Approximately 50 percent narrowing of the right profunda femoris artery the origin is noted. 75 percent narrowing of a proximal branch of the right superficial femoral arteries noted. At the distal left superficial femoral artery and proximal popliteal artery, there is a 10 cm length of likely extensive atheromatous calcific involvement. Foci of 75 percent stenosis are present within this distribution. High-grade stenosis of the distal popliteal artery of at least 75 percent is seen. Posterior tibial, anterior tibial, and peroneal arteries opacify with contrast. Dorsalis pedis arteries noted. Impression: Soft tissue gas at the posterior medial left buttock which extends inferiorly to the left inferior pubic ramus and anterior to the left symphysis pubis. No fluid collection. Findings are concerning for necrotizing fasciitis. Approximately 70 percent stenosis at the just distal to the superior mesenteric artery origin. Bilateral distal superficial femoral/proximal popliteal artery stenoses of approximately 75 percent. Stenoses of 75 percent involving the right profunda femoris artery and a proximal branch of the right superficial femoral artery. Small bilateral pleural effusions. Pulmonary vasculature congestion. Circumferential wall thickening of the urinary bladder. Correlate for chronic cystitis. Discussed with the patient's nurse Braxton on 09/11/2019 at 9:52 AM. PQRS Compliance Statement: One or more of the following individualized dose reduction techniques were utilized for this examination: 1. Automated exposure control 2. Adjustment of the mA and/or kV according to patient size 3. Use of iterative reconstruction technique Electronically signed by: Ji Koroma MD (09/11/2019 9:54 AM) [facility]
--- NOTE | 2019-09-11 10:00 | NUR ---
Results from aortic runoff called to Dr Kade Barbosa, along with lactic 2.1 at 1000, continue POC
[2019-09-11] MEDS: CALCIUM ACETATE 667 MG CAPSULE PO SCH ×3 (10:02→17:45)
[2019-09-11] MEDS: FUROSEMIDE 40 MG TABLET. PO SCH ×2 (10:02→16:00)
[2019-09-11] MEDS: FLUTICASONE 50MCG/NASAL SPRAY 16GM BOTTLE. NS SCH (10:03)
[2019-09-11] MEDS: FOLIC ACID 1 MG TABLET. PO SCH (10:03)
[2019-09-11] MEDS: LACTOBACILLUS RHAMNOSUS GG 1 CAPSULE. PO SCH (10:03)
[2019-09-11] MEDS: MECLIZINE HCL 12.5 MG TABLET. PO SCH ×2 (10:03→13:51)
[2019-09-11] MEDS: ASPIRIN CHEWABLE 81 MG TABLET. PO SCH (10:18)
[2019-09-11] MEDS: MONTELUKAST SODIUM 10 MG TABLET. PO SCH (10:18)
[2019-09-11] MEDS: MIDODRINE 5 MG TABLET PO SCH ×3 (10:18→17:44)
[2019-09-11] MEDS: CLOTRIMAZOLE 1% TOPICAL CREAM 15GM TUBE. TP SCH (10:19)
[2019-09-11] MEDS: HEPARIN for SUB-Q USE 5,000 UNIT/ML VIAL. SQ SCH (10:19)
[2019-09-11] MEDS: INSULIN LISPRO 300 UNITS/3 ML VIAL. SQ SCH ×3 (10:20→18:34)
[2019-09-11] MEDS: VANCOMYCIN 125 MG/2.5 ML ORAL SOLUTION. PO SCH ×3 (10:20→17:44)
--- NOTE | 2019-09-11 11:04 | PDOC ---
PULMONARY PROGRESS NOTES Subjective PT SEDATED EARLIER ON NC NAD Vitals Vital Signs Date Time Temp Pulse Resp B/P (MAP) Pulse Ox O2 Delivery O2 Flow Rate FiO2 09/11/19 10:18 69 82/47 09/11/19 08:56 100 Nasal Cannula 3.0 09/11/19 06:00 22 09/11/19 04:00 97.6 97.6 General: Alert, No acute distress Lungs: Clear Cardiovascular: S1 Abdomen: Soft Neuro Exam: Alert Extremities: No Edema Labs Laboratory Tests Test 09/09/19 12:05 09/09/19 16:58 09/09/19 21:54 09/10/19 00:44 Glucose (Fingerstick) 262 mg/dL (70-99) 238 mg/dL (70-99) 317 mg/dL (70-99) O2 Saturation 99 % (92-99) Arterial Blood pH 7.34 (7.35-7.45) Arterial Blood pCO2 at Patient Temp 31 mmHg (35-46) Arterial Blood pO2 at Patient Temp 172 mmHg (75-108) Arterial Blood HCO3 16 mmol/L (21-28) Arterial Blood Base Excess -9 mmol/L (-3-3) FiO2 50 Test 09/10/19 00:45 09/10/19 06:30 09/10/19 12:25 09/10/19 16:22 White Blood Count 31.5 x10^3/uL (4.0-11.0) 25.7 x10^3/uL (4.0-11.0) Red Blood Count 2.85 x10^6/uL (3.50-5.40) 2.56 x10^6/uL (3.50-5.40) Hemoglobin 9.9 g/dL (12.0-15.5) 8.7 g/dL (12.0-15.5) Hematocrit 30.4 % (36.0-47.0) 27.8 % (36.0-47.0) Mean Corpuscular Volume 107 fL (79-100) 108 fL (79-100) Mean Corpuscular Hemoglobin 35 pg (25-35) 34 pg (25-35) Mean Corpuscular Hemoglobin Concent 32 g/dL (31-37) 31 g/dL (31-37) Red Cell Distribution Width 21.7 % (11.5-14.5) 21.5 % (11.5-14.5) Platelet Count 342 x10^3/uL (140-400) 279 x10^3/uL (140-400) Neutrophils (%) (Auto) 87 % (31-73) 90 % (31-73) Lymphocytes (%) (Auto) 5 % (24-48) 4 % (24-48) Monocytes (%) (Auto) 8 % (0-9) 6 % (0-9) Eosinophils (%) (Auto) 0 % (0-3) 0 % (0-3) Basophils (%) (Auto) 0 % (0-3) 0 % (0-3) Neutrophils # (Auto) 27.4 x10^3/uL (1.8-7.7) 23.1 x10^3/uL (1.8-7.7) Lymphocytes # (Auto) 1.6 x10^3/uL (1.0-4.8) 0.9 x10^3/uL (1.0-4.8) Monocytes # (Auto) 2.4 x10^3/uL (0.0-1.1) 1.6 x10^3/uL (0.0-1.1) Eosinophils # (Auto) 0.1 x10^3/uL (0.0-0.7) 0.0 x10^3/uL (0.0-0.7) Basophils # (Auto) 0.0 x10^3/uL (0.0-0.2) 0.0 x10^3/uL (0.0-0.2) Sodium Level 124 mmol/L (136-145) 122 mmol/L (136-145) Potassium Level 4.5 mmol/L (3.5-5.1) 4.6 mmol/L (3.5-5.1) Chloride Level 88 mmol/L (98-107) 89 mmol/L (98-107) Carbon Dioxide Level 20 mmol/L (21-32) 17 mmol/L (21-32) Anion Gap 16 (6-14) 16 (6-14) Blood Urea Nitrogen 52 mg/dL (7-20) 51 mg/dL (7-20) Creatinine 7.9 mg/dL (0.6-1.0) 7.9 mg/dL (0.6-1.0) Estimated GFR (Cockcroft-Gault) 5.3 5.3 BUN/Creatinine Ratio 7 (6-20) 6 (6-20) Glucose Level 427 mg/dL (70-99) 481 mg/dL (70-99) Lactic Acid Level 5.3 mmol/L (0.4-2.0) 4.6 mmol/L (0.4-2.0) Calcium Level 8.9 mg/dL (8.5-10.1) 8.5 mg/dL (8.5-10.1) Phosphorus Level 2.4 mg/dL (2.6-4.7) Magnesium Level 1.4 mg/dL (1.8-2.4) Total Bilirubin 0.6 mg/dL (0.2-1.0) 0.4 mg/dL (0.2-1.0) Aspartate Amino Transf (AST/SGOT) 16 U/L (15-37) 36 U/L (15-37) Alanine Aminotransferase (ALT/SGPT) 18 U/L (14-59) 21 U/L (14-59) Alkaline Phosphatase 243 U/L (46-116) 207 U/L (46-116) Total Protein 6.5 g/dL (6.4-8.2) 5.7 g/dL (6.4-8.2) Albumin 1.8 g/dL (3.4-5.0) 1.5 g/dL (3.4-5.0) Albumin/Globulin Ratio 0.4 (1.0-1.7) 0.4 (1.0-1.7) Thyroid Stimulating Hormone (TSH) 4.338 uIU/mL (0.358-3.74) Influenza Type A Antigen Negative (NEGATIVE) Influenza Type B Antigen Negative (NEGATIVE) Glucose (Fingerstick) 272 mg/dL (70-99) Test 09/10/19 21:21 09/11/19 05:16 09/11/19 08:43 Glucose (Fingerstick) 236 mg/dL (70-99) 269 mg/dL (70-99) White Blood Count 25.4 x10^3/uL (4.0-11.0) Red Blood Count 2.38 x10^6/uL (3.50-5.40) Hemoglobin 8.2 g/dL (12.0-15.5) Hematocrit 25.2 % (36.0-47.0) Mean Corpuscular Volume 106 fL (79-100) Mean Corpuscular Hemoglobin 34 pg (25-35) Mean Corpuscular Hemoglobin Concent 33 g/dL (31-37) Red Cell Distribution Width 22.3 % (11.5-14.5) Platelet Count 229 x10^3/uL (140-400) Neutrophils (%) (Auto) 89 % (31-73) Lymphocytes (%) (Auto) 4 % (24-48) Monocytes (%) (Auto) 6 % (0-9) Eosinophils (%) (Auto) 0 % (0-3) Basophils (%) (Auto) 0 % (0-3) Neutrophils # (Auto) 22.7 x10^3/uL (1.8-7.7) Lymphocytes # (Auto) 1.1 x10^3/uL (1.0-4.8) Monocytes # (Auto) 1.5 x10^3/uL (0.0-1.1) Eosinophils # (Auto) 0.1 x10^3/uL (0.0-0.7) Basophils # (Auto) 0.0 x10^3/uL (0.0-0.2) Sodium Level 130 mmol/L (136-145) Potassium Level 3.9 mmol/L (3.5-5.1) Chloride Level 94 mmol/L (98-107) Carbon Dioxide Level 21 mmol/L (21-32) Anion Gap 15 (6-14) Blood Urea Nitrogen 46 mg/dL (7-20) Creatinine 7.2 mg/dL (0.6-1.0) Estimated GFR (Cockcroft-Gault) 5.9 BUN/Creatinine Ratio 6 (6-20) Glucose Level 358 mg/dL (70-99) Calcium Level 8.2 mg/dL (8.5-10.1) Total Bilirubin 0.3 mg/dL (0.2-1.0) Aspartate Amino Transf (AST/SGOT) 195 U/L (15-37) Alanine Aminotransferase (ALT/SGPT) 177 U/L (14-59) Alkaline Phosphatase 175 U/L (46-116) Total Protein 5.2 g/dL (6.4-8.2) Albumin 1.3 g/dL (3.4-5.0) Albumin/Globulin Ratio 0.3 (1.0-1.7) Laboratory Tests Test 09/10/19 12:25 09/10/19 16:22 09/10/19 21:21 09/11/19 05:16 Influenza Type A Antigen Negative (NEGATIVE) Influenza Type B Antigen Negative (NEGATIVE) Glucose (Fingerstick) 272 mg/dL (70-99) 236 mg/dL (70-99) White Blood Count 25.4 x10^3/uL (4.0-11.0) Red Blood Count 2.38 x10^6/uL (3.50-5.40) Hemoglobin 8.2 g/dL (12.0-15.5) Hematocrit 25.2 % (36.0-47.0) Mean Corpuscular Volume 106 fL (79-100) Mean Corpuscular Hemoglobin 34 pg (25-35) Mean Corpuscular Hemoglobin Concent 33 g/dL (31-37) Red Cell Distribution Width 22.3 % (11.5-14.5) Platelet Count 229 x10^3/uL (140-400) Neutrophils (%) (Auto) 89 % (31-73) Lymphocytes (%) (Auto) 4 % (24-48) Monocytes (%) (Auto) 6 % (0-9) Eosinophils (%) (Auto) 0 % (0-3) Basophils (%) (Auto) 0 % (0-3) Neutrophils # (Auto) 22.7 x10^3/uL (1.8-7.7) Lymphocytes # (Auto) 1.1 x10^3/uL (1.0-4.8) Monocytes # (Auto) 1.5 x10^3/uL (0.0-1.1) Eosinophils # (Auto) 0.1 x10^3/uL (0.0-0.7) Basophils # (Auto) 0.0 x10^3/uL (0.0-0.2) Sodium Level 130 mmol/L (136-145) Potassium Level 3.9 mmol/L (3.5-5.1) Chloride Level 94 mmol/L (98-107) Carbon Dioxide Level 21 mmol/L (21-32) Anion Gap 15 (6-14) Blood Urea Nitrogen 46 mg/dL (7-20) Creatinine 7.2 mg/dL (0.6-1.0) Estimated GFR (Cockcroft-Gault) 5.9 BUN/Creatinine Ratio 6 (6-20) Glucose Level 358 mg/dL (70-99) Calcium Level 8.2 mg/dL (8.5-10.1) Total Bilirubin 0.3 mg/dL (0.2-1.0) Aspartate Amino Transf (AST/SGOT) 195 U/L (15-37) Alanine Aminotransferase (ALT/SGPT) 177 U/L (14-59) Alkaline Phosphatase 175 U/L (46-116) Total Protein 5.2 g/dL (6.4-8.2) Albumin 1.3 g/dL (3.4-5.0) Albumin/Globulin Ratio 0.3 (1.0-1.7) Test 09/11/19 08:43 Glucose (Fingerstick) 269 mg/dL (70-99) Medications Active Scripts Medications Dose Route/Sig Max Daily Dose Days Date Category Doxycycline Hyclate 100 Mg Capsule 1 Cap PO BID 08/29/19 Rx [place] 5-325 Tablet (Acetaminophen/Hydrocodone Bitart) 1 Each Tablet 1 Tab PO PRN Q6HRS PRN 07/08/19 Rx [place] 5-325 Tablet (Acetaminophen/Hydrocodone Bitart) 1 Each Tablet 1 Tab PO Q6HRS 06/08/19 Rx Bactrim Ds Tablet (Sulfamethoxazole/Trimethoprim) 1 Each Tablet 1 Tab PO BID 04/07/19 Rx Cephalexin 500 Mg Tablet 1 Tab PO TID 04/07/19 Rx Lisinopril 40 Mg Tablet 20 Mg PO BID 30 01/03/19 Rx Brilinta (Ticagrelor) 90 Mg Tablet 90 Mg PO BID 60 01/03/19 Rx Tramadol Hcl 50 Mg Tablet 50 Mg PO PRN Q6HRS PRN 01/02/19 Reported Melatonin 3 Mg Tablet 1 Tab PO QHS 01/02/19 Reported Imodium A-D (Loperamide HCl) 2 Mg Capsule 2 Mg PO PRN PRN 01/02/19 Reported Proair Hfa (Albuterol Sulfate) 8.5 Gm Hfa.aer.ad 2 Puff INH QID PRN 01/02/19 Reported Ammonium Lactate 226 Gm Lotion 1 Gm TP DAILY 01/02/19 Reported Montelukast Sodium Tablet (Montelukast Sodium) 10 Mg Tablet 1 Tab PO DAILY 01/02/19 Reported Metolazone 2.5 Mg Tablet 2.5 Mg PO DAILY 01/02/19 Reported Voltaren (Diclofenac Sodium) 100 Gm Gel..gram. 2 Gm TP QID PRN 01/02/19 Reported Sulfacetamide Sodium 3.5 Gm Oint...g. 0.5 Inch OP Q2DAYS AT HS 01/02/19 Reported Clotrimazole 15 Gm Cream..g. 1 Katarzyna TP BID 01/02/19 Reported Furosemide 40 Mg Tablet 1 Tab PO BID 01/02/19 Reported Calcium Acetate 667 Mg Tablet 2 Cap PO TIDWMEALS 01/02/19 Reported Symbicort 160-4.5 Mcg Inhaler (Budesonide/Formoterol Fumarate) 10.2 Gm Hfa.aer.ad 2 Puff INH BID 01/02/19 Reported Lantus (Insulin Glargine,Hum.rec.anlog) 100 Unit/1 Ml Vial 20 Unit SQ HS 06/14/18 Reported Aspirin 81 Mg Tab.chew 81 Mg PO DAILY 06/08/18 Reported Duoneb 0.5-3(2.5) Mg/3 Ml (Albuterol/Ipratropium) 3 Ml Ampul.neb 3 Ml NEB QID 06/08/18 Reported Zofran Odt (Ondansetron) 8 Mg Tab.rapdis 8 Mg PO BID PRN 06/08/18 Reported Meclizine Hcl 12.5 Mg Tablet 1 Tab PO TID 06/08/18 Reported Famotidine 20 Mg Tablet 20 Mg PO BID 06/08/18 Reported Midodrine Hcl 5 Mg Tablet 5 Mg PO TID 05/26/18 Reported Folic Acid 1 Mg Tablet 1 Mg PO DAILY 05/26/18 Reported Hydralazine Hcl 50 Mg Tablet 100 Mg PO TID 05/26/18 Reported Loratadine 10 Mg Tab.rapdis 10 Mg PO DAILY 05/26/18 Reported NITROGLYCERIN SubLingual (Nitroglycerin) 0.4 Mg Tab.subl 0.4 Mg SL PRN Q5MIN PRN 09/16/14 Reported Flonase (Fluticasone Propionate) 16 Gm Renner.susp 1 Renner NS BID 09/16/14 Reported Ventolin Hfa Inhaler (Albuterol Sulfate) 18 Gm Hfa.aer.ad 2 Puff INH Q6HRS PRN 09/16/14 Reported Carvedilol (Carvedilol) 12.5 Mg Tablet 12.5 Mg PO BID 09/16/14 Reported Lipitor (Atorvastatin Calcium) 80 Mg Tablet 1 Tab PO QEVNG 08/30/14 Reported Impression . FULL NOTE DICTATED SPOKE WITH FAMILY AT BEDSIDE EDDIE BARCLAY MD Sep 11, 2019 11:04
--- NOTE | 2019-09-11 11:44 | PDOC ---
SURGICAL PROGRESS NOTE Subjective Pt more alert, eating Vital Signs Vital Signs Date Time Temp Pulse Resp B/P (MAP) Pulse Ox O2 Delivery O2 Flow Rate FiO2 09/11/19 10:18 69 82/47 09/11/19 08:56 100 Nasal Cannula 3.0 09/11/19 06:00 22 09/11/19 04:00 97.6 97.6 I&O Intake and Output 09/11/19 07:00 Intake Total 4901 ml Output Total 22 ml Balance 4879 ml Intake Oral 120 ml IV Total 4781 ml Output Urine Total 22 ml General: Alert, Cooperative, No acute distress Abdomen: Soft, No tenderness Labs Laboratory Tests Test 09/09/19 12:05 09/09/19 16:58 09/09/19 21:54 09/10/19 00:44 Glucose (Fingerstick) 262 mg/dL (70-99) 238 mg/dL (70-99) 317 mg/dL (70-99) O2 Saturation 99 % (92-99) Arterial Blood pH 7.34 (7.35-7.45) Arterial Blood pCO2 at Patient Temp 31 mmHg (35-46) Arterial Blood pO2 at Patient Temp 172 mmHg (75-108) Arterial Blood HCO3 16 mmol/L (21-28) Arterial Blood Base Excess -9 mmol/L (-3-3) FiO2 50 Test 09/10/19 00:45 09/10/19 06:30 09/10/19 12:25 09/10/19 16:22 White Blood Count 31.5 x10^3/uL (4.0-11.0) 25.7 x10^3/uL (4.0-11.0) Red Blood Count 2.85 x10^6/uL (3.50-5.40) 2.56 x10^6/uL (3.50-5.40) Hemoglobin 9.9 g/dL (12.0-15.5) 8.7 g/dL (12.0-15.5) Hematocrit 30.4 % (36.0-47.0) 27.8 % (36.0-47.0) Mean Corpuscular Volume 107 fL (79-100) 108 fL (79-100) Mean Corpuscular Hemoglobin 35 pg (25-35) 34 pg (25-35) Mean Corpuscular Hemoglobin Concent 32 g/dL (31-37) 31 g/dL (31-37) Red Cell Distribution Width 21.7 % (11.5-14.5) 21.5 % (11.5-14.5) Platelet Count 342 x10^3/uL (140-400) 279 x10^3/uL (140-400) Neutrophils (%) (Auto) 87 % (31-73) 90 % (31-73) Lymphocytes (%) (Auto) 5 % (24-48) 4 % (24-48) Monocytes (%) (Auto) 8 % (0-9) 6 % (0-9) Eosinophils (%) (Auto) 0 % (0-3) 0 % (0-3) Basophils (%) (Auto) 0 % (0-3) 0 % (0-3) Neutrophils # (Auto) 27.4 x10^3/uL (1.8-7.7) 23.1 x10^3/uL (1.8-7.7) Lymphocytes # (Auto) 1.6 x10^3/uL (1.0-4.8) 0.9 x10^3/uL (1.0-4.8) Monocytes # (Auto) 2.4 x10^3/uL (0.0-1.1) 1.6 x10^3/uL (0.0-1.1) Eosinophils # (Auto) 0.1 x10^3/uL (0.0-0.7) 0.0 x10^3/uL (0.0-0.7) Basophils # (Auto) 0.0 x10^3/uL (0.0-0.2) 0.0 x10^3/uL (0.0-0.2) Sodium Level 124 mmol/L (136-145) 122 mmol/L (136-145) Potassium Level 4.5 mmol/L (3.5-5.1) 4.6 mmol/L (3.5-5.1) Chloride Level 88 mmol/L (98-107) 89 mmol/L (98-107) Carbon Dioxide Level 20 mmol/L (21-32) 17 mmol/L (21-32) Anion Gap 16 (6-14) 16 (6-14) Blood Urea Nitrogen 52 mg/dL (7-20) 51 mg/dL (7-20) Creatinine 7.9 mg/dL (0.6-1.0) 7.9 mg/dL (0.6-1.0) Estimated GFR (Cockcroft-Gault) 5.3 5.3 BUN/Creatinine Ratio 7 (6-20) 6 (6-20) Glucose Level 427 mg/dL (70-99) 481 mg/dL (70-99) Lactic Acid Level 5.3 mmol/L (0.4-2.0) 4.6 mmol/L (0.4-2.0) Calcium Level 8.9 mg/dL (8.5-10.1) 8.5 mg/dL (8.5-10.1) Phosphorus Level 2.4 mg/dL (2.6-4.7) Magnesium Level 1.4 mg/dL (1.8-2.4) Total Bilirubin 0.6 mg/dL (0.2-1.0) 0.4 mg/dL (0.2-1.0) Aspartate Amino Transf (AST/SGOT) 16 U/L (15-37) 36 U/L (15-37) Alanine Aminotransferase (ALT/SGPT) 18 U/L (14-59) 21 U/L (14-59) Alkaline Phosphatase 243 U/L (46-116) 207 U/L (46-116) Total Protein 6.5 g/dL (6.4-8.2) 5.7 g/dL (6.4-8.2) Albumin 1.8 g/dL (3.4-5.0) 1.5 g/dL (3.4-5.0) Albumin/Globulin Ratio 0.4 (1.0-1.7) 0.4 (1.0-1.7) Thyroid Stimulating Hormone (TSH) 4.338 uIU/mL (0.358-3.74) Influenza Type A Antigen Negative (NEGATIVE) Influenza Type B Antigen Negative (NEGATIVE) Glucose (Fingerstick) 272 mg/dL (70-99) Test 09/10/19 21:21 09/11/19 05:16 09/11/19 08:43 09/11/19 10:30 Glucose (Fingerstick) 236 mg/dL (70-99) 269 mg/dL (70-99) White Blood Count 25.4 x10^3/uL (4.0-11.0) Red Blood Count 2.38 x10^6/uL (3.50-5.40) Hemoglobin 8.2 g/dL (12.0-15.5) Hematocrit 25.2 % (36.0-47.0) Mean Corpuscular Volume 106 fL (79-100) Mean Corpuscular Hemoglobin 34 pg (25-35) Mean Corpuscular Hemoglobin Concent 33 g/dL (31-37) Red Cell Distribution Width 22.3 % (11.5-14.5) Platelet Count 229 x10^3/uL (140-400) Neutrophils (%) (Auto) 89 % (31-73) Lymphocytes (%) (Auto) 4 % (24-48) Monocytes (%) (Auto) 6 % (0-9) Eosinophils (%) (Auto) 0 % (0-3) Basophils (%) (Auto) 0 % (0-3) Neutrophils # (Auto) 22.7 x10^3/uL (1.8-7.7) Lymphocytes # (Auto) 1.1 x10^3/uL (1.0-4.8) Monocytes # (Auto) 1.5 x10^3/uL (0.0-1.1) Eosinophils # (Auto) 0.1 x10^3/uL (0.0-0.7) Basophils # (Auto) 0.0 x10^3/uL (0.0-0.2) Sodium Level 130 mmol/L (136-145) Potassium Level 3.9 mmol/L (3.5-5.1) Chloride Level 94 mmol/L (98-107) Carbon Dioxide Level 21 mmol/L (21-32) Anion Gap 15 (6-14) Blood Urea Nitrogen 46 mg/dL (7-20) Creatinine 7.2 mg/dL (0.6-1.0) Estimated GFR (Cockcroft-Gault) 5.9 BUN/Creatinine Ratio 6 (6-20) Glucose Level 358 mg/dL (70-99) Calcium Level 8.2 mg/dL (8.5-10.1) Total Bilirubin 0.3 mg/dL (0.2-1.0) Aspartate Amino Transf (AST/SGOT) 195 U/L (15-37) Alanine Aminotransferase (ALT/SGPT) 177 U/L (14-59) Alkaline Phosphatase 175 U/L (46-116) Total Protein 5.2 g/dL (6.4-8.2) Albumin 1.3 g/dL (3.4-5.0) Albumin/Globulin Ratio 0.3 (1.0-1.7) Lactic Acid Level 2.1 mmol/L (0.4-2.0) Laboratory Tests Test 09/10/19 12:25 09/10/19 16:22 09/10/19 21:21 09/11/19 05:16 Influenza Type A Antigen Negative (NEGATIVE) Influenza Type B Antigen Negative (NEGATIVE) Glucose (Fingerstick) 272 mg/dL (70-99) 236 mg/dL (70-99) White Blood Count 25.4 x10^3/uL (4.0-11.0) Red Blood Count 2.38 x10^6/uL (3.50-5.40) Hemoglobin 8.2 g/dL (12.0-15.5) Hematocrit 25.2 % (36.0-47.0) Mean Corpuscular Volume 106 fL (79-100) Mean Corpuscular Hemoglobin 34 pg (25-35) Mean Corpuscular Hemoglobin Concent 33 g/dL (31-37) Red Cell Distribution Width 22.3 % (11.5-14.5) Platelet Count 229 x10^3/uL (140-400) Neutrophils (%) (Auto) 89 % (31-73) Lymphocytes (%) (Auto) 4 % (24-48) Monocytes (%) (Auto) 6 % (0-9) Eosinophils (%) (Auto) 0 % (0-3) Basophils (%) (Auto) 0 % (0-3) Neutrophils # (Auto) 22.7 x10^3/uL (1.8-7.7) Lymphocytes # (Auto) 1.1 x10^3/uL (1.0-4.8) Monocytes # (Auto) 1.5 x10^3/uL (0.0-1.1) Eosinophils # (Auto) 0.1 x10^3/uL (0.0-0.7) Basophils # (Auto) 0.0 x10^3/uL (0.0-0.2) Sodium Level 130 mmol/L (136-145) Potassium Level 3.9 mmol/L (3.5-5.1) Chloride Level 94 mmol/L (98-107) Carbon Dioxide Level 21 mmol/L (21-32) Anion Gap 15 (6-14) Blood Urea Nitrogen 46 mg/dL (7-20) Creatinine 7.2 mg/dL (0.6-1.0) Estimated GFR (Cockcroft-Gault) 5.9 BUN/Creatinine Ratio 6 (6-20) Glucose Level 358 mg/dL (70-99) Calcium Level 8.2 mg/dL (8.5-10.1) Total Bilirubin 0.3 mg/dL (0.2-1.0) Aspartate Amino Transf (AST/SGOT) 195 U/L (15-37) Alanine Aminotransferase (ALT/SGPT) 177 U/L (14-59) Alkaline Phosphatase 175 U/L (46-116) Total Protein 5.2 g/dL (6.4-8.2) Albumin 1.3 g/dL (3.4-5.0) Albumin/Globulin Ratio 0.3 (1.0-1.7) Test 09/11/19 08:43 09/11/19 10:30 Glucose (Fingerstick) 269 mg/dL (70-99) Lactic Acid Level 2.1 mmol/L (0.4-2.0) Problem List decub ulcer plan debridement when stable LOLI AMEZCUA MD Sep 11, 2019 11:44
--- NOTE | 2019-09-11 12:01 | PDOC ---
PULMONARY PROGRESS NOTES Subjective PT WITH NO INCREASE SOA Vitals Vital Signs Date Time Temp Pulse Resp B/P (MAP) Pulse Ox O2 Delivery O2 Flow Rate FiO2 09/11/19 10:18 69 82/47 09/11/19 08:56 100 Nasal Cannula 3.0 09/11/19 06:00 22 09/11/19 04:00 97.6 97.6 General: Alert, No acute distress Lungs: Clear Cardiovascular: S1 Abdomen: Soft Neuro Exam: Alert Extremities: No Edema Labs Laboratory Tests Test 09/09/19 12:05 09/09/19 16:58 09/09/19 21:54 09/10/19 00:44 Glucose (Fingerstick) 262 mg/dL (70-99) 238 mg/dL (70-99) 317 mg/dL (70-99) O2 Saturation 99 % (92-99) Arterial Blood pH 7.34 (7.35-7.45) Arterial Blood pCO2 at Patient Temp 31 mmHg (35-46) Arterial Blood pO2 at Patient Temp 172 mmHg (75-108) Arterial Blood HCO3 16 mmol/L (21-28) Arterial Blood Base Excess -9 mmol/L (-3-3) FiO2 50 Test 09/10/19 00:45 09/10/19 06:30 09/10/19 12:25 09/10/19 16:22 White Blood Count 31.5 x10^3/uL (4.0-11.0) 25.7 x10^3/uL (4.0-11.0) Red Blood Count 2.85 x10^6/uL (3.50-5.40) 2.56 x10^6/uL (3.50-5.40) Hemoglobin 9.9 g/dL (12.0-15.5) 8.7 g/dL (12.0-15.5) Hematocrit 30.4 % (36.0-47.0) 27.8 % (36.0-47.0) Mean Corpuscular Volume 107 fL (79-100) 108 fL (79-100) Mean Corpuscular Hemoglobin 35 pg (25-35) 34 pg (25-35) Mean Corpuscular Hemoglobin Concent 32 g/dL (31-37) 31 g/dL (31-37) Red Cell Distribution Width 21.7 % (11.5-14.5) 21.5 % (11.5-14.5) Platelet Count 342 x10^3/uL (140-400) 279 x10^3/uL (140-400) Neutrophils (%) (Auto) 87 % (31-73) 90 % (31-73) Lymphocytes (%) (Auto) 5 % (24-48) 4 % (24-48) Monocytes (%) (Auto) 8 % (0-9) 6 % (0-9) Eosinophils (%) (Auto) 0 % (0-3) 0 % (0-3) Basophils (%) (Auto) 0 % (0-3) 0 % (0-3) Neutrophils # (Auto) 27.4 x10^3/uL (1.8-7.7) 23.1 x10^3/uL (1.8-7.7) Lymphocytes # (Auto) 1.6 x10^3/uL (1.0-4.8) 0.9 x10^3/uL (1.0-4.8) Monocytes # (Auto) 2.4 x10^3/uL (0.0-1.1) 1.6 x10^3/uL (0.0-1.1) Eosinophils # (Auto) 0.1 x10^3/uL (0.0-0.7) 0.0 x10^3/uL (0.0-0.7) Basophils # (Auto) 0.0 x10^3/uL (0.0-0.2) 0.0 x10^3/uL (0.0-0.2) Sodium Level 124 mmol/L (136-145) 122 mmol/L (136-145) Potassium Level 4.5 mmol/L (3.5-5.1) 4.6 mmol/L (3.5-5.1) Chloride Level 88 mmol/L (98-107) 89 mmol/L (98-107) Carbon Dioxide Level 20 mmol/L (21-32) 17 mmol/L (21-32) Anion Gap 16 (6-14) 16 (6-14) Blood Urea Nitrogen 52 mg/dL (7-20) 51 mg/dL (7-20) Creatinine 7.9 mg/dL (0.6-1.0) 7.9 mg/dL (0.6-1.0) Estimated GFR (Cockcroft-Gault) 5.3 5.3 BUN/Creatinine Ratio 7 (6-20) 6 (6-20) Glucose Level 427 mg/dL (70-99) 481 mg/dL (70-99) Lactic Acid Level 5.3 mmol/L (0.4-2.0) 4.6 mmol/L (0.4-2.0) Calcium Level 8.9 mg/dL (8.5-10.1) 8.5 mg/dL (8.5-10.1) Phosphorus Level 2.4 mg/dL (2.6-4.7) Magnesium Level 1.4 mg/dL (1.8-2.4) Total Bilirubin 0.6 mg/dL (0.2-1.0) 0.4 mg/dL (0.2-1.0) Aspartate Amino Transf (AST/SGOT) 16 U/L (15-37) 36 U/L (15-37) Alanine Aminotransferase (ALT/SGPT) 18 U/L (14-59) 21 U/L (14-59) Alkaline Phosphatase 243 U/L (46-116) 207 U/L (46-116) Total Protein 6.5 g/dL (6.4-8.2) 5.7 g/dL (6.4-8.2) Albumin 1.8 g/dL (3.4-5.0) 1.5 g/dL (3.4-5.0) Albumin/Globulin Ratio 0.4 (1.0-1.7) 0.4 (1.0-1.7) Thyroid Stimulating Hormone (TSH) 4.338 uIU/mL (0.358-3.74) Influenza Type A Antigen Negative (NEGATIVE) Influenza Type B Antigen Negative (NEGATIVE) Glucose (Fingerstick) 272 mg/dL (70-99) Test 09/10/19 21:21 09/11/19 05:16 09/11/19 08:43 09/11/19 10:30 Glucose (Fingerstick) 236 mg/dL (70-99) 269 mg/dL (70-99) White Blood Count 25.4 x10^3/uL (4.0-11.0) Red Blood Count 2.38 x10^6/uL (3.50-5.40) Hemoglobin 8.2 g/dL (12.0-15.5) Hematocrit 25.2 % (36.0-47.0) Mean Corpuscular Volume 106 fL (79-100) Mean Corpuscular Hemoglobin 34 pg (25-35) Mean Corpuscular Hemoglobin Concent 33 g/dL (31-37) Red Cell Distribution Width 22.3 % (11.5-14.5) Platelet Count 229 x10^3/uL (140-400) Neutrophils (%) (Auto) 89 % (31-73) Lymphocytes (%) (Auto) 4 % (24-48) Monocytes (%) (Auto) 6 % (0-9) Eosinophils (%) (Auto) 0 % (0-3) Basophils (%) (Auto) 0 % (0-3) Neutrophils # (Auto) 22.7 x10^3/uL (1.8-7.7) Lymphocytes # (Auto) 1.1 x10^3/uL (1.0-4.8) Monocytes # (Auto) 1.5 x10^3/uL (0.0-1.1) Eosinophils # (Auto) 0.1 x10^3/uL (0.0-0.7) Basophils # (Auto) 0.0 x10^3/uL (0.0-0.2) Sodium Level 130 mmol/L (136-145) Potassium Level 3.9 mmol/L (3.5-5.1) Chloride Level 94 mmol/L (98-107) Carbon Dioxide Level 21 mmol/L (21-32) Anion Gap 15 (6-14) Blood Urea Nitrogen 46 mg/dL (7-20) Creatinine 7.2 mg/dL (0.6-1.0) Estimated GFR (Cockcroft-Gault) 5.9 BUN/Creatinine Ratio 6 (6-20) Glucose Level 358 mg/dL (70-99) Calcium Level 8.2 mg/dL (8.5-10.1) Total Bilirubin 0.3 mg/dL (0.2-1.0) Aspartate Amino Transf (AST/SGOT) 195 U/L (15-37) Alanine Aminotransferase (ALT/SGPT) 177 U/L (14-59) Alkaline Phosphatase 175 U/L (46-116) Total Protein 5.2 g/dL (6.4-8.2) Albumin 1.3 g/dL (3.4-5.0) Albumin/Globulin Ratio 0.3 (1.0-1.7) Lactic Acid Level 2.1 mmol/L (0.4-2.0) Laboratory Tests Test 09/10/19 12:25 09/10/19 16:22 09/10/19 21:21 09/11/19 05:16 Influenza Type A Antigen Negative (NEGATIVE) Influenza Type B Antigen Negative (NEGATIVE) Glucose (Fingerstick) 272 mg/dL (70-99) 236 mg/dL (70-99) White Blood Count 25.4 x10^3/uL (4.0-11.0) Red Blood Count 2.38 x10^6/uL (3.50-5.40) Hemoglobin 8.2 g/dL (12.0-15.5) Hematocrit 25.2 % (36.0-47.0) Mean Corpuscular Volume 106 fL (79-100) Mean Corpuscular Hemoglobin 34 pg (25-35) Mean Corpuscular Hemoglobin Concent 33 g/dL (31-37) Red Cell Distribution Width 22.3 % (11.5-14.5) Platelet Count 229 x10^3/uL (140-400) Neutrophils (%) (Auto) 89 % (31-73) Lymphocytes (%) (Auto) 4 % (24-48) Monocytes (%) (Auto) 6 % (0-9) Eosinophils (%) (Auto) 0 % (0-3) Basophils (%) (Auto) 0 % (0-3) Neutrophils # (Auto) 22.7 x10^3/uL (1.8-7.7) Lymphocytes # (Auto) 1.1 x10^3/uL (1.0-4.8) Monocytes # (Auto) 1.5 x10^3/uL (0.0-1.1) Eosinophils # (Auto) 0.1 x10^3/uL (0.0-0.7) Basophils # (Auto) 0.0 x10^3/uL (0.0-0.2) Sodium Level 130 mmol/L (136-145) Potassium Level 3.9 mmol/L (3.5-5.1) Chloride Level 94 mmol/L (98-107) Carbon Dioxide Level 21 mmol/L (21-32) Anion Gap 15 (6-14) Blood Urea Nitrogen 46 mg/dL (7-20) Creatinine 7.2 mg/dL (0.6-1.0) Estimated GFR (Cockcroft-Gault) 5.9 BUN/Creatinine Ratio 6 (6-20) Glucose Level 358 mg/dL (70-99) Calcium Level 8.2 mg/dL (8.5-10.1) Total Bilirubin 0.3 mg/dL (0.2-1.0) Aspartate Amino Transf (AST/SGOT) 195 U/L (15-37) Alanine Aminotransferase (ALT/SGPT) 177 U/L (14-59) Alkaline Phosphatase 175 U/L (46-116) Total Protein 5.2 g/dL (6.4-8.2) Albumin 1.3 g/dL (3.4-5.0) Albumin/Globulin Ratio 0.3 (1.0-1.7) Test 09/11/19 08:43 09/11/19 10:30 Glucose (Fingerstick) 269 mg/dL (70-99) Lactic Acid Level 2.1 mmol/L (0.4-2.0) Medications Active Scripts Medications Dose Route/Sig Max Daily Dose Days Date Category Doxycycline Hyclate 100 Mg Capsule 1 Cap PO BID 08/29/19 Rx Streeter 5-325 Tablet (Acetaminophen/Hydrocodone Bitart) 1 Each Tablet 1 Tab PO PRN Q6HRS PRN 07/08/19 Rx Streeter 5-325 Tablet (Acetaminophen/Hydrocodone Bitart) 1 Each Tablet 1 Tab PO Q6HRS 06/08/19 Rx Bactrim Ds Tablet (Sulfamethoxazole/Trimethoprim) 1 Each Tablet 1 Tab PO BID 04/07/19 Rx Cephalexin 500 Mg Tablet 1 Tab PO TID 04/07/19 Rx Lisinopril 40 Mg Tablet 20 Mg PO BID 30 01/03/19 Rx Brilinta (Ticagrelor) 90 Mg Tablet 90 Mg PO BID 60 01/03/19 Rx Tramadol Hcl 50 Mg Tablet 50 Mg PO PRN Q6HRS PRN 01/02/19 Reported Melatonin 3 Mg Tablet 1 Tab PO QHS 01/02/19 Reported Imodium A-D (Loperamide HCl) 2 Mg Capsule 2 Mg PO PRN PRN 01/02/19 Reported Proair Hfa (Albuterol Sulfate) 8.5 Gm Hfa.aer.ad 2 Puff INH QID PRN 01/02/19 Reported Ammonium Lactate 226 Gm Lotion 1 Gm TP DAILY 01/02/19 Reported Montelukast Sodium Tablet (Montelukast Sodium) 10 Mg Tablet 1 Tab PO DAILY 01/02/19 Reported Metolazone 2.5 Mg Tablet 2.5 Mg PO DAILY 01/02/19 Reported Voltaren (Diclofenac Sodium) 100 Gm Gel..gram. 2 Gm TP QID PRN 01/02/19 Reported Sulfacetamide Sodium 3.5 Gm Oint...g. 0.5 Inch OP Q2DAYS AT HS 01/02/19 Reported Clotrimazole 15 Gm Cream..g. 1 Katarzyna TP BID 01/02/19 Reported Furosemide 40 Mg Tablet 1 Tab PO BID 01/02/19 Reported Calcium Acetate 667 Mg Tablet 2 Cap PO TIDWMEALS 01/02/19 Reported Symbicort 160-4.5 Mcg Inhaler (Budesonide/Formoterol Fumarate) 10.2 Gm Hfa.aer.ad 2 Puff INH BID 01/02/19 Reported Lantus (Insulin Glargine,Hum.rec.anlog) 100 Unit/1 Ml Vial 20 Unit SQ HS 06/14/18 Reported Aspirin 81 Mg Tab.chew 81 Mg PO DAILY 06/08/18 Reported Duoneb 0.5-3(2.5) Mg/3 Ml (Albuterol/Ipratropium) 3 Ml Ampul.neb 3 Ml NEB QID 06/08/18 Reported Zofran Odt (Ondansetron) 8 Mg Tab.rapdis 8 Mg PO BID PRN 06/08/18 Reported Meclizine Hcl 12.5 Mg Tablet 1 Tab PO TID 06/08/18 Reported Famotidine 20 Mg Tablet 20 Mg PO BID 06/08/18 Reported Midodrine Hcl 5 Mg Tablet 5 Mg PO TID 05/26/18 Reported Folic Acid 1 Mg Tablet 1 Mg PO DAILY 05/26/18 Reported Hydralazine Hcl 50 Mg Tablet 100 Mg PO TID 05/26/18 Reported Loratadine 10 Mg Tab.rapdis 10 Mg PO DAILY 05/26/18 Reported NITROGLYCERIN SubLingual (Nitroglycerin) 0.4 Mg Tab.subl 0.4 Mg SL PRN Q5MIN PRN 09/16/14 Reported Flonase (Fluticasone Propionate) 16 Gm [place].susp 1 [place] NS BID 09/16/14 Reported Ventolin Hfa Inhaler (Albuterol Sulfate) 18 Gm Hfa.aer.ad 2 Puff INH Q6HRS PRN 09/16/14 Reported Carvedilol (Carvedilol) 12.5 Mg Tablet 12.5 Mg PO BID 09/16/14 Reported Lipitor (Atorvastatin Calcium) 80 Mg Tablet 1 Tab PO QEVNG 08/30/14 Reported Impression . IMPRESSION: 1. Acute hypoxemic respiratory failure secondary to sepsis. 2. Sepsis with hypotension. 3. Infected necrotic ulcer of the left ischium. 4. Leukocytosis. 5. Left leg ulcer. 6. Peripheral vascular disease. 7. Chronic kidney disease, on peritoneal dialysis. 8. Type 2 diabetes. 9. History of Clostridium difficile. 10. History of methicillin-resistant Staphylococcus aureus pneumonia. CT CHEST MPRESSION: 1. There are small dependent pleural effusions bilaterally, density characteristics measuring greater than simple fluid although findings may be accentuated by motion degradation. There is lower lobe bronchial wall thickening bilaterally also degree of endobronchial density which could be due to mucus plugging although cannot accurately exclude underlying endobronchial lesion. There is some perihilar density which may be due to degree of edema especially given pleural effusions. Component of left ventricular failure is possible. 2. Not fully included, there is heterogeneity of the visualized bilateral breasts, mass in the deep right breast not excludable by this exam, better evaluated by mammography and ultrasound if needed. 3. There is coronary calcification. Plan . WILL CONTINUE SUPPORT FOLLOW SURGERY INPUT ON TIMING OF DEBREMENT 1. We will continue to support with oxygen supplementation, p.r.n. BiPAP. 2. CT CHEST REPORT NOTED 3. Empiric antibiotics. 4. Continue peritoneal dialysis. 5. DVT and GI prophylaxis. EDDIE BARCLAY MD Sep 11, 2019 12:01
--- NOTE | 2019-09-11 13:46 | PDOC ---
[facility] HEALTHCARE APPLICATIONS ANALYST 09/11/19 1346: CARDIO Progress Notes Date and Time Date of Service 09/11/2019 Time of Evaluation 0950 Subjective Subjective: No Chest Pain, No Palpitations, Other (SOA better) Vitals Vitals Vital Signs Date Time Temp Pulse Resp B/P (MAP) Pulse Ox O2 Delivery O2 Flow Rate FiO2 09/11/19 10:18 69 82/47 09/11/19 08:56 100 Nasal Cannula 3.0 09/11/19 06:00 22 09/11/19 04:00 97.6 97.6 Weight Weight [ ] Input and Output Intake and Output Intake and Output 09/11/19 07:00 Intake Total 4901 ml Output Total 22 ml Balance 4879 ml Intake Oral 120 ml IV Total 4781 ml Output Urine Total 22 ml Laboratory Labs Laboratory Tests Test 09/10/19 16:22 09/10/19 21:21 09/11/19 05:16 09/11/19 08:43 Glucose (Fingerstick) 272 mg/dL (70-99) 236 mg/dL (70-99) 269 mg/dL (70-99) White Blood Count 25.4 x10^3/uL (4.0-11.0) Red Blood Count 2.38 x10^6/uL (3.50-5.40) Hemoglobin 8.2 g/dL (12.0-15.5) Hematocrit 25.2 % (36.0-47.0) Mean Corpuscular Volume 106 fL (79-100) Mean Corpuscular Hemoglobin 34 pg (25-35) Mean Corpuscular Hemoglobin Concent 33 g/dL (31-37) Red Cell Distribution Width 22.3 % (11.5-14.5) Platelet Count 229 x10^3/uL (140-400) Neutrophils (%) (Auto) 89 % (31-73) Lymphocytes (%) (Auto) 4 % (24-48) Monocytes (%) (Auto) 6 % (0-9) Eosinophils (%) (Auto) 0 % (0-3) Basophils (%) (Auto) 0 % (0-3) Neutrophils # (Auto) 22.7 x10^3/uL (1.8-7.7) Lymphocytes # (Auto) 1.1 x10^3/uL (1.0-4.8) Monocytes # (Auto) 1.5 x10^3/uL (0.0-1.1) Eosinophils # (Auto) 0.1 x10^3/uL (0.0-0.7) Basophils # (Auto) 0.0 x10^3/uL (0.0-0.2) Sodium Level 130 mmol/L (136-145) Potassium Level 3.9 mmol/L (3.5-5.1) Chloride Level 94 mmol/L (98-107) Carbon Dioxide Level 21 mmol/L (21-32) Anion Gap 15 (6-14) Blood Urea Nitrogen 46 mg/dL (7-20) Creatinine 7.2 mg/dL (0.6-1.0) Estimated GFR (Cockcroft-Gault) 5.9 BUN/Creatinine Ratio 6 (6-20) Glucose Level 358 mg/dL (70-99) Calcium Level 8.2 mg/dL (8.5-10.1) Total Bilirubin 0.3 mg/dL (0.2-1.0) Aspartate Amino Transf (AST/SGOT) 195 U/L (15-37) Alanine Aminotransferase (ALT/SGPT) 177 U/L (14-59) Alkaline Phosphatase 175 U/L (46-116) Total Protein 5.2 g/dL (6.4-8.2) Albumin 1.3 g/dL (3.4-5.0) Albumin/Globulin Ratio 0.3 (1.0-1.7) Test 09/11/19 10:30 09/11/19 12:08 Lactic Acid Level 2.1 mmol/L (0.4-2.0) Glucose (Fingerstick) 297 mg/dL (70-99) Microbiology Micro Microbiology 09/10/19 Blood Culture - Preliminary, Resulted NO GROWTH AFTER 1 DAY Review of Systems Constitutional: yes: weakness, alert, oriented Ears/Nose/Throat: Yes: no symptom reported Eyes: Yes: no symptom reported Pulmonary: Yes no symptom reported Cardiovascular: Yes edema Gastrointestional: Yes: constipation Genitourinary: Yes: no symptom reported Musculoskeletal: Yes: muscle stiffness Skin: Yes color change Psychiatric/Neurological: Yes: no symptom reported Endocrine: Yes: no symptom reported Hematologic/Lymphatic: Yes: no symptom reported Physical Exam HEENT: Neck Supple W Full Motion Chest: Symmetric Heart: RRR (SR) Abdomen: Other (obese) Extremities: Other (anasarca) Neurology: alert, oriented, follow commands Assessment Assessment 1. CAD s/p PCI to the RCA, clinically stable. EF nml 2. PAD with multiple LE wounds 3. Septic shock: still requiring levo 4. ESRD on PD. 5. Ischial decub: debridement pending 6. Arrhythmia: SR with episodes of NSVT vs abberant PAFIB.. Induced by metabolic issues and hypomagnesemia Recommendations 1. Stable from CV standpoint. ASA 2. Continue secondary prevention measures as tolerated. Hold BP meds for now. Continue levophed as warranted 3. Runoff reviewed, will need percutaneous revascularization at some point once infection is better. Vascular is following 4. Replace Mg warranted YURY KAUR MD 09/11/191945: CARDIO Progress Notes Plan Plan Patient seen and examined. Agree with above nurse practitioner note. She is much more awake today and alert. CT angiogram reviewed. Bilateral SFA stenoses noted. Nothing critical that should prevent any wound healing at this point from her buttock wound perspective. After the buttock wound is addressed outpatient evaluation for her SFA disease as needed. INO COMBS APRN Sep 11, 2019 13:46 YURY KAUR MD Sep 11, 2019 19:46
--- NOTE | 2019-09-11 15:18 | RAD ---
Examination: PORTABLE CHEST 1V History: Respiratory failure Comparison/Correlation: CT chest without contrast 09/10/2019 Findings: Portable semiupright frontal view of the chest was obtained. Sternal wires and mediastinal clips are present. Cardiomegaly is present. No pneumothorax. Right-sided PICC noted. Mild pulmonary vasculature congestion. No focal infiltrate. Small pleural effusions seen on CT exam of 09/10/2019 are not as well-demonstrated on chest x-ray exam. Impression: Mild CHF. No focal infiltrate. No suspicious change. Electronically signed by: Ji Koroma MD (09/11/2019 3:15 PM) [facility] [place]
[2019-09-11] MEDS ORDERED: MAGNESIUM SULFATE 2GM 50 ML IV ONE (15:45)
[2019-09-11] MEDS ORDERED: EPINEPHrine SYRINGE 1 MG/10 ML SYRINGE ONE (16:00)
[2019-09-11] MEDS ORDERED: SODIUM HYPOCHLORITE 0.125% 473 ML BOTTLE. TP SCH (17:00)
[2019-09-11] MEDS: MORPHINE SULFATE 2 MG/ML VIAL. IV PRN (17:43)
--- NOTE | 2019-09-11 18:44 | NUR ---
Wound Care: Patient seen per wound care for Veraflo vac placement to the pressure ulcer on the left ischium/buttock wound and dressing change to the left posterior calf stasis ulcer. Patient medicated for pain relief. Wounds cleansed and assessed. Left calf wound redressed with medi-honey, vaseline gauze, and foam dressing. Skin prepped for Veraflo vac placement, an ostomy ring placed to price-wound, 4 pieces of foam placed to wound, a good seal maintained. Veraflo set to 125mmHg intermittent with 20mL instilled, every 3.5 hours for a 4 minute dwell time. Patient repositioned and turned to right side using wedge. Bilateral Rooke boots placed back on patient. Patient educated on pressure relief and turning. patient v/u. Patient on ICU bed at this time. Bed lowered and call light in reach. Wound care will follow up for next vac dressing change.
--- NOTE | 2019-09-11 21:12 | RAD ---
CHEST AP ONLY History: Shortness of breath Comparison: Exam earlier this same day Findings: Single view of the chest is submitted. There again has been a median sternotomy. Pericardial cardiac silhouette is again enlarged. There is increased left base airspace opacity. There is mild hazy airspace opacity of the right hemithorax at the base although fairly similar. Perihilar opacity bilaterally is also somewhat greater. There is atherosclerotic calcification near aortic arch. There is again right extremity PICC with tip terminating near the cavoatrial junction. Impression: 1. There is increased left base opacity which may be infiltrate or edema, also some increased perihilar opacity bilaterally more likely component of edema. Electronically signed by: Dereck Andujar MD (09/11/2019 9:09 PM) [id number]
[2019-09-11] MEDS ORDERED: SODIUM BICARB ADULT 8.4% 50 MEQ/50 ML DISP.SYRIN. ONE (21:21)
--- NOTE | 2019-09-11 21:31 | NUR ---
THIS RN IN TO SEE PATIENT FOR ASSESSMENT AT 1999. PATIENT ALERT, TALKATIVE. RN LEFT ROOM. RT CALLED FOR HELP. PATIENT INCREASINGLY SOA, PLACED ON O2. FLUIDS SHUT OFF. PATIENT BECAME UNRESPONSIVE, CODE CALLED. SEE FLOW SHEET. PATIENT OBTAINED ROSC. DR KAUR SUGGESTED INTUBATION. SLINGER SEQUINS LAITH IN TO TALK WITH PATIENT. PATIENT ALERT AND ORIENTED. AGREEABLE TO INTUBATION, REQUESTED HER BE CALLED. PATIENT WAS BEING INTUBATED, PATIENT BECAME BRADYCARDIC, LOST PULSE. CODE BLUE CALLED AGAIN. SON CALLED AT 2104 WELL SISTER. REQUESTED THAT THEY COME AND SEE PATIENT. SEE CODE SHEET FOR DETAILS. NG TUBE PLACED, GREEN BILE SUCTIONED OUT. ABDOMEN NOTED TO BE VERY FIRM AND DISTENDED. DIALYSIS NURSE CALLED, RECIEVED INSTRUCTIONS TO STOP PERITONEAL DIALYSIS. AFTER MULTIPLE ATTEMPTS OF RESUSCITATION, TIME OF CALLED BY ER PHYSICIAN. FAMILY TO ICU AT 2139. VERY UPSET, DISTRAUGHT, WAILING. COMFORT MEASURES ATTEMPTED. SECURITY CALLED. FAMILY ABLE TO CALM DOWN SOME. SON PROVIDED INFORMATION FOR PREFERRED SKILLED NURSING. ALL PHYSICIANS NOTIFIED. MTN NOTIFIED. NOT A CANDIDATE FOR DONATION. PATIENT CLEANED, ALL APPROPRIATE MEDICAL DEVICES REMOVED. DATA ASSISTANT ON THE UNIT DURING CODE. FAMILY LEFT AT 0100.
== END 2019-09-11 21:31 | disposition expired | DRG 871 ==
LOC: 4 NORTH 14:33 → 1 WEST ICU 09-08 01:11
PROVIDERS: ADMIT Internal Medicine; ATTEND Internal Medicine
PROC: 02HV33Z Insertion of Infusion Device into Superior Vena Cava, Percutaneous Approach (ICD-10-PCS; principal; 2019-09-07)
PROC: 3E1M39Z Irrigation of Peritoneal Cavity using Dialysate, Percutaneous Approach (ICD-10-PCS; 2019-09-07)
DX: A41.9 Sepsis, unspecified organism (principal); N18.6 End stage renal disease; J96.01 Acute respiratory failure with hypoxia; R65.21 Severe sepsis with septic shock; E87.2 Acidosis; G93.40 Encephalopathy, unspecified; I13.2 Hypertensive heart and chronic kidney disease with heart failure and with stage 5 chronic kidney disease, or end stage renal disease; I50.42 Chronic combined systolic (congestive) and diastolic (congestive) heart failure; L97.929 Non-pressure chronic ulcer of unspecified part of left lower leg with unspecified severity; E87.1 Hypo-osmolality and hyponatremia; L89.329 Pressure ulcer of left buttock, unspecified stage; D64.9 Anemia, unspecified; E11.22 Type 2 diabetes mellitus with diabetic chronic kidney disease; E11.43 Type 2 diabetes mellitus with diabetic autonomic (poly)neuropathy; E11.51 Type 2 diabetes mellitus with diabetic peripheral angiopathy without gangrene; E11.65 Type 2 diabetes mellitus with hyperglycemia; E78.5 Hyperlipidemia, unspecified; I25.10 Atherosclerotic heart disease of native coronary artery without angina pectoris; J44.9 Chronic obstructive pulmonary disease, unspecified; K31.84 Gastroparesis; L89.310 Pressure ulcer of right buttock, unstageable; Z79.4 Long term (current) use of insulin; Z82.49 Family history of ischemic heart disease and other diseases of the circulatory system; Z83.3 Family history of diabetes mellitus; Z86.14 Personal history of Methicillin resistant Staphylococcus aureus infection; Z86.73 Personal history of transient ischemic attack (TIA), and cerebral infarction without residual deficits; Z87.19 Personal history of other diseases of the digestive system; Z87.891 Personal history of nicotine dependence; Z95.1 Presence of aortocoronary bypass graft; Z95.5 Presence of coronary angioplasty implant and graft; Z99.2 Dependence on renal dialysis; E21.3 Hyperparathyroidism, unspecified; E66.01 Morbid (severe) obesity due to excess calories; Z68.37 Body mass index [BMI] 37.0-37.9, adult; F32.9 Major depressive disorder, single episode, unspecified; M19.90 Unspecified osteoarthritis, unspecified site; R41.0 Disorientation, unspecified
CPT/HCPCS: 36415; 36569; 36600; 70450; 71045; 71250; 75635; 80048; 80053; 82805; 82962; 83605; 83735; 84100; 84443; 85007; 85025; 87040; 87071; 87075; 87804; 93005; 93923; 94640; 94760; J0171; J0882; J1450; J1644; J1815; J2020; J2060; J2270; J2543; J3475; J7030; J7040; J7613; J7620; J7626; J8597; Q9967; G0378